=== PATIENT | female | born 1985 | race Caucasian/White ===

== ENCOUNTER → 2018-02-09 12:46 | Outpatient (CLI) | payer OTHER, SELFPAY ==
[2018-02-09 13:55] LABS: Thyroid Stim Hormone (TSH) 0.77 uIU/mL (0.358-3.74)
[2018-02-10 08:26] LABS: Progesterone Level 22.87 ng/mL (See Comment)
== END ==
PROVIDERS: Family Provider Family Medicine; PCP Family Medicine; Visit Provider Family Medicine
DX: N92.0 Excessive and frequent menstruation with regular cycle (principal); L65.9 Nonscarring hair loss, unspecified
CPT/HCPCS: 36415; 84144; 84443

== ENCOUNTER → 2018-03-01 18:05 | Outpatient (CLI) | payer OTHER, SELFPAY ==
[2018-03-01 20:56] LABS: Chlamydia Trachomatis by PCR Negative (Negative); Neisserai gonorrhoeae by PCR Negative (Negative); Probe Check PASS; Sample Adequacy Control PASS; Specimen Processing Control PASS
== END ==
PROVIDERS: Family Provider Family Medicine; PCP Family Medicine; Visit Provider Obstetrics & Gynecology
DX: Z34.90 Encounter for supervision of normal pregnancy, unspecified, unspecified trimester (principal)
CPT/HCPCS: 87086; 87088; 87491; 87591

== ENCOUNTER → 2018-03-02 11:03 | Outpatient (CLI) | payer OTHER, SELFPAY ==
[2018-03-02 12:39] LABS: Absolute Lymphocyte Count 2.06 X10^3/ul (0.83-4.51); Absolute Neutrophil Count 5.6 X10^3/uL (2.0-7.7); Basophil# 0.02 X10^3/uL; Basophil% 0.2 % (0-1); Eosinophils% 1.2 % (0-5); Hematocrit 37.7 % (37-47); Hemoglobin 12.6 g/dl (12.0-15.0); Lymphocyte # 2.06 X10^3/ul (4.0); Lymphocyte % 24.1 % (19-41); Mean Corp Hgb Conc 33.4 g/gl (32-36); Mean Corpuscular Hgb 27.5 pg (27.0-32.0); Mean Corpuscular Volume 82.1 fL (81-99); Mean Platelet Vol. 9.1 fl (6.2-12.0); Monocyte% 9.4 % (0-10); Neutrophil # 5.56 X10^3/uL (2.7-7.7); Neutrophil % 65.1 % (47-70); Platelet Count 198 K/mm3 (150-450); RBC Distribution Width CV 13.5 % (11.6-14.6); RBC Distribution Width SD 40.5 fl (35.1-43.9); Red Blood Count 4.59 M/mm3 (4.2-5.4); White Blood Count 8.5 K/mm3 (4.4-11.0)
[2018-03-02 12:42] LABS: POSITIVE COUNT NO; POSITIVE DIFFERENTIAL NO; POSITIVE MORPHOLOGY NO
[2018-03-02 13:05] LABS: Glucose Challenge Gest 1H 50g 102 mg/dL (70-140)
[2018-03-03 09:36] LABS: HIV - WCH Non-Reactive (Nonreactive); Rubella IgG 484.3 IU/mL
[2018-03-03 11:31] LABS: HEPATITIS B SURFACE AG Negative (Negative)
[2018-03-05 01:12] LABS: Rapid Plasmin Reagin (RPR) NONREACTIVE (NONREACTIVE)
== END ==
PROVIDERS: Family Provider Family Medicine; PCP Family Medicine; Visit Provider Obstetrics & Gynecology
DX: Z34.90 Encounter for supervision of normal pregnancy, unspecified, unspecified trimester (principal)
CPT/HCPCS: 36415; 82950; 85025; 86592; 86703; 86762; 86850; 86900; 87340

== ENCOUNTER → 2018-04-15 15:14 | Outpatient (CLI) | payer OTHER, SELFPAY | PROVIDERS: Family Provider Family Medicine; PCP Family Medicine; Visit Provider Obstetrics & Gynecology | DX: O09.91 Supervision of high risk pregnancy, unspecified, first trimester (principal) | CPT/HCPCS: 36415; 87086; 87088 ==

== ENCOUNTER 2018-05-15 21:59 | Emergency (ER) | payer OTHER, SELFPAY ==
[2018-05-15 22:00] VITALS: BP 114/65; PULSE 69; RESP 16; TEMP 36.4; O2SAT 99; BMI 34.4
--- NOTE | 2018-05-15 22:43 | US_ITS ---
STUDY: SECOND AND THIRD TRIMESTER OBSTETRICAL ULTRASOUND - LIMITED REASON FOR EXAM: Female, 33 years old. Determination of well-being. Evaluation of heart rate LMP: 01/07/2018 PRIOR ULTRASOUND: None. TECHNIQUE: Transabdominal ultrasound evaluation was performed. FINDINGS: The study shows a single live fetus in a breech presentation and longitudinal lie with a heart rate of 14 6 bpm. Using the LMP the gestational age is 18 weeks 2 days +/- 5 days with an expected date of delivery of 10/14/2018. The placenta is anterior in location. The cervical os is closed. US/OB Limited (No Biometrics) IMPRESSION: The fetus is in a breech presentation and longitudinal lie. heart rate of 146 bpm. The fetus, based on the LMP is currently at 18 weeks 2 days +/- 5 days with an expected date of delivery of 10/14/2018. Electronically Signed: Pepe Mcmahan, at 1:09 EDT Tel , Service support ,
--- NOTE | 2018-05-15 22:44 | ED.VISSUMM ---
- ER Visit Summary Date of Service: 05/15/18 Chief Complaint: [abdominal pain] History of Present Illness: The patient is a 33 F [who presents the emergency department with 2 days of general malaise. She is 18 weeks . She felt nauseated but cannot vomit. No appetite. Very uncomfortable. Additionally she has had some lower abdominal cramping today she had some low back pain. He does not feel like contractions to her. She is not having any vaginal bleeding or leakage of fluid. No fevers. She is complaining of increased urinary frequency and some discomfort with urination and foul-smelling dark urine. She spoke with her ONLINE CONTENT COORDINATOR today who called her in something for urinary tract infection however she was unable to get it. Patient did say she took Tums earlier today and that relieved her discomfort for some time but then it came back.] Physical Examination: [] WN WD NAD PERRL EOMI MMM NECK supple and nontender, no masses RRR no murmur rub or gallop, no peripheral edema, symmetric radial pulses CTAB no respiratory distress ABDOMEN is soft and well tenderness to palpation the right abdomen normal bowel sounds, no distension, no rebound or guarding SKIN is warm and dry no rashes Alert and Oriented x3, CN II-XII in tact, no motor or sensory deficits, gait normal No lymphadenopathy Test Results: [] Emergency Department Course and Treatment: [Labs show leukocytosis at 11.4 but other labs are completely normal including lipase and liver enzymes. Urinalysis does not appear infected. Urine culture was sent. I do not think the patient needs antibiotics at this time. I think a lot of her symptoms may be due to gastritis however this is not explain the lower abdominal pain. I did order an ultrasound which shows a closed cervix a live IUP with a heart rate of 146 in a breech lie. The patient is feeling better today we will start her on Pepcid. She was given gastritis precautions. I did also advise her to call her ONLINE CONTENT COORDINATOR tomorrow. She was invited to come back to the emergency department with any concerns. Treatment Plan: [] Disposition: [Discharge] Impression: [1. Abdominal pain and second trimester ] This note was generated with Aspidaation software. It may contain incorrect words, spelling, and punctuation that were not noted in review of the chart prior to signing ED Disposition - Plan for ED Patient: Chief Complaint: Abd Pain Referrals: Deyvi Lopez DO [Primary Care Provider] -
--- NOTE | 2018-05-15 22:48 | ED.DCSUM_ITS ---
- ER Visit Summary Date of Service: 05/15/18 Chief Complaint: [abdominal pain] History of Present Illness: The patient is a 33 F [who presents the emergency department with 2 days of general malaise. She is 18 weeks . She felt nauseated but cannot vomit. No appetite. Very uncomfortable. Additionally she has had some lower abdominal cramping today she had some low back pain. He does not feel like contractions to her. She is not having any vaginal bleeding or leakage of fluid. No fevers. She is complaining of increased urinary frequency and some discomfort with urination and foul-smelling dark urine. She spoke with her MANAGER RETIREMENT today who called her in something for urinary tract infection however she was unable to get it. Patient did say she took Tums earlier today and that relieved her discomfort for some time but then it came back.] Physical Examination: [] WN WD NAD PERRL EOMI MMM NECK supple and nontender, no masses RRR no murmur rub or gallop, no peripheral edema, symmetric radial pulses CTAB no respiratory distress ABDOMEN is soft and well tenderness to palpation the right abdomen normal bowel sounds, no distension, no rebound or guarding SKIN is warm and dry no rashes Alert and Oriented x3, CN II-XII in tact, no motor or sensory deficits, gait normal No lymphadenopathy Test Results: [] Emergency Department Course and Treatment: [Labs show leukocytosis at 11.4 but other labs are completely normal including lipase and liver enzymes. Urinalysis does not appear infected. Urine culture was sent. I do not think the patient needs antibiotics at this time. I think a lot of her symptoms may be due to gastritis however this is not explain the lower abdominal pain. I did order an ultrasound which shows a closed cervix a live IUP with a heart rate of 146 in a breech lie. The patient is feeling better today we will start her on Pepcid. She was given gastritis precautions. I did also advise her to call her MANAGER RETIREMENT tomorrow. She was invited to come back to the emergency department with any concerns. Treatment Plan: [] Disposition: [Discharge] Impression: [1. Abdominal pain and second trimester ] This note was generated with Conergyation software. It may contain incorrect words, spelling, and punctuation that were not noted in review of the chart prior to signing ED Disposition - Plan for ED Patient: Chief Complaint: Abd Pain Referrals: Deyvi Lopez DO [Primary Care Provider] -
[2018-05-15 23:09] LABS: Absolute Neutrophil Count 7.3 X10^3/uL (2.0-7.7); Basophil# 0.02 X10^3/uL; Basophil% 0.2 % (0-1); Eosinophil# 0.13 X10^3/uL; Eosinophils% 1.1 % (0-5); Hematocrit 35.7 % (37-47); Hemoglobin 12.4 g/dl (12.0-15.0); Lymphocyte % 25.5 % (19-41); Mean Corp Hgb Conc 34.7 g/gl (32-36); Mean Corpuscular Hgb 29.1 pg (27.0-32.0); Mean Corpuscular Volume 83.8 fL (81-99); Mean Platelet Vol. 9.3 fl (6.2-12.0); Monocyte# 0.95 X10^3/uL; Monocyte% 8.3 % (0-10); Neutrophil # 7.34 X10^3/uL (2.7-7.7); Neutrophil % 64.5 % (47-70); Platelet Count 206 K/mm3 (150-450); RBC Distribution Width CV 14.3 % (11.6-14.6); RBC Distribution Width SD 42.8 fl (35.1-43.9); Red Blood Count 4.26 M/mm3 (4.2-5.4); White Blood Count 11.4 K/mm3 (4.4-11.0)
[2018-05-15 23:11] LABS: Bacteria 0 SEEN /hpf (None Seen); Mucous, Urine 0 SEEN /hpf (<or=2+)
[2018-05-15 23:11] LABS: POSITIVE COUNT NO; POSITIVE DIFFERENTIAL NO; POSITIVE MORPHOLOGY NO
[2018-05-15 23:12] LABS: Color, Urine Yellow (Yellow); Glucose, Dipstick Normal (Normal); Ketone-Dipstick Negative (Negative); Leukocyte Esterase-Dipstick 25 /ul (Negative); Nitrite-Dipstick Negative (Negative); Occult Blood-Urine Negative /ul (Negative); Protein-Dipstick Negative (Negative); Urine Bilirubin Dipstick Negative (Negative); Urine Clarity Clear (Clear); Urine Urobilinogen Normal (Normal)
[2018-05-15 23:25] LABS: ALB/GLOB Ratio 0.8 RATIO (0.9-2.4); AST(SGOT) 16 U/L (15-37); Alanine Aminotransfer ALT/SGPT 25 U/L (13-56); Albumin, Serum 2.9 g/dL (3.2-5.0); Alkaline Phosphatase 109 U/L (45-117); Anion Gap 5 (5-15); BUN 8 mg/dL (7-18); BUN/Creat Ratio 12.2 RATIO (10-20); Calcium,Total 8.9 mg/dL (8.5-10.1); Chloride 107 mmol/L (98-107); Creatinine, Serum 0.66 mg/dL (0.55-1.02); EST Glomerular Filtration Rate 109 mL/min (>60); Est Glom Filt Rate - Afr Amer 132 mL/min (>60); Estimated Creatinine Clearance 98.42 ml/min; Globulin 3.8 g/dL (2.2-4.2); Glucose 81 mg/dL (74-106); Lipase 96 U/L (73-393); Potassium 3.5 mmol/L (3.5-5.1); Protein, Total 6.7 g/dL (6.4-8.2); Sodium Level 138 mmol/L (136-145)
[2018-05-15 23:27] LABS: Red Blood Cells-Urine 0-5 SEEN /hpf (0-5); Squamous Epithelial Cells - UA 0-5 SEEN /hpf (5-10); White Blood Cells 0-5 SEEN /hpf (0-5)
[2018-05-15] MEDS: Calcium Carbonate 1250 MG/5 ML PO (23:41)
[2018-05-15] MEDS: 0.9% Normal Saline 1,000 ML 1000 ML IV (23:41)
--- NOTE | 2018-05-15 23:55 | NURSING ---
PT ONLY WANTS TO TAKE THE CALCIUM CARBONATE AT THIS TIME
[2018-05-16 00:10] VITALS: PULSE 67; RESP 16; O2SAT 98
--- NOTE | 2018-05-16 01:21 | ED.DEP ---
ED Disposition - Plan for ED Patient: Chief Complaint: Abd Pain Instructions: ED Pelvic Pain Preg UKO 2 or 3 Tri Prescriptions: Famotidine [Pepcid] 20 mg PO BID #30 tablet Referrals: Sade Collins MD [STAFF PHYSICIAN] - 3-5 Days
== END 2018-05-16 01:43 | disposition home or self-care (01) ==
PROVIDERS: Emergency Provider Emergency Medicine; Family Provider Family Medicine; PCP Family Medicine
DX: O26.892 Other specified pregnancy related conditions, second trimester (principal); R10.30 Lower abdominal pain, unspecified; M54.5 Low back pain; R11.0 Nausea; O32.1XX0 Maternal care for breech presentation, not applicable or unspecified; Z3A.18 18 weeks gestation of pregnancy; Z79.82 Long term (current) use of aspirin; Z79.899 Other long term (current) drug therapy
CPT/HCPCS: 76815; 80053; 81001; 83690; 85025; 87086; 99284; J7030; A4216; J2405; J3490

== ENCOUNTER → 2018-05-20 12:30 | Outpatient (CLI) | payer OTHER, SELFPAY ==
--- NOTE | 2018-05-20 12:31 | US_ITS ---
STUDY: SECOND AND THIRD TRIMESTER OBSTETRICAL ULTRASOUND REASON FOR EXAM: Female, 33 years old. Routine survey. LMP: 01/07/2018 TECHNIQUE: Transabdominal PRIOR ULTRASOUND: 05/16/2018 FINDINGS: There is a single intrauterine fetus. The fetus is in a cephalic presentation. There is demonstrated cardiac activity with a heart rate of 136 bpm. There is a normal amniotic fluid volume. The largest amniotic fluid pocket measures 6.9 x 3.5 cm. The placenta is anterior in location and is not low lying. There are Grade 0 placental changes. The cervix measures 4.7 cm in length. The bilateral adnexal regions are normal. BIOMETRY: BPD: 4.37 cm: 19 weeks, 2 days HC: 16.65 cm: 19 weeks, 3 days AC: 14.4 cm: 19 weeks, 6 days FL: 2.82 cm: 18 weeks, 5 days age by current US: 19 weeks, 3 days. ELAINE by current US: 10/11/2018. Estimated weight: 281 grams, +/- 40 grams, 60 %. Age by LMP: 19 weeks, 0 days. ELAINE by LMP: 10/14/2018. ANATOMY: Gender: Male Cranium: Normal lateral ventricles. Normal choroid plexus. Normal cerebellum. Normal cisterna magna. Normal face, nose and lips. Chest: Normal 4-chamber heart. Abdomen/Pelvis: Normal diaphragm. Normal stomach. Normal abdominal wall. Normal cord insertion. Normal 3 vessel cord. Normal kidneys. Normal bladder. Spine: Normal cervical spine. Normal thoracic spine. Normal lumbar spine. Normal sacrum. Extremities: Normal bilateral upper extremities. Normal bilateral lower extremities. US/OB Anatomy Scan IMPRESSION: Single live intrauterine at 19 weeks, 3 days by ultrasound with ELAINE of 10/11/2018. Heart rate at 136 bpm. No suspicious sonographic findings. Electronically Signed: Jaguar Cid MD at 14:01 EDT , Service support ,
== END ==
PROVIDERS: Family Provider Family Medicine; PCP Family Medicine; Visit Provider Obstetrics & Gynecology
DX: O09.522 Supervision of elderly multigravida, second trimester (principal); Z3A.19 19 weeks gestation of pregnancy
CPT/HCPCS: 76805

== ENCOUNTER → 2018-07-09 14:56 | Outpatient (CLI) | payer OTHER, SELFPAY | PROVIDERS: Visit Provider Obstetrics & Gynecology | DX: N89.8 Other specified noninflammatory disorders of vagina (principal) | CPT/HCPCS: 87070; 87205 ==

== ENCOUNTER 2018-07-16 17:00 | Outpatient (CLI) | payer OTHER, SELFPAY ==
[2018-07-16 17:27] VITALS: BMI 36.8
--- NOTE | 2018-07-19 06:53 | OB.TRI.NOTE ---
- Problem List (1) Decreased movement Status: Acute History of Present Illness Date of Service: 07/16/18 Reason For Visit: MOVEMENT Date of Service: 07/16/18 History of Present Illness: decreased movement Allergies Sulfa (Sulfonamide Antibiotics) Allergy (Severe, Verified 07/16/18 17:51) Other hives - Pertinent Past Medical History Medical History: Past Medical History (Last Reviewed 06/23/18 @ 11:48 by Lakisha Pan) Chronic headaches (Chronic) Abnormal Pap smear of cervix Seasonal allergies Hypertension affecting (Resolved) Vitamin D deficiency (Resolved) Surgical History: Past Surgical History (Last Reviewed 06/23/18 @ 11:48 by Lakisha Pan) History of appendectomy 2001 History of section 2010 & 2012 History of tonsillectomy and adenoidectomy NST - FHR Rate Baby A Baseline: 140 Variability:: Moderate Accelerations:: 15 x 15 Decelerations:: None NST Reactive:: Yes FHR Category:: Category I Uterine Activity:: no regular Impression/Plan decreased movememnt reactive nst dc home kick counts fu as scheduled
== END 2018-07-16 18:10 | disposition home or self-care (01) ==
LOC: WPOUT 17:17 → WP 17:18
PROVIDERS: Family Provider Family Medicine; PCP Family Medicine; Visit Provider Obstetrics & Gynecology
DX: O36.8190 Decreased fetal movements, unspecified trimester, not applicable or unspecified (principal); Z3A.00 Weeks of gestation of pregnancy not specified
CPT/HCPCS: 59025; 59050; 99218; G0378

== ENCOUNTER → 2018-07-23 10:07 | Outpatient (CLI) | payer OTHER, SELFPAY ==
[2018-07-23 12:41] LABS: Glucose Challenge Gest 1H 50g 144 mg/dL (70-140)
== END ==
PROVIDERS: Family Provider Family Medicine; PCP Family Medicine; Referring Provider Obstetrics & Gynecology; Visit Provider Obstetrics & Gynecology
DX: Z34.90 Encounter for supervision of normal pregnancy, unspecified, unspecified trimester (principal)
CPT/HCPCS: 36415; 82950

== ENCOUNTER → 2018-07-30 06:59 | Outpatient (CLI) | payer OTHER, SELFPAY ==
[2018-07-30 08:17] LABS: Glucose GTT-Gestation. Fasting 79 mg/dL (<105)
[2018-07-30 09:38] LABS: Glucose GTT-Gestational 1 Hr 142 mg/dL (<190)
[2018-07-30 11:14] LABS: Glucose GTT-Gestational 2 Hr 167 mg/dL (<165)
[2018-07-30 11:20] LABS: Glucose GTT-Gestational 3 Hr 131 L (<145)
== END ==
PROVIDERS: Family Provider Family Medicine; PCP Family Medicine; Referring Provider Obstetrics & Gynecology; Visit Provider Obstetrics & Gynecology
DX: O99.810 Abnormal glucose complicating pregnancy (principal); Z3A.00 Weeks of gestation of pregnancy not specified
CPT/HCPCS: 36415; 82951; 82952

== ENCOUNTER 2018-08-08 14:00 | Outpatient (CLI) | payer OTHER, SELFPAY ==
[2018-08-08 14:14] VITALS: BMI 37.3
[2018-08-08 14:38] LABS: ROM Internal Control Test YES-OK TO RESULT pt. (Internal QC); ROM Patient Test Negative (Negative)
--- NOTE | 2018-08-09 21:31 | OB.TRI.NOTE ---
- Problem List (1) False labor Status: Acute History of Present Illness Date of Service: 08/09/18 Was patient seen by the physician?: No Reason For Visit: R/O ROM History of Present Illness: false labor co ctx Allergies Sulfa (Sulfonamide Antibiotics) Allergy (Severe, Verified 08/08/18 14:16) Other hives - Pertinent Past Medical History Medical History: Past Medical History (Last Reviewed 08/06/18 @ 10:10 by Virginia Gonzalez) Chronic headaches (Chronic) Abnormal Pap smear of cervix Seasonal allergies Hypertension affecting (Resolved) Vitamin D deficiency (Resolved) Surgical History: Past Surgical History (Last Reviewed 08/06/18 @ 10:10 by Virginia Gonzalez) History of appendectomy 2001 History of section 2010 & 2012 History of tonsillectomy and adenoidectomy Laboratory Studies: Laboratory Tests 08/08/18 Range/Units 14:10 Vag Amniotic Fld Detect Negative (Negative) NST - FHR Rate Baby A Baseline: 140 Variability:: Moderate Accelerations:: 15 x 15 Decelerations:: None NST Reactive:: Yes FHR Category:: Category I Uterine Activity:: irregular Impression/Plan False labor no cervical change reactive NST DC home labor precautions
== END 2018-08-08 15:00 | disposition home or self-care (01) ==
LOC: WPOUT 14:10 → WP 14:10
PROVIDERS: Family Provider Family Medicine; PCP Family Medicine; Referring Provider Obstetrics & Gynecology; Visit Provider Obstetrics & Gynecology
DX: O47.9 False labor, unspecified (principal); Z3A.00 Weeks of gestation of pregnancy not specified
CPT/HCPCS: 59025; 59050; 84112; 99218; G0378

== ENCOUNTER → 2018-08-12 15:44 | Outpatient (CLI) | payer OTHER, SELFPAY | PROVIDERS: Family Provider Family Medicine; PCP Family Medicine; Referring Provider Nurse Practitioner Women's Health; Visit Provider Nurse Practitioner Women's Health | DX: N39.0 Urinary tract infection, site not specified (principal) | CPT/HCPCS: 87086; 87088 ==

== ENCOUNTER 2018-08-29 09:30 | Outpatient (CLI) | payer OTHER, SELFPAY ==
[2018-08-29 10:58] VITALS: BMI 38.4
--- NOTE | 2018-09-06 21:17 | OB.TRI.NOTE ---
- Problem List (1) Decreased movement Status: Acute History of Present Illness Date of Service: 08/29/18 Was patient seen by the physician?: No Reason For Visit: DFM History of Present Illness: co decreased movement Allergies Sulfa (Sulfonamide Antibiotics) Allergy (Severe, Verified 09/02/18 10:10) Other hives - Pertinent Past Medical History Medical History: Past Medical History (Last Reviewed 09/02/18 @ 10:11 by Virginia Gonzalez) Chronic headaches (Chronic) Abnormal Pap smear of cervix Seasonal allergies Hypertension affecting (Resolved) Vitamin D deficiency (Resolved) Surgical History: Past Surgical History (Last Reviewed 09/02/18 @ 10:11 by Virginia Gonzalez) History of appendectomy 2001 History of section 2010 & 2012 History of tonsillectomy and adenoidectomy NST - FHR Rate Baby A Baseline: 135 Variability:: Moderate Accelerations:: 15 x 15 Decelerations:: None NST Reactive:: Yes FHR Category:: Category I Uterine Activity:: no regular Impression/Plan decreased movement- reactive nst reassuring status dc home kick counts
== END 2018-08-29 11:10 | disposition home or self-care (01) ==
LOC: WPOUT 08-30 09:18 → WP 08-31 08:19
PROVIDERS: Family Provider Family Medicine; PCP Family Medicine; Visit Provider Obstetrics & Gynecology
DX: O36.8190 Decreased fetal movements, unspecified trimester, not applicable or unspecified (principal); O34.219 Maternal care for unspecified type scar from previous cesarean delivery; Z3A.00 Weeks of gestation of pregnancy not specified
CPT/HCPCS: 59025; 59050; 99218; G0378

== ENCOUNTER → 2018-09-09 13:26 | Outpatient (CLI) | payer OTHER, SELFPAY ==
[2018-09-09 09:35] VITALS: BMI 37.9
--- NOTE | 2018-09-09 13:27 | US_ITS ---
STUDY: SECOND AND THIRD TRIMESTER OBSTETRICAL ULTRASOUND - LIMITED REASON FOR EXAM: Female, 33 years old. Evaluate for growth. LMP: January 07, 2018. PRIOR ULTRASOUND: May 20, 2018. TECHNIQUE: Transabdominal TECHNICAL QUALITY: Adequate. FINDINGS: There is a single intrauterine fetus. The fetus is in a cephalic presentation. There is demonstrated cardiac activity with a heart rate of 139 bpm. There is a normal amniotic fluid volume. The largest amniotic fluid pocket measures 5.2 cm. The amniotic fluid index (BRODY) is 16.5 cm. The placenta is anterior in location and is not low lying. There are Grade 1 placental changes. The cervix measures greater than 3.5 cm in length. BIOMETRY: BPD: 8.7 cm: 35 weeks, 1 days HC: 32.3 cm: 36 weeks, 4 days AC: 33.1 cm: 37 weeks, 0 days FL: 6.9 cm: 35 weeks, 2 days Age by LMP: 35 weeks, 0 days. ELAINE by LMP: October 14, 2018. age by prior US: 35 weeks, 3 days. ELAINE by prior US: October 11, 2018. age by current US: 36 weeks, 0 days. ELAINE by current US: October 07, 2018. Estimated weight: 2893 grams, +/- 422 grams, 82 percentile. Gender: Indeterminant US/OB Limited With Biometrics IMPRESSION: Single living intrauterine gestation with estimated gestational age by size of 36 weeks 0 days. There has been greater than predicted interval growth since previous OB ultrasound. Electronically Signed: Chikis Swift MD at 5:30 EST , Service support ,
== END ==
PROVIDERS: Family Provider Family Medicine; PCP Family Medicine; Referring Provider Obstetrics & Gynecology; Visit Provider Obstetrics & Gynecology
DX: O34.219 Maternal care for unspecified type scar from previous cesarean delivery (principal); Z3A.00 Weeks of gestation of pregnancy not specified
CPT/HCPCS: 76816

== ENCOUNTER → 2018-09-15 17:33 | Outpatient (CLI) | payer OTHER, SELFPAY ==
[2018-09-15 10:21] VITALS: BMI 37.9
== END ==
PROVIDERS: Family Provider Family Medicine; PCP Family Medicine; Referring Provider Nurse Practitioner Women's Health; Visit Provider Nurse Practitioner Women's Health
DX: Z34.90 Encounter for supervision of normal pregnancy, unspecified, unspecified trimester (principal)
CPT/HCPCS: 87081

== ENCOUNTER → 2018-09-24 10:42 | Outpatient (CLI) | payer OTHER, SELFPAY ==
[2018-09-24 10:04] VITALS: BMI 37.9
[2018-09-24 11:09] LABS: ROM Internal Control Test YES-OK TO RESULT pt. (Internal QC); ROM Patient Test Negative (Negative)
--- OUTSIDE RECORDS SUMMARY | 2018-11-19 06:50 | XMS RPT_ITS ---
:1985 Author Organization OHIP Support Name Relationship Address Phone DANIEL PINEDA Unavailable [address] + [place] [address] SIEDEL, MANUEL Unavailable [address] + [place] [address] WC Unavailable [address] + [place] [address] DANIEL PINEDA Unavailable [address] + [place] [address] SIEDEL, MANUEL Unavailable [address] + [place] [address] WC Unavailable [address] + [place] [address] DANIEL PINEDA Unavailable [address] + [place] [address] SIEDEL, MANUEL Unavailable [address] + [place] [address] [facility] Unavailable [address] + [place] [address] DANIEL PINEDA Unavailable [address] + [place] [address] SIEDEL, MANUEL Unavailable [address] + [place] [address] [facility] Unavailable [address] + [place] [address] DANIEL PINEDA Unavailable [address] + [place] [address] SIEDEL, MANUEL Unavailable [address] + [place] [address] [facility] Unavailable [address] + [place] [address] DANIEL PINEDA Unavailable [address] + [place] [address] SIEDEL, MANUEL Unavailable [address] + [place] [address] [facility] Unavailable [address] + [place] [address] DANIEL PINEDA Unavailable [address] + [place] [address] SIEDEL, MANUEL Unavailable [address] + [place] [address] [facility] Unavailable [address] + [place] [address] DANIEL PINEDA Unavailable [address] + [place] [address] SIEDEL, MANUEL Unavailable [address] + [place] [address] [facility] Unavailable [address] + [place] [address] DANIEL PINEDA Unavailable [address] + [place] [address] SIEDEL, MANUEL Unavailable [address] + [place] [address] [facility] Unavailable [address] + [place] [address] DANIEL PINEDA Unavailable [address] + [place] [address] SIEDEL, MANUEL Unavailable [address] + [place] [address] [facility] Unavailable [address] + [place] [address] DANIEL PINEDA Unavailable [address] + [place] [address] SIEDEL, MANUEL Unavailable [address] + [place] [address] [facility] Unavailable [address] + [place] [address] DANIEL PINEDA Unavailable [address] + [place] [address] SIEDEL, MANUEL Unavailable [address] + [place] [address] [facility] Unavailable [address] + [place] [address] DANIEL PINEDA Unavailable [address] + [place] [address] SIEDEL, MANUEL Unavailable [address] + [place] [address] [facility] Unavailable [address] + [place] [address] DANIEL PINEDA Unavailable [address] + [place] [address] SIEDEL, MANUEL Unavailable [address] + [place] [address] [facility] Unavailable [address] + [place] [address] DANIEL PINEDA Unavailable [address] + [place] [address] SIEDEL, MANUEL Unavailable [address] + [place] [address] [facility] Unavailable [address] + [place] [address] DANIEL PINEDA Unavailable [address] + [place] [address] SIEDEL, MANUEL Unavailable [address] + [place] [address] [facility] Unavailable [address] + [place] [address] DANIEL PINEDA Unavailable [address] + [place] [address] SIEDEL, MANUEL Unavailable [address] + [place] [address] [facility] Unavailable [address] + [place] [address] DANIEL PINEDA Unavailable [address] + [place] [address] SIEDEL, MANUEL Unavailable [address] + [place] [address] [facility] Unavailable [address] + [place] [address] DANIEL PINEDA Unavailable [address] + [place] [address] SIEDEL, MANUEL Unavailable [address] + [place] [address] [facility] Unavailable [address] + [place] [address] DANIEL PINEDA Unavailable [address] + [place] [address] SIEDEL, MANUEL Unavailable [address] + [place] [address] [facility] Unavailable [address] + [place] [address] DANIEL PINEDA Unavailable [address] + [place] [address] SIEDEL, MANUEL Unavailable [address] + [place] [address] [facility] Unavailable [address] + [place] [address] DANIEL PINEDA Unavailable [address] + [place] [address] SIEDEL, MANUEL Unavailable [address] + [place] [address] [facility] Unavailable [address] + [place] [address] DANIEL PINEDA Unavailable Unavailable + [place] [address] SIEDEL, MANUEL Unavailable [address] + [place] [address] [facility] Unavailable [address] + [place] [address] DANIEL PINEDA Unavailable . + [place] [address] SIEDEL, MANUEL Unavailable [address] + [place] [address] [facility] Unavailable [address] + [place] [address] DANIEL PINEDA Unavailable [address] + [place] [address] SIEDEL, MANUEL Unavailable [address] + [place] [address] [facility] Unavailable [address] + [place] [address] DANIEL PINEDA Unavailable Unavailable + [place] [address] SIEDEL, MANUEL Unavailable [address] + [place] [address] [facility] Unavailable [address] + [place] [address] DANIEL PINEDA Unavailable Unavailable + [place] [address] SIEDEL, MANUEL Unavailable [address] + [place] [address] [facility] Unavailable [address] + [place] [address] DANIEL PINEDA Unavailable . + [place] [address] SIEDEL, MANUEL Unavailable [address] + [place] [address] [facility] Unavailable [address] + [place] [address] DANIEL PINEDA Unavailable . + [place] [address] SIEDEL, MANUEL Unavailable [address] + [place] [address] [facility] Unavailable [address] + [place] [address] DANIEL PINEDA Unavailable . + [place] [address] SIEDEL, MANUEL Unavailable [address] + [place] [address] [facility] Unavailable [address] + [place] [address] DANIEL PINEDA Unavailable Unavailable + [place] [address] SIEDEL, MANUEL Unavailable [address] + [place] [address] [facility] Unavailable [address] + [place] [address] DANIEL PINEDA Unavailable [address] + [place] [address] SIEDEL, MANUEL Unavailable [address] [facility] [address] + [place] [address] [facility] Unavailable [address] + [place] [address] DANIEL PINEDA Unavailable [address] + [place] [address] SIEDEL, MANUEL Unavailable [address] + [place] [address] [facility] Unavailable [address] + [place] [address] DANIEL PINEDA Unavailable [address] + [place] [address] SIEDEL, MANUEL Unavailable [address] + [place] [address] [facility] Unavailable [address] + [place] [address] DANIEL PINEDA Unavailable [address] + [place] [address] SIEDEL, MANUEL Unavailable [address] + [place] [address] [facility] Unavailable [address] + [place] [address] DANIEL PINEDA Unavailable [address] + [place] [address] SIEDEL, MANUEL Unavailable [address] + [place] [address] [facility] Unavailable [address] + [place] [address] DANIEL PINEDA Unavailable [address] + [place] [address] SIEDEL, MANUEL Unavailable [address] + [place] [address] [facility] Unavailable [address] + [place] [address] DANIEL PINEDA Unavailable [address] + [place] [address] SIEDEL, MANUEL Unavailable [address] + [place] [address] [facility] Unavailable [address] + [place] [address] DANIEL PINEDA Unavailable [address] + [place] [address] SIEDEL, MANUEL Unavailable [address] [facility] [address] + [place] [address] [facility] Unavailable [address] + [place] [address] DANIEL PINEDA Unavailable [address] + [place] [address] SIEDEL, MANUEL Unavailable [address] [facility] [address] + [place] [address] [facility] Unavailable [address] + [place] [address] DANIEL PINEDA Unavailable [address] + [place] [address] SIEDEL, MANUEL Unavailable [address] + [place] [address] [facility] Unavailable [address] + [place] [address] DANIEL PINEDA Unavailable [address] + [place] [address] SIEDEL, MANUEL Unavailable [address] + [place] [address] [facility] Unavailable [address] + [place] [address] DANIEL PINEDA Unavailable [address] + [place] [address] SIEDEL, MANUEL Unavailable [address] [facility] [address] + [place] [address] [facility] Unavailable [address] + [place] [address] DANIEL PINEDA Unavailable [address] + [place] [address] SIEDEL, MANUEL Unavailable [address] + [place] [address] [facility] Unavailable [address] + [place] [address] DANIEL PINEDA Unavailable [address] + [place] [address] SIEMALACHI, MANUEL Unavailable [address] + [place] [address] [facility] Unavailable [address] + [place] [address] DANIEL PINEDA Unavailable [address] + [place] [address] YOEL, MANUEL Unavailable [address] + [place] [address] [facility] Unavailable [address] + [place] [address] Care Team Providers Name Role Phone Sade Collins Admitting Unavailable Pavelanthony, Sade Attending Unavailable Marcanthony, Sade Referring Unavailable Brown, Deyvi Primary Care Unavailable Marcanthony, Sade Consulting Unavailable Marcanthony, Sade Admitting Unavailable CrossvilleKaren Attending Unavailable Marcanthony, Sade Referring Unavailable Marcanthony, Sade Consulting Unavailable Marcanthony, Sade Admitting Unavailable KarinaJanessay Attending Unavailable Marcanthony, Sade Referring Unavailable Brown, Deyvi Primary Care Unavailable Marcanthony, Sade Consulting Unavailable Isac Guzman Attending Unavailable Brown, Deyvi Referring Unavailable Brown, Deyvi Primary Care Unavailable Brown, Deyvi Attending Unavailable Brown, Deyvi Referring Unavailable Brown, Deyvi Primary Care Unavailable Brown, Deyvi Attending Unavailable Brown, Deyvi Referring Unavailable Brown, Deyvi Primary Care Unavailable Mark Corbin Attending Unavailable Brown, Deyvi Referring Unavailable Brown, Deyvi Primary Care Unavailable MarcanthonySade Attending Unavailable Brown, Deyvi Referring Unavailable Brown, Deyvi Primary Care Unavailable Marcanthony, Sade Attending Unavailable Brown, Deyvi Primary Care Unavailable Marcanthony, Sade Attending Unavailable Brown, Deyvi Primary Care Unavailable Marcanthony, Sade Attending Unavailable Brown, Deyvi Referring Unavailable KarinaJanessay Attending Unavailable Brown, Deyvi Referring Unavailable Brown, Deyvi Primary Care Unavailable Marcanthony, Sade Attending Unavailable Brown, Deyvi Referring Unavailable Brown, Deyvi Primary Care Unavailable Marcanthony, Sade Attending Unavailable Marcanthony, Sade Referring Unavailable Brown, Deyvi Primary Care Unavailable Marcanthony, Sade Attending Unavailable Brown, Deyvi Referring Unavailable Brown, Deyvi Primary Care Unavailable ASSESSMENT, HEALTH RISK Attending Unavailable ASSESSMENT, HEALTH RISK Referring Unavailable Brown, Deyvi Primary Care Unavailable Brown, Deyvi Attending Unavailable Brown, Deyvi Referring Unavailable Brown, Deyvi Primary Care Unavailable Brown, Deyvi Primary Care Unavailable ChulaCeci Attending Unavailable Marcanthony, Sade Attending Unavailable Marcanthony, Sade Referring Unavailable Brown, Deyvi Primary Care Unavailable Karina, Karen Attending Unavailable Brown, Deyvi Referring Unavailable Brown, Deyvi Primary Care Unavailable Marcanthony, Sade Attending Unavailable Brown, Deyvi Referring Unavailable Brown, Deyvi Primary Care Unavailable Marcanthony, Sade Attending Unavailable Brown, Deyvi Referring Unavailable Brown, Deyvi Primary Care Unavailable Marcanthony, Sade Attending Unavailable Marcanthony, Sade Referring Unavailable Marcanthony, Sade Attending Unavailable Marcanthony, Sade Referring Unavailable Brown, Deyvi Primary Care Unavailable Marcanthony, Sade Attending Unavailable Marcanthony, Sade Referring Unavailable Brown, Deyvi Primary Care Unavailable Marcanthony, Sade Consulting Unavailable Marcanthony, Sade Attending Unavailable Brown, Deyvi Referring Unavailable Marcanthony, Sade Attending Unavailable Marcanthony, Sade Referring Unavailable Brown, Deyvi Primary Care Unavailable Marcanthony, Sade Attending Unavailable Marcanthony, Sade Referring Unavailable Brown, Deyvi Primary Care Unavailable Marcanthony, Sade Attending Unavailable Brown, Deyvi Referring Unavailable Marcanthony, Sade Attending Unavailable Marcanthony, Sade Referring Unavailable Brown, Deyvi Primary Care Unavailable Marcanthony, Sade Attending Unavailable Marcanthony, Sade Referring Unavailable Brown, Deyvi Primary Care Unavailable Marcanthony, Sade Consulting Unavailable [place], Karen Attending Unavailable Brown, Deyvi Referring Unavailable Karina, Karen Attending Unavailable [place], Karen Referring Unavailable Brown, Deyvi Primary Care Unavailable Marcanthony, Sade Attending Unavailable Brown, Deyvi Referring Unavailable Marcanthony, Sade Admitting Unavailable Marcanthony, Sade Attending Unavailable Brown, Deyvi Primary Care Unavailable Marcanthony, Sade Attending Unavailable Brown, Deyvi Referring Unavailable Marcanthony, Sade Attending Unavailable Brown, Deyvi Primary Care Unavailable Marcanthony, Sade Consulting Unavailable Marcanthony, Sade Attending Unavailable Marcanthony, Sade Referring Unavailable Brown, Deyvi Primary Care Unavailable [place], Karen Attending Unavailable Brown, Deyvi Referring Unavailable Brown, Deyvi Attending Unavailable Brown, Deyvi Referring Unavailable Karina, Karen Attending Unavailable Brown, Deyvi Referring Unavailable [place], Karen Attending Unavailable [place], Karen Referring Unavailable Brown, Deyvi Primary Care Unavailable Marcanthony, Sade Attending Unavailable Brown, Deyvi Referring Unavailable Marcanthony, Sade Attending Unavailable Marcanthony, Sade Admitting Unavailable Marcanthony, Sade Attending Unavailable Marcanthony, Sade Referring Unavailable Brown, Deyvi Primary Care Unavailable Marcanthony, Sade Attending Unavailable Brown, Deyvi Referring Unavailable PROBLEMS PROBLEMS DATE TYPE CONDITION / CODE ATTENDING STATUS SOURCE 10/11/2018 Unknown G89.18 - Other acute Marcanthony, Active [facility] postprocedural pain / [facility] G89.18(ICD-10) Hospital Repository 10/01/2018 Unknown O09.299 - Supervision Marcanthony, Active [place] of with [facility] reproductive or Repository obstetric history, unspecified trimester / O09.299(ICD-10) 10/01/2018 Unknown O34.219 - Maternal Marcanthony, Active [facility] care for unspecified [facility] type scar from Hospital previous Repository delivery / O34.219(ICD-10) 10/01/2018 Unknown O09.90 - Supervision Marcanthony, Active [place] of high risk [facility] , Hospital unspecified, Repository unspecified trimester / O09.90(ICD-10) 10/01/2018 Unknown O09.523 - Supervision Marcanthony, Active [place] of elderly [facility] multigravida, third Hospital trimester / Repository O09.523(ICD-10) 10/01/2018 Unknown O99.810 - Abnormal Marcanthony, Active [facility] glucose complicating [facility] / Hospital O99.810(ICD-10) Repository 10/01/2018 Unknown O99.340 - Other Marcanthony, Active [place] mental disorders [facility] complicating Hospital , Repository unspecified trimester / O99.340(ICD-10) 10/01/2018 Unknown F41.9 - Anxiety Marcanthony, Active [place] disorder, unspecified [facility] / F41.9(ICD-10) Hospital Repository 10/01/2018 Unknown Z3A.38 - 38 weeks Marcanthony, Active [facility] gestation of [facility] / Hospital Z3A.38(ICD-10) Repository 09/24/2018 Unknown Z34.90 - Encounter Marcanthony, Active [place] for supervision of [facility] normal , Hospital unspecified, Repository unspecified trimester / Z34.90(ICD-10) 09/15/2018 Unknown R51 - Headache / Karina, Karen Active [place] R51(ICD-10) [facility] Hospital Repository 09/15/2018 Unknown Z3A.36 - 36 weeks [place], Karen Active [facility] gestation of Community / Hospital Z3A.36(ICD-10) Repository 08/25/2018 Unknown N39.0 - Urinary tract Karina, Karen Active [facility] infection, site not Community specified / Hospital N39.0(ICD-10) Repository 08/25/2018 Unknown N30.00 - Acute Karina, Karen Active [facility] cystitis without Community hematuria / Hospital N30.00(ICD-10) Repository 07/20/2018 Unknown Z68.41 - Body mass Marcanthony, Active [place] index (BMI) [facility] 40.0-44.9, adult / Hospital Z68.41(ICD-10) Repository 07/10/2018 Unknown N89.8 - Other Marcanthony, Active [facility] specified [facility] noninflammatory Hospital disorders of vagina / Repository N89.8(ICD-10) 06/24/2018 Unknown O09.91 - Supervision Karina, Active [place] of high risk [facility] , Hospital unspecified, first Repository trimester / O09.91(ICD-10) 05/28/2018 Unknown Z3A.20 - 20 weeks [place], Karen Active [place] gestation of Community / Hospital Z3A.20(ICD-10) Repository 05/05/2018 Unknown Z00.00 - Encounter Brown, Deyvi Active [place] for general adult [facility] medical examination Hospital without abnormal Repository findings / Z00.00(ICD-10) 04/15/2018 Unknown R10.9 - Unspecified Marcanthony, Active [place] abdominal pain / [facility] R10.9(ICD-10) Hospital Repository 02/04/2018 Unknown N92.0 - Excessive and Brown, Deyvi Active [place] frequent menstruation [facility] with regular cycle / Hospital N92.0(ICD-10) Repository 02/04/2018 Unknown L65.9 - Nonscarring Brown, Deyvi Active [place] hair loss, Community unspecified / Hospital L65.9(ICD-10) Repository PROCEDURES PROCEDURES No Procedure Records FoundRESULTS RESULTS DISCHARGE INSTRUCTION Observed: 10/09/2018 Status: F Source: [place] 8:52 AM [facility] REPOSITORY [facility] Medical Records Department [address] [place] [address] Instructions for Home/Discharge Instructions 10/09/18 0852 MR#: [id number] Acct: [id number] Name: MCKENZIE [place]O Rep #: [id number] : 1985 33 From: Karen Collins [employer] PCP: Deyvi Lopez DO Status: ADM IN Additional Instructions: If you experience any of the following, contact your healthcare provider. * Bleeding that soaks a pad every hour for 2 hours * Fever 100.4 or higher * Unrelieved incision or abdominal pain * Swelling, redness, discharge or bleeding from your incision or episiotomy site * Your incision begins to separate * Problems urinating (including inability to urinate or burning while urinating). * Visual changes * Severe headache * Flu-like symptoms * Pain or redness in one of both of your breasts * Pain, warmth, tenderness or swelling in your legs, especially the calf area * Frequent nausea and vomiting * Symptoms of depression or anxiety If you experience any of the following, call 911 or go to the nearest Emergency Room. * Chest pain * Problems breathing * Seizure activity * Partial or complete paralysis of a body part, slurred speech, weakness or drooping of the face, or a sudden inability to walk or hold your balance Allergies/Adverse Reactions: Allergies Sulfa (Sulfonamide Antibiotics) Allergy (Severe, Verified 10/05/18 09:31) Other hives Medications to take at Discharge vitamin,calcium,dqidtrcd-woxd-sdqaz acid tablet 1 tab PO QDAY 03/01/18 Aspirin [Aspirin, Baby] 81 mg PO DAILY 05/15/18 Citalopram Hydrobromide [Citalopram HBr] 40 mg PO QDAY 10/05/18 Naproxen [Naprosyn] 500 mg PO BID PRN PRN #60 tablet 10/09/18 Oxycodone HCl/Acetaminophen [Percocet 5/325] 1 - 2 tablet PO Q4H PRN PRN 3 Days #15 tablet 10/09/18 The following prescriptions were given: Oxycodone HCl/Acetaminophen [Percocet 5/325] 1 - 2 tablet PO Q4H PRN PRN 3 Days #15 tablet PRN Reason: Pain Naproxen [Naprosyn] 500 mg PO BID PRN PRN #60 tablet PRN Reason: Pain Follow-Up: Call to make an appointment with your doctor for an incision check in 1-2 weeks. You will also need a 6 week post- follow up appointment. Test results from this visit will be discussed in further detail at your follow-up appointment, if applicable. Primary Care Physician: Deyvi Lopez DO [Primary Care Provider] - 10/09/18 0852 <Electronically signed by Karen CAMPOS> Date Karen CAMPOS CC: Deyvi Lopez DO CBC-COMPLETE BLOOD CNT Collected: 10/08/2018 Status: F Source: [place] NO DIFF 8:05 AM [facility] [place] REPOSITORY Order Comment: Comments: Day #1 Reason for Laboratory Test TYPE CODE TESTS RESULT OUT OF RANGE REFERENCE UNITS LAB L100.1000 4.4-11.0 K/mm3 Normal WBC 9.2 LAB L100.1200 4.2-5.4 M/mm3 Low RBC 3.91 LAB L100.1300 12.0-15.0 g/dl Low HGB 11.1 LAB L100.1400 37-47 % Low HCT 32.7 LAB L100.1500 81-99 fL Normal MCV 83.6 LAB L100.1600 27.0-32.0 pg Normal MCH 28.4 LAB L100.1700 32-36 g/gl Normal MCHC 33.9 LAB L100.1810 11.6-14.6 % High RDW CV 15.0 LAB L100.1820 35.1-43.9 fl High RDW SD 45.6 LAB L100.1900 150-450 K/mm3 Normal PLT 151 LAB L100.2000 6.2-12.0 fl Normal MPV 10.3 Performed By: #### L100.0500 #### [facility] [address] [place], [place], [id number] OPERATIVE REPORT Observed: 10/07/2018 Status: F Source: [place] 3:39 PM [facility] [place] REPOSITORY [facility] Medical Records Department [address] [place] [address] Operative Report 10/07/18 1536 MR#: [id number] Acct: [id number] Name: MCKENZIE DIALLO Rep #: [id number] : 1985 33 From: Sade Collins MD PCP: Deyvi Lopez, DO Status: ADM IN Y [facility] Problem List (1) Abnormal glucose affecting Status: Acute Comment: 1 hour 144. nl 3 hour gtt (2) Advanced maternal age (AMA) in Status: Acute Comment: genetic counseling options reviewed- normal NIPT (3) Anxiety during Status: Acute Comment: celexa, counseled regarding risks of medication, counseling encouraged (4) History of pre-eclampsia in prior , currently Status: Acute Comment: baseline labs, baby aspirin at 14 weeks (5) Status: Acute Qualifiers: Comment: nl NIPT, carrier and ntd screening declined. normal anatomy scan. (6) Previous delivery affecting , antepartum Status: Acute Comment: x2, planning RLTCS and BTL. declines . (7) Supervision of high risk multigravida in third trimester in patient 35 years or older at time of delivery Status: Acute Comment: PRR ELAINE 10/14/18 Boy AMADA Bendere Oscar Manuel Report of Operation Date of Procedure: 10/07/18 Pre-Operative Diagnosis: prev c section and sterilization Post-Operative Diagnosis: same Surgery/Procedure Performed:: rltcs btl Description of Surgical Findings:: nl uterus tubes ovaries scheme technician: tiago quarles Type of Anesthesia:: Spinal Special Medications: none Specimen's removed: male vertex Drains: staples Estimated Blood Loss (mL): 800 Fluids Replaced: crystalloid Description of Procedure: The patient is a [ ] presented for [repeat] . Spinal anesthesia was placed without difficulty. Staples catheter was placed. The patient was placed in the dorsal supine position with leftward tilt. Patient was prepped and draped in the normal sterile fashion. Pfannenstiel skin incision was made with the scalpel and carried through to the underlying layer of fascia with the scalpel. Fascia was nicked in the midline and the incision extended laterally. The rectus bellies were dissected off superiorly and inferiorly with out complication both sharply and bluntly. The peritoneum was entered digitally. The incision was stretched and a low transverse uterine incision was made with the scalpel. The 's head was delivered atraumatically followed by the anterior and posterior shoulders without complication the rest of the delivered. The cord was clamped and cut and the infant was handed off to awaiting nurse. The placenta was delivered spontaneously immediately following and was noted to be intact and have a three-vessel cord. The uterus was exteriorized cleared of all clots and debris, and the incision was closed in a single layer closure using #1 Monocryl. bilateral fallopian tubes were transected via parkland method using 2-0 plain gut.The uterus was returned to the maternal abdomen and gutters were cleared of all clots and debris. The ovaries and fallopian tubes were noted to be within normal limits. The peritoneum was closed with 3-0 Monocryl in a running fashion. Fascia was closed with 0 PDS in a running fashion. Subcutaneous tissue was copiously irrigated and the skin was closed with 3-0 Monocryl in a subcuticular fashion. Mepilex dressing was applied without complication. Patient was taken to recovery in stable condition. Grafts/Implants Used: none - Complications none 10/07/18 1539 <Electronically signed by Sade Collins MD> Date Sade Collins MD CC: Deyvi Lopez DO; Sade Collins MD Signed PATHOLOGY SPECIMEN OB Collected: 10/07/2018 Status: F Source: [place] 8:00 AM [facility] REPOSITORY Order Comment: Comments: STITCH IN LEFT TUBE Send Specimen For (Specify): Studies @ [facility] Lab:Routine Time of Procedure: 749 Date of Procedure: 10/07/18 Reason specimen being sent to pathology (Hx/complications): FALLOPIAN TUBES Type of specimen: Fallopian Tube Type of procedure performed: Tubal Ligation TYPE CODE TESTS RESULT OUT OF RANGE REFERENCE UNITS LAB L350.1800 SEE Normal PATH. PATHOLOGY Spec. OB REPORT Result Comment: Specimen submitted to Anatomical Pathology Department for testing. Performed By: #### L350.1800 #### [facility] [address] [place], [address] FALLOPIAN TUBES/STERILIZATION Observed: 10/07/2018 Status: F Source: [place] 7:50 AM [facility] [place] REPOSITORY Patient: MCKENZIE DIALLO : 1985 (33/F) Acct Num: [id number] Phys: Karina COREA,Sade Unit Num: [id number] Loc: [id number] Specimen: [id number] Received: 10/07/18 - 1014 Spec Type: FALL TUBES TISSUES 1 TISSUES: Fallopian tube GROSS DESCRIPTION Received is one container labeled with the patient's name and designated bilateral fallopian tubes, stitch left tube. The specimen consists of two tubular pieces of juan soft tissue with the left tube identified with a suture and inked black. The right fallopian tube measures 1 cm in length and 0.6 cm in diameter. The left fallopian tube measures 2 cm in length and 0.6 cm in diameter. The entire specimen is submitted in one cassette. Both pieces will be sectioned at the time of embedding. / ANKUSH:montez 10/07/18 TC:4 CPT: 24327 x2 HEADER OPERATION: Tubal ligation PRE-OP DIAGNOSIS: Tubal ligation TISSUE SUBMITTED: Fallopian tubes, stitch in left tube MICROSCOPIC DESCRIPTION Slides are reviewed. MICROSCOPIC DIAGNOSIS Bilateral fallopian tubes, tubal ligation: Completely transected segments of bilateral fallopian tubes, no pathologic diagnosis. SJ:montez 10/08/18 Signed Emanuel Cartagena 10/08/18 <signature on file> Performed By: #### PFALS #### [facility] [address] [place], [place], [address] HISTORY AND PHYSICAL Observed: 10/07/2018 Status: F Source: [place] EXAM 1:54 AM [facility] [place] REPOSITORY [facility] Medical Records Department [address] [place] [address] History and Physical 10/07/18 0153 MR#: [id number] Acct: [id number] Name: MCKENZIE DIALLO Rep #: [id number] : 1985 33 From: Sade Collins MD PCP: Deyvi Lopez, DO Status: PRE IN Y Location: WP - Problem List (1) Abnormal glucose affecting Status: Acute Comment: 1 hour 144. nl 3 hour gtt (2) Advanced maternal age (AMA) in Status: Acute Comment: genetic counseling options reviewed- normal NIPT (3) Anxiety during Status: Acute Comment: celexa, counseled regarding risks of medication, counseling encouraged (4) History of pre-eclampsia in prior , currently Status: Acute Comment: baseline labs, baby aspirin at 14 weeks (5) Status: Acute Qualifiers: Comment: nl NIPT, carrier and ntd screening declined. normal anatomy scan. (6) Previous delivery affecting , antepartum Status: Acute Comment: x2, planning RLTCS and BTL. declines . (7) Supervision of high risk multigravida in third trimester in patient 35 years or older at time of delivery Status: Acute Comment: PRR ELAINE 10/14/18 Boy PC Yann Galiciaer Manuel History and Physical Date of Admission: 10/07/18 Intake Vital Signs 10/01/18 Body Mass Index (BMI) 37.9 10/01/18 Height 5 ft 3 in 10/01/18 Weight: 219 lb 10/01/18 Body Mass Index (BMI) 38.7 10/01/18 Blood Pressure 130/80 H Intake Visit Reasons: est ob 38 weeks Chief Complaint: est ob Traffic Checker Required: No Is patient in pain?: No Allergies Sulfa (Sulfonamide Antibiotics) Allergy (Severe, Verified 10/01/18 09:59) Other Medications vitamin,calcium,zwpasfbu-ferq-kfyxe acid tablet 1 tab PO QDAY 03/01/18 [History Confirmed 10/01/18] Aspirin [Aspirin, Baby] 81 mg PO DAILY 05/15/18 [History Confirmed 10/01/18] citalopram 40 mg tablet 40 mg PO QDAY #30 tab 09/02/18 [Rx Confirmed 10/01/18] Last Menstral Period: 01/07/18 Zika: Zika virus screening: Negative : No PFSH PFSH Medical History Chronic headaches (Chronic) Abnormal Pap smear of cervix (Acute) Seasonal allergies (Acute) Hypertension affecting (Resolved) Vitamin D deficiency (Resolved) Surgical History History of appendectomy (Acute) History of section (Acute) History of tonsillectomy and adenoidectomy (Acute) Family History Father Alcoholism Mother Mental disorder Grandmother Blood clots Grandfather Skin cancer Hypertension Social History Smoking Status: Former smoker alcohol intake: never substance use type: does not use caffeine: No (rarely) what type of physical activity do you participate in: none frequency: 5-6 times per week duration: 15-30 minutes/day seatbelt use: always do you feel safe at home: Yes 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 DateName GA/Weeks Outcome Route Bth WeighInfant GeLabor LgtAnesthesiDel LocatProvider FOB t n h a n HPI est ob 38 weeks: Details: MCKENZIE DIALLO is a 33 year old who presents for routine OB visit. OB Visit ELAINE Calculator Estimated Delivery Date 10/14/18 Based on LMP (uncertain) 01/07/18 Current WG 38w 1d Number 1 Expected Delivery Route/Plan RLTCS and BTL Specific Issue/Plans flu vaccine:given tdap vaccine: given rhogam: na LARC form signed:R cs BTO labor support person: [place] pain management: spinal cut cord/dad catch: : yes PP control planned: bto special requests: Initial Weight: 192 lb Date EWeight BP Urine PFHR FuHt Pres MCTX DilatioFetal SVisit NProvideComment GA rot Gl ov n Effat ote r s ucose itzel 03/01/1192 lb 103/62 8 7w 48 oz (+ d 8 oz) Visit Notes Visit Date: 10/01/18 no vb lof good f no regular ctx Sade Collins MD on 10/01/18 Visit Date: 09/24/18 no vb questionable lof good fm n oregular ctx rom plus sent no gross signs of rupture Sade Collins MD on 09/24/18 Visit Date: 09/15/18 Doing well. Coccyx still sore from fall. No CTX, LOF, VB BLAS AlejandraC on 09/15/18 Visit Date: 09/09/18 Work in, fell down steps at barn due to ice. Landed on coccyx which states very tender. States baby not as active. Denies any trauma to abdomen. No VB, LOF BLAS AlejandraC on 09/09/18 Visit Date: 09/02/18 no vb lof irregular ctx Sade Collins MD on 09/02/18 Visit Date: 08/19/18 no vb lof good fm no regluar ctx Sade Collins MD on 08/19/18 Visit Date: 08/06/18 no vb lof good fm no regular ctx Sade Collins MD on 08/06/18 Visit Date: 07/20/18 no cervical dilation, n oregular ctx. reassurance given. cbc gct ordered. Sade Collins MD on 07/24/18 Visit Date: 06/24/18 mood stable, no vb lof no regular ctx some fm Sade Collins MD on 06/24/18 Visit Date: 05/28/18 Doing well. No VB, LOF BLAS AlejandraC on 05/28/18 Visit Date: 04/26/18 co increased anxiety and changes in mood- recommend celexa vistaril prn. Sade Collins MD on 04/26/18 Visit Date: 04/15/18 co abdominal pain and stretching after carrying buckets. no vb Sade Collins MD on 04/15/18 Visit Date: 03/01/18 No visit notes to display ACOG First Trimester First Trimester: Desire for , Alcohol, Tobacco Cessation, Illicit/Recreational Drug/Substance Use, Intimate Partner Violence, Barriers to care, Unstable Housing, Communication Barriers, Environmental/Work Hazards, Anticipated Course of Care, Toxoplasmosis Precations, Use of Any medications, Sexual activity, Exercise, Dental Care, Sauna/Hot tub use, Seat Belt use, Childbirth classes/Hospital facilities, , Travel, Indications for US and Screening for Aneuploidy Diagnostics Diagnostics Labs Obstetrics Ultrasound 09/09/18 Group B Strep DNA Cancelled 09/15/18 Details: HIV: Urine Culture: Sequential Screen: NIPT Screen: Assessment AND Plan Problems 1. History of pre-eclampsia in prior , currently O09.299 baseline labs, baby aspirin at 14 weeks 2. Previous delivery affecting , antepartum O34.219 x2, planning RLTCS and BTL. declines . 3. Abnormal glucose affecting O99.810 1 hour 144. nl 3 hour gtt 4. Advanced maternal age (AMA) in genetic counseling options reviewed- normal NIPT 5. 38 weeks gestation of Z3A.38 nl NIPT, carrier and ntd screening declined. normal anatomy scan. 6. Supervision of high risk multigravida in third trimester in patient 35 years or older at time of delivery O09.523 PRR ELAINE 10/14/18 Boy Oscar Gray Manuel 7. Anxiety during O99.340; F41.9 celexa 8. Supervision of high risk , antepartum O09.90 Plan movement and labor precautions reviewed. ACOG trimester education reviewed and updated. see problem list details for updated plan management information and see below for orders placed at this visit. GA appropriate handout given. plan RLTCS- UPDATE- I have seen the patient and performed any clinically relevant updates to the history and physical exam. Sade Collins MD Orders Orders: 10/07/18 0154 <Electronically signed by Sade Collins MD> Date Sade Collins MD Cosigner Signature: Date (if applicable) CC: Deyvi Lopez DO; Sade Collins MD Signed CBC W/DIFF, AUTOMATED Collected: 10/05/2018 Status: F Source: [place] 10:07 AM [facility] REPOSITORY TYPE CODE TESTS RESULT OUT OF RANGE REFERENCE UNITS LAB L100.1000 4.4-11.0 K/mm3 Normal WBC 9.6 LAB L100.1200 4.2-5.4 M/mm3 Normal RBC 4.74 LAB L100.1300 12.0-15.0 g/dl Normal HGB 13.3 LAB L100.1400 37-47 % Normal HCT 39.3 LAB L100.1500 81-99 fL Normal MCV 82.9 LAB L100.1600 27.0-32.0 pg Normal MCH 28.1 LAB L100.1700 32-36 g/gl Normal MCHC 33.8 LAB L100.1810 11.6-14.6 % Normal RDW CV 14.5 LAB L100.1820 35.1-43.9 fl Normal RDW SD 43.7 LAB L100.1900 150-450 K/mm3 Normal PLT 189 LAB L100.2000 6.2-12.0 fl Normal MPV 10.8 LAB L100.2100 47-70 % High NEUT% 70.3 LAB L100.2200 19-41 % Normal LY% 20.4 LAB L100.2300 0-10 % Normal MONO% 8.6 LAB L100.2400 0-5 % Normal EO% 0.4 LAB L100.2500 0-1 % Normal BASO% 0.2 LAB L100.2550 0.0-0.9 % Normal IM GRAN % 0.100 Result Comment: IG% - Immature Granulocytes (promyelocytes, myelocytes and metamyelocytes) > 1% indicates that a LEFT SHIFT is Present. LAB L100.2620 2.0-7.7 X10 3/uL Normal Absolute Neut 6.8 LAB L100.2720 0.83-4.51 X10 3/ul Normal Absolute Lymph 1.96 Performed By: #### L100.0100 #### [facility] [address] [place], [place], [id number] TYPE AND SCREEN Collected: 10/05/2018 Status: F Source: [place] 10:07 AM [facility] [place] REPOSITORY Order Comment: Reason for Type AND Screen/Red Cells: SURGERY Surgery Date: 10/07/18 Time: 729 Type of Surgery: TYPE CODE TESTS RESULT OUT OF RANGE REFERENCE UNITS LAB B10.0800 O Normal BLOOD TYPE GEL POSITIVE LAB B100.4000 Normal Antibody NEGATIVE Screen Performed By: #### B101.7450 #### [facility] [address] [place], [address] LABORER HOISTING OFFICE VISIT Observed: 10/01/2018 Status: F Source: [place] REPORT 10:30 AM [facility] REPOSITORY [facility] [address] [place] [address] OFFICE VISIT Date of Service: 10/01/18 MR#: [id number] Acct: [id number] Name: MCKENZIE DIALLO Rep #: [id number] : 1985 Provider: Sade Collins MD Age/Sex: 33/F Location: [facility] [place] Status: Signed Intake Vital Signs10/01/18 Body Mass Index (BMI) 37.9 10/01/18 Height 5 ft 3 in 10/01/18 Weight: 219 lb 10/01/18 Body Mass Index (BMI) 38.7 10/01/18 Blood Pressure 130/80 H Intake Visit Reasons: est ob 38 weeks Chief Complaint: est ob Traffic Checker Required: No Is patient in pain?: No Allergies Sulfa (Sulfonamide Antibiotics) Allergy (Severe, Verified 10/01/18 09:59) Other Medications vitamin,calcium,mxkpdndb-hnde-sxbbb acid tablet 1 tab PO QDAY 03/01/18 [History Confirmed 10/01/18] Aspirin [Aspirin, Baby] 81 mg PO DAILY 05/15/18 [History Confirmed 10/01/18] citalopram 40 mg tablet 40 mg PO QDAY #30 tab 09/02/18 [Rx Confirmed 10/01/18] Last Menstral Period: 01/07/18 Zika: Zika virus screening: Negative : No PFSH PFSH Medical History Chronic headaches (Chronic) Abnormal Pap smear of cervix (Acute) Seasonal allergies (Acute) Hypertension affecting (Resolved) Vitamin D deficiency (Resolved) Surgical History History of appendectomy (Acute) History of section (Acute) History of tonsillectomy and adenoidectomy (Acute) Family History Father Alcoholism Mother Mental disorder Grandmother Blood clots Grandfather Skin cancer Hypertension Social History Smoking Status: Former smoker alcohol intake: never substance use type: does not use caffeine: No (rarely) what type of physical activity do you participate in: none frequency: 5-6 times per week duration: 15-30 minutes/day seatbelt use: always do you feel safe at home: Yes 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 DateName GA/Weeks Outcome Route Bth WeighInfant GeLabor LgtAnesthesiMalachi LocatProvider FOB t n h a n HPI est ob 38 weeks: Details: MCKENZIE DIALLO is a 33 year old who presents for routine OB visit. OB Visit ELAINE Calculator Estimated Delivery Date 10/14/18 Based on LMP (uncertain) 01/07/18 Current WG 38w 1d Number 1 Expected Delivery Route/Plan RLTCS and BTL Specific Issue/Plans flu vaccine:given tdap vaccine: given rhogam: na LARC form signed:R cs BTO labor support person: Manuel pain management: spinal cut cord/dad catch: : yes PP control planned: bto special requests: Initial Weight: 192 lb Date Weight BP Urine PFHR FuHt Pres MCTX DilatioFetal SVisit NProvideComment rot ov n t ote r s EGA Ef Gluco faced se 03/01/1192 lb 103/62 8 8 oz (+ 7w8 oz) 4d Visit Notes Visit Date: 10/01/18 no vb lof good f no regular ctx Sade Collins MD on 10/01/18 Visit Date: 09/24/18 no vb questionable lof good fm n oregular ctx rom plus sent no gross signs of rupture Sade Collins MD on 09/24/18 Visit Date: 09/15/18 Doing well. Coccyx still sore from fall. No CTX, LOF, VB Karen Collins NP-C on 09/15/18 Visit Date: 09/09/18 Work in, fell down steps at barn due to ice. Landed on coccyx which states very tender. States baby not as active. Denies any trauma to abdomen. No VB, LOF BETH Alejandra on 09/09/18 Visit Date: 09/02/18 no vb lof irregular ctx Sade Collins MD on 09/02/18 Visit Date: 08/19/18 no vb lof good fm no regluar ctx Sade Collins MD on 08/19/18 Visit Date: 08/06/18 no vb lof good fm no regular ctx Sade Collins MD on 08/06/18 Visit Date: 07/20/18 no cervical dilation, n oregular ctx. reassurance given. cbc gct ordered. Sade Collins MD on 07/24/18 Visit Date: 06/24/18 mood stable, no vb lof no regular ctx some fm Sade Collins MD on 06/24/18 Visit Date: 05/28/18 Doing well. No VB, LOF BETH Alejandra on 05/28/18 Visit Date: 04/26/18 co increased anxiety and changes in mood- recommend celexa vistaril prn. Sade Collins MD on 04/26/18 Visit Date: 04/15/18 co abdominal pain and stretching after carrying buckets. no vb Sade Collins MD on 04/15/18 Visit Date: 03/01/18 No visit notes to display ACOG First Trimester First Trimester: Desire for , Alcohol, Tobacco Cessation, Illicit/Recreational Drug/Substance Use, Intimate Partner Violence, Barriers to care, Unstable Housing, Communication Barriers, Environmental/Work Hazards, Anticipated Course of Care, Toxoplasmosis Precations, Use of Any medications, Sexual activity, Exercise, Dental Care, Sauna/Hot tub use, Seat Belt use, Childbirth classes/Hospital facilities, , Travel, Indications for US and Screening for Aneuploidy Diagnostics Diagnostics Labs Obstetrics Ultrasound 09/09/18 Group B Strep DNA Cancelled 09/15/18 Details: HIV: Urine Culture: Sequential Screen: NIPT Screen: Assessment AND Plan Problems 1. History of pre-eclampsia in prior , currently O09.299 baseline labs, baby aspirin at 14 weeks 2. Previous delivery affecting , antepartum O34.219 x2, planning RLTCS and BTL. declines . 3. Abnormal glucose affecting O99.810 1 hour 144. nl 3 hour gtt 4. Advanced maternal age (AMA) in genetic counseling options reviewed- normal NIPT 5. 38 weeks gestation of Z3A.38 nl NIPT, carrier and ntd screening declined. normal anatomy scan. 6. Supervision of high risk multigravida in third trimester in patient 35 years or older at time of delivery O09.523 PRR ELAINE 10/14/18 Boy AMADA Oscar Galicia Manuel 7. Anxiety during O99.340; F41.9 celexa 8. Supervision of high risk , antepartum O. Plan movement and labor precautions reviewed. ACOG trimester education reviewed and updated. see problem list details for updated plan management information and see below for orders placed at this visit. GA appropriate handout given. Orders Orders: Coding Level of Care Code OB Routine Diagnoses History of pre-eclampsia in prior , currently O09.299 Previous delivery affecting , antepartum O34.219 Abnormal glucose affecting O99.810 Advanced maternal age (AMA) in 38 weeks gestation of Z3A.38 Weeks of gestation: 38 weeks Supervision of high risk multigravida in third trimester in patient 35 years or older at time of delivery O09.523 Anxiety during O99.340; F41.9 Supervision of high risk , antepartum O09.90 10/01/18 1030 <Electronically signed by Sade Collins MD> Date Sade Collins MD [facility] Signature: Date (if applicable) CC: (ROM) RUPTURE OF Collected: 09/24/2018 Status: F Source: [place] [facility] 10:45 AM [facility] [place] REPOSITORY Order Comment: PLEASE CALL RESULTS STAT TO TYPE CODE TESTS RESULT OUT OF RANGE REFERENCE UNITS LAB L205.1310 Negative Normal ROM Negative Result Comment: Amniotic fluid not present indicates No Rupture of Membranes at time of specimen collection. Performed By: #### L205.1000 #### [facility] [address] [place], [address] LABORER HOISTING OFFICE VISIT Observed: 09/24/2018 Status: F Source: [place] REPORT 10:41 AM [facility] [place] REPOSITORY [facility] [address] [place] [address] OFFICE VISIT Date of Service: 09/24/18 MR#: [id number] Acct: [id number] Name: MCKENZIE DIALLO Rep #: [id number] : 1985 Provider: Sade Collins MD Age/Sex: 33/F Location: [facility] [place] Status: Signed Intake Vital Signs09/24/18 Body Mass Index (BMI) 37.9 09/24/18 Height 5 ft 3 in 09/24/18 Weight: 216 lb 2 oz 09/24/18 Body Mass Index (BMI) 38.2 09/24/18 Blood Pressure 130/80 H Intake Visit Reasons: est ob 37 weeks Traffic Checker Required: No Is patient in pain?: No Allergies Sulfa (Sulfonamide Antibiotics) Allergy (Severe, Verified 09/24/18 10:01) Other Medications vitamin,calcium,mhdgvsrr-ydpn-puoph acid tablet 1 tab PO QDAY 03/01/18 [History Confirmed 09/24/18] Aspirin [Aspirin, Baby] 81 mg PO DAILY 05/15/18 [History Confirmed 09/24/18] citalopram 40 mg tablet 40 mg PO QDAY #30 tab 09/02/18 [Rx Confirmed 09/24/18] Last Menstral Period: 01/07/18 Zika: Zika virus screening: Negative : No Nurse's Note: Pt. states that maybe her fluid is leaking due to feeling moist.. PFSH PFSH Medical History Chronic headaches (Chronic) Abnormal Pap smear of cervix (Acute) Seasonal allergies (Acute) Hypertension affecting (Resolved) Vitamin D deficiency (Resolved) Surgical History History of appendectomy (Acute) History of section (Acute) History of tonsillectomy and adenoidectomy (Acute) Family History Father Alcoholism Mother Mental disorder Grandmother Blood clots Grandfather Skin cancer Hypertension Social History Smoking Status: Former smoker alcohol intake: never substance use type: does not use caffeine: No (rarely) what type of physical activity do you participate in: none frequency: 5-6 times per week duration: 15-30 minutes/day seatbelt use: always do you feel safe at home: Yes 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 DateName GA/Weeks Outcome Route Bt WeighInfant GeLabor LgtAnesthesiMalachi LocatProvider FOB t n h a n HPI est ob 37 weeks: Details: MCKENZIE DIALLO is a 33 year old who presents for routine OB visit. OB Visit ELAINE Calculator Estimated Delivery Date 10/14/18 Based on LMP (uncertain) 01/07/18 Current WG 37w 1d Number 1 Expected Delivery Route/Plan RLTCS and BTL Specific Issue/Plans flu vaccine:given tdap vaccine: given rhogam: na LARC form signed:R cs BTO labor support person: [place] pain management: spinal cut cord/dad catch: : yes PP control planned: bto special requests: Initial Weight: 192 lb Date Weight BP Urine PrFHR FuHt Pres MoCTX DilationFetal StVisit NoProviderComments E ot v te GA G Effac lucose ed Visit Notes Visit Date: 09/24/18 no vb questionable lof good fm n oregular ctx rom plus sent no gross signs of rupture Sade Collins MD on 09/24/18 Visit Date: 09/15/18 Doing well. Coccyx still sore from fall. No CTX, LOF, VB BETH Alejandra on 09/15/18 Visit Date: 09/09/18 Work in, fell down steps at barn due to ice. Landed on coccyx which states very tender. States baby not as active. Denies any trauma to abdomen. No VB, LOF Karen Collins NP-C on 09/09/18 Visit Date: 09/02/18 no vb lof irregular ctx Sade Collins MD on 09/02/18 Visit Date: 08/19/18 no vb lof good fm no regluar ctx Sade Collins MD on 08/19/18 Visit Date: 08/06/18 no vb lof good fm no regular ctx Sade Collins MD on 08/06/18 Visit Date: 07/20/18 no cervical dilation, n oregular ctx. reassurance given. cbc gct ordered. Sade Collins MD on 07/24/18 Visit Date: 06/24/18 mood stable, no vb lof no regular ctx some fm Sade Collins MD on 06/24/18 Visit Date: 05/28/18 Doing well. No VB, LOF BLAS AlejandraC on 05/28/18 Visit Date: 04/26/18 co increased anxiety and changes in mood- recommend celexa vistaril prn. Sade Collins MD on 04/26/18 Visit Date: 04/15/18 co abdominal pain and stretching after carrying buckets. no vb Sade Collins MD on 04/15/18 Visit Date: 03/01/18 No visit notes to display ACOG First Trimester First Trimester: Desire for , Alcohol, Tobacco Cessation, Illicit/Recreational Drug/Substance Use, Intimate Partner Violence, Barriers to care, Unstable Housing, Communication Barriers, Environmental/Work Hazards, Anticipated Course of Care, Toxoplasmosis Precations, Use of Any medications, Sexual activity, Exercise, Dental Care, Sauna/Hot tub use, Seat Belt use, Childbirth classes/Hospital facilities, , Travel, Indications for US and Screening for Aneuploidy Diagnostics Diagnostics Labs Obstetrics Ultrasound 09/09/18 Group B Strep DNA Cancelled 09/15/18 Details: HIV: Urine Culture: Sequential Screen: NIPT Screen: Results [id number] Office Urine Glucose Negative Last Edit by Anna Cabral on 09/24/18 10:00 Office Urine Protein Negative Last Edit by Anna Cabral on 09/24/18 10:00 Assessment AND Plan Problems 1. History of pre-eclampsia in prior , currently O09.299 baseline labs, baby aspirin at 14 weeks 2. Previous delivery affecting , antepartum O34.219 x2, planning RLTCS and BTL. declines . 3. Abnormal glucose affecting O99.810 1 hour 144. nl 3 hour gtt 4. Advanced maternal age (AMA) in genetic counseling options reviewed- normal NIPT 5. 37 weeks gestation of Z3A.37 nl NIPT, carrier and ntd screening declined. normal anatomy scan. 6. Supervision of high risk multigravida in third trimester in patient 35 years or older at time of delivery O09.523 PRR ELAINE 10/14/18 Boy Oscar Gray Manuel 7. Anxiety during O99.340; F41.9 celexa Plan movement and labor precautions reviewed. ACOG trimester education reviewed and updated. see problem list details for updated plan management information and see below for orders placed at this visit. GA appropriate handout given. Orders Orders: Coding Level of Care Code OB Routine Diagnoses History of pre-eclampsia in prior , currently O09.299 Previous delivery affecting , antepartum O34.219 Abnormal glucose affecting O99.810 Advanced maternal age (AMA) in 37 weeks gestation of Z3A.37 Weeks of gestation: 37 weeks Supervision of high risk multigravida in third trimester in patient 35 years or older at time of delivery O09.523 Anxiety during O99.340; F41.9 09/24/18 1041 <Electronically signed by Sade Collins MD> Date Sade Collins MD Cosigner Signature: Date (if applicable) CC: Observed: 09/15/2018 Status: F Source: DONA CULTURE, GROUP B 5:48 PM [facility] STREPTOCOCCUS REPOSITORY JAQUAN Culture Group B Beta Streptococcus is not isolated. Performed By: #### M100.1800 #### [facility] [address] [place], [address] LABORER HOISTING OFFICE VISIT Observed: 09/15/2018 Status: F Source: DONA REPORT 10:37 AM [facility] REPOSITORY [facility] [address] [place] [address] OFFICE VISIT Date of Service: 09/15/18 MR#: [id number] Acct: [id number] Name: MCKENZIE DIALLO Rep #: [id number] : 1985 Provider: RODNEY Collins Age/Sex: 33/F Location: [facility] Status: Signed Intake Vital Signs09/15/18 Body Mass Index (BMI) 37.9 09/15/18 Height 5 ft 3 in 09/15/18 Weight: 215 lb 4 oz 09/15/18 Body Mass Index (BMI) 38.1 09/15/18 Blood Pressure 120/78 Intake Visit Reasons: est ob 36 weeks Traffic Checker Required: No Is patient in pain?: No Allergies Sulfa (Sulfonamide Antibiotics) Allergy (Severe, Verified 09/15/18 10:20) Other Medications vitamin,calcium,sodtunwh-dfhn-rwlpo acid tablet 1 tab PO QDAY 03/01/18 [History Confirmed 09/15/18] Aspirin [Aspirin, Baby] 81 mg PO DAILY 05/15/18 [History Confirmed 09/15/18] citalopram 40 mg tablet 40 mg PO QDAY #30 tab 09/02/18 [Rx Confirmed 09/15/18] Last Menstral Period: 01/07/18 Zika: Zika virus screening: Negative : No PFSH PFSH Medical History Chronic headaches (Chronic) Abnormal Pap smear of cervix (Acute) Seasonal allergies (Acute) Hypertension affecting (Resolved) Vitamin D deficiency (Resolved) Surgical History History of appendectomy (Acute) History of section (Acute) History of tonsillectomy and adenoidectomy (Acute) Family History Father Alcoholism Mother Mental disorder Grandmother Blood clots Grandfather Skin cancer Hypertension Social History Smoking Status: Former smoker alcohol intake: never substance use type: does not use caffeine: No (rarely) what type of physical activity do you participate in: none frequency: 5-6 times per week duration: 15-30 minutes/day seatbelt use: always do you feel safe at home: Yes 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 DateName GA/Weeks Outcome Route Bth WeighInfant GeLabor LgtAnesthesiMalachi LocatProvider FOB t n h a n HPI est ob 36 weeks: Details: MCKENZIE DIALLO is a 33 year old who presents for routine OB visit. OB Visit ELAINE Calculator Estimated Delivery Date 10/14/18 Based on LMP (uncertain) 01/07/18 Current WG 35w 6d Number 1 Expected Delivery Route/Plan RLTCS and BTL Specific Issue/Plans flu vaccine:given tdap vaccine: given rhogam: na LARC form signed:R cs BTO labor support person: [place] pain management: spinal cut cord/dad catch: : yes PP control planned: bto special requests: Initial Weight: 192 lb Date Weight BP Urine PrFHR FuHt Pres MoCTX DilationFetal StVisit NoProviderComments E ot v te GA G Effac lucose ed Visit Notes Visit Date: 09/15/18 Doing well. Coccyx still sore from fall. No CTX, LOF, VB BETH Alejandra on 09/15/18 Visit Date: 09/09/18 Work in, fell down steps at barn due to ice. Landed on coccyx which states very tender. States baby not as active. Denies any trauma to abdomen. No VB, LOF BETH Alejandra on 09/09/18 Visit Date: 09/02/18 no vb lof irregular ctx Sade Collins MD on 09/02/18 Visit Date: 08/19/18 no vb lof good fm no regluar ctx Sade Collins MD on 08/19/18 Visit Date: 08/06/18 no vb lof good fm no regular ctx Sade Collins MD on 08/06/18 Visit Date: 07/20/18 no cervical dilation, n oregular ctx. reassurance given. cbc gct ordered. Sade Collins MD on 07/24/18 Visit Date: 06/24/18 mood stable, no vb lof no regular ctx some fm Sade Collins MD on 06/24/18 Visit Date: 05/28/18 Doing well. No VB, LOF BETH Alejandra on 05/28/18 Visit Date: 04/26/18 co increased anxiety and changes in mood- recommend celexa vistaril prn. Sade Collins MD on 04/26/18 Visit Date: 04/15/18 co abdominal pain and stretching after carrying buckets. no vb Sade Collins MD on 04/15/18 Visit Date: 03/01/18 No visit notes to display ACOG First Trimester First Trimester: Desire for , Alcohol, Tobacco Cessation, Illicit/Recreational Drug/Substance Use, Intimate Partner Violence, Barriers to care, Unstable Housing, Communication Barriers, Environmental/Work Hazards, Anticipated Course of Care, Toxoplasmosis Precations, Use of Any medications, Sexual activity, Exercise, Dental Care, Sauna/Hot tub use, Seat Belt use, Childbirth classes/Hospital facilities, , Travel, Indications for US and Screening for Aneuploidy Diagnostics Diagnostics Labs Obstetrics Ultrasound 09/09/18 Glucose 1 Hr 50 gm 144 mg/dL (70-140) H 07/23/18 Details: HIV: Urine Culture: Sequential Screen: NIPT Screen: Results [id number] Office Urine Glucose Negative Last Edit by Anna Cabral on 09/15/18 10:17 Office Urine Protein Negative Last Edit by Anna Cabral on 09/15/18 10:17 Assessment AND Plan Problems 1. Supervision of high risk multigravida in third trimester in patient 35 years or older at time of delivery O09.523 PRR ELAINE 10/14/18 Boy AMADA Galicia Oscar Manuel 2. 36 weeks gestation of Z3A.36 nl NIPT, carrier and ntd screening declined. normal anatomy scan. 3. Abnormal glucose affecting O99.810 1 hour 144. nl 3 hour gtt 4. Anxiety during O99.340; F41.9 celexa 5. Advanced maternal age (AMA) in genetic counseling options reviewed- normal NIPT 6. Previous delivery affecting , antepartum O34.219 x2, planning RLTCS and BTL. declines . 7. History of pre-eclampsia in prior , currently O09.299 baseline labs, baby aspirin at 14 weeks 8. Chronic nonintractable headache, unspecified headache type R51 Plan Orders placed: GBS Reviewed of labor precautions, movement/kick counts ACOG trimester education reviewed and updated See problem list details for updated plan of care Gestational age appropriate handout given RTO: 1 week Orders Orders: Coding Level of Care Code OB Routine Diagnoses Supervision of high risk multigravida in third trimester in patient 35 years or older at time of delivery O09.523 36 weeks gestation of Z3A.36 Weeks of gestation: 36 weeks Abnormal glucose affecting O99.810 Anxiety during O99.340; F41.9 Advanced maternal age (AMA) in Previous delivery affecting , antepartum O34.219 History of pre-eclampsia in prior , currently O09.299 Chronic nonintractable headache, unspecified headache type R51 Headache type: unspecified Intractability: not intractable 09/15/18 1037 <Electronically signed by Karen CAMPOS> Date Karen CAMPOS Cosigner Signature: Date (if applicable) CC: OB LIMITED WITH Observed: 09/09/2018 Status: F Source: [facility] [employer] 1:28 PM [facility] REPOSITORY [facility] Imaging Services [facility] [place] [address] OB Limited With Biometrics MR#: [id number] Acct: [id number] Name: MCKENZIE DIALLO Rep #: [id number] : 1985 F 33 From: Chikis Swift MD PCP: Deyvi Lopez DO Status: REG CLI Study: OB Limited With Biometrics Date of Exam: 09/09/18 Exam# [id number] Ordering Dr: Sade Collins MD STUDY: SECOND AND THIRD TRIMESTER OBSTETRICAL ULTRASOUND - LIMITED REASON FOR EXAM: Female, 33 years old. Evaluate for growth. LMP: January 07, 2018. PRIOR ULTRASOUND: May 20, 2018. TECHNIQUE: Transabdominal TECHNICAL QUALITY: Adequate. FINDINGS: There is a single intrauterine fetus. The fetus is in a cephalic presentation. There is demonstrated cardiac activity with a heart rate of 139 bpm. There is a normal amniotic fluid volume. The largest amniotic fluid pocket measures 5.2 cm. The amniotic fluid index (BRODY) is 16.5 cm. The placenta is anterior in location and is not low lying. There are Grade 1 placental changes. The cervix measures greater than 3.5 cm in length. BIOMETRY: BPD: 8.7 cm: 35 weeks, 1 days HC: 32.3 cm: 36 weeks, 4 days AC: 33.1 cm: 37 weeks, 0 days FL: 6.9 cm: 35 weeks, 2 days Age by LMP: 35 weeks, 0 days. ELAINE by LMP: October 14, 2018. age by prior US: 35 weeks, 3 days. ELAINE by prior US: October 11, 2018. age by current US: 36 weeks, 0 days. ELAINE by current US: October 07, 2018. Estimated weight: 2893 grams, +/- 422 grams, 82 percentile. Gender: Indeterminant US/OB Limited With Biometrics IMPRESSION: Single living intrauterine gestation with estimated gestational age by size of 36 weeks 0 days. There has been greater than predicted interval growth since previous OB ultrasound. Electronically Signed: Chikis Swift MD at 5:30 EST , Service support , CC: Deyvi Lopez DO; Sade Collins MD Mortuary Operations Manager: Signed INTERNAL MEDICINE Observed: 09/09/2018 Status: F Source: DONA OFFICE VISIT 10:53 AM [facility] [address] [place] [address] OFFICE VISIT Date of Service: 09/09/18 MR#: [id number] Acct: [id number] Name: MCKENZIE DIALLO Rep #: [id number] : 1985 Provider: Deyvi Lopez DO Age/Sex: 33/F Location: [facility] Status: Signed Intake Vital Signs09/09/18 Height 5 ft 3 in 09/09/18 Weight: 214 lb 09/09/18 Body Mass Index (BMI) 37.9 09/09/18 Blood Pressure 120/68 Intake Visit Reasons: FELL DOWN STEPS THIS MORNING - DR LOPEZ APPROVED Chief Complaint: Fell at home This am Is patient in pain?: Yes (Sacral ) Pain scale (1-10): 8 Allergies Sulfa (Sulfonamide Antibiotics) Allergy (Severe, Verified 09/09/18 09:38) Other Medications vitamin,calcium,lmokrhrt-thfs-egtlp acid tablet 1 tab PO QDAY 03/01/18 [History Confirmed 09/09/18] Aspirin [Aspirin, Baby] 81 mg PO DAILY 05/15/18 [History Confirmed 09/09/18] citalopram 40 mg tablet 40 mg PO QDAY #30 tab 09/02/18 [Rx Confirmed 09/09/18] [facility] Medical History Chronic headaches (Chronic) Abnormal Pap smear of cervix (Acute) Seasonal allergies (Acute) Hypertension affecting (Resolved) Vitamin D deficiency (Resolved) Surgical History History of appendectomy (Acute) History of section (Acute) History of tonsillectomy and adenoidectomy (Acute) Family History Father Alcoholism Mother Mental disorder Grandmother Blood clots Grandfather Skin cancer Hypertension Social History Smoking Status: Former smoker alcohol intake: never substance use type: does not use caffeine: No (rarely) what type of physical activity do you participate in: none frequency: 5-6 times per week duration: 15-30 minutes/day seatbelt use: always do you feel safe at home: Yes additional social history: - 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 ROS Const Constitutional: No chills, fatigue, fever(s), frequent falls, malaise, weakness, sleep problems or change in appetite Eyes Eyes: No blurry vision, change in vision, double vision, discharge or visual disturbances ENT ENT: No abnormal hearing, ear pain, ear pressure, tinnitus or dizziness/vertigo Resp Respiratory: No cough, shortness of breath or wheezing Cardio Cardiology: No chest pain at rest, chest pain with exertion, shortness of breath, dyspnea on exertion, generalized swelling, irregular heart rhythm, lightheadedness, orthopnea, fast heart rate or palpitations Gastro GI: No abdominal pain, change in bowel habits, constipation, diarrhea, nausea/dyspepsia or vomiting Genitourinary-Female: No difficulty urinating, burning urination, painful urination, urinary incontinence, urinary frequency, urinary urgency, urinary hesitancy, urinary retention, Frequent nighttime urination/ nocturia, sexual problems, genital lesions, abnormal vaginal bleeding, pelvic pain, vaginal dryness, vaginal odor or Vaginal Itching Musc Musculoskeletal: Positive for back pain (Tail bone area AND Rt Buttock); no joint pain, joint swelling, limited range of motion, numbness or tingling Skin Skin: No change in skin color, itching, rash or wounds Breast Breast: No breast lump or breast pain Neuro Neurology: No frequent falls, weakness, visual disturbances, abnormal hearing, numbness, tingling, unsteady gait/balance, dizziness, loss of vision or memory loss Psych Psychiatric: No change in appetite, No memory loss, No anxiety, No depression, No Thoughts of harming yourself/Others Endo Endocrine: No fatigue, heat intolerance, increased thirst/drinking, increased hunger or increased urination Aller/Imm Allergy/Immunologic: No wheezing, itchy eyes or seasonal allergy symptoms Daniel/Lymp Hematologic/Lymphatic: No easy bleeding, easy bruising or enlarged lymph nodes Exam Const General: cooperative, healthy appearing, in distress moderate Nutritional Appearance: well nourished Orientation: oriented x3 Musc Thoracic/Lumbar Spine: thoracic and lumbar spine normal to inspection Coccyx: tenderness on direct palpation Psych Appearance: grossly normal Mental Status: mental status grossly normal Mood: congruent mood Affect: normal affect Results [id number] Office Urine Glucose Negative Last Edit by Virginia Gonzalez on 09/09/18 08:25 Office Urine Protein Negative Last Edit by Virginia Gonzalez on 09/09/18 08:25 Assessment AND Plan Problems 1. Third trimester Z34.93 2. Contusion of coccyx, initial encounter S30.0XXA Plan Pt. was seen after a fall, bruised coccyx, x-rays not indicated, especially as she is . Told to treat with, doughnut pillow, tylenol and hot sitz baths. Coding Level of Care Code Off vis,est,level 3 Diagnoses Third trimester Z34.93 Contusion of coccyx, initial encounter S30.0XXA Encounter type: initial encounter 09/09/18 1053 <Electronically signed by Deyvi Lopez DO> Date Deyvi Lopez DO Cosigner Signature: Date (if applicable) CC: LABORER HOISTING OFFICE VISIT Observed: 09/09/2018 Status: F Source: DONA REPORT 9:41 AM [facility] [address] [place] [address] OFFICE VISIT Date of Service: 09/09/18 MR#: [id number] Acct: [id number] Name: MCKENZIE DIALLO Rep #: [id number] : 1985 Provider: RODNEY Collins Age/Sex: 33/F Location: [facility] Status: Signed Intake Vital Signs09/09/18 Height 5 ft 3 in 09/09/18 Blood Pressure 117/70 Intake Visit Reasons: OB - CHECK FROM FALL Chief Complaint: est ob,fell at home Traffic Checker Required: No Is patient in pain?: Yes Allergies Sulfa (Sulfonamide Antibiotics) Allergy (Severe, Verified 09/09/18 09:38) Other Medications vitamin,calcium,gwtgmgqg-vzto-ahlbj acid tablet 1 tab PO QDAY 03/01/18 [History Confirmed 09/09/18] Aspirin [Aspirin, Baby] 81 mg PO DAILY 05/15/18 [History Confirmed 09/09/18] citalopram 40 mg tablet 40 mg PO QDAY #30 tab 09/02/18 [Rx Confirmed 09/09/18] Last Menstral Period: 01/07/18 Zika: Zika virus screening: Negative : No [facility] Medical History Chronic headaches (Chronic) Abnormal Pap smear of cervix (Acute) Seasonal allergies (Acute) Hypertension affecting (Resolved) Vitamin D deficiency (Resolved) Surgical History History of appendectomy (Acute) History of section (Acute) History of tonsillectomy and adenoidectomy (Acute) Family History Father Alcoholism Mother Mental disorder Grandmother Blood clots Grandfather Skin cancer Hypertension Social History Smoking Status: Former smoker alcohol intake: never substance use type: does not use caffeine: No (rarely) what type of physical activity do you participate in: none frequency: 5-6 times per week duration: 15-30 minutes/day seatbelt use: always do you feel safe at home: Yes 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 DateName GA/Weeks Outcome Route [facility] WeighInfant GeLabor LgtAnesthesiDel LocatProvider FOB t n h a n HPI OB - CHECK FROM FALL: Details: MCKENZIE DIALLO is a 33 year old who presents for work in OB visit-fell down steps OB Visit ELAINE Calculator Estimated Delivery Date 10/14/18 Based on LMP (uncertain) 01/07/18 Current WG 35w 0d Number 1 Expected Delivery Route/Plan RLTCS and BTL Specific Issue/Plans flu vaccine:given tdap vaccine: given rhogam: na LARC form signed:R cs BTO labor support person: [place] pain management: spinal cut cord/dad catch: : yes PP control planned: bto special requests: Initial Weight: 192 lb Date Weight BP Urine PrFHR FuHt Pres MoCTX DilationFetal StVisit NoProviderComments E ot v te GA G Effac lucose ed Visit Notes Visit Date: 09/09/18 Work in, fell down steps at barn due to ice. Landed on coccyx which states very tender. States baby not as active. Denies any trauma to abdomen. No VB, LOF BLAS AlejandraC on 09/09/18 Visit Date: 09/02/18 no vb lof irregular ctx Sade Collins MD on 09/02/18 Visit Date: 08/19/18 no vb lof good fm no regluar ctx Sade Collins MD on 08/19/18 Visit Date: 08/06/18 no vb lof good fm no regular ctx Sade Collins MD on 08/06/18 Visit Date: 07/20/18 no cervical dilation, n oregular ctx. reassurance given. cbc gct ordered. Sade Collins MD on 07/24/18 Visit Date: 06/24/18 mood stable, no vb lof no regular ctx some fm Sade Collins MD on 06/24/18 Visit Date: 05/28/18 Doing well. No VB, LOF BETH Alejandra on 05/28/18 Visit Date: 04/26/18 co increased anxiety and changes in mood- recommend celexa vistaril prn. Sade Collins MD on 04/26/18 Visit Date: 04/15/18 co abdominal pain and stretching after carrying buckets. no vb Sade Collins MD on 04/15/18 Visit Date: 03/01/18 No visit notes to display ACOG First Trimester First Trimester: Desire for , Alcohol, Tobacco Cessation, Illicit/Recreational Drug/Substance Use, Intimate Partner Violence, Barriers to care, Unstable Housing, Communication Barriers, Environmental/Work Hazards, Anticipated Course of Care, Toxoplasmosis Precations, Use of Any medications, Sexual activity, Exercise, Dental Care, Sauna/Hot tub use, Seat Belt use, Childbirth classes/Hospital facilities, , Travel, Indications for US and Screening for Aneuploidy Diagnostics Diagnostics Labs Glucose 1 Hr 50 gm 144 mg/dL (70-140) H 07/23/18 Details: HIV: Urine Culture: Sequential Screen: NIPT Screen: Results [id number] Office Urine Glucose Negative Last Edit by Virginia Gonzalez on 09/09/18 08:25 Office Urine Protein Negative Last Edit by Virginia Gonzalez on 09/09/18 08:25 Assessment AND Plan Problems 1. Fall (on) (from) other stairs and steps, initial encounter W10.8XXA 2. Supervision of high risk multigravida in third trimester in patient 35 years or older at time of delivery O09.523 PRR ELAINE 10/14/18 Boy Oscar Gray Manuel 3. 35 weeks gestation of Z3A.35 nl NIPT, carrier and ntd screening declined. normal anatomy scan. 4. Advanced maternal age (AMA) in genetic counseling options reviewed- normal NIPT 5. Previous delivery affecting , antepartum O34.219 x2, planning RLTCS and BTL. declines . 6. History of pre-eclampsia in prior , currently O09.299 baseline labs, baby aspirin at 14 weeks 7. Decreased movement O36.8190 Plan Orders placed: NST reactive Will see PCP for evaluation of painful coccyx Growth US today was previously scheduled Reviewed of labor precautions, movement/kick counts ACOG trimester education reviewed and updated See problem list details for updated plan of care Gestational age appropriate handout given RTO: 1 week Orders Orders: Coding Level of Care Code OB Routine Diagnoses Fall (on) (from) other stairs and steps, initial encounter W10.8XXA Supervision of high risk multigravida in third trimester in patient 35 years or older at time of delivery O09.523 35 weeks gestation of Z3A.35 Weeks of gestation: 35 weeks Advanced maternal age (AMA) in Previous delivery affecting , antepartum O34.219 History of pre-eclampsia in prior , currently O09.299 Decreased movement O36.8190 09/09/18 0941 <Electronically signed by Karen CAMPOS> Date Karen CAMPOS Cosigner Signature: Date (if applicable) CC: LABORER HOISTING OFFICE VISIT Observed: 09/07/2018 Status: F Source: DONA REPORT 2:45 AM [facility] [address] [place] [address] OFFICE VISIT Date of Service: 09/02/18 MR#: [id number] Acct: [id number] Name: MCKENZIE DIALLO Nieves Rep #: [id number] : 1985 Provider: Sade Collins MD Age/Sex: 33/F Location: [facility] Status: Signed Intake Vital Signs09/02/18 Height 5 ft 3 in 09/02/18 Weight: 215 lb 09/02/18 Body Mass Index (BMI) 38.0 09/02/18 Blood Pressure 120/80 Intake Visit Reasons: est ob 34 weeks Chief Complaint: est ob Traffic Checker Required: No Is patient in pain?: No Allergies Sulfa (Sulfonamide Antibiotics) Allergy (Severe, Verified 09/02/18 10:10) Other Medications vitamin,calcium,ogknhote-eshj-lxgva acid tablet 1 tab PO QDAY 03/01/18 [History Confirmed 08/29/18] Aspirin [Aspirin, Baby] 81 mg PO DAILY 05/15/18 [History Confirmed 08/29/18] Famotidine [Pepcid] 20 mg PO PRN PRN 08/08/18 [History Confirmed 08/29/18] citalopram 40 mg tablet 40 mg PO QDAY #30 tab 09/02/18 [Rx Confirmed 09/02/18] Last Menstral Period: 03/15/18 Zika: Zika virus screening: Negative : No PFSH PFSH Medical History Chronic headaches (Chronic) Abnormal Pap smear of cervix (Acute) Seasonal allergies (Acute) Hypertension affecting (Resolved) Vitamin D deficiency (Resolved) Surgical History History of appendectomy (Acute) History of section (Acute) History of tonsillectomy and adenoidectomy (Acute) Family History Father Alcoholism Mother Mental disorder Grandmother Blood clots Grandfather Skin cancer Hypertension Social History Smoking Status: Former smoker alcohol intake: never substance use type: does not use caffeine: No (rarely) what type of physical activity do you participate in: none frequency: 5-6 times per week duration: 15-30 minutes/day seatbelt use: always do you feel safe at home: Yes 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 DateName GA/Weeks Outcome Route Bt WeighInfant GeLabor LgtAnesthShalom LocatProvider FOB t n h a n HPI est ob 34 weeks: Details: MCKENZIE DIALLO is a 33 year old who presents for routine OB visit. OB Visit ELAINE Calculator Estimated Delivery Date 10/14/18 Based on LMP (uncertain) 01/07/18 Current WG 34w 5d Number 1 Expected Delivery Route/Plan RLTCS and BTL Specific Issue/Plans flu vaccine:given tdap vaccine: given rhogam: na LARC form signed:R cs BTO labor support person: [place] pain management: spinal cut cord/dad catch: : yes PP control planned: bto special requests: Initial Weight: 192 lb Date Weight BP Urine PFHR FuHt Pres MCTX DilatioFetal SVisit NProvideComment rot ov n t ote r s EGA Ef Gluco faced se 03/01/1192 lb 103/62 8 8 oz (+ 7w8 oz) 4d Visit Notes Visit Date: 09/02/18 no vb lof irregular ctx Sade Collins MD on 09/02/18 Visit Date: 08/19/18 no vb lof good fm no regluar ctx Sade Collins MD on 08/19/18 Visit Date: 08/06/18 no vb lof good fm no regular ctx Sade Collins MD on 08/06/18 Visit Date: 07/20/18 no cervical dilation, n oregular ctx. reassurance given. cbc gct ordered. Sade Collins MD on 07/24/18 Visit Date: 06/24/18 mood stable, no vb lof no regular ctx some fm Sade Collins MD on 06/24/18 Visit Date: 05/28/18 Doing well. No VB, LOF BETH Alejandra on 05/28/18 Visit Date: 04/26/18 co increased anxiety and changes in mood- recommend celexa vistaril prn. Sade Collins MD on 04/26/18 Visit Date: 04/15/18 co abdominal pain and stretching after carrying buckets. no vb Sade Collins MD on 04/15/18 Visit Date: 03/01/18 No visit notes to display ACOG First Trimester First Trimester: Desire for , Alcohol, Tobacco Cessation, Illicit/Recreational Drug/Substance Use, Intimate Partner Violence, Barriers to care, Unstable Housing, Communication Barriers, Environmental/Work Hazards, Anticipated Course of Care, Toxoplasmosis Precations, Use of Any medications, Sexual activity, Exercise, Dental Care, Sauna/Hot tub use, Seat Belt use, Childbirth classes/Hospital facilities, , Travel, Indications for US and Screening for Aneuploidy Diagnostics Diagnostics Labs Glucose 1 Hr 50 gm 144 mg/dL (70-140) H 07/23/18 Details: HIV: Urine Culture: Sequential Screen: NIPT Screen: Assessment AND Plan Problems 1. History of pre-eclampsia in prior , currently O09.299 baseline labs, baby aspirin at 14 weeks 2. Previous delivery affecting , antepartum O34.219 x2, planning RLTCS and BTL. declines . 3. Abnormal glucose affecting O99.810 1 hour 144. nl 3 hour gtt 4. Advanced maternal age (AMA) in genetic counseling options reviewed- normal NIPT 5. 34 weeks gestation of Z3A.34 nl NIPT, carrier and ntd screening declined. normal anatomy scan. 6. Supervision of high risk multigravida in third trimester in patient 35 years or older at time of delivery O09.523 PRR ELAINE 10/14/18 Boy Oscar Gray Manuel 7. Anxiety during O99.340; F41.9 celexa Plan movement and labor precautions reviewed. ACOG trimester education reviewed and updated. see problem list details for updated plan management information and see below for orders placed at this visit. [place] appropriate handout given. Medications Changed: Coding Level of Care Code OB Routine Diagnoses History of pre-eclampsia in prior , currently O09.299 Previous delivery affecting , antepartum O34.219 Abnormal glucose affecting O99.810 Advanced maternal age (AMA) in 34 weeks gestation of Z3A.34 Weeks of gestation: 34 weeks Supervision of high risk multigravida in third trimester in patient 35 years or older at time of delivery O09.523 Anxiety during O99.340; F41.9 09/07/18 0245 <Electronically signed by Sade Collins MD> Date Sade Collins MD Cosigner Signature: Date (if applicable) CC: LABORER HOISTING OFFICE VISIT Observed: 08/19/2018 Status: F Source: [place] REPORT 4:55 PM [facility] [address] [place] [address] OFFICE VISIT Date of Service: 08/19/18 MR#: [id number] Acct: [id number] Name: MCKENZIE DIALLO Rep #: [id number] : 1985 Provider: Sade Collins MD Age/Sex: 33/F Location: [facility] [place] Status: Signed Intake Vital Signs08/19/18 Height 5 ft 3 in 08/19/18 Weight: 212 lb 8 oz 08/19/18 Body Mass Index (BMI) 37.6 08/19/18 Blood Pressure 112/70 Intake Visit Reasons: est ob 32 weeks Chief Complaint: est ob Traffic Checker Required: No Is patient in pain?: No Allergies Sulfa (Sulfonamide Antibiotics) Allergy (Severe, Verified 08/19/18 16:24) Other Medications vitamin,calcium,wxlvyone-uyvy-cdzwn acid tablet 1 tab PO QDAY 03/01/18 [History Confirmed 08/19/18] citalopram 20 mg tablet 20 mg PO QDAY #30 tab 04/26/18 [Rx Confirmed 08/19/18] Aspirin [Aspirin, Baby] 81 mg PO DAILY 05/15/18 [History Confirmed 08/19/18] Famotidine [Pepcid] 20 mg PO PRN PRN 08/08/18 [History Confirmed 08/19/18] nitrofurantoin monohydrate/macrocrystals 100 mg capsule 100 mg PO BID #14 cap 08/12/18 [Rx Confirmed 08/19/18] Last Menstral Period: 01/07/18 Zika: Zika virus screening: Negative : No [facility] Medical History Chronic headaches (Chronic) Abnormal Pap smear of cervix (Acute) Seasonal allergies (Acute) Hypertension affecting (Resolved) Vitamin D deficiency (Resolved) Surgical History History of appendectomy (Acute) History of section (Acute) History of tonsillectomy and adenoidectomy (Acute) Family History Father Alcoholism Mother Mental disorder Grandmother Blood clots Grandfather Skin cancer Hypertension Social History Smoking Status: Former smoker alcohol intake: never substance use type: does not use caffeine: No (rarely) what type of physical activity do you participate in: none frequency: 5-6 times per week duration: 15-30 minutes/day seatbelt use: always do you feel safe at home: Yes 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 DateName GA/Weeks Outcome Route Bth WeighInfant GeLabor LgtAnesthesiMalachi LocatProvider FOB t n h a n HPI est ob 32 weeks: Details: MCKENZIE DIALLO is a 33 year old who presents for routine OB visit. OB Visit ELAINE Calculator Estimated Delivery Date 10/14/18 Based on LMP (uncertain) 01/07/18 Current WG 32w 0d Number 1 Expected Delivery Route/Plan RLTCS and BTL Specific Issue/Plans flu vaccine: [] minichart given: [] tdap vaccine: [] rhogam: [] LARC form signed:R cs BTO labor support person: Manuel pain management: [] cut cord/dad catch: [] : yes PP control planned: [] special requests: [] Initial Weight: 192 lb Date Weight BP Urine PrFHR FuHt Pres MoCTX DilationFetal StVisit NoProviderComments E ot v te GA G Effac lucose ed Visit Notes Visit Date: 08/19/18 no vb lof good fm no regluar ctx Sade Collins MD on 08/19/18 Visit Date: 08/06/18 no vb lof good fm no regular ctx Sade Collins MD on 08/06/18 Visit Date: 07/20/18 no cervical dilation, n oregular ctx. reassurance given. cbc gct ordered. Sade Collins MD on 07/24/18 Visit Date: 06/24/18 mood stable, no vb lof no regular ctx some fm Sade Collins MD on 06/24/18 Visit Date: 05/28/18 Doing well. No VB, LOF BETH Alejandra on 05/28/18 Visit Date: 04/26/18 co increased anxiety and changes in mood- recommend celexa vistaril prn. Sade Collins MD on 04/26/18 Visit Date: 04/15/18 co abdominal pain and stretching after carrying buckets. no vb Sade Collins MD on 04/15/18 Visit Date: 03/01/18 No visit notes to display ACOG First Trimester First Trimester: Desire for , Alcohol, Tobacco Cessation, Illicit/Recreational Drug/Substance Use, Intimate Partner Violence, Barriers to care, Unstable Housing, Communication Barriers, Environmental/Work Hazards, Anticipated Course of Care, Toxoplasmosis Precations, Use of Any medications, Sexual activity, Exercise, Dental Care, Sauna/Hot tub use, Seat Belt use, Childbirth classes/Hospital facilities, , Travel, Indications for US and Screening for Aneuploidy Diagnostics Diagnostics Labs Obstetrics Ultrasound 05/20/18 Glucose 1 Hr 50 gm 144 mg/dL (70-140) H 07/23/18 Details: HIV: Urine Culture: Sequential Screen: NIPT Screen: Results [id number] Office Urine Glucose Negative Last Edit by Virginia Gonzalez on 08/19/18 16:27 Office Urine Protein Negative Last Edit by Virginia Gonzalez on 08/19/18 16:27 Assessment AND Plan Problems 1. History of pre-eclampsia in prior , currently O09.299 baseline labs, baby aspirin at 14 weeks 2. Previous delivery affecting , antepartum O34.219 x2, planning RLTCS and BTL. declines . 3. Advanced maternal age (AMA) in genetic counseling options reviewed- normal NIPT 4. Supervision of high risk multigravida in third trimester in patient 35 years or older at time of delivery O09.523 PRR ELAINE 10/14/18 Boy Oscar Gray Manuel 5. Z34.90 nl NIPT, carrier and ntd screening declined. normal anatomy scan. 6. Abnormal glucose affecting O99.810 1 hour 144. Plan movement and labor precautions reviewed. ACOG trimester education reviewed and updated. see problem list details for updated plan management information and see below for orders placed at this visit. [place] appropriate handout given. Orders Orders: Coding Level of Care Code OB Routine Diagnoses History of pre-eclampsia in prior , currently O09.299 Previous delivery affecting , antepartum O34.219 Advanced maternal age (AMA) in Supervision of high risk multigravida in third trimester in patient 35 years or older at time of delivery O09.523 Z34.90 Abnormal glucose affecting O99.810 08/19/18 1655 <Electronically signed by Sade Collins MD> Date Sade Lugo Signature: Date (if applicable) CC: Observed: 08/12/2018 Status: F Source: [place] CULTURE, URINE 4:45 PM [facility] [place] REPOSITORY Urine Culture ORGANISM 1: Mixed Gram Positive Organisms [place] Count <1000 MIX CULTURE Mixed contaminants. Submit a new specimen if indicated. Performed By: #### M100.0650 #### [facility] [address] [place], [address] OFFICE VISIT REPORT Observed: 08/12/2018 Status: F Source: [place] 11:58 AM [facility] [place] REPOSITORY [facility] [address] [place] [address] OFFICE VISIT Date of Service: 08/12/18 MR#: [id number] Acct: [id number] Patient: MCKENZIE DIALLO Rep #: [id number] : 1985 Provider: RODNEY Collins Age/Sex: 33/F Location: [facility] [place] Status: Signed Intake Vital Signs08/12/18 Height 5 ft 3 in 08/12/18 Weight: 211 lb 08/12/18 Body Mass Index (BMI) 37.3 Intake Visit Reasons: Urinary tract infection Chief Complaint: est ob Traffic Checker Required: No Is patient in pain?: Yes (Dysuria) Allergies Sulfa (Sulfonamide Antibiotics) Allergy (Severe, Verified 08/08/18 14:16) Other Medications vitamin,calcium,zukclicn-nftg-dopjd acid tablet 1 tab PO QDAY 03/01/18 [History Confirmed 08/08/18] citalopram 20 mg tablet 20 mg PO QDAY #30 tab 04/26/18 [Rx Confirmed 08/08/18] Aspirin [Aspirin, Baby] 81 mg PO DAILY 05/15/18 [History Confirmed 08/08/18] Famotidine [Pepcid] 20 mg PO PRN PRN 08/08/18 [History Confirmed 08/08/18] nitrofurantoin monohydrate/macrocrystals 100 mg capsule 100 mg PO BID #14 cap 08/12/18 [Rx Confirmed 08/12/18] Post menopausal: No Patient : Yes Results BMSUA Office Urine Color Dk Yellow Last Edit by Irene Ewing on 08/12/18 08:44 Assessment AND Plan 1. Acute cystitis without hematuria N30.00 Plan Rx macrobid Plan Detail Other Orders Orders: Other Medications New: nitrofurantoin monohyd/m-cryst 100 mg (Macrobid) must recibc111 mg PO BID 14 caps 0RF ster with a meal/food 08/12/18 1158 <Electronically signed by Karen CAMPOS> Date Karen ODONNELLC Cosigner Signature: Date (if applicable) CC: (ROM) RUPTURE OF Collected: 08/08/2018 Status: F Source: [place] MEMBRANES 2:10 PM [facility] REPOSITORY TYPE CODE TESTS RESULT OUT OF RANGE REFERENCE UNITS LAB L205.1310 Negative Normal ROM Negative Result Comment: Amniotic fluid not present indicates No Rupture of Membranes at time of specimen collection. Performed By: #### L205.1000 #### [facility] [address] [place], [address] LABORER HOISTING OFFICE VISIT Observed: 08/06/2018 Status: F Source: [place] REPORT 10:39 AM [facility] REPOSITORY [facility] [address] [place] [address] OFFICE VISIT Date of Service: 08/06/18 MR#: [id number] Acct: [id number] Name: YOELMCKENZIE D Rep #: [id number] : 1985 Provider: Sade Collins MD Age/Sex: 33/F Location: [facility] [place] Status: Signed Intake Vital Signs08/06/18 Height 5 ft 3 in 08/06/18 Weight: 210 lb 08/06/18 Body Mass Index (BMI) 37.2 08/06/18 Blood Pressure 108/72 Intake Visit Reasons: est ob 30 weeks Chief Complaint: est ob Traffic Checker Required: No Is patient in pain?: No Allergies Sulfa (Sulfonamide Antibiotics) Allergy (Severe, Verified 08/06/18 10:10) Other Medications vitamin,calcium,onggjkxt-vozu-nuhpg acid tablet 1 tab PO QDAY 03/01/18 [History Confirmed 08/06/18] promethazine 12.5 mg tablet 12.5 mg PO Q6H PRN #60 tab 03/04/18 [Rx Confirmed 08/06/18] citalopram 20 mg tablet 20 mg PO QDAY #30 tab 04/26/18 [Rx Confirmed 08/06/18] Aspirin [Aspirin, Baby] 81 mg PO DAILY 05/15/18 [History Confirmed 08/06/18] Famotidine [Pepcid] 20 mg PO BID #30 tab 05/16/18 [Rx Confirmed 08/06/18] Last Menstral Period: 01/07/18 Zika: Zika virus screening: Negative : No PFSH PFSH Medical History Chronic headaches (Chronic) Abnormal Pap smear of cervix (Acute) Seasonal allergies (Acute) Hypertension affecting (Resolved) Vitamin D deficiency (Resolved) Surgical History History of appendectomy (Acute) History of section (Acute) History of tonsillectomy and adenoidectomy (Acute) Family History Father Alcoholism Mother Mental disorder Grandmother Blood clots Grandfather Skin cancer Hypertension Social History Smoking Status: Former smoker alcohol intake: never substance use type: does not use caffeine: No (rarely) what type of physical activity do you participate in: none frequency: 5-6 times per week duration: 15-30 minutes/day seatbelt use: always do you feel safe at home: Yes 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 DateName GA/Weeks Outcome Route Bt WeighInfant GeLabor LgNivia LocatProvider FOB t n h a n HPI est ob 30 weeks: Details: MCKENZIE DIALLO is a 33 year old who presents for routine OB visit. Patient received flu vaccine at [facility] OB Visit ELAINE Calculator Estimated Delivery Date 10/14/18 Based on LMP (uncertain) 01/07/18 Current WG 30w 1d Number 1 Expected Delivery Route/Plan RLTCS and BTL Specific Issue/Plans flu vaccine: [] minichart given: [] tdap vaccine: [] rhogam: [] LARC form signed:R cs BTO labor support person: Manuel pain management: [] cut cord/dad catch: [] : yes PP control planned: [] special requests: [] Initial Weight: 192 lb Date Weight BP Urine PrFHR FuHt Pres MoCTX DilationFetal StVisit NoProviderComments E ot v te [place] G Effac lucose ed Visit Notes Visit Date: 08/06/18 no vb lof good fm no regular ctx Sade Collins MD on 08/06/18 Visit Date: 07/20/18 no cervical dilation, n oregular ctx. reassurance given. cbc gct ordered. Sade Collins MD on 07/24/18 Visit Date: 06/24/18 mood stable, no vb lof no regular ctx some fm Sade Collins MD on 06/24/18 Visit Date: 05/28/18 Doing well. No VB, LOF BETH Alejandra on 05/28/18 Visit Date: 04/26/18 co increased anxiety and changes in mood- recommend celexa vistaril prn. Sade Collins MD on 04/26/18 Visit Date: 04/15/18 co abdominal pain and stretching after carrying buckets. no vb Sade Collins MD on 04/15/18 Visit Date: 03/01/18 No visit notes to display ACOG First Trimester First Trimester: Desire for , Alcohol, Tobacco Cessation, Illicit/Recreational Drug/Substance Use, Intimate Partner Violence, Barriers to care, Unstable Housing, Communication Barriers, Environmental/Work Hazards, Anticipated Course of Care, Toxoplasmosis Precations, Use of Any medications, Sexual activity, Exercise, Dental Care, Sauna/Hot tub use, Seat Belt use, Childbirth classes/Hospital facilities, , Travel, Indications for US and Screening for Aneuploidy Diagnostics Diagnostics Labs Hct 35.7 % (37-47) L 05/15/18 Hgb 12.4 g/dl (12.0-15.0) 05/15/18 Obstetrics Ultrasound 05/20/18 Glucose 1 Hr 50 gm 144 mg/dL (70-140) H 07/23/18 Miscellaneous Test 04/15/18 Details: HIV: Urine Culture: Sequential Screen: NIPT Screen: Assessment AND Plan Problems 1. History of pre-eclampsia in prior , currently O09.299 baseline labs, baby aspirin at 14 weeks 2. Previous delivery affecting , antepartum O34.219 x2, planning RLTCS and BTL. declines . 3. Advanced maternal age (AMA) in genetic counseling options reviewed- normal NIPT 4. Supervision of high risk multigravida in third trimester in patient 35 years or older at time of delivery O09.523 PRR ELAINE 10/14/18 Boy PC Oscar Galicia Manuel Plan movement and labor precautions reviewed. ACOG trimester education reviewed and updated. see problem list details for updated plan management information and see below for orders placed at this visit. [place] appropriate handout given. Orders Orders: Coding Level of Care Code OB Routine Diagnoses History of pre-eclampsia in prior , currently O09.299 Previous delivery affecting , antepartum O34.219 Advanced maternal age (AMA) in Supervision of high risk multigravida in third trimester in patient 35 years or older at time of delivery O09.523 08/06/18 1039 <Electronically signed by Sade Collins MD> Date Sade Collins MD Cosigner Signature: Date (if applicable) CC: GESTATIONAL GTT 3HR Collected: 07/30/2018 Status: F Source: DONA JonesG 7:07 AM [facility] REPOSITORY Order Comment: Is Patient Fasting? Y TYPE CODE TESTS RESULT OUT OF RANGE REFERENCE UNITS LAB L501.0650 <105 mg/dL Normal GLU 79 GTT-FASTING Result Comment: GLUCOSE TOLERANCE TEST FOR Reference Interval GESTATIONAL DIABETES Fasting <105 mg/dL 1 hour <190 mg/dl 2 hour <165 mg/dl 3 hour <145 mg/dl LAB L501.0660 <190 mg/dL Normal GLU GTT- 1HR 142 LAB L501.0670 <165 mg/dL High GLU GTT- 2HR 167 LAB L501.0680 <145 L Normal GLU GTT- 3HR 131 Performed By: #### L500.4710 #### [facility] [address] [place], [address] LABORER HOISTING OFFICE VISIT Observed: 07/24/2018 Status: F Source: [place] REPORT 6:47 AM [facility] REPOSITORY [facility] [address] [place] [address] OFFICE VISIT Date of Service: 07/20/18 MR#: [id number] Acct: [id number] Name: MCKENZIE DIALLO Rep #: [id number] : 1985 Provider: Sade Collins MD Age/Sex: 33/F Location: [facility] [place] Status: Signed Intake Vital Signs07/20/18 Height 5 ft 3 in 07/20/18 Weight: 211 lb 8 oz 07/20/18 Body Mass Index (BMI) 37.4 07/20/18 Blood Pressure 118/72 Intake Visit Reasons: pelvic pressure increase DC Is patient in pain?: No Allergies Sulfa (Sulfonamide Antibiotics) Allergy (Severe, Verified 07/20/18 15:12) Other Medications vitamin,calcium,dpxogpdx-zbuy-npyyz acid tablet 1 tab PO QDAY 03/01/18 [History Confirmed 06/24/18] promethazine 12.5 mg tablet 12.5 mg PO Q6H PRN #60 tab 03/04/18 [Rx Confirmed 06/24/18] citalopram 20 mg tablet 20 mg PO QDAY #30 tab 04/26/18 [Rx Confirmed 06/24/18] Aspirin [Aspirin, Baby] 81 mg PO DAILY 05/15/18 [History Confirmed 06/24/18] Famotidine [Pepcid] 20 mg PO BID #30 tab 05/16/18 [Rx Confirmed 06/24/18] Last Menstral Period: 01/07/18 Zika: Zika virus screening: Negative : No PFSH PFSH Medical History Chronic headaches (Chronic) Abnormal Pap smear of cervix (Acute) Seasonal allergies (Acute) Hypertension affecting (Resolved) Vitamin D deficiency (Resolved) Surgical History History of appendectomy (Acute) History of section (Acute) History of tonsillectomy and adenoidectomy (Acute) Family History Father Alcoholism Mother Mental disorder Grandmother Blood clots Grandfather Skin cancer Hypertension Social History Smoking Status: Former smoker alcohol intake: never substance use type: does not use caffeine: No (rarely) what type of physical activity do you participate in: none frequency: 5-6 times per week duration: 15-30 minutes/day seatbelt use: always do you feel safe at home: Yes additional social history: - [place]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 DateName GA/Weeks Outcome Route Bt WeighInfant GeLabor LgtAnesthesiDel LocatProvider FOB t n h a n HPI pelvic pressure increase DC: Details: MCKENZIE DIALLO is a 33 year old who presents for routine OB visit. OB Visit ELAINE Calculator Estimated Delivery Date 10/14/18 Based on LMP (uncertain) 01/07/18 Current WG 28w 2d Number 1 Expected Delivery Route/Plan RLTCS and BTL Specific Issue/Plans flu vaccine: [] minichart given: [] tdap vaccine: [] rhogam: [] LARC form signed:R cs BTO labor support person: [place] pain management: [] cut cord/dad catch: [] : yes PP control planned: [] special requests: [] Initial Weight: 192 lb Date Weight BP Urine PrFHR FuHt Pres MoCTX DilationFetal StVisit NoProviderComments E ot v te GA G Effac lucose ed Visit Notes Visit Date: 07/20/18 no cervical dilation, n oregular ctx. reassurance given. cbc gct ordered. Sade Collins MD on 07/24/18 Visit Date: 06/24/18 mood stable, no vb lof no regular ctx some fm Sade Collins MD on 06/24/18 Visit Date: 05/28/18 Doing well. No VB, LOF BETH Alejandra on 05/28/18 Visit Date: 04/26/18 co increased anxiety and changes in mood- recommend celexa vistaril prn. Sade Collins MD on 04/26/18 Visit Date: 04/15/18 co abdominal pain and stretching after carrying buckets. no vb Sade Collins MD on 04/15/18 Visit Date: 03/01/18 No visit notes to display ACOG First Trimester First Trimester: Desire for , Alcohol, Tobacco Cessation, Illicit/Recreational Drug/Substance Use, Intimate Partner Violence, Barriers to care, Unstable Housing, Communication Barriers, Environmental/Work Hazards, Anticipated Course of Care, Toxoplasmosis Precations, Use of Any medications, Sexual activity, Exercise, Dental Care, Sauna/Hot tub use, Seat Belt use, Childbirth classes/Hospital facilities, , Travel, Indications for US and Screening for Aneuploidy Diagnostics Diagnostics Labs Hct 35.7 % (37-47) L 05/15/18 Hgb 12.4 g/dl (12.0-15.0) 05/15/18 Obstetrics Ultrasound 05/20/18 Glucose 1 Hr 50 gm 144 mg/dL (70-140) H 07/23/18 Miscellaneous Test 04/15/18 Blood Type O POSITIVE 03/02/18 Antibody Screen NEGATIVE 03/02/18 Rubella IgG Antibody 484.3 IU/mL 03/02/18 RPR NONREACTIVE (NONREACTIVE) 03/02/18 Hep Bs Antigen Negative (Negative) 03/02/18 Chlam trachomat DNA PCR Negative (Negative) 03/01/18 N.gonorrhoeae DNA (PCR) Negative (Negative) 03/01/18 Details: HIV: Urine Culture: Sequential Screen: NIPT Screen: Office Procedures OB NST Non-Stress Test Indications for Monitoring: Yes labor Heart Rate Baseline: 150 Heart Rate Variability: moderate Movement: Present Heart Rate Accelerations: Present Decelerations: Absent Contractions: Absent Impression: Yes Reactive Non-Stress Test Category 1 Results [id number] Office Urine Glucose Negative Last Edit by Anna Cabral on 07/20/18 15:16 Office Urine Protein Negative Last Edit by Anna Cabral on 07/20/18 15:16 Assessment AND Plan Problems 1. History of pre-eclampsia in prior , currently O09.299 baseline labs, baby aspirin at 14 weeks 2. Previous delivery affecting , antepartum O34.219 x2, planning RLTCS and BTL. declines . 3. Advanced maternal age (AMA) in genetic counseling options reviewed- normal NIPT 4. Supervision of high risk in first trimester O09. PRR ELAINE 10/14/18 Oscar Olmos Manuel Plan movement and labor precautions reviewed. ACOG trimester education reviewed and updated. see problem list details for updated plan management information and see below for orders placed at this visit. [place] appropriate handout given. Orders Orders: Coding Level of Care Code OB Routine Diagnoses History of pre-eclampsia in prior , currently O09.299 Previous delivery affecting , antepartum O34.219 Advanced maternal age (AMA) in Supervision of high risk in first trimester O09. Additional Codes Non-Stress Test (48917) 07/24/18 0647 <Electronically signed by Sade Collins MD> Date Sade Collins MD Cosign Signature: Date (if applicable) CC: GLUCOSE CHALLENGE GEST Collected: 07/23/2018 Status: F Source: [place] 1H 50G 11:16 AM [facility] REPOSITORY TYPE CODE TESTS RESULT OUT OF RANGE REFERENCE UNITS LAB L501.0250 70-140 mg/dL High GLU GEST 144 50g 1H Performed By: #### L501.0250 #### [facility] [address] [place], [address] Observed: 07/09/2018 Status: F Source: [place] CULTURE, GENITAL 3:09 PM [facility] COMPREHENSIVE REPOSITORY Reason for Exam: vaginal discharge Gram Stain Score = 0 Interpretation: 0-3 Normal, 4-6 Intermediate, 7-10 Positive BV Gram Stain 4+ Gram positive rods No White Blood Cells No Gram negative diplococci No Yeast Like Organisms Gent Cult Comp Normal vaginal annie isolated. No yeast, Gardnerella, Neisseria or beta-hemolytic Streptococcus isolated. Performed By: #### M100.1600 #### [facility] [address] [place], [address] LABORER HOISTING OFFICE VISIT Observed: 06/24/2018 Status: F Source: DONA REPORT 1:54 PM [facility] REPOSITORY [facility] [address] [place] [address] OFFICE VISIT Date of Service: 06/24/18 MR#: [id number] Acct: [id number] Name: MCKENZIE DIALLO Rep #: [id number] : 1985 Provider: Sade Collins MD Age/Sex: 33/F Location: [facility] [place] Status: Signed Intake Vital Signs06/24/18 Height 5 ft 3 in 06/24/18 Blood Pressure 104/62 06/23/18 Height 5 ft 3 in 06/23/18 Weight: 203 lb 8 oz 06/23/18 Body Mass Index (BMI) 36.0 06/23/18 Blood Pressure 104/62 Intake Visit Reasons: est ob 24 weeks Traffic Checker Required: No Is patient in pain?: No Allergies Sulfa (Sulfonamide Antibiotics) Allergy (Verified 06/24/18 13:22) Other Medications vitamin,calcium,auritfhp-krcr-lemun acid tablet 1 tab PO QDAY 03/01/18 [History Confirmed 06/24/18] promethazine 12.5 mg tablet 12.5 mg PO Q6H PRN #60 tab 03/04/18 [Rx Confirmed 06/24/18] citalopram 20 mg tablet 20 mg PO QDAY #30 tab 04/26/18 [Rx Confirmed 06/24/18] Aspirin [Aspirin, Baby] 81 mg PO DAILY 05/15/18 [History Confirmed 06/24/18] Famotidine [Pepcid] 20 mg PO BID #30 tab 05/16/18 [Rx Confirmed 06/24/18] Last Menstral Period: 01/07/18 Zika: Zika virus screening: Negative : No PFSH PFSH Medical History Chronic headaches (Chronic) Abnormal Pap smear of cervix (Acute) Seasonal allergies (Acute) Hypertension affecting (Resolved) Vitamin D deficiency (Resolved) Surgical History History of appendectomy (Acute) History of section (Acute) History of tonsillectomy and adenoidectomy (Acute) Family History Father Alcoholism Mother Mental disorder Grandmother Blood clots Grandfather Skin cancer Hypertension Social History Smoking Status: Former smoker alcohol intake: never substance use type: does not use caffeine: No (rarely) what type of physical activity do you participate in: none frequency: 5-6 times per week duration: 15-30 minutes/day seatbelt use: always do you feel safe at home: Yes 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 DateName GA/Weeks Outcome Route Bth WeighInfant GeLabor LgtAnesthesiDel LocatProvider FOB t n h a n HPI est ob 24 weeks: Details: MCKENZIE DIALLO is a 33 year old who presents for routine OB visit. OB Visit ELAINE Calculator Estimated Delivery Date 10/14/18 Based on LMP (uncertain) 01/07/18 Current WG 24w 0d Number 1 Expected Delivery Route/Plan RLTCS and BTL Specific Issue/Plans flu vaccine: [] minichart given: [] tdap vaccine: [] rhogam: [] LARC form signed:R cs BTO labor support person: Manuel pain management: [] cut cord/dad catch: [] : yes PP control planned: [] special requests: [] Initial Weight: 192 lb Date Weight BP Urine PrFHR FuHt Pres MoCTX DilationFetal StVisit NoProviderComments E ot v te GA G Effac lucose ed Visit Notes Visit Date: 06/24/18 mood stable, no vb lof no regular ctx some fm Sade Collins MD on 06/24/18 Visit Date: 05/28/18 Doing well. No VB, LOF Karen Collins NP-Sonu on 05/28/18 Visit Date: 04/26/18 co increased anxiety and changes in mood- recommend celexa vistaril prn. Sade Collins MD on 04/26/18 Visit Date: 04/15/18 co abdominal pain and stretching after carrying buckets. no vb Sade Collins MD on 04/15/18 Visit Date: 03/01/18 No visit notes to display ACOG First Trimester First Trimester: Desire for , Alcohol, Tobacco Cessation, Illicit/Recreational Drug/Substance Use, Intimate Partner Violence, Barriers to care, Unstable Housing, Communication Barriers, Environmental/Work Hazards, Anticipated Course of Care, Toxoplasmosis Precations, Use of Any medications, Sexual activity, Exercise, Dental Care, Sauna/Hot tub use, Seat Belt use, Childbirth classes/Hospital facilities, , Travel, Indications for US and Screening for Aneuploidy Diagnostics Diagnostics Labs Blood Type O POSITIVE 03/02/18 Antibody Screen NEGATIVE 03/02/18 Hct 35.7 % (37-47) L 05/15/18 Hgb 12.4 g/dl (12.0-15.0) 05/15/18 Obstetrics Ultrasound 05/20/18 Rubella IgG Antibody 484.3 IU/mL 03/02/18 RPR NONREACTIVE (NONREACTIVE) 03/02/18 Hep Bs Antigen Negative (Negative) 03/02/18 Chlam trachomat DNA PCR Negative (Negative) 03/01/18 N.gonorrhoeae DNA (PCR) Negative (Negative) 03/01/18 Glucose 1 Hr 50 gm 102 mg/dL (70-140) 05/08/18 Miscellaneous Test 04/15/18 Details: HIV: Urine Culture: Sequential Screen: NIPT Screen: Results [id number] Office Urine Glucose Negative Last Edit by Lakisha Pan on 06/24/18 13:30 Office Urine Protein Negative Last Edit by Lakisha Pan on 06/24/18 13:30 Assessment AND Plan Problems 1. History of pre-eclampsia in prior , currently O09.299 baseline labs, baby aspirin at 14 weeks 2. Previous delivery affecting , antepartum O34.219 x2, planning RLTCS and BTL. declines . 3. Advanced maternal age (AMA) in genetic counseling options reviewed- normal NIPT 4. Supervision of high risk in first trimester O09. PRR ELAINE 10/14/18 Oscar Olmos Manuel 5. Supervision of high risk , antepartum O Plan ACOG trimester education reviewed and updated. see problem list details for updated plan management information and see below for orders placed at this visit. GA appropriate handout given. Orders Orders: Coding Level of Care Code OB Routine Diagnoses History of pre-eclampsia in prior , currently O09.299 Previous delivery affecting , antepartum O34.219 Advanced maternal age (AMA) in Supervision of high risk in first trimester O09.91 Supervision of high risk , antepartum O09.90 06/24/18 1354 <Electronically signed by Sade Collins MD> Date Sade Collins MD Cosign Signature: Date (if applicable) CC: LABORER HOISTING OFFICE VISIT Observed: 05/28/2018 Status: F Source: DONA REPORT 10:10 AM [facility] [address] [place] [address]. [address] [place] [address] OFFICE VISIT Date of Service: 05/28/18 MR#: [id number] Acct: [id number] Name: MCKENZIE DIALLO Rep #: [id number] : 1985 Provider: RODNEY Collins Age/Sex: 33/F Location: [facility] [place] Status: Signed Intake Vital Signs05/28/18 Height 5 ft 3 in 05/28/18 Weight: 197 lb 8 oz 05/28/18 Body Mass Index (BMI) 34.9 05/28/18 Blood Pressure 110/71 Intake Visit Reasons: 20 weeks Chief Complaint: est ob Traffic Checker Required: No Is patient in pain?: No Allergies Sulfa (Sulfonamide Antibiotics) Allergy (Verified 05/28/18 09:47) Other Medications vitamin,calcium,qnnwjmbu-poaf-fikzk acid tablet 1 tab PO QDAY 03/01/18 [History Confirmed 05/28/18] promethazine 12.5 mg tablet 12.5 mg PO Q6H PRN #60 tab 03/04/18 [Rx Confirmed 05/28/18] citalopram 20 mg tablet 20 mg PO QDAY #30 tab 04/26/18 [Rx Confirmed 05/28/18] Aspirin [Aspirin, Baby] 81 mg PO DAILY 05/15/18 [History Confirmed 05/28/18] Famotidine [Pepcid] 20 mg PO BID #30 tab 05/16/18 [Rx Confirmed 05/28/18] Last Menstral Period: 01/07/18 Zika: Zika virus screening: Negative : No PFSH PFSH Medical History Chronic headaches (Chronic) Abnormal Pap smear of cervix (Acute) Seasonal allergies (Acute) Hypertension affecting (Resolved) Vitamin D deficiency (Resolved) Surgical History History of appendectomy (Acute) History of section (Acute) History of tonsillectomy and adenoidectomy (Acute) Family History Father Alcoholism Mother Mental disorder Grandmother Blood clots Grandfather Skin cancer Hypertension Social History Smoking Status: Former smoker alcohol intake: never substance use type: does not use caffeine: No (rarely) what type of physical activity do you participate in: none frequency: 5-6 times per week duration: 15-30 minutes/day seatbelt use: always do you feel safe at home: Yes 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 DateName GA/Weeks Outcome Route Bth WeighInfant GeLabor LgtAnesthShalom LocatProvider FOB t n h a n HPI 20 weeks: Details: MCKENZIE DIALLO is a 33 year old who presents for routine OB visit. OB Visit ELAINE Calculator Estimated Delivery Date 10/14/18 Based on LMP (uncertain) 01/07/18 Current WG 20w 1d Number 1 Expected Delivery Route/Plan RLTCS and BTL Specific Issue/Plans flu vaccine: [] minichart given: [] tdap vaccine: [] rhogam: [] LARC form signed:R cs BTO labor support person: Manuel pain management: [] cut cord/dad catch: [] : yes PP control planned: [] special requests: [] Initial Weight: 192 lb Date Weight BP Urine PrFHR FuHt Pres MoCTX DilationFetal StVisit NoProviderComments E ot v te GA G Effac lucose ed Visit Notes Visit Date: 05/28/18 Doing well. No VB, LOF Karen Collins RUSSIAN TEACHER-C on 05/28/18 Visit Date: 04/26/18 co increased anxiety and changes in mood- recommend celexa vistaril prn. Sade Collins MD on 04/26/18 Visit Date: 04/15/18 co abdominal pain and stretching after carrying buckets. no vb Sade Collins MD on 04/15/18 Visit Date: 03/01/18 No visit notes to display ACOG First Trimester First Trimester: Desire for , Alcohol, Tobacco Cessation, Illicit/Recreational Drug/Substance Use, Intimate Partner Violence, Barriers to care, Unstable Housing, Communication Barriers, Environmental/Work Hazards, Anticipated Course of Care, Toxoplasmosis Precations, Use of Any medications, Sexual activity, Exercise, Dental Care, Sauna/Hot tub use, Seat Belt use, Childbirth classes/Hospital facilities, , Travel, Indications for US and Screening for Aneuploidy Diagnostics Diagnostics Labs Blood Type O POSITIVE 03/02/18 Antibody Screen NEGATIVE 03/02/18 Hct 35.7 % (37-47) L 05/15/18 Hgb 12.4 g/dl (12.0-15.0) 05/15/18 Obstetrics Ultrasound 05/20/18 Rubella IgG Antibody 484.3 IU/mL 03/02/18 RPR NONREACTIVE (NONREACTIVE) 03/02/18 Hep Bs Antigen Negative (Negative) 03/02/18 Chlam trachomat DNA PCR Negative (Negative) 03/01/18 N.gonorrhoeae DNA (PCR) Negative (Negative) 03/01/18 Glucose 1 Hr 50 gm 102 mg/dL (70-140) 03/02/18 Miscellaneous Test 04/15/18 Details: HIV: Urine Culture: Sequential Screen: NIPT Screen: Results [id number] Office Urine Glucose Negative Last Edit by Virginia Gonzalez on 05/28/18 09:55 Office Urine Protein Negative Last Edit by Virginia Gonzalez on 05/28/18 09:55 Assessment AND Plan Problems 1. Supervision of high risk in first trimester O09. PRR ELAINE 10/14/18 Boy Oscar Gray Manuel 2. Advanced maternal age (AMA) in genetic counseling options reviewed- normal NIPT 3. Previous delivery affecting , antepartum O34.219 x2, planning RLTCS and BTL. declines . 4. History of pre-eclampsia in prior , currently O09.299 baseline labs, baby aspirin at 14 weeks 5. Chronic nonintractable headache, unspecified headache type R51 6. 20 weeks gestation of Z3A.20 Plan Orders placed: none Reviewed of labor precautions, movement/kick counts ACOG trimester education reviewed and updated See problem list details for updated plan of care Gestational age appropriate handout given RTO: 4 weeks Orders Orders: Coding Level of Care Code OB Routine Diagnoses Supervision of high risk in first trimester O09.91 Advanced maternal age (AMA) in Previous delivery affecting , antepartum O34.219 History of pre-eclampsia in prior , currently O09.299 Chronic nonintractable headache, unspecified headache type R51 Headache type: unspecified Intractability: not intractable 20 weeks gestation of Z3A.20 05/28/18 1010 <Electronically signed by Karen CAMPOS> Date Karen Collins RUSSIAN TEACHER-C Cosigner Signature: Date (if applicable) CC: OB ANATOMY SCAN Observed: 05/20/2018 Status: F Source: [place] 12:31 PM [facility] [place] REPOSITORY [facility] Imaging Services [address] [address] OB Anatomy Scan MR#: [id number] Acct: [id number] Name: MCKENZIE DIALLO Rep #: [id number] : 1985 F 33 From: Anthony Cid MD PCP: Deyvi oLpez DO Status: REG CLI Study: OB Anatomy Scan Date of Exam: 05/20/18 Exam# [id number] Ordering Dr: Sade Collins MD STUDY: SECOND AND THIRD TRIMESTER OBSTETRICAL ULTRASOUND REASON FOR EXAM: Female, 33 years old. Routine survey. LMP: 01/07/2018 TECHNIQUE: Transabdominal PRIOR ULTRASOUND: 05/16/2018 FINDINGS: There is a single intrauterine fetus. The fetus is in a cephalic presentation. There is demonstrated cardiac activity with a heart rate of 136 bpm. There is a normal amniotic fluid volume. The largest amniotic fluid pocket measures 6.9 x 3.5 cm. The placenta is anterior in location and is not low lying. There are Grade 0 placental changes. The cervix measures 4.7 cm in length. The bilateral adnexal regions are normal. BIOMETRY: BPD: 4.37 cm: 19 weeks, 2 days HC: 16.65 cm: 19 weeks, 3 days AC: 14.4 cm: 19 weeks, 6 days FL: 2.82 cm: 18 weeks, 5 days age by current US: 19 weeks, 3 days. ELAINE by current US: 10/11/2018. Estimated weight: 281 grams, +/- 40 grams, 60 %. Age by LMP: 19 weeks, 0 days. ELAINE by LMP: 10/14/2018. ANATOMY: Gender: Male Cranium: Normal lateral ventricles. Normal choroid plexus. Normal cerebellum. Normal cisterna magna. Normal face, nose and lips. Chest: Normal 4-chamber heart. Abdomen/Pelvis: Normal diaphragm. Normal stomach. Normal abdominal wall. Normal cord insertion. Normal 3 vessel cord. Normal kidneys. Normal bladder. Spine: Normal cervical spine. Normal thoracic spine. Normal lumbar spine. Normal sacrum. Extremities: Normal bilateral upper extremities. Normal bilateral lower extremities. US/OB Anatomy Scan IMPRESSION: Single live intrauterine at 19 weeks, 3 days by ultrasound with ELAINE of 10/11/2018. Heart rate at 136 bpm. No suspicious sonographic findings. Electronically Signed: Jaguar Cid MD at 14:01 EDT , Service support , CC: Deyvi Lopez DO; Sade Collins MD Mortuary Operations Manager: Signed DISCHARGE INSTRUCTION Observed: 05/16/2018 Status: F Source: [place]E 1:23 AM [facility] REPOSITORY [facility] Medical Records Department [address] [place] [address] Discharge Instruction 05/16/18 0121 MR#: [id number] Acct: [id number] Name: MCKENIZE DIALLO Rep #: [id number] : 1985 33 From: Ceci Quiros PCP: Deyvi Lopez DO Status: REG ER ED Disposition - Plan for ED Patient: Chief Complaint: Abd Pain Instructions: ED Pelvic Pain Preg UKO 2 or 3 Tri Prescriptions: Famotidine [Pepcid] 20 mg PO BID #30 tablet Referrals: Sade Collins MD [STAFF PHYSICIAN] - 3-5 Days What to do if you have Problems For any increased pain, shortness of breath, bleeding, nausea or vomiting, chest pain, or any unexpected problems, contact your Primary Care Provider. Call [facility] ([phone]) or report to the closest Emergency Room. Call 911 if necessary. 05/16/18 0123 <Electronically signed by Ceci Quiros > Date Ceci Quiros Cosigner Signature (If Indicated): Date CC: Deyvi Lopez DO EMERGENCY DEPARTMENT Observed: 05/16/2018 Status: F Source: RICH[place]E SUMMARY 1:21 AM [facility] [place] REPOSITORY [facility] Medical Records Department [address] [place] [address] Emergency Department Summary 05/15/18 2244 MR#: [id number] Acct: [id number] Name: MCKENZIE DIALLO Rep #: [id number] : 1985 33 From: Ceci Quiros PCP: Deyvi Lopez DO Status: REG ER - ER Visit Summary Date of Service: 05/15/18 Chief Complaint: [abdominal pain] History of Present Illness: The patient is a 33 F [who presents the emergency department with 2 days of general malaise. She is 18 weeks . She felt nauseated but cannot vomit. No appetite. Very uncomfortable. Additionally she has had some lower abdominal cramping today she had some low back pain. He does not feel like contractions to her. She is not having any vaginal bleeding or leakage of fluid. No fevers. She is complaining of increased urinary frequency and some discomfort with urination and foul-smelling dark urine. She spoke with her LABORER HOISTING today who called her in something for urinary tract infection however she was unable to get it. Patient did say she took Tums earlier today and that relieved her discomfort for some time but then it came back.] Physical Examination: [] WN WD NAD PERRL EOMI MMM NECK supple and nontender, no masses RRR no murmur rub or gallop, no peripheral edema, symmetric radial pulses CTAB no respiratory distress ABDOMEN is soft and well tenderness to palpation the right abdomen normal bowel sounds, no distension, no rebound or guarding SKIN is warm and dry no rashes Alert and Oriented x3, CN II-XII in tact, no motor or sensory deficits, gait normal No lymphadenopathy Test Results: [] Emergency Department Course and Treatment: [Labs show leukocytosis at 11.4 but other labs are completely normal including lipase and liver enzymes. Urinalysis does not appear infected. Urine culture was sent. I do not think the patient needs antibiotics at this time. I think a lot of her symptoms may be due to gastritis however this is not explain the lower abdominal pain. I did order an ultrasound which shows a closed cervix a live IUP with a heart rate of 146 in a breech lie. The patient is feeling better today we will start her on Pepcid. She was given gastritis precautions. I did also advise her to call her LABORER HOISTING tomorrow. She was invited to come back to the emergency department with any concerns. Treatment Plan: [] Disposition: [Discharge] Impression: [1. Abdominal pain and second trimester ] This note was generated with [employer] dictation software. It may contain incorrect words, spelling, and punctuation that were not noted in review of the chart prior to signing ED Disposition - Plan for ED Patient: Chief Complaint: Abd Pain Referrals: Deyvi Lopez DO [Primary Care Provider] - What to do if you have Problems For any increased pain, shortness of breath, bleeding, nausea or vomiting, chest pain, or any unexpected problems, contact your Primary Care Provider. Call [facility] ([phone]) or report to the closest Emergency Room. Call 911 if necessary. 05/16/18 0121 <Electronically signed by Ceci Quiros > Date Ceci Quiros Cosigner Signature (If Indicated): Date CC: Deyvi Lopez DO Observed: 05/15/2018 Status: F Source: DONA CULTURE, URINE 11:20 PM [facility] REPOSITORY Urine Culture Culture exhibits no growth. Performed By: #### M100.0650 #### [facility] [place], [address] CBC W/DIFF, AUTOMATED Collected: 05/15/2018 Status: F Source: DONA 11:00 PM [facility] REPOSITORY TYPE CODE TESTS RESULT OUT OF RANGE REFERENCE UNITS LAB L100.1000 4.4-11.0 K/mm3 High WBC 11.4 LAB L100.1200 4.2-5.4 M/mm3 Normal RBC 4.26 LAB L100.1300 12.0-15.0 g/dl Normal HGB 12.4 LAB L100.1400 37-47 % Low HCT 35.7 LAB L100.1500 81-99 fL Normal MCV 83.8 LAB L100.1600 27.0-32.0 pg Normal MCH 29.1 LAB L100.1700 32-36 g/gl Normal MCHC 34.7 LAB L100.1810 11.6-14.6 % Normal RDW CV 14.3 LAB L100.1820 35.1-43.9 fl Normal RDW SD 42.8 LAB L100.1900 150-450 K/mm3 Normal PLT 206 LAB L100.2000 6.2-12.0 fl Normal MPV 9.3 LAB L100.2100 47-70 % Normal NEUT% 64.5 LAB L100.2200 19-41 % Normal LY% 25.5 LAB L100.2300 0-10 % Normal MONO% 8.3 LAB L100.2400 0-5 % Normal EO% 1.1 LAB L100.2500 0-1 % Normal BASO% 0.2 LAB L100.2550 0.0-0.9 % Normal IM GRAN % 0.400 Result Comment: IG% - Immature Granulocytes (promyelocytes, myelocytes and metamyelocytes) > 1% indicates that a LEFT SHIFT is Present. LAB L100.2620 2.0-7.7 X10 3/uL Normal Absolute Neut 7.3 LAB L100.2720 0.83-4.51 X10 3/ul Normal Absolute Lymph 2.90 Performed By: #### L100.0100 #### [facility] [address] [place], [place], [id number] COMPREHENSIVE METABOLIC Collected: 05/15/2018 Status: F Source: DONA [place] 11:00 PM [facility] REPOSITORY TYPE CODE TESTS RESULT OUT OF RANGE REFERENCE UNITS LAB L501.0100 74-106 mg/dL Normal GLU 81 Result Comment: Please note revised GLUCOSE reference range effective 2017. LAB L501.1000 7-18 mg/dL Normal BUN 8 LAB L501.1100 0.55-1.02 mg/dL Normal CREAT,SERUM 0.66 Result Comment: The validity of the calculated GFR AND GFRAA in patients over 70 years has not been determined. Clinical correlation is essential. LAB L501.1110 >60 mL/min Normal EST GFR 109 Result Comment: Non- GFR Calc LAB L501.1115 >60 mL/min Normal EST GFR - AA 132 Result Comment: GFR Calc LAB L501.1255 ml/min Normal Estimated CRCL 98.42 LAB L501.1300 10-20 RATIO Normal BUN/CRE 12.2 LAB L501.1500 6.4-8. g/dL Normal 2 T PROT 6.7 LAB L501.1800 3.2-5. g/dL Low 0 ALB 2.9 LAB L501.1950 2.2-4. g/dL Normal 2 GLOB 3.8 LAB L501.2000 0.9-2. RATIO Low 4 A/G 0.8 LAB L501.2200 8.5-10 mg/dL Normal .1 CA 8.9 LAB L501.4100 15-37 U/L Normal AST 16 LAB L501.4305 45-117 U/L Normal ALK P 109 LAB L501.4405 13-56 U/L Normal ALT 25 LAB L501.4600 0.20-1 mg/dL Normal .00 T BILI 0.60 LAB L501.5300 136-14 mmol/L Normal 5 NA 138 LAB L501.5600 3.5-5. mmol/L Normal 1 K 3.5 LAB L501.5900 98-107 mmol/L Normal CL 107 LAB L501.6100 21.0-3 mmol/L Normal 2.0 CO2 26.0 LAB L501.6200 5-15 Normal GAP 5 Performed By: #### L500.4050, L501.2450 #### [facility] [address] [place], [address] LIPASE Collected: 05/15/2018 Status: F Source: [place] 11:00 PM [facility] REPOSITORY TYPE CODE TESTS RESULT OUT OF RANGE REFERENCE UNITS LAB L501.2450 73-393 U/L Normal LIPASE 96 Performed By: #### L500.4050, L501.2450 #### [facility] [address] [place], [address] OB LIMITED (NO Observed: 05/15/2018 Status: F Source: [place] BIOMETRICS) 10:44 PM [facility] REPOSITORY [facility] Imaging Services [address] [place] [address] OB Limited (No Biometrics) MR#: [id number] Acct: [id number] Name: MCKENZIE DIALLO Rep #: [id number] : 1985 F 33 From: Pepe Mcmahan MD PCP: Deyvi Lopez DO Status: REG ER Study: OB Limited (No Biometrics) Date of Exam: 05/15/18 Exam# [id number] Ordering Dr: Ceci Quiros STUDY: SECOND AND THIRD TRIMESTER OBSTETRICAL ULTRASOUND - LIMITED REASON FOR EXAM: Female, 33 years old. Determination of well-being. Evaluation of heart rate LMP: 01/07/2018 PRIOR ULTRASOUND: None. TECHNIQUE: Transabdominal ultrasound evaluation was performed. FINDINGS: The study shows a single live fetus in a breech presentation and longitudinal lie with a heart rate of 14 6 bpm. Using the LMP the gestational age is 18 weeks 2 days +/- 5 days with an expected date of delivery of 10/14/2018. The placenta is anterior in location. The cervical os is closed. US/OB Limited (No Biometrics) IMPRESSION: The fetus is in a breech presentation and longitudinal lie. heart rate of 146 bpm. The fetus, based on the LMP is currently at 18 weeks 2 days +/- 5 days with an expected date of delivery of 10/14/2018. Electronically Signed: Pepe Mcmahan, at 1:09 EDT Tel , Service support , CC: Ceci Quiros; Deyvi Lopez DO Mortuary Operations Manager: Signed URINALYSIS, COMPLETE Collected: 05/15/2018 Status: F Source: [place] 10:20 PM [facility] REPOSITORY Order Comment: Order Date: 05/15/18 How was Urine Obtained? CLEAN CATCH TYPE CODE TESTS RESULT OUT OF RANGE REFERENCE UNITS LAB L400.3000 Yellow COLOR Normal Yellow LAB L400.3050 Clear Normal CLARITY Clear LAB L400.3200 Normal mg/dl Normal GLUCOSE, UR Normal LAB L400.3300 Negative mg/dL Normal BILIRUBIN URINE Negative LAB L400.3400 Negative mg/dl Normal KETONE UR Negative LAB L400.3465 1.002-1.030 Normal SP.GR. DIPSTX 1.010 LAB L400.3550 5.0 - 8.0 pH UR Normal 7.0 LAB L400.3600 Negative mg/dl PROT Normal DIPSTX Negative LAB L400.3700 Normal mg/dl Normal UROBILI Normal LAB L400.3750 Negative Normal NITRITE UR Negative LAB L400.3780 Negative /ul Normal OCCULT BLOOD-UR Negative LAB L400.3800 Negative /ul High LEUK 25 ESTERASE LAB L400.4050 0-5 /hpf WBC Normal 0-5 SEEN LAB L400.4100 0-5 /hpf Normal RBC-UA 0-5 SEEN LAB L400.4150 5-10 /hpf SQUAM Normal EPI 0-5 SEEN LAB L400.4300 None Seen /hpf 0 Normal BACTERIA SEEN LAB L400.4350 <or=2+ /hpf 0 Normal MUCUS, URINE SEEN Performed By: #### L400.0001 #### [facility] [place], [address] INTERNAL MEDICINE Observed: 05/05/2018 Status: F Source: [place] OFFICE VISIT 5:33 PM [facility] Internal Medicine [address] [place] [address] [place] [address] OFFICE VISIT Date of Service: 05/05/18 MR#: [id number] Acct: [id number] Name: MCKENZIE DIALLO Rep #: [id number] : 1985 Provider: Deyvi Lopez DO Age/Sex: 33/F Location: [facility] Status: Signed Intake Vital Signs05/05/18 Height 5 ft 3 in Intake Visit Reasons: WELL CHECK Chief Complaint: well check Is patient in pain?: No Allergies Sulfa (Sulfonamide Antibiotics) Allergy (Verified 04/26/18 13:41) Other Medications valacyclovir 1 gram tablet 1,000 mg PO QDAY PRN #90 tab 02/04/18 [Rx Confirmed 04/26/18] vitamin,calcium,wkhkrjst-ahoj-tkxha acid tablet 1 tab PO QDAY 03/01/18 [History Confirmed 04/26/18] promethazine 12.5 mg tablet 12.5 mg PO Q6H PRN #60 tab 03/04/18 [Rx Confirmed 04/26/18] citalopram 20 mg tablet 20 mg PO QDAY #30 tab 04/26/18 [Rx Confirmed 04/26/18] Patient : Yes PFSH Medical History Chronic headaches (Chronic) Abnormal Pap smear of cervix (Acute) Seasonal allergies (Acute) Hypertension affecting (Resolved) Vitamin D deficiency (Resolved) Surgical History History of appendectomy (Acute) History of section (Acute) History of tonsillectomy and adenoidectomy (Acute) Family History Father Alcoholism Mother Mental disorder Grandmother Blood clots Grandfather Skin cancer Hypertension Social History Smoking Status: Former smoker alcohol intake: never substance use type: does not use caffeine: No (rarely) what type of physical activity do you participate in: none frequency: 5-6 times per week duration: 15-30 minutes/day seatbelt use: always do you feel safe at home: Yes additional social history: - 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[employer] Chief Complaint: well check Details: MCKENZIE DIALLO, is a 33 F who presents to the office today for a well exam, she is and feels well ROS Const Constitutional: No weight change, body ache, chills, fatigue, sleep problems, fever(s), change in appetite, snoring, weakness, frequent falls, headache(s) or excessive sweating Eyes Eyes: No change in vision, eye pain, light sensitivity or blurry vision ENT ENT: No headache(s), abnormal hearing, ear pain, tinnitus, nasal congestion, sore throat or neck pain Resp Respiratory: No snoring, cough, shortness of breath or wheezing Cardio Cardiology: No excessive sweating, chest pain at rest, chest pain with exertion, shortness of breath, dyspnea on exertion, palpitations, orthopnea or lightheadedness Gastro GI: No abdominal pain, change in bowel habits, constipation, diarrhea, vomiting, nausea/dyspepsia or cramping Genitourinary-Female: No burning urination, painful urination, urinary incontinence, urinary frequency, abnormal vaginal bleeding, pelvic pain or other Musc Musculoskeletal: No neck pain, abnormal walking, joint pain, back pain, limited range of motion, numbness, tingling or muscle weakness Skin Skin: No redness, dry skin, itching, lesions, wounds or rash Neuro Neurology: No weakness, frequent falls, headache(s), abnormal hearing, abnormal walking, numbness, tingling, abnormal speech, dizziness or memory loss Psych Psychiatric: No change in appetite, No memory loss, No anxiety, No depression, No Thoughts of harming yourself/Others Endo Endocrine: No fatigue, excessive sweating, cold intolerance, increased thirst/drinking, heat intolerance, flushing or increased hunger Aller/Imm Allergy/Immunologic: No wheezing, itchy eyes, hives or seasonal allergy symptoms Daniel/Lymp Hematologic/Lymphatic: No easy bleeding, easy bruising or enlarged lymph nodes Exam Const General: cooperative, healthy appearing Resp Effort AND Inspection: normal respiratory effort Auscultation: Bilateral: Clear to Auscultation Cardio Rate: regular rate Rhythm: regular rhythm GI Inspection: normal to inspection, other (Pt. is 17 weeks .) Palpation: soft, no hepatosplenomegaly Musc Musculoskeletal: No joint tenderness, joint redness, joint warmth, decreased ROM, spinal deformity, scoliosis to L, scoliosis to R, lordosis or muscle weakness Skin General: no rashes or lesions noted Psych Appearance: well kempt Mental Status: mental status grossly normal Affect: normal affect Speech and Movement: speech and movement normal Thought Process: normal Judgment: judgment good Assessment AND Plan Problems 1. Preventative health care Z00.00 2. Z34.90 Plan This is a patient who is 17 weeks into her and doing well with the . She came to the office for preventative medicine exam however because of her and because all of her preventative labs are up-to-date there really are no studies that need to be done. She has had some problems with anxiety and depression in the past and her OB GEN doctor is started on Celexa which is entirely appropriate and also 81 mg aspirin trying to prevent the preeclampsia problems she said with other pregnancies. We discussed medications we discussed her we discussed well exams and actually I think she is doing quite well. Plan Detail Follow Up 1 Year Coding Level of Care Code Off vis,est,prev 18-39yrs Diagnoses Preventative health care Z00.00 Z34.90 05/05/18 5068 <Electronically signed by Deyvi Lopez DO> Date Deyvi Lopez DO Cosigner Signature: Date (if applicable) CC: URINALYSIS, EMPLOYEE Collected: 04/30/2018 Status: F Source: [place] 7:20 AM [facility] REPOSITORY TYPE CODE TESTS RESULT OUT OF RANGE REFERENCE UNITS LAB L400.3000 Yellow COLOR Normal Yellow LAB L400.3050 Clear Normal CLARITY Sl. Cloudy LAB L400.3200 Normal mg/dl Normal GLUCOSE, UR Normal LAB L400.3300 Negative mg/dL Normal BILIRUBIN URINE Negative LAB L400.3400 Negative mg/dl Normal KETONE UR Negative LAB L400.3465 1.002-1.030 Normal SP.GR. DIPSTX 1.015 LAB L400.3550 5.0 - 8.0 pH UR Normal 8.0 LAB L400.3600 Negative mg/dl PROT Normal DIPSTX Negative LAB L400.3700 Normal mg/dl Normal UROBILI Normal LAB L400.3750 Negative Normal NITRITE UR Negative LAB L400.3780 Negative /ul Normal OCCULT BLOOD-UR Negative LAB L400.3800 Negative /ul High LEUK 25 ESTERASE Performed By: #### L400.0100 #### [facility] [address], [address] CBC, EMPLOYEE Collected: 04/30/2018 Status: F Source: [place] 7:20 AM [facility] REPOSITORY TYPE CODE TESTS RESULT OUT OF RANGE REFERENCE UNITS LAB L100.1000 4.4-11.0 K/mm3 Normal WBC 10.1 LAB L100.1200 4.2-5.4 M/mm3 Normal RBC 4.41 LAB L100.1300 12.0-15.0 g/dl Normal HGB 12.7 LAB L100.1400 37-47 % Low HCT 36.2 LAB L100.1500 81-99 fL Normal MCV 82.1 LAB L100.1600 27.0-32.0 pg Normal MCH 28.8 LAB L100.1700 32-36 g/gl Normal MCHC 35.1 LAB L100.1810 11.6-14.6 % Normal RDW CV 14.0 LAB L100.1820 35.1-43.9 fl Normal RDW SD 40.3 LAB L100.1900 150-450 K/mm3 Normal PLT 206 LAB L100.2000 6.2-12.0 fl Normal MPV 9.2 LAB L100.2110 47-70 % High NEUT% 73.5 LAB L100.2210 19-41 % Low LY% 18.2 LAB L100.2310 0-10 % Normal MONO% 7.2 LAB L100.2410 0-5 % Normal EO% 0.7 LAB L100.2510 0-1 % Normal BASO% 0.2 LAB L100.2620 2.0-7.7 X10 3/uL Normal Absolute Neut 7.4 LAB L100.2720 0.83-4.51 X10 3/ul Normal Absolute Lymph 1.84 Performed By: #### L100.0200 #### [facility] [address] [place], [address] EMPLOYEE PROFILE Collected: 04/30/2018 Status: F Source: [place] 7:20 AM [facility] REPOSITORY TYPE CODE TESTS RESULT OUT OF RANGE REFERENCE UNITS LAB L501.0100 74-106 mg/dL Normal GLU 77 Result Comment: Please note revised GLUCOSE reference range effective 2017. LAB L501.1000 7-18 mg/dL Low BUN 6 LAB L501.1100 0.55-1.02 mg/dL Normal CREAT,SERUM 0.55 Result Comment: The validity of the calculated GFR AND GFRAA in patients over 70 years has not been determined. Clinical correlation is essential. LAB L501.1110 >60 mL/min Normal EST GFR 134 Result Comment: Non- GFR Calc LAB L501.1115 >60 mL/min Normal EST GFR - AA 162 Result Comment: GFR Calc LAB L501.1300 10-20 RATIO Normal BUN/CRE 10.9 LAB L501.1400 2.6-6.0 mg/dL Normal URIC 2.6 Result Comment: The drugs N-Acetylcysteine and Metamizole may falsely depress this assay. LAB L501.1500 6.4-8.2 g/dL Normal T PROT 6.7 LAB L501.1800 3.2-5.0 g/dL Low ALB 3.0 LAB L501.1950 2.2-4.2 g/dL Normal GLOB 3.7 LAB L501.2000 0.9-2.4 RATIO Low A/G 0.8 LAB L501.2200 8.5-10.1 mg/dL Low CA 8.2 LAB L501.2300 2.5-4.9 mg/dL Normal PHOS 3.3 LAB L501.4100 15-37 U/L Normal AST 16 LAB L501.4305 45-117 U/L Normal ALK P 99 LAB L501.4405 13-56 U/L Normal ALT 23 LAB L501.4600 0.20-1.00 mg/dL Normal T BILI 1.00 LAB L501.4700 0.00-0.30 mg/dL Normal D BILI 0.20 LAB L501.4900 200 mg/dL Normal CHOL 195 Result Comment: <200 mg/dL Desirable 200-240 mg/dL Borderline >240 mg/dL High Risk LAB L501.5000 mg/dL Normal TRIG 81 Result Comment: The drugs N-Acetylcysteine and Metamizole may falsely depress this assay. Serum Triglycerides Reference Interval Normal <150 mg/dL Borderline high 150 - 199 mg/dL High 200 - 499 mg/dL Very High > or = 500 mg/dL LAB L501.5300 136-145 mmol/L Normal NA 140 LAB L501.5600 3.5-5.1 mmol/L Normal K 3.8 LAB L501.5900 98-107 mmol/L Normal CL 107 LAB L501.6100 21.0-32.0 mmol/L Normal CO2 25.0 LAB L501.6200 5-15 Normal 8 GAP LAB L501.6400 mg/dL Normal HDL 77 Result Comment: The drugs N-Acetylcysteine and Metamizole may falsely depress this assay. Reference Range HDL <40 mg/dL Low HDL Cholesterol HDL >or= 60 mg/dL High HDL Cholesterol LAB L501.6475 Normal CHOL:HDL 2.50 LAB L501.6500 0-130 mg/dL Normal LDL 102 LAB L501.6600 5-40 mg/dL Normal VLDL 16 LAB L504.2610 84-246 U/L Normal LDH 169 Performed By: #### L500.2900 #### [facility] [address] [facility] [place], [place], [id number] NICOTINE URINE DRUG Collected: 04/30/2018 Status: F Source: [place] SCREEN 7:20 AM [facility] REPOSITORY TYPE CODE TESTS RESULT OUT OF RANGE REFERENCE UNITS LAB L505.6250 TO BE Normal CONFIRMED Result Comment: CONFIRMATORY TESTING FOR ALL POSITIVE URINE DRUG SCREEN RESULTS WILL ONLY BE SENT OUT UPON PHYSICIAN ORDER. The results of Urine Drug Screen methods provide only preliminary analytical test results. A more specific alternate chemical method must be used in order to obtain a confirmed analytical result. Gas chromatography/mass spectrometery (GC/MS) is the preferred confirmatory method. Clinical consideration and professional judgement should be applied to any drug of abuse test result, particularly when preliminary positive results are used. LAB L505.6270 <200 ng/mL Normal COT DRG Negative SCREEN Result Comment: Cotinine is the first-stage metabolite of Nicotine. Performed By: #### L505.6240 #### [facility] [address] [facility] [place], [place], [address] LABORER HOISTING OFFICE VISIT Observed: 04/26/2018 Status: F Source: [place] REPORT 2:09 PM [facility] [address] [place] [address] OFFICE VISIT Date of Service: 04/26/18 MR#: [id number] Acct: [id number] Name: MCKENZIE DIALLO Rep #: [id number] : 1985 Provider: Sade Collins MD Age/Sex: 33/F Location: [facility] [place] Status: Signed Intake Vital Signs04/26/18 Height 5 ft 3 in 04/26/18 Weight: 193 lb 2 oz 04/26/18 Body Mass Index (BMI) 34.2 04/26/18 Blood Pressure 105/71 Intake Visit Reasons: 16 week ob Traffic Checker Required: No Is patient in pain?: No Allergies Sulfa (Sulfonamide Antibiotics) Allergy (Verified 04/26/18 13:41) Other Medications valacyclovir 1 gram tablet 1,000 mg PO QDAY PRN #90 tab 02/04/18 [Rx Confirmed 04/26/18] vitamin,calcium,htohykir-ekru-ephmy acid tablet 1 tab PO QDAY 03/01/18 [History Confirmed 04/26/18] promethazine 12.5 mg tablet 12.5 mg PO Q6H PRN #60 tab 03/04/18 [Rx Confirmed 04/26/18] Last Menstral Period: 01/07/18 Zika: Zika virus screening: Negative : No PFSH PFSH Medical History Chronic headaches (Chronic) Abnormal Pap smear of cervix (Acute) Seasonal allergies (Acute) Hypertension affecting (Resolved) Vitamin D deficiency (Resolved) Surgical History History of appendectomy (Acute) History of section (Acute) History of tonsillectomy and adenoidectomy (Acute) Family History Father Alcoholism Mother Mental disorder Grandmother Blood clots Grandfather Skin cancer Hypertension Social History Smoking Status: Former smoker alcohol intake: never substance use type: does not use caffeine: No (rarely) what type of physical activity do you participate in: none frequency: 5-6 times per week duration: 15-30 minutes/day seatbelt use: always do you feel safe at home: Yes 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 DateName GA/Weeks Outcome Route Bth WeighInfant GeLabor LgtAnesthShalom LocatProvider FOB t n h a n HPI 16 week ob: Details: MCKENZIE DIALLO is a 33 year old who presents for routine OB visit. OB Visit ELAINE Calculator Estimated Delivery Date 10/14/18 Based on LMP (uncertain) 01/07/18 Current WG 15w 4d Number 1 Expected Delivery Route/Plan RLTCS and BTL Specific Issue/Plans flu vaccine: [] minichart given: [] tdap vaccine: [] rhogam: [] LARC form signed: [] labor support person: [] pain management: [] cut cord/dad catch: [] : [] PP control planned: [] special requests: [] Initial Weight: 192 lb Date Weight BP Urine PrFHR FuHt Pres MoCTX DilationFetal StVisit NoProviderComments E ot v te GA G Effac lucose ed Visit Notes Visit Date: 04/26/18 co increased anxiety and changes in mood- recommend celexa vistaril prn. Sade Collins MD on 04/26/18 Visit Date: 04/15/18 co abdominal pain and stretching after carrying buckets. no vb Sade Collins MD on 04/15/18 Visit Date: 03/01/18 No visit notes to display ACOG First Trimester First Trimester: Desire for , Alcohol, Tobacco Cessation, Illicit/Recreational Drug/Substance Use, Intimate Partner Violence, Barriers to care, Unstable Housing, Communication Barriers, Environmental/Work Hazards, Anticipated Course of Care, Toxoplasmosis Precations, Use of Any medications, Sexual activity, Exercise, Dental Care, Sauna/Hot tub use, Seat Belt use, Childbirth classes/Hospital facilities, , Travel, Indications for US and Screening for Aneuploidy Diagnostics Diagnostics Labs Blood Type O POSITIVE 03/02/18 Antibody Screen NEGATIVE 03/02/18 Hct 37.7 % (37-47) 03/02/18 Hgb 12.6 g/dl (12.0-15.0) 03/02/18 Rubella IgG Antibody 484.3 IU/mL 03/02/18 RPR NONREACTIVE (NONREACTIVE) 03/02/18 Hep Bs Antigen Negative (Negative) 03/02/18 Chlam trachomat DNA PCR Negative (Negative) 03/01/18 N.gonorrhoeae DNA (PCR) Negative (Negative) 03/01/18 Glucose 1 Hr 50 gm 102 mg/dL (70-140) 03/02/18 Miscellaneous Test 04/15/18 Details: HIV: Urine Culture: Sequential Screen: NIPT Screen: Results [id number] Office Urine Glucose Negative Last Edit by Irene Ewing on 04/26/18 13:47 Office Urine Protein Negative Last Edit by Irene Ewing on 04/26/18 13:47 Assessment AND Plan Problems 1. History of pre-eclampsia in prior , currently O09.299 baseline labs, baby aspirin at 14 weeks 2. Previous delivery affecting , antepartum O34.219 x2, planning RLTCS and BTL. declines . 3. Advanced maternal age (AMA) in genetic counseling options reviewed- normal NIPT 4. Supervision of high risk in first trimester O. PRR ELAINE 10/14/18 Oscar Gray Manuel Plan Orders placed: celexa ACOG trimester education reviewed and updated. see problem list details for updated plan management information. GA appropriate handout given. Orders Orders: Coding Level of Care Code OB Routine Diagnoses History of pre-eclampsia in prior , currently O09.299 Previous delivery affecting , antepartum O34.219 Advanced maternal age (AMA) in Supervision of high risk in first trimester O09.91 04/26/18 1409 <Electronically signed by Sade Collins MD> Date Sade Collins MD Cosigner Signature: Date (if applicable) CC: Observed: 04/15/2018 Status: F Source: [place] CULTURE, URINE 5:41 PM [facility] REPOSITORY Urine Culture Probable contaminants. ORGANISM 1: Mixed Gram Positive Organisms [place] Count 25,000-50,000 Performed By: #### M100.0650 #### [facility] [address] [place], [address] LABORER HOISTING OFFICE VISIT Observed: 04/15/2018 Status: F Source: [place] REPORT 3:28 PM [facility] REPOSITORY [facility] [address] [place] [address] OFFICE VISIT Date of Service: 04/15/18 MR#: [id number] Acct: [id number] Name: MCKENZIE DIALLO Rep #: [id number] : 1985 Provider: Sade Collins MD Age/Sex: 33/F Location: [facility] [place] Status: Signed Intake Vital Signs04/15/18 Height 5 ft 3 in 04/15/18 Weight: 195 lb 2 oz 04/15/18 Body Mass Index (BMI) 34.5 04/15/18 Blood Pressure 100/68 Intake Visit Reasons: OB - ABDOMINAL PAIN Chief Complaint: est ob, abdominal pain Traffic Checker Required: No Is patient in pain?: Yes Allergies Sulfa (Sulfonamide Antibiotics) Allergy (Verified 04/15/18 14:31) Other Medications valacyclovir 1 gram tablet 1,000 mg PO QDAY PRN #90 tab 02/04/18 [Rx Confirmed 04/15/18] vitamin,calcium,fndfuauy-xcat-jnuhd acid tablet 1 tab PO QDAY 03/01/18 [History Confirmed 03/01/18] promethazine 12.5 mg tablet 12.5 mg PO Q6H PRN #60 tab 03/04/18 [Rx Confirmed 04/15/18] Last Menstral Period: 01/07/18 Zika: Zika virus screening: Negative : No PFSH PFSH Medical History Chronic headaches (Chronic) Abnormal Pap smear of cervix (Acute) Seasonal allergies (Acute) Hypertension affecting (Resolved) Vitamin D deficiency (Resolved) Surgical History History of appendectomy (Acute) History of section (Acute) History of tonsillectomy and adenoidectomy (Acute) Family History Father Alcoholism Mother Mental disorder Grandmother Blood clots Grandfather Skin cancer Hypertension Social History Smoking Status: Former smoker alcohol intake: never substance use type: does not use caffeine: No (rarely) what type of physical activity do you participate in: none seatbelt use: always do you feel safe at home: Yes 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 DateName GA/Weeks Outcome Route Bth WeighInfant GeLabor LgtAnesthesiDel LocatProvider FOB t n h a n HPI OB - ABDOMINAL PAIN : Details: MCKENZIE DIALLO is a 33 year old who presents for routine OB visit. OB Visit ELAINE Calculator Estimated Delivery Date 10/14/18 Based on LMP (uncertain) 01/07/18 Current WG 14w 0d Number 1 Expected Delivery Route/Plan RLTCS and BTL Specific Issue/Plans flu vaccine: [] minichart given: [] tdap vaccine: [] rhogam: [] LARC form signed: [] labor support person: [] pain management: [] cut cord/dad catch: [] : [] PP control planned: [] special requests: [] Initial Weight: 192 lb Date Weight BP Urine PrFHR FuHt Pres MoCTX DilationFetal StVisit NoProviderComments E ot v te GA G Effac lucose ed Visit Notes Visit Date: 04/15/18 co abdominal pain and stretching after carrying buckets. no vb Sade Collins MD on 04/15/18 Visit Date: 03/01/18 No visit notes to display ACOG First Trimester First Trimester: Desire for , Alcohol, Tobacco Cessation, Illicit/Recreational Drug/Substance Use, Intimate Partner Violence, Barriers to care, Unstable Housing, Communication Barriers, Environmental/Work Hazards, Anticipated Course of Care, Toxoplasmosis Precations, Use of Any medications, Sexual activity, Exercise, Dental Care, Sauna/Hot tub use, Seat Belt use, Childbirth classes/Hospital facilities, , Travel, Indications for US and Screening for Aneuploidy Diagnostics Diagnostics Labs Blood Type O POSITIVE 03/02/18 Antibody Screen NEGATIVE 03/02/18 Hct 37.7 % (37-47) 03/02/18 Hgb 12.6 g/dl (12.0-15.0) 03/02/18 Rubella IgG Antibody 484.3 IU/mL 03/02/18 RPR NONREACTIVE (NONREACTIVE) 03/02/18 Hep Bs Antigen Negative (Negative) 03/02/18 Chlam trachomat DNA PCR Negative (Negative) 03/01/18 N.gonorrhoeae DNA (PCR) Negative (Negative) 03/01/18 Glucose 1 Hr 50 gm 102 mg/dL (70-140) 03/02/18 Miscellaneous Test Pending 04/15/18 Details: HIV: Urine Culture: Sequential Screen: NIPT Screen: Results BMSUA Office Urine Color Yellow Last Edit by Virginia Gonzalez on 04/15/18 14:43 Office Urine Clarity Clear Last Edit by Virginia Gonzalez on 04/15/18 14:43 Assessment AND Plan Problems 1. Supervision of high risk in first trimester O09.91 PRR ELAINE 10/14/18 Oscar Gray Manuel 2. History of pre-eclampsia in prior , currently O09.299 baseline labs, baby aspirin at 14 weeks 3. Previous delivery affecting , antepartum O34.219 x2, planning RLTCS and BTL. declines . 4. Advanced maternal age (AMA) in genetic counseling options reviewed- patient deciding but considering NIPT 5. Supervision of high risk , antepartum O09 Plan reassurance lela haro for routine visit Orders Orders: Coding Level of Care Code OB Routine Diagnoses Supervision of high risk in first trimester O09.91 History of pre-eclampsia in prior , currently O09.299 Previous delivery affecting , antepartum O34.219 Advanced maternal age (AMA) in Supervision of high risk , antepartum O09.90 04/15/18 1528 <Electronically signed by Sade Collins MD> Date Sade Collins MD Cosigner Signature: Date (if applicable) CC: MISCELLANEOUS LAB Collected: 04/15/2018 Status: F Source: [place] PROCEDURE 3:19 PM [facility] REPOSITORY Order Comment: Test(s) Ordered: SEND OUT TO [facility] TYPE CODE TESTS RESULT OUT OF RANGE REFERENCE UNITS LAB L801.1541 Normal [facility] LAB TEST Result Comment: Sent directly to testing facility per ordering physician. 04/20/18 1522 MYOUNG Performed By: #### L801.1541 #### [facility] [address] [place], [address] CBC W/DIFF, AUTOMATED Collected: 03/02/2018 Status: F Source: [place] 12:10 PM [facility] REPOSITORY TYPE CODE TESTS RESULT OUT OF RANGE REFERENCE UNITS LAB L100.1000 4.4-11.0 K/mm3 Normal WBC 8.5 LAB L100.1200 4.2-5.4 M/mm3 Normal RBC 4.59 LAB L100.1300 12.0-15.0 g/dl Normal HGB 12.6 LAB L100.1400 37-47 % Normal HCT 37.7 LAB L100.1500 81-99 fL Normal MCV 82.1 LAB L100.1600 27.0-32.0 pg Normal MCH 27.5 LAB L100.1700 32-36 g/gl Normal MCHC 33.4 LAB L100.1810 11.6-14.6 % Normal RDW CV 13.5 LAB L100.1820 35.1-43.9 fl Normal RDW SD 40.5 LAB L100.1900 150-450 K/mm3 Normal PLT 198 LAB L100.2000 6.2-12.0 fl Normal MPV 9.1 LAB L100.2100 47-70 % Normal NEUT% 65.1 LAB L100.2200 19-41 % Normal LY% 24.1 LAB L100.2300 0-10 % Normal MONO% 9.4 LAB L100.2400 0-5 % Normal EO% 1.2 LAB L100.2500 0-1 % Normal BASO% 0.2 LAB L100.2550 0.0-0.9 % Normal IM GRAN % 0.000 Result Comment: IG% - Immature Granulocytes (promyelocytes, myelocytes and metamyelocytes) > 1% indicates that a LEFT SHIFT is Present. LAB L100.2620 2.0-7.7 X10 3/uL Normal Absolute Neut 5.6 LAB L100.2720 0.83-4.51 X10 3/ul Normal Absolute Lymph 2.06 Performed By: #### L100.0100, B101.7450 #### [facility] [address] [place], [address] TYPE AND SCREEN Collected: 03/02/2018 Status: F Source: [place] 12:10 PM [facility] REPOSITORY Order Comment: Reason for Type AND Screen/Red Cells: TYPE CODE TESTS RESULT OUT OF RANGE REFERENCE UNITS LAB B10.0800 O Normal BLOOD TYPE GEL POSITIVE LAB B100.4000 Normal Antibody NEGATIVE Screen Performed By: #### L100.0100, B101.7450 #### [facility] [address] [place], [address] GLUCOSE CHALLENGE GEST Collected: 03/02/2018 Status: F Source: [place] 1H 50G 12:10 PM [facility] REPOSITORY TYPE CODE TESTS RESULT OUT OF RANGE REFERENCE UNITS LAB L501.0250 70-140 mg/dL Normal GLU GEST 102 50g 1H Performed By: #### L501.0250 #### [facility] [address] [facility] [place], [address] RUBELLA IGG Collected: 03/02/2018 Status: F Source: RICHVALE 12:10 PM [facility] REPOSITORY TYPE CODE TESTS RESULT OUT OF RANGE REFERENCE UNITS LAB L509.4000 IU/mL Normal Rubella IgG 484.3 Result Comment: Antibody results Interpretation of Immune Status < 5 IU/ml Presumed Non-immune 5 - < 10 IU/ml Equivocal > or = 10 IU/ml Presumed Immune Performed By: #### L509.4000, L3890.6005, L700.5000 #### [facility] [address] [place] [address], [address] #### L3100.0390 #### [facility] (refer to report for specific site) refer to report for address and phone number HIV - [facility] Collected: 03/02/2018 Status: F Source: DONA 12:10 PM [facility] REPOSITORY TYPE CODE TESTS RESULT OUT OF RANGE REFERENCE UNITS LAB L3890.6005 Nonreactive Normal HIV - WC Non-Reactive Performed By: #### L509.4000, L3890.6005, L700.5000 #### [facility] [address] [place] [address] #### L3100.0390 #### [facility] (refer to report for specific site) refer to report for address and phone number HEPATITIS B SURFACE Collected: 03/02/2018 Status: F Source: RICHVALE AG 12:10 PM [facility] REPOSITORY TYPE CODE TESTS RESULT OUT OF RANGE REFERENCE UNITS LAB L3100.0400 Negative Normal HB Negative SURF AG Result Comment: Performed at: - [address] [id number] Filler Shredding Machine Loader: Peter Salas PhD, Phone: [phone] Performed By: #### L509.4000, L3890.6005, L700.5000 #### [facility] [address] [place] [address], [address] #### L3100.0390 #### [facility] (refer to report for specific site) refer to report for address and phone number RAPID PLASMIN REAGIN Collected: 03/02/2018 Status: F Source: RICHVALE (RPR) 12:10 PM [facility] REPOSITORY TYPE CODE TESTS RESULT OUT OF REFERENCE UNITS RANGE LAB L700.5000 NONREACTIVE NONREACTIVE Normal RPR Performed By: #### L509.4000, L3890.6005, L700.5000 #### [facility] [address] [place], [place] [address], [place], [address] #### L3100.0390 #### [facility] (refer to report for specific site) refer to report for address and phone number LABORER HOISTING OFFICE VISIT Observed: 03/02/2018 Status: F Source: DONA REPORT 6:01 AM [facility] REPOSITORY [facility] [address] [place] [address] OFFICE VISIT Date of Service: 03/01/18 MR#: [id number] Acct: [id number] Name: MCKENZIE DIALLO Rep #: [id number] : 1985 Provider: Sade Collins MD Age/Sex: 33/F Location: [facility] [place] Status: Signed Intake Vital Signs03/01/18 Height 5 ft 3 in 03/01/18 Weight: 192 lb 8 oz 03/01/18 Body Mass Index (BMI) 34.1 03/01/18 Blood Pressure 103/62 Intake Visit Reasons: New OB LMP December 31 Traffic Checker Required: No Is patient in pain?: No Allergies Sulfa (Sulfonamide Antibiotics) Allergy (Verified 03/01/18 16:07) Other Medications valacyclovir 1 gram tablet 1,000 mg PO QDAY PRN #90 tab 02/04/18 [Rx Confirmed 03/01/18] vitamin,calcium,ffnjqvvm-qvhs-ukasm acid tablet 1 tab PO QDAY 03/01/18 [History Confirmed 03/01/18] Last Menstral Period: 01/07/18 Zika: Zika virus screening: Negative : No PFSH PFSH Medical History Chronic headaches (Chronic) Abnormal Pap smear of cervix (Acute) Seasonal allergies (Acute) Hypertension affecting (Resolved) Vitamin D deficiency (Resolved) Surgical History History of appendectomy (Acute) History of section (Acute) History of tonsillectomy and adenoidectomy (Acute) Family History Father Alcoholism Mother Mental disorder Grandmother Blood clots Grandfather Skin cancer Hypertension Social History Smoking Status: Former smoker alcohol intake: never substance use type: does not use caffeine: No (rarely) what type of physical activity do you participate in: none seatbelt use: always do you feel safe at home: Yes 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 DateName GA/Weeks Outcome Route Bth WeighInfant GeLabor LgtAnesthgoDel LocatProvider FOB t n h a n HPI New OB LMP December 31: Details: MCKENZIE DIALLO is a 33 year old who presents for New OB visit. OB Visit ELAINE Calculator Estimated Delivery Date 10/14/18 Based on LMP (uncertain) 01/07/18 Current WG 7w 5d Number 1 Comments: us done and lmp consistent with lmp measuring 7w0d crl 9.1 mm fht 130 Expected Delivery Route/Plan RLTCS and BTL Specific Issue/Plans flu vaccine: [] minichart given: [] tdap vaccine: [] rhogam: [] LARC form signed: [] labor support person: [] pain management: [] cut cord/dad catch: [] : [] PP control planned: [] special requests: [] Initial Weight: Not Recorded Date Weight BP Urine PrFHR FuHt Pres MoCTX DilationFetal StVisit NoProviderComments E ot v te GA G Effac lucose ed Menstrual History Last Menstral Period: 01/07/18 Reported LMP: definite Normal amount/duration: Yes On hormonal BC at conception: No Antepartum Record Genetic Screening: Congenital Heart Defect: Other, Neural Tube Defect: Other, Hemoglobinopathy Or Carrier: Other, Cystic Fibrosis: Other, Chromosome Abnormality: Other, En-Sachs: Other, Hemophilia: Other, Intellectual Disability/Autism: Other, Recurrent Loss/Stillbirth: Other, Other Structural Defect: Other, Other Genetic Disease: Other, Maternal Metabolic Disorder: Other Infection History: Live with someone with TB or Exposed to TB: No, Patient or Partner has history of Genital Herpes: No, Rash or Viral illness since last mentrual period: No, Prior GBS-Infected child: No, History of STD: No, HIV Infection: No, History of Hepatitis: No, Recent travel outside of [place]: No, Concern for Hep exposure: No, Varicella immune: Yes Medical History Medical History: Positive: Hypertension (previous ), Psychiatric, Depression/ depression (prozac), Negative: Diabetes, Heart disease, Auto-immune disorder, Kidney disease/UTI, Neurologic/epilepsy, Hepatitis/liver disease, Varicosities/phlebitis, Thyroid dysfunction, Trauma/domestic violence, History of blood transfusions, D (Rh) Sensitized, Pulmonary (e.g.,TB,Asthma), Seasonal allergies, Drug/latex allergies/reactions, Breast, [place] Farmer surgery, Operations/hospitalizations, Anesthetic complications, History of abnormal pap, Uterine anomaly/delia, Infertility, Anti-retroviral treatment, Relevant family history, Other ACOG First Trimester First Trimester: Desire for , Alcohol, Tobacco Cessation, Illicit/Recreational Drug/Substance Use, Intimate Partner Violence, Barriers to care, Unstable Housing, Communication Barriers, Environmental/Work Hazards, Anticipated Course of Care, Nurtrition and weight gain, Toxoplasmosis Precations, Use of Any medications, Sexual activity, Exercise, Dental Care, Sauna/Hot tub use, Seat Belt use, Childbirth classes/Hospital facilities, , Travel, Indications for US and Screening for Aneuploidy ROS Const Denies fever(s), Reports system reviewed and no additional complaints, except as docu, Reports fatigue Eyes Reports system reviewed and no additional complaints, except as docu ENT Reports system reviewed and no additional complaints, except as docu Card Denies chest pain, Denies shortness of breath Resp Reports system reviewed and no additional complaints, except as docu, Denies shortness of breath, Denies cough GI Reports nausea, Denies abdominal pain Reports system reviewed and no additional complaints, except as docu Musc Reports system reviewed and no additional complaints, except as docu Skin/Breast Reports system reviewed and no additional complaints, except as docu Neuro Yes system reviewed and no additional complaints, except as docu Psych Reports system reviewed and no additional complaints, except as docu Endo Reports fatigue, Reports system reviewed and no additional complaints, except as docu Exam Const General: healthy appearing, comfortable, no acute distress Orientation: alert [facility] Head: normal to inspection, atraumatic, normocephalic Ears: external ears normal, hearing grossly normal bilaterally Nose: nares normal, external nose normal Mouth: oral mucosae normal Teeth and gingiva: dentition normal Eyes General: appearance normal, both eyes and all related structures Neck Neck: no lymphadenopathy, supple, normal visual inspection Thyroid: thyroid normal Chest Chest palpation AND inspection: normal inspection of the chest Breast inspection: normal inspection of the breasts, normal inspection of the axillae Breast palpation: normal palpation of the breasts, normal palpation of the axillae Resp Effort AND Inspection: normal respiratory effort GI Inspection: normal to inspection Palpation: soft, no hepatosplenomegaly General: bladder normal to palpation External Female Exam: normal external appearance, normal appearance of the urethra Urethra: normal appearance of the urethra Speculum Exam - Vagina: normal appearance of the vagina, normal vaginal discharge Speculum Exam - Cervix: normal appearance of the cervix Bimanual Exam- Vagina AND Uterus: bladder normal to palpation, normal bimanual exam, uterus non-tender, other Bimanual Exam- Adnexa, other: adnexae non-tender Skin General: no rashes or lesions noted Neuro Motor: muscle tone normal throughout, no movement abnormalities noted Extrem General: normal to inspection, full ROM Assessment AND Plan Problems 1. History of pre-eclampsia in prior , currently O09.299 baseline labs, baby aspirin at 14 weeks 2. Previous delivery affecting , antepartum O34.219 x2, planning RLTCS and BTL. declines . 3. Advanced maternal age (AMA) in genetic counseling options reviewed- patient deciding but considering NIPT 4. Supervision of high risk in first trimester O ELAINE 10/14/18 Oscar Gray Manuel Plan Patient oriented to practice and discussed care expectations and screenings. ACOG book offered to patient. labs and 19-20 week anatomy ultrasound ordered. Genetic screening offered to patient and patient chose: considering but likely will choose NIPT screening Orders Orders: Supplemental Info ACOG book given and patient encouraged to read about nutrition, exercise, weight gain, and food avoidance in . Coding Level of Care Code OB Routine Diagnoses History of pre-eclampsia in prior , currently O09.299 Previous delivery affecting , antepartum O34.219 Advanced maternal age (AMA) in Supervision of high risk in first trimester O09.03/02/18 0601 <Electronically signed by Sade Collins MD> Date Sade Lugo Signature: Date (if applicable) CC: CT/NG [facility] BY PCR Collected: 03/01/2018 Status: F Source: RICHVALE 6:07 PM [facility] REPOSITORY TYPE CODE TESTS RESULT OUT OF RANGE REFERENCE UNITS LAB L8200.2100 Negative Normal Chlam Negative Trac PCR LAB L8200.2200 Negative Normal NG by Negative PCR Performed By: #### L8200.1999, M100.0650 #### [facility] [address] [place], [address] Observed: 03/01/2018 Status: F Source: RICHVALE CULTURE, URINE 6:07 PM [facility] REPOSITORY Urine Culture ORGANISM 1: Mixed Gram Positive Organisms [place] Count 1000-10,000 MIX CULTURE Mixed contaminants. Submit a new specimen if indicated. Performed By: #### L8200.1999, M100.0650 #### [facility] [address] [place], [address] INTERNAL MEDICINE Observed: 02/25/2018 Status: F Source: DONA OFFICE VISIT 2:40 PM [facility] REPOSITORY [facility] [address] [place] [address] OFFICE VISIT Date of Service: 02/04/18 MR#: [id number] Acct: [id number] Name: DANIEL DIALLOMildred Pickett Rep #: [id number] : 1985 Provider: Deyvi Lopez DO Age/Sex: 33/F Location: [facility] [place] Status: Signed Intake Vital Signs02/04/18 Height 5 ft 3 in 02/04/18 Weight: 194 lb 02/04/18 Body Mass Index (BMI) 34.3 02/04/18 Blood Pressure 111/75 Intake Visit Reasons: REFILLS Chief Complaint: Refills on meds Allergies Sulfa (Sulfonamide Antibiotics) Allergy (Verified 02/19/18 08:33) Other Medications valacyclovir 1 gram tablet 1,000 mg PO QDAY PRN #90 tab 02/04/18 [Rx Confirmed 02/19/18] PFSH Medical History Vitamin D deficiency (Chronic) Hypertension affecting (Chronic) Chronic headaches (Chronic) Surgical History History of appendectomy (Acute) History of section (Acute) History of tonsillectomy and adenoidectomy (Acute) Family History Father Alcoholism Mother Mental disorder Grandmother Blood clots Grandfather Skin cancer Hypertension Social History Smoking Status: Former smoker alcohol intake: never substance use type: does not use what type of physical activity do you participate in: weight training frequency: 5-6 times per week duration: 15-30 minutes/day HPI HPI Chief Complaint: Refills on meds Details: MCKENZIE DIALLO, is a 33 F who presents to the office today for concerns about hair loss ROS Const Constitutional: No anorexia, body ache, chills, fever(s), decreased energy, malaise, night sweats, weight change, sleep problems, other, snoring, excessive sweating, fatigue, weakness, frequent falls, headache(s), abnormal sleep pattern or change in appetite Eyes Eyes: Positive for floaters; no blurry vision, change in vision, double vision, discharge, dry eyes, bulging eyes, eye pain, light sensitivity, spots in vision, tunnel vision, other or visual disturbances ENT ENT: Positive for dizziness/vertigo, sinus pain, nasal congestion and sore throat; no ear pain, ear discharge, ear pressure, hearing loss, tinnitus, balance problems, nosebleed/epistaxis, nasal obstruction, nose pain, sinus pressure, nasal discharge, post nasal drip, facial pain, dental pain, dry mouth, bad breath, hoarseness, mouth lesions, mouth pain, difficulty swallowing, neck pain, other, abnormal hearing, headache(s), lip swelling, throat swelling or tongue swelling Resp Respiratory: No cough, change in phlegm color, chest congestion, excessive phlegm production, hemoptysis, pain on inspiration, shortness of breath, pain with cough, snoring, stridor, other or wheezing Cardio Cardiology: No chest pain at rest, chest pain with exertion, leg pain with exertion, shortness of breath, dyspnea on exertion, generalized swelling, irregular heart rhythm, lightheadedness, orthopnea, radiating jaw, neck or arm pain, fast heart rate, slow heart rate, palpitations, other or excessive sweating Gastro GI: No abdominal pain, belching, bloating, change in bowel habits, change in stool character, coffee ground emesis, constipation, cramping, diarrhea, heartburn, difficulty swallowing, feeling full early, excessive flatus, incontinent of stools, Vomiting blood/hematemesis, blood in stool, loose stools, Black,tarry stools, nausea/dyspepsia, pain with swallowing, vomiting or other Genitourinary-Female: No difficulty urinating, burning urination, painful urination, urinary incontinence, urinary frequency, urinary urgency, urinary hesitancy, urinary retention, blood in urine, Frequent nighttime urination/ nocturia, post void dribbling, suprapubic fullness, side pain, sexual problems, genital lesions, genital itching, hot flashes, abnormal periods, abnormal vaginal bleeding, absent period, painful periods, light periods, heavy periods, difficulty getting , painful intercourse, pelvic pain, vaginal dryness, vaginal odor, Vaginal Itching or other Musc Musculoskeletal: Positive for back pain; no joint pain, deformity, joint swelling, limited range of motion, loss of height, muscle cramps, muscle weakness, decreased muscle mass, body aches, neck pain, radiating pain into limb, stiffness, other, abnormal walking, numbness or tingling Skin Skin: Positive for hair loss; no acne, change in hair, nail changes, boil, change in skin color, dry skin, redness, excessive hair growth, yellowing of the skin, lesions, rash, skin pain, skin ulcer, sores, skin swelling, wounds, other or itching Breast Breast: No other Neuro Neurology: No abnormal walking, abnormal hearing, abnormal movements, abnormal speech, unsteady gait/balance, dizziness, weakness, frequent falls, headache(s), lack of coordination, loss of vision, numbness, tingling, visual disturbances, restless legs, fainting, tremor(s), other, behavioral changes, confusion or memory loss Psych Psychiatric: Positive for anxiety, Positive for difficulty concentrating, Positive for depression, No abnormal sleep pattern, No lack of enjoyment, No behavioral changes, No change in appetite, No confusion, No hopelessness, No irritability, No memory loss, No mood swings, No panic attacks, No paranoia, No Thoughts of harming yourself/Others, No hallucinations, No other Endo Endocrine: Positive for flushing; no change in body appearance, cold intolerance, excessive sweating, fatigue, heat intolerance, increased thirst/drinking, increased hunger, increased urination or other Aller/Imm Allergy/Immunologic: No food intolerance, itchy eyes, lip swelling, seasonal allergy symptoms, throat swelling, tongue swelling, hives, wheezing or other Daniel/Lymp Hematologic/Lymphatic: No easy bleeding, easy bruising, enlarged lymph nodes or other Exam Const General: cooperative, healthy appearing Nutritional Appearance: overweight Orientation: oriented x3 Neck Thyroid: thyroid normal Resp Effort AND Inspection: normal respiratory effort Auscultation: Bilateral: Clear to Auscultation Cardio Rate: regular rate Rhythm: regular rhythm Musc Musculoskeletal: No muscle weakness Skin General: no rashes or lesions noted Hair: general thinning Nails: normal Psych Appearance: grossly normal Mood: anxious mood Assessment AND Plan Problems 1. Hair loss L65.9 2. Anxiety F41.9 Orders Orders: Medications New: Plan Detail Additional Comments Reason this patient was in was because of hair loss also she was not feeling particularly well she was highly anxious but she has been anxious for as long as I know her. Her hair loss seems to be generalized it is more of hair thinning it is not the hair is breaking off she is just finding a lot in her brush I thought it would be appropriate to her thyroid and hormonal studies shortly after I ordered these studies and prior to their completion she found out that she was even though she did not think she had missed. I told her that hair loss could definitely come because of the and the other symptoms could be related to the also so she is under care of an OB GEN doctor for the . Coding Level of Care Code Off vis,est,level 3 Diagnoses Hair loss L65.9 Anxiety F41.9 02/25/18 1440 <Electronically signed by Deyvi Lopez DO> Date Deyvi Lopez DO Cosigner Signature: Date (if applicable) CC: INTERNAL MEDICINE Observed: 02/23/2018 Status: F Source: DONA OFFICE VISIT 8:20 AM [facility] [address] [place] [address] OFFICE VISIT Date of Service: 02/19/18 MR#: [id number] Acct: [id number] Name: MCKENZIE DIALLO Rep #: [id number] : 1985 Provider: Mark Corbin MD Age/Sex: 33/F Location: [facility] [place] Status: Signed Intake Vital Signs02/19/18 Height 5 ft 3 in 02/19/18 Weight: 197 lb 02/19/18 Body Mass Index (BMI) 34.9 02/19/18 Blood Pressure 103/63 Intake Visit Reasons: EAR MUFFLED Chief Complaint: Rt ear - feels like air Is patient in pain?: No Allergies Sulfa (Sulfonamide Antibiotics) Allergy (Verified 02/19/18 08:33) Other Medications valacyclovir 1 gram tablet 1,000 mg PO QDAY PRN #90 tab 02/04/18 [Rx Confirmed 02/19/18] PFSH Medical History Vitamin D deficiency (Chronic) Hypertension affecting (Chronic) Chronic headaches (Chronic) Surgical History History of appendectomy (Acute) History of section (Acute) History of tonsillectomy and adenoidectomy (Acute) Family History Father Alcoholism Mother Mental disorder Grandmother Blood clots Grandfather Skin cancer Hypertension Social History Smoking Status: Former smoker alcohol intake: never substance use type: does not use what type of physical activity do you participate in: weight training frequency: 5-6 times per week duration: 15-30 minutes/day HPI HPI Chief Complaint: Rt ear - feels like air Details: MCKENZIE DIALLO, is a 33yo F who presents to the office today due to right ear fullness. She has a history of allergies and has had similar episodes in the past which typically responded to antihistamines. Patient is trying to avoid systemic medications except absolutely necessary due to early . ROS Const Constitutional: No chills, fatigue, fever(s), frequent falls, malaise, weakness, sleep problems or change in appetite Eyes Eyes: No blurry vision, change in vision, double vision, discharge or visual disturbances ENT ENT: Positive for ear pressure (Feels like air swishing in Rt ear) and nasal congestion; no abnormal hearing, ear pain, tinnitus or dizziness/vertigo Resp Respiratory: No cough, shortness of breath or wheezing Cardio Cardiology: No chest pain at rest, chest pain with exertion, shortness of breath, dyspnea on exertion, generalized swelling, irregular heart rhythm, lightheadedness, orthopnea, fast heart rate or palpitations Gastro GI: No abdominal pain, change in bowel habits, constipation, diarrhea, nausea/dyspepsia or vomiting Genitourinary-Female: No difficulty urinating, burning urination, painful urination, urinary incontinence, urinary frequency, urinary urgency, urinary hesitancy, urinary retention, Frequent nighttime urination/ nocturia, sexual problems, genital lesions, abnormal vaginal bleeding, pelvic pain, vaginal dryness, vaginal odor or Vaginal Itching Musc Musculoskeletal: No joint pain, back pain, joint swelling, limited range of motion, muscle weakness, numbness or tingling Skin Skin: No change in skin color, itching, rash or wounds Breast Breast: No breast lump or breast pain Neuro Neurology: No frequent falls, weakness, abnormal hearing, numbness, tingling, unsteady gait/balance, dizziness, loss of vision, memory loss or visual disturbances Psych Psychiatric: No memory loss, No anxiety, No change in appetite, No depression, No Thoughts of harming yourself/Others Endo Endocrine: No fatigue, heat intolerance, increased thirst/drinking, increased hunger or increased urination Aller/Imm Allergy/Immunologic: Positive for seasonal allergy symptoms; no wheezing or itchy eyes Daniel/Lymp Hematologic/Lymphatic: No easy bleeding, easy bruising or enlarged lymph nodes Exam Const General: cooperative, no acute distress, well developed Orientation: alert, awake, oriented x3 HENMT Head: atraumatic, normocephalic Ears: hearing grossly normal bilaterally Other: Clear TM. Bilateral bulging noted. Mild tenderness on the right. Resp Effort AND Inspection: normal respiratory effort, able to speak in complete sentences Auscultation: Bilateral: Clear to Auscultation Cardio Rate: regular rate Rhythm: regular rhythm Heart Sounds: S1 normal, S2 normal Musc Musculoskeletal: No muscle weakness Neuro General: alert, awake, oriented x3, moves all extremities, CN's II-XI intact bilaterally Extrem General: no clubbing, cyanosis or edema Psych Appearance: grossly normal Mood: congruent mood Affect: normal affect Assessment AND Plan 1. Sensation of fullness in right ear H93.8X1 Plan Recurrent. Prior episodes in the past responded to antihistamines. Mild tenderness on examination. ( May be concerning for possible mild otitis ) Loratadine safe in however, patient will like to avoid systemics as much as possible. Flonase daily. Advised to call the office on Thursday if no significant improvement. 2. Z34.90 Plan Scheduled to follow up with Dr. Collins. This note was generated with [employer] dictation software. It may contain incorrect words, spelling, and punctuation that were not noted in checking the note before signing. Coding Level of Care Code Off vis,est,level 3 Diagnoses Sensation of fullness in right ear H93.8X1 Z34.90 02/23/18 0820 <Electronically signed by Mark Corbin MD> Date Mark Corbin MD Cosigner Signature: Date (if applicable) CC: THYROID STIM HORMONE Collected: 02/09/2018 Status: F Source: DONA (TSH) 12:49 PM [facility] REPOSITORY TYPE CODE TESTS RESULT OUT OF RANGE REFERENCE UNITS LAB L501.9520 0.358-3.74 uIU/mL Normal TSH 0.77 Performed By: #### L501.9520, L509.4001 #### [facility] [address] [place], [address] PROGESTERONE LEVEL Collected: 02/09/2018 Status: F Source: DONA 12:49 PM [facility] REPOSITORY TYPE CODE TESTS RESULT OUT OF REFERENCE UNITS RANGE LAB L509.4001 See Comment ng/mL Progesterone Normal 22.87 Result Comment: Progesterone Reference Table: UNITS Female: Follicular 0.15 - 1.40 ng/mL Luteal 3.34 - 25.56 ng/mL Mid-luteal 4.44 - 28.03 ng/mL Postmenopausal 0.0 - 0.73 ng/mL : 1st Trimester 11.22 - 90.00 ng/mL 2nd Trimester 25.55 - 89.40 ng/mL 3rd Trimester 48.40 -422.50 ng/mL Performed By: #### L501.9520, L509.4001 #### [facility] [address] [place], [address] URGENT CARE VISIT Observed: 10/18/2017 Status: F Source: DONA REPORT 9:57 AM [facility] REPOSITORY [facility] [address] [place] [address] 6 [place] [address] OFFICE VISIT Date of Service: 10/18/17 MR#: [id number] Acct: [id number] Name: MCKENZIE DIALLO Rep #: [id number] : 1985 Provider: NOHEMI Guzman Age/Sex: 32/F Location: [facility]NOW Status: Signed Intake Vital Signs10/18/17 Height 5 ft 2 in 10/18/17 Weight: 182 lb 10/18/17 Body Mass Index (BMI) 33.3 Intake Visit Reasons: Conjunctivitis Traffic Checker Required: No Accompanied by: Self Is patient in pain?: No Allergies Sulfa (Sulfonamide Antibiotics) Allergy (Verified 10/18/17 09:40) Other [facility] Social History Smoking Status: Former smoker HPI Conjunctivitis: Chief Complaint: Left eye drainage Details: MCKENZIE DIALLO, is a 32 F who presents to the office today for purulent drainage of the left eye in the past 2 days. She states she has had upper respiratory symptoms over the past week and then developed drainage of the left eye. She denies any fevers or chills or visual loss or change. She states her children all have upper respiratory symptoms. ROS Const Constitutional: No chills or fever(s) Eyes Eyes: Positive for discharge (Thick copious drainage left eye); no change in vision or eye pain (Reports a gritty, Sand-like sensation in the left eye) ENT ENT: No ear pain, sore throat, nasal congestion or nasal discharge Resp Respiratory: No cough, chest congestion, shortness of breath or wheezing Cardio Cardiology: No chest pain at rest or chest pain with exertion Gastro GI: No abdominal pain, diarrhea, vomiting or nausea/dyspepsia Musc Musculoskeletal: No back pain or abnormal walking Skin Skin: No rash or change in skin color Neuro Neurology: No confusion, abnormal walking or abnormal speech Psych Psychiatric: No confusion Aller/Imm Allergy/Immunologic: No wheezing Exam Const General: healthy appearing, no acute distress Orientation: oriented x3, oriented to person, oriented to place, oriented to time [facility] Head: normocephalic Ears: external ears normal, TM's normal bilaterally, EAC's normal Eyes General: appearance normal, both eyes and all related structures Conjunctivae: abnormal conjunctivae (Purulent green yellow drainage present) Sclera: abnormal sclerae (Left sclera injected) Pupils: PERRL Neck Neck: no lymphadenopathy Thyroid: thyroid normal Chest Chest palpation AND inspection: normal inspection of the chest Resp Effort AND Inspection: normal respiratory effort, no cough, no respiratory distress Auscultation: Bilateral: Clear to Auscultation Cardio Rate: regular rate Rhythm: regular rhythm GI Inspection: normal to inspection Auscultation: normal bowel sounds Palpation: no hepatosplenomegaly, no splenomegaly, no masses Skin General: no pallor Rashes: no rashes Nails: no clubbing Neuro General: oriented x3, gait normal Extrem General: normal to inspection, no pedal edema, no calf tenderness, normal gait, no edema, no cyanosis, no clubbing, no calf tenderness bilaterally, no pedal edema Psych Mood: congruent mood Affect: normal affect Speech and Movement: speech and movement normal Assessment AND Plan 1. Conjunctivitis H10.9 2. Acute purulent conjunctivitis of left eye H10.022 Plan We will begin erythromycin ophthalmic ointment 3 times daily 7 days. Apply warm compresses 2-3 times per day. Good handwashing/hand hygiene was reviewed with the patient. If any eye pain or visual changes develop return to the clinic or the emergency room Coding Level of Care Code Off vis,new,level 3 Diagnoses Conjunctivitis H10.9 Acute purulent conjunctivitis of left eye H10.022 10/18/17 0957 <Electronically signed by Isac SONG> Date Isac SONG Cosigner Signature: Date (if applicable) CC: ALLERGIES ALLERGIES DATE TYPE / CODE NAME / CODE REACTION SEVERITY SOURCE 10/05/2018 Drug Sulfa Other [facility] Allergy/4160 (Sulfonamide Hospital 78607(SNOMED Antibiotics)/ Repository CT) [id number](RX NORM) ENCOUNTERS ENCOUNTERS ADMIT/DISCHARGE ACCOUNT ADMITTING ENCOUNTER LOCATION SOURCE NUMBER CLASS 10/07/2018 [id number] Karina Ambulatory BMSBuilding:B [place] 5 [place] Repository 10/07/2018 [id number] Karina Ambulatory BMSBuilding:[place] [address] [place] Repository 10/07/2018/ [id number] Karina, Inpatient Dona Dona 8 4 [place] Encounter [facility] ing:WPRoom: Repository LN627Yoj: 1 10/07/2018 [id number] Karina Ambulatory BMSBuilding:B [place] [address] [place] Repository 10/01/2018/ [id number] Ambulatory BMSBuilding:B Don[place] 8 0 [facility] Repository 09/24/2018 [id number] Ambulatory Dona Dona 5 [facility] ing:LABSPEC Repository 09/24/2018/ [id number] Ambulatory BMSBuilding:B [place] 8 9 [facility] Repository 09/15/2018 [id number] Ambulatory [place] 3 [facility] ing:LABSPEC Repository 09/15/2018/ [id number] Ambulatory BMSBuilding:B [place] 8 7 [facility] Hospital Repository 09/09/2018 [id number] Ambulatory [place] [address] [facility] Hospital ing:OPUS Repository 09/09/2018/ [id number] Ambulatory BMSBuilding:B [place] 8 6 [facility] Hospital Repository 09/09/2018/ [id number] Ambulatory BMSBuilding:B [place] 8 2 [facility] Hospital Repository 09/06/2018 [id number] Ambulatory BMSBuilding:B [place] 5 [facility] Hospital Repository 09/02/2018/ [id number] Ambulatory BMSBuilding:B [place] 8 3 [facility] Repository 08/29/2018/ [id number] [place], Ambulatory [place] 8 9 [facility] Hospital ing:WPOUTRoom Repository : WP015 08/19/2018/ [id number] Ambulatory BMSBuilding:B [place] 8 2 [facility] Hospital Repository 08/12/2018 [id number] Ambulatory [place] Dona [address] [facility] Hospital ing:LABSPEC Repository 08/12/2018/ [id number] Ambulatory BMSBuilding:B [place] 8 4 [facility] Hospital Repository 08/09/2018 [id number] Ambulatory BMSBuilding:B [place] 5 [facility] Hospital Repository 08/08/2018/ [id number] Ambulatory [place] [address] [facility] Hospital ing:WPOUTRoom Repository : WP012 08/06/2018/ [id number] Ambulatory BMSBuilding:B [place] 8 1 [facility] Hospital Repository 07/30/2018 [id number] Ambulatory [place] [address] [facility] Hospital ing:LAB Repository 07/23/2018 [id number] Ambulatory [place] [address] [facility] Hospital ing:LAB Repository 07/20/2018/ [id number] Ambulatory BMSBuilding:B [place] 8 8 [facility] Hospital Repository 07/19/2018 [id number] Ambulatory BMSBuilding:B [place] 5 [facility] Hospital Repository 07/16/2018/ [id number] Ambulatory Dona Dona [address] [facility] Hospital ing:WPOUTRoom Repository : WP012 07/09/2018 [id number] Ambulatory [place] [address] [facility] Hospital ing:LABSPEC Repository 07/09/2018 [id number] Ambulatory BMSBuilding:B [place] 5 [facility] Hospital Repository 06/24/2018/ [id number] Ambulatory BMSBuilding:B Don[place] 8 7 [facility] Repository 05/28/2018/ [id number] Ambulatory BMSBuilding:B [place] 8 4 [facility] Repository 05/20/2018 [id number] Ambulatory [place] [address] [facility] Hospital ing:OPUS Repository 05/15/2018/ [id number] Emergency [place] [address] [facility] Hospital ing:ED Repository 05/05/2018/ [id number] Ambulatory BMSBuilding:B [place] 8 3 [facility] Hospital Repository 04/30/2018 [id number] Ambulatory [place] [address] [facility] Hospital ing:EMPH Repository 04/26/2018/ [id number] Ambulatory BMSBuilding:B [place] 8 6 [facility] Hospital Repository 04/15/2018 [id number] Ambulatory [place] [address] [facility] Hospital ing:LAB Repository 04/15/2018/ [id number] Ambulatory BMSBuilding:B [place] 8 5 [facility] Hospital Repository 03/31/2018/ [id number] Ambulatory BMSBuilding:B [place] 8 7 [facility] Hospital Repository 03/29/2018 [id number] Ambulatory BMSBuilding:B [place] 3 [facility] Hospital Repository 03/02/2018 [id number] Ambulatory [place] [address] [facility] Hospital ing:LAB Repository 03/01/2018 [id number] Ambulatory [place] 9 [facility] ing:LABSPEC Repository 03/01/2018/ [id number] Ambulatory BMSBuilding:B [place] 8 4 [facility] Repository 02/19/2018/ [id number] Ambulatory BMSBuilding:B [place] 8 0 [facility] Repository 02/09/2018 [id number] Ambulatory [place] 7 [facility] ing:LAB Repository 02/04/2018/ [id number] Ambulatory BMSBuilding:B [place] 8 8 [facility] Repository 10/18/2017/ [id number] Ambulatory BMSBuilding:B [place] 7 4 [facility] Repository PAYERS PAYERS ENCOUNTER GUARANTOR PAYER SUBSCRIBER SOURCE 10/07/2018 MCKENZIE Pickett Primary [place] [id number] [place] Insurance:CORESOURCEP SIEDELDOB: [facility] Number: [id number], [place] [id number] Repository 424[address]Oaa: 330) Date:2166-12-47[phone] () [address]MT. CINDY CORTÉS 90884HW: 10/07/2018 Secondary NOT GIVENUNK Dona Insurance:SELF PAY [facility] Number: Effective Repository Date:2018-10-07 10/07/2018 MCKENZIE Pickett Primary [place] [id number] [place] Insurance:CORESOURCEP SIEDELDOB: [facility] Number: [id number], [place] [id number] Repository 88181Xsx: 330) Date:2171-30-84FF [phone] () 3[address]MT. CINDY CORTÉS 04805AR: 10/07/2018 Secondary NOT GIVENUNK Don[place] Insurance:SELF PAY [facility] Number: Effective Repository Date:2018-10-07 10/07/2018 MCKENZIE Pickett Primary [place] [id number] [place] Insurance:CORESOURCEP SIEDELDOB: [facility] olicy Number: [id number], [place] [id number] Repository 21494Nxq: (330) Date:0276-83-85CK [phone] (HP) 23[address]MT. CINDY CORTÉS 45634YB: 10/07/2018 Secondary NOT GIVENUNK Don[place] Insurance:SELF PAY [facility] Number: Effective Repository Date:2018-08-11 10/07/2018 MCKEZNIE D Primary [place] [id number] [place] Insurance:CORESOURCEP SIEDELDOB: [facility] olicy Number: [id number], [place] [id number] Repository 26699Rtj: (330) Date:5132-35-51LI [phone] (HP) 23[address]MT. CINDY COTRÉS 61910NB: 10/07/2018 Secondary NOT GIVENUNK [place] Insurance:SELF PAY [facility] Number: Effective Repository Date:2018-10-07 10/01/2018 MCKENZIE Pickett Primary [place]EL E [place] [id number] [place] Insurance:CORESOURCEP SIEDELDOB: [facility] olicy Number: [id number], [place] [id number] Repository [address]Uaz: (330) Date:2916-01-10EY [phone] (HP) 23[address]MT. CINDY CORTÉS 08506CV: 10/01/2018 Secondary NOT GIVENUNK [place] Insurance:SELF PAY [facility] Number: Effective Repository Date:2018-10-01 09/24/2018 MCKENZIE Pickett Primary [place] [id number] [place] Insurance:CORESOURCEP SIEDELDOB: [facility] olicy Number: [id number], [place] [id number] Repository 15967Hnj: (330) Date:5483-85-40HY [phone] (HP) 23[address]MT. CINDY CORTÉS [id number]: 09/24/2018 Secondary NOT GIVENUNK [place] Insurance:SELF PAY [facility] Number: Effective Repository Date:2018-09-24 09/24/2018 MCKENZIE Pickett Primary [place] [id number] [place] Insurance:CORESOURCEP SIEDELDOB: [facility]y Number: [id number], [place] [id number] Repository 50588Sem: 330) Date:4252-19-62RY [phone] (HP) 23[address]MT. CINDY CORTÉS [id number]: 09/24/2018 Secondary NOT GIVENUNK [place] Insurance:SELF PAY [facility] Number: Effective Repository Date:2018-09-24 09/15/2018 MCKENZIE Pickett Primary [place] [id number] [place] Insurance:CORESOURCEP SIEDELDOB: [facility] HOPE [facility] Number: [id number], [place] [id number] Repository 26282Bji: (330) Date:8340-39-53HJ [phone] (HP) 23[address]MT. CINDY CORTÉS 49039WY: 09/15/2018 Secondary NOT GIVENUNK Dona Insurance:SELF PAY [facility] Number: Effective Repository Date:2018-09-15 09/15/2018 MCKENZIE Pickett Primary [place] [id number] [place] Insurance:CORESOURCEP SIEDELDOB: [facility] oljessi Number: [id number], [place] [id number] Repository 53789Pdb: (330) Date:9496-85-06KQ [phone] (HP) 23[address]MT. CINDY CORTÉS 77512AP: 09/15/2018 Secondary NOT GIVENUNK [place] Insurance:SELF PAY [facility] Number: Effective Repository Date:2018-09-15 09/09/2018 MCKENZIE Pickett Primary [place]EL E [place] [id number] [place] Insurance:CORESOURCEP SIEDELDOB: [facility] Number: [id number], [place] [id number] Repository 20667Hos: (330) Date:6725-90-46TS [phone] (HP) 23[address]MT. CINDY CORTÉS 99050SC: 09/09/2018 Secondary NOT GIVENUNK [place] Insurance:SELF PAY [facility] Number: Effective Repository Date:2018-08-10 09/09/2018 MCKENZIE D Primary [place] [id number] [place] Insurance:CORESOURCEP SIEDELDOB: [facility] Number: [id number], [place] [id number] Repository 91825Bmb: (330) Date:6727-60-30SI [phone] (HP) 23[address]MT. CINDY CORTÉS 48500ST: 09/09/2018 Secondary NOT GIVENUNK [place] Insurance:SELF PAY [facility] Number: Effective Repository Date:2018-09-09 09/09/2018 MCKENZIE D Primary [place] [id number] [place] Insurance:CORESOURCEP SIEDELDOB: [facility] Number: [id number], [place] [id number] Repository 08255Mkd: (330) Date:4027-74-41WN [phone] (HP) 23[address]MT. CINDY CORTÉS 23606UT: 09/09/2018 Secondary NOT GIVENUNK [place] Insurance:SELF PAY [facility] Number: Effective Repository Date:2018-09-09 09/06/2018 MCKENZIE D Primary NOT GIVENUNK [place] [id number] [place] Insurance:SELF PAY [facility] H[place] Number: Effective Repository [phone]: (330) Date:2018-09-06 [phone] (HP) 09/02/2018 MCKENZIE D Primary [place] [id number] [place] Insurance:CORESOURCEP SIEDELDOB: [facility] Number: [id number], [place] [id number] Repository 95859Zxa: (330) Date:5487-40-86ZN [phone] (HP) 2310MT. CINDY CORTÉS 92423UG: 09/02/2018 Secondary NOT GIVENUNK [place] Insurance:SELF PAY [facility] Number: Effective Repository Date:2018-09-02 08/29/2018 MCKENZIE Pickett Primary [place] [id number] [place] Insurance:CORESOURCEP SIEDELDOB: [facility] Number: [id number], [place] [id number] Repository 03420Tip: (330) Date:7193-13-64PC [phone] (HP) 2310MT. CINDY CORTÉS 04552MC: 08/29/2018 Secondary NOT GIVENUNK Don[place] Insurance:SELF PAY [facility] Number: Effective Repository Date:2018-08-29 08/19/2018 MCKENZIE Pickett Primary [place] E [place] [id number] [place] Insurance:CORESOURCEP SIEDELDOB: [facility] [place] Number: [id number], [place] [id number] Repository 89933Kpp: (330) Date:6759-43-08YK [phone] (HP) 2310MT. CINDY CORTÉS 09387VG: 08/19/2018 Secondary NOT GIVENUNK [place] Insurance:SELF PAY [facility] Number: Effective Repository Date:2018-06-16 08/12/2018 MCKENZIE Pickett Primary [place] E [place] [id number] [place] Insurance:CORESOURCEP SIEDELDOB: [facility] [place] Number: [id number], [place] [id number] Repository 18660Nsa: (330) Date:4804-59-03BE [phone] (HP) 2310MT. CINDY CORTÉS 70125EQ: 08/12/2018 Secondary NOT GIVENUNK [place] Insurance:SELF PAY [facility] Number: Effective Repository Date:2018-08-12 08/12/2018 MCKENZIE D Primary [place] [id number] [place] Insurance:CORESOURCEP SIEDELDOB: [facility] Number: [id number], [place] [id number] Repository 32910Bju: 330) Date:3539-86-81OM [phone] (HP) 23[address]MT. CINDY CORTÉS 63818EA: 08/12/2018 Secondary NOT GIVENUNK [place] Insurance:SELF PAY [facility] Number: Effective Repository Date:2018-08-12 08/09/2018 MCKENZIE D Primary NOT GIVENUNK [place] [id number] [place] Insurance:SELF PAY [place] Number: Effective Repository 38973Nit: 330) Date:2018-08-09 [phone] (HP) 08/08/2018 MCKENZIE D Primary [place] [id number] [place] Insurance:CORESOURCEP SIEDELDOB: [facility] [place] Number: [id number], [place] [id number] Repository 54605Pgy: (330) Date:9308-82-04AF [phone] (HP) 2310MT. CINDY CORTÉS 79759SS: 08/08/2018 Secondary NOT GIVENUNK Don[place] Insurance:SELF PAY [facility] Number: Effective Repository Date:2018-08-08 08/06/2018 MCKENZIE D Primary MANUEL E [place] [id number] [place] Insurance:CORESOURCEP SIEDELDOB: [facility] HOPE [address] olicy Number: [id number], [place] [id number] Repository 02698Ova: (330) Date:1978-09-16IM [phone] (HP) 2310MT. CINDY CORTÉS 23544NC: 08/06/2018 Secondary NOT GIVENUNK [place] Insurance:SELF PAY [facility] Number: Effective Repository Date:2018-07-09 07/30/2018 MCKENZIE D Primary MANUEL E [place] [id number] [place] Insurance:CORESOURCEP SIEDELDOB: [facility] [place]y Number: [id number], [place] [id number] Repository 92697Wwx: (330) Date:7592-22-07UO [phone] (HP) 2310MT. CINDY CORTÉS 57056MG: 07/30/2018 Secondary NOT GIVENUNK [place] Insurance:SELF PAY [facility] Number: Effective Repository Date:2018-07-26 07/23/2018 MCKENZIE Pickett Primary MANUEL E [place] [id number] [place] Insurance:CORESOURCEP SIEDELDOB: [facility] icy Number: [id number], [place] [id number] Repository 48012Ixl: (330) Date:8915-84-57ZM [phone] (HP) 2310MT. CINDY CORTÉS 29502LV: 07/23/2018 Secondary NOT GIVENUNK [place] Insurance:SELF PAY [facility] Number: Effective Repository Date:2018-07-23 07/20/2018 MCKENZIE Pickett Primary MANUEL E [place] [id number] [place] Insurance:CORESOURCEP SIEDELDOB: [facility] Number: [id number], [place] [id number] Repository 06801Ifs: (330) Date:0755-92-08PU [phone] (HP) 2310MT. CINDY CORTÉS 72560HK: 07/20/2018 Secondary NOT GIVENUNK [place] Insurance:SELF PAY [facility] Number: Effective Repository Date:2018-07-20 07/19/2018 MCKENZIE Pickett Primary NOT GIVENUNK [place] [id number] [place] Insurance:SELF PA[place] Number: Effective Repository [phone]: (330) Date:2018-07-19 [phone] (HP) 07/16/2018 MCKENZIE Pickett Primary MANUEL E [place] [id number] [place] Insurance:CORESOURCEP SIEDELDOB: [facility] gabickailyn Number: [id number], [place] [id number] Repository 78845Dmr: (330) Date:5884-80-32ID [phone] (HP) 2310MT. CINDY CORTÉS 88664AX: 07/16/2018 Secondary NOT GIVENUNK [place] Insurance:SELF PAY [facility] Number: Effective Repository Date:2018-07-16 07/09/2018 MCKENZIE Pickett Primary [place] [id number] [place] Insurance:CORESOURCEP SIEDELDOB: [facility] gabicy Number: [id number], [place] [id number] Repository 15150Egg: (330) Date:0833-49-82OW [phone] (HP) 2310MT. CINDY CORTÉS 98980OZ: 07/09/2018 Secondary NOT GIVENUNK [place] Insurance:SELF PAY [facility] Number: Effective Repository Date:2018-07-09 07/09/2018 MCKENZIE Pickett Primary [place]UEL E [place] [id number] [place] Insurance:CORESOURCEP SIEDELDOB: [facility] MELISSALE tray Number: [id number], [place] [id number] Repository 45026Pxj: (330) Date:5721-83-77UA [phone] (HP) 2310MT. CINDY CORTÉS 10917QR: 07/09/2018 Secondary NOT GIVENUNK Don[place] Insurance:SELF PAY [facility] Number: Effective Repository Date:2018-07-09 06/24/2018 MCKENZIE Pickett Primary [place] [id number] [place] Insurance:CORESOURCEP SIEDELDOB: [facility] john paul Number: [id number], [place] [id number] Repository 85336Kzn: (330) Date:8341-54-10GQ [phone] (HP) 2310MT. CINDY CORTÉS 22112PZ: 06/24/2018 Secondary NOT GIVENUNK [place] Insurance:SELF PAY [facility] Number: Effective Repository Date:2018-06-23 05/28/2018 MCKENZIE Pickett Primary [place] [id number] [place] Insurance:CORESOURCEP SIEDELDOB: [facility] john paul Number: [id number], [place] [id number] Repository 35675Bue: 330) Date:3683-73-01VM [phone] (HP) 2310MT. CINDY CORTÉS 56999OZ: 05/28/2018 Secondary NOT GIVENUNK [place] Insurance:SELF PAY [facility] Number: Effective Repository Date:2018-05-28 05/20/2018 MCKENZIE Pickett Primary MANUEL E [place] [id number] [place] Insurance:CORESOURCEP SIEDELDOB: [facility] KUSUM de [facility] Number: [id number], [place] [id number] Repository 53733Pbs: (330) Date:9638-51-26SJ [phone] (HP) 2310MT. CINDY CORTÉS 86948XX: 05/20/2018 Secondary NOT GIVENUNK [place] Insurance:SELF PAY [facility] Number: Effective Repository Date:2018-04-26 05/15/2018 MCKENZIE Pickett Primary [place] [id number] MT Insurance:CORESOURCEP SIEDELDOB: [facility] HOPE KUSUM coker Number: [id number], [place] [id number] Repository 48911Xiv: 330) Date:6664-61-84TU [phone] (HP) 2311MT. CINDY CORTÉS 17196GZ: 05/15/2018 Secondary NOT GIVENUNK [place] Insurance:SELF PAY [facility] Number: Effective Repository Date:2018-05-15 05/05/2018 MCKENZIE Pickett Primary [place]EL E [place] [id number] [place] Insurance:CORESOURCEP SIEDELDOB: [facility] HOPE EMIRAPPLE john paul Number: [id number], [place] [id number] Repository 00238Sdj: (330) Date:3107-89-14RH [phone] (HP) 2310MT. MOOCINDY 04327YC: 05/05/2018 Secondary NOT GIVENUNK [place] Insurance:SELF PAY [facility] Number: Effective Repository Date:2018-05-05 04/30/2018 MCKENZIE D Primary NOT GIVENUNK [place] [id number] [place] Insurance:SELF PAY [facility] [place] Number: Effective Repository 43035Yvd: (330) Date:2018-04-30 [phone] (HP) 04/26/2018 MCKENZIE D Primary MAN[place]EL E [place] [id number] MT Insurance:CORESOURCEP SIEDELDOB: [facility] olicy Number: [id number], [place] [id number] Repository 432[address]Bqy: (330) Date:9369-81-74[phone] (HP) [address]MT. CINDY CORTÉS [id number]: 04/26/2018 Secondary NOT GIVENUNK [place] Insurance:SELF PAY [facility] Number: Effective Repository Date:2018-04-26 04/15/2018 MCKENZIE D Primary MANUEL E Dona [id number] [place] Insurance:CORESOURCEP SIEDELDOB: [facility] RDAPPLE olicy Number: [id number], [place] [id number] Repository 26[address]Zoq: (330) Date:2953-24-43KI [phone] (HP) 2310MT. CINDY CORTÉS [id number]: 04/15/2018 Secondary NOT GIVENUNK [place] Insurance:SELF PAY [facility] Number: Effective Repository Date:2018-04-15 04/15/2018 MCKENZIE D Primary MANUEL E [place] [id number] [place] Insurance:CORESOURCEP SIEDELDOB: [facility] [employer] RDAPPLE olicy Number: [id number], [place] [id number] Repository 54147Abi: (330) Date:0481-83-35SI [phone] (HP) 2310MT. CINDY CORTÉS [id number]: 04/15/2018 Secondary NOT GIVENUNK Dona Insurance:SELF PAY [facility] Number: Effective Repository Date:2018-04-15 03/31/2018 MCKENZIE Pickett Primary [place]UEL E [place] [id number] [place] Insurance:CORESOURCEP SIEDELDOB: [employer] RD[employer]LE olicy Number: [id number], [place] [id number] Repository 72760Yey: (330) Date:3830-18-52KN [phone] (HP) 2310MT. CINDY CORTÉS [id number]: 03/31/2018 Secondary NOT GIVENUNK [place] Insurance:SELF PAY [facility] Number: Effective Repository Date:2018-04-09 03/29/2018 MCKENZIE Pickett Primary [place]UEL E [place] [id number] [place]:CORESOURCEP SIEDELDOB: [employer] RD[employer]LE olicy Number: [id number], [place] [id number] Repository 00820Ack: (330) Date:4581-53-24TQ [phone] (HP) 2310MT. CINDY CORTÉS [id number]: 03/29/2018 Secondary NOT GIVENUNK [place] Insurance:SELF PAY [facility] Number: Effective Repository Date:2018-03-01 03/02/2018 MCKENZIE Pickett Primary MANUEL E Dona [id number] [place] Insurance:CORESOURCEP SIEDELDOB: [employer] RD[employer]LE olicy Number: [id number], [place] [id number] Repository 39635Vyg: (330) Date:2643-99-63PP [phone] (HP) 2310MT. CINDY CORTÉS [id number]: 03/02/2018 Secondary NOT GIVENUNK [place] Insurance:SELF PAY [facility] Number: Effective Repository Date:2018-03-02 03/01/2018 MCKENZIE D Primary MANUEL E Dona [id number] [place] Insurance:CORESOURCEP SIEDELDOB: [employer] RD[employer]LE olicy Number: [id number], [place] [id number] Repository 69316Tpt: (330) Date:0511-37-69ZJ [phone] (HP) 2310MT. CINDY CORTÉS [id number]: 03/01/2018 Secondary NOT GIVENUNK [place] Insurance:SELF PAY [facility] Rep[facility] Date:2018-03-01 03/01/2018 MCKENZIE D Primary MANUEL E Dona [id number] [place]:CORESOURCEP SIEDELDOB: [employer] RDAPPLE olicy Number: 1983NXYBrad[place], [place] [id number] Repository 70355Lxg: (330) Date:7167-79-54XH [phone] (HP) 2310MT. CINDY CORTÉS [id number]: 03/01/2018 Secondary NOT GIVENUNK [place] Insurance:SELF PAY [facility] Number: Effective Repository Date:2018-03-01 02/19/2018 MCKENZIE D Primary [place]EL E [place] [id number] [place]:CORESOURCEP SIEDELDOB: [facility] [employer] olicy Number: [id number], [place] [id number] Repository 41978Ixy: (330) Date:0802-97-01ZK [phone] (HP) 2310MT. CINDY CORTÉS [id number]: 02/19/2018 Secondary NOT GIVENUNK Dona Insurance:SELF PAY [facility] Number: Effective Repository Date:2018-02-19 02/09/2018 MCKENZIE D Primary MANUEL E Dona [id number] [place]CORESOURCEP SIEDELDOB: [facility] [employer]LE olicy Number: [id number], [place] [id number] Repository 34383Abi: (330) Date:5180-58-28ZS [phone] (HP) 2310MT. CINDY CORTÉS [id number]: 02/09/2018 Secondary NOT GIVENUNK [place] Insurance:SELF PAY [facility]: Effective Repository Date:2018-02-09 02/04/2018 MCKENZIE Pickett Primary [place]EL E [place] [id number] [place]:CORESOURCEP SIEDELDOB: [employer] RD[employer]LE olicy Number: [id number], [place] [id number] Repository 08743Srd: (330) Date:7971-71-02JI [phone] (HP) 2310MT. CINDY CORTÉS [id number]: 02/04/2018 Secondary NOT GIVENUNK Dona Insurance:SELF PAY [facility] Number: Effective Repository Date:2018-02-04 10/18/2017 MCKENZIE Pickett Primary Manuel E J Dona [id number] [place] Insurance:CORESOURCEP SiedelDOB: [facility] [employer] RD[employer]LE olicy Number: [id number], [place] [id number] Repository 897[address]Rek: 330) Date:3951-29-02ON [phone] () 2310MT. CINDY CORTÉS [id number]: 10/18/2017 Secondary NOT GIVENUNK Dona Insurance:SELF PAY [facility] Number: Effective Repository Date:2017-10-18
== END ==
PROVIDERS: PCP Family Medicine; Visit Provider Obstetrics & Gynecology
DX: Z34.90 Encounter for supervision of normal pregnancy, unspecified, unspecified trimester (principal)
CPT/HCPCS: 84112

== ENCOUNTER 2018-10-07 05:30 | Inpatient (IN) | payer OTHER, SELFPAY ==
[2018-10-01 10:03] VITALS: BMI 37.9
[2018-10-05 09:10] VITALS: BMI 38.5
[2018-10-05 10:29] LABS: Absolute Lymphocyte Count 1.96 X10^3/ul (0.83-4.51); Absolute Neutrophil Count 6.8 X10^3/uL (2.0-7.7); Basophil# 0.02 X10^3/uL; Basophil% 0.2 % (0-1); Eosinophil# 0.04 X10^3/uL; Eosinophils% 0.4 % (0-5); Hematocrit 39.3 % (37-47); Hemoglobin 13.3 g/dl (12.0-15.0); Lymphocyte # 1.96 X10^3/ul (4.0); Lymphocyte % 20.4 % (19-41); Mean Corp Hgb Conc 33.8 g/gl (32-36); Mean Corpuscular Hgb 28.1 pg (27.0-32.0); Mean Corpuscular Volume 82.9 fL (81-99); Mean Platelet Vol. 10.8 fl (6.2-12.0); Monocyte# 0.83 X10^3/uL; Monocyte% 8.6 % (0-10); Neutrophil # 6.75 X10^3/uL (2.7-7.7); Neutrophil % 70.3 % (47-70); POSITIVE COUNT NO; POSITIVE DIFFERENTIAL NO; POSITIVE MORPHOLOGY NO; Platelet Count 189 K/mm3 (150-450); RBC Distribution Width CV 14.5 % (11.6-14.6); RBC Distribution Width SD 43.7 fl (35.1-43.9); Red Blood Count 4.74 M/mm3 (4.2-5.4); White Blood Count 9.6 K/mm3 (4.4-11.0)
[2018-10-07] VITALS (21 sets, daily range): BP systolic 113–150; BP diastolic 49–86; PULSE 64–111; RESP 12–22; TEMP 36.1–36.7; O2SAT 97–100; BMI 38.0
--- NOTE | 2018-10-07 01:54 | HP.PCM_ITS ---
- Problem List (1) Abnormal glucose affecting Status: Acute Comment: 1 hour 144. nl 3 hour gtt (2) Advanced maternal age (AMA) in Status: Acute Comment: genetic counseling options reviewed- normal NIPT (3) Anxiety during Status: Acute Comment: celexa, counseled regarding risks of medication, counseling encouraged (4) History of pre-eclampsia in prior , currently Status: Acute Comment: baseline labs, baby aspirin at 14 weeks (5) Status: Acute Qualifiers: Comment: nl NIPT, carrier and ntd screening declined. normal anatomy scan. (6) Previous delivery affecting , antepartum Status: Acute Comment: x2, planning RLTCS and BTL. declines . (7) Supervision of high risk multigravida in third trimester in patient 35 years or older at time of delivery Status: Acute Comment: PRR ELAINE 10/14/18 Boy AMADA FridaOscar patricio Festus History and Physical Date of Admission: 10/07/18 Intake Vital Signs 10/01/18 Body Mass Index (BMI) 37.9 10/01/18 Height 5 ft 3 in 10/01/18 Weight: 219 lb 10/01/18 Body Mass Index (BMI) 38.7 10/01/18 Blood Pressure 130/80 H Intake Visit Reasons: est ob 38 weeks Chief Complaint: est ob Final Inspector Movement Assembly Required: No Is patient in pain?: No Allergies Sulfa (Sulfonamide Antibiotics) Allergy (Severe, Verified 10/01/18 09:59) Other Medications vitamin,calcium,rmzomdqn-[id number] acid tablet 1 tab PO QDAY 03/01/18 [History Confirmed 10/01/18] Aspirin [Aspirin, Baby] 81 mg PO DAILY 05/15/18 [History Confirmed 10/01/18] citalopram 40 mg tablet 40 mg PO QDAY #30 tab 09/02/18 [Rx Confirmed 10/01/18] Last Menstral Period: 01/07/18 Zika: Zika virus screening: Negative : No PFSH PFSH Medical History Chronic headaches (Chronic) Abnormal Pap smear of cervix (Acute) Seasonal allergies (Acute) Hypertension affecting (Resolved) Vitamin D deficiency (Resolved) Surgical History History of appendectomy (Acute) History of section (Acute) History of tonsillectomy and adenoidectomy (Acute) Family History Father Alcoholism Mother Mental disorder Grandmother Blood clots Grandfather Skin cancer Hypertension Social History Smoking Status: Former smoker alcohol intake: never substance use type: does not use caffeine: No (rarely) what type of physical activity do you participate in: none frequency: 5-6 times per week duration: 15-30 minutes/day seatbelt use: always do you feel safe at home: Yes additional social history: - [place]- [address]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 Date Name GA/Weeks Outcome Route Bth Weight Gen Labor Lgth Anesthesia Del Locatn Provider FOB 09/20/11 Frida 37 live - full term Female [facility] Dr. Culp 07/14/13 Oscar 39 live - full term Female [facility] Dr. Cano HPI est ob 38 weeks: Details: MCKENZIE DIALLO is a 33 year old who presents for routine OB visit. OB Visit ELAINE Calculator Estimated Delivery Date 10/14/18 Based on LMP (uncertain) 01/07/18 Current WG 38w 1d Number 1 Expected Delivery Route/Plan RLTCS and BTL Specific Issue/Plans flu vaccine:given tdap vaccine: given rhogam: na LARC form signed:R cs BTO labor support person: [place] pain management: spinal cut cord/dad catch: : yes PP control planned: bto special requests: Initial Weight: 192 lb Date EGA Weight BP Urine Prot Glucose FHR FuHt Pres Mov CTX Dilation Effaced St Visit Note Provider Comments 03/01/18 7w 4d 192 lb 8 oz (+8 oz) 103/62 04/15/18 14w 0d 195 lb 2 oz (+3 lb 2 oz) 100/68 Negative Negative 150 co abdominal pain and stretching after carrying buckets. no vb 04/26/18 15w 4d 193 lb 2 oz (+1 lb 2 oz) 105/71 Negative Negative 150 co increased anxiety and changes in mood- recommend celexa vistaril prn. 05/28/18 20w 1d 197 lb 8 oz (+5 lb 8 oz) 110/71 Negative Negative 154 20 Doing well. No VB, LOF 06/24/18 24w 0d 203 lb 8 oz (+11 lb 8 oz) 104/62 104/62 Negative Negative 140 24 mood stable, no vb lof no regular ctx some fm 07/20/18 27w 5d 211 lb 8 oz (+19 lb 8 oz) 118/72 Negative Negative 150 28 occasional 0 no cervical dilation, n oregular ctx. reassurance given. cbc gct ordered. 08/06/18 30w 1d 210 lb (+18 lb) 108/72 130 32 Active occasional no vb lof good fm no regular ctx 08/19/18 32w 0d 212 lb 8 oz (+20 lb 8 oz) 112/70 Negative Negative 140 33 Active occasional no vb lof good fm no regluar ctx 09/02/18 34w 0d 215 lb (+23 lb) 120/80 140 34 Active occasional no vb lof irregular ctx 09/09/18 35w 0d 117/70 Negative Negative 151 Decr absent Work in, fell down steps at barn due to ice. Landed on coccyx which states very tender. States baby not as active. Denies any trauma to abdomen. No VB, LO F 09/15/18 35w 6d 215 lb 4 oz (+23 lb 4 oz) 120/78 Negative Negative 137 35 Cephalic Active absent 0 Doing well. Coccyx still sore from fall. No CTX, LOF, VB 09/24/18 37w 1d 216 lb 2 oz (+24 lb 2 oz) 130/80 Negative Negative 135 36 Cephalic Active absent no vb questionable lof good fm n oregular ctx rom plus sent no gross signs of rupture 10/01/18 38w 1d 219 lb (+27 lb) 130/80 130 37 Cephalic Active absent 0.5 no vb lof good f no regular ctx Visit Notes Visit Date: 10/01/18 ??no vb lof good f no regular ctx ??Sade Collins MD on 10/01/18 Visit Date: 09/24/18 ??no vb questionable lof good fm n oregular ctx rom plus sent no gross signs of rupture ??Sade Collins MD on 09/24/18 Visit Date: 09/15/18 ??Doing well. Coccyx still sore from fall. No CTX, LOF, VB ??BETH Alejandra on 09/15/18 Visit Date: 09/09/18 ??Work in, fell down steps at barn due to ice. Landed on coccyx which states very tender. States baby not as active. Denies any trauma to abdomen. No VB, LOF ??BETH Alejandra on 09/09/18 Visit Date: 09/02/18 ??no vb lof irregular ctx ??Sade Collins MD on 09/02/18 Visit Date: 08/19/18 ??no vb lof good fm no regluar ctx ??Sade Collins MD on 08/19/18 Visit Date: 08/06/18 ??no vb lof good fm no regular ctx ??Sade Collins MD on 08/06/18 Visit Date: 07/20/18 ??no cervical dilation, n oregular ctx. reassurance given. cbc gct ordered. ??Sade Collins MD on 07/24/18 Visit Date: 06/24/18 ??mood stable, no vb lof no regular ctx some fm ??Sade Collins MD on 06/24/18 Visit Date: 05/28/18 ??Doing well. No VB, LOF ??BETH Aleajndra on 05/28/18 Visit Date: 04/26/18 ??co increased anxiety and changes in mood- recommend celexa vistaril prn. ??Sade Collins MD on 04/26/18 Visit Date: 04/15/18 ??co abdominal pain and stretching after carrying buckets. no vb ??Sade Collins MD on 04/15/18 Visit Date: 03/01/18 ??No visit notes to display ACOG First Trimester First Trimester: Desire for , Alcohol, Tobacco Cessation, Illicit/Recreational Drug/Substance Use, Intimate Partner Violence, Barriers to care, Unstable Housing, Communication Barriers, Environmental/Work Hazards, Anticipated Course of Care, Toxoplasmosis Precations, Use of Any medications, Sexual activity, Exercise, Dental Care, Sauna/Hot tub use, Seat Belt use, Childbirth classes/Hospital facilities, , Travel, Indications for US and Screening for Aneuploidy Diagnostics Diagnostics Labs Obstetrics Ultrasound 09/09/18 Group B Strep DNA Cancelled 09/15/18 Details: HIV: Urine Culture: Sequential Screen: NIPT Screen: Assessment & Plan Problems 1. History of pre-eclampsia in prior , currently O09.299 baseline labs, baby aspirin at 14 weeks 2. Previous delivery affecting , antepartum O34.219 x2, planning RLTCS and BTL. declines . 3. Abnormal glucose affecting O99.810 1 hour 144. nl 3 hour gtt 4. Advanced maternal age (AMA) in genetic counseling options reviewed- normal NIPT 5. 38 weeks gestation of Z3A.38 nl NIPT, carrier and ntd screening declined. normal anatomy scan. 6. Supervision of high risk multigravida in third trimester in patient 35 years or older at time of delivery O09.523 PRR ELAINE 10/14/18 Boy Oscar Gray Festus 7. Anxiety during O99.340; F41.9 celexa 8. Supervision of high risk , antepartum O09.90 Plan movement and labor precautions reviewed. ACOG trimester education reviewed and updated. see problem list details for updated plan management information and see below for orders placed at this visit. GA appropriate handout given. plan RLTCS- UPDATE- I have seen the patient and performed any clinically relevant updates to the history and physical exam. Sade Collins MD Orders Orders: POC Urinalysis 2 Dip (Clinic) Today
[2018-10-07] MEDS: Lactated Ringers 1,000 ML 999 ML IV (06:00)
[2018-10-07] MEDS: Sodium Citrate/Citric Acid 30 ML UDC PO (07:13)
[2018-10-07] MEDS: Lactated Ringers 1,000 ML 150 ML IV (07:14)
[2018-10-07] MEDS: Cefazolin 2 GM in 0.9% Normal Saline 100 ML IV (07:14)
[2018-10-07] MEDS: Oxytocin 30 units/NS 500 ml 30 UNITS/500 ML IV.SOLN 167 UNITS IV (07:50)
--- NOTE | 2018-10-07 07:50 | FALS_PTH ---
PATIENT: MCKENZIE DIALLO LOC: [facility] U#:[id number] AGE/SX: 33/F ROOM: WP005 RE10/07/[address]: Dr. Sade Collins MD : 1985 BED: 1 DIS: 10/09/2018 SPEC #: [id number] RECD: 10/07/18 10:14 STATUS: JEANNIE REKinga #: [id number] AILYN: 10/07/18 07:[address]: Sade Collins DEPT: SURGICAL PATHOLOGY RECD BY: Manohar Chin ENTERED: 10/07/18 11:36 SP TYPE: FALL TUBES OTHR DR: Dr. Deyvi Lopez, DO Tissues: Fallopian tube Procedures: Surgery Specimen Level II HEADER OPERATION: Tubal ligation PRE-OP DIAGNOSIS: Tubal ligation TISSUE SUBMITTED: Fallopian tubes, stitch in left tube MICROSCOPIC DIAGNOSIS Bilateral fallopian tubes, tubal ligation: Completely transected segments of bilateral fallopian tubes, no pathologic diagnosis. SJ:montez 10/08/18 MICROSCOPIC DESCRIPTION Slides are reviewed. GROSS DESCRIPTION Received is one container labeled with the patient's name and designated bilateral fallopian tubes, stitch left tube. The specimen consists of two tubular pieces of juan soft tissue with the left tube identified with a suture and inked black. The right fallopian tube measures 1 cm in length and 0.6 cm in diameter. The left fallopian tube measures 2 cm in length and 0.6 cm in diameter. The entire specimen is submitted in one cassette. Both pieces will be sectioned at the time of embedding. / ANKUSH:montez 10/07/18 TC:4 CPT: 95763 x2
[2018-10-07] MEDS: Ketorolac 30 MG/ML Syringe IV ×3 (10:06→22:10)
[2018-10-07] MEDS: 0.9% Saline Lock 10 ML Syringe IV ×2 (10:07→16:59)
--- NOTE | 2018-10-07 10:12 | NURSING ---
PT REPORTS FALLING ON ICE ONE MONTH AGO, STEADY ON FEET AT THIS TIME.
[2018-10-07 10:13] LABS: Pathology Specimen OB SEE PATHOLOGY REPORT
--- NOTE | 2018-10-07 15:36 | PCM.OPRPT ---
Problem List (1) Abnormal glucose affecting Status: Acute Comment: 1 hour 144. nl 3 hour gtt (2) Advanced maternal age (AMA) in Status: Acute Comment: genetic counseling options reviewed- normal NIPT (3) Anxiety during Status: Acute Comment: celexa, counseled regarding risks of medication, counseling encouraged (4) History of pre-eclampsia in prior , currently Status: Acute Comment: baseline labs, baby aspirin at 14 weeks (5) Status: Acute Qualifiers: Comment: nl NIPT, carrier and ntd screening declined. normal anatomy scan. (6) Previous delivery affecting , antepartum Status: Acute Comment: x2, planning RLTCS and BTL. declines . (7) Supervision of high risk multigravida in third trimester in patient 35 years or older at time of delivery Status: Acute Comment: PRR ELAINE 10/14/18 Boy Oscar Gray Festus Report of Operation Date of Procedure: 10/07/18 Pre-Operative Diagnosis: prev c section and sterilization Post-Operative Diagnosis: same Surgery/Procedure Performed:: rltcs btl Description of Surgical Findings:: nl uterus tubes ovaries business systems advisor: tiago quarles Type of Anesthesia:: Spinal Special Medications: none Specimen's removed: male infant vertex Drains: staples Estimated Blood Loss (mL): 800 Fluids Replaced: crystalloid Description of Procedure: The patient is a [ ] presented for [repeat] . Spinal anesthesia was placed without difficulty. Staples catheter was placed. The patient was placed in the dorsal supine position with leftward tilt. Patient was prepped and draped in the normal sterile fashion. Pfannenstiel skin incision was made with the scalpel and carried through to the underlying layer of fascia with the scalpel. Fascia was nicked in the midline and the incision extended laterally. The rectus bellies were dissected off superiorly and inferiorly with out complication both sharply and bluntly. The peritoneum was entered digitally. The incision was stretched and a low transverse uterine incision was made with the scalpel. The 's head was delivered atraumatically followed by the anterior and posterior shoulders without complication the rest of the delivered. The cord was clamped and cut and the infant was handed off to awaiting nurse. The placenta was delivered spontaneously immediately following and was noted to be intact and have a three-vessel cord. The uterus was exteriorized cleared of all clots and debris, and the incision was closed in a single layer closure using #1 Monocryl. bilateral fallopian tubes were transected via [place] method using 2-0 plain gut.The uterus was returned to the maternal abdomen and gutters were cleared of all clots and debris. The ovaries and fallopian tubes were noted to be within normal limits. The peritoneum was closed with 3-0 Monocryl in a running fashion. Fascia was closed with 0 PDS in a running fashion. Subcutaneous tissue was copiously irrigated and the skin was closed with 3-0 Monocryl in a subcuticular fashion. Mepilex dressing was applied without complication. Patient was taken to recovery in stable condition. Grafts/Implants Used: none - Complications none
--- NOTE | 2018-10-07 15:39 | OP.PCM_ITS ---
Problem List (1) Abnormal glucose affecting Status: Acute Comment: 1 hour 144. nl 3 hour gtt (2) Advanced maternal age (AMA) in Status: Acute Comment: genetic counseling options reviewed- normal NIPT (3) Anxiety during Status: Acute Comment: celexa, counseled regarding risks of medication, counseling encouraged (4) History of pre-eclampsia in prior , currently Status: Acute Comment: baseline labs, baby aspirin at 14 weeks (5) Status: Acute Qualifiers: Comment: nl NIPT, carrier and ntd screening declined. normal anatomy scan. (6) Previous delivery affecting , antepartum Status: Acute Comment: x2, planning RLTCS and BTL. declines . (7) Supervision of high risk multigravida in third trimester in patient 35 years or older at time of delivery Status: Acute Comment: PRR ELAINE 10/14/18 Boy Oscar Gray Festus Report of Operation Date of Procedure: 10/07/18 Pre-Operative Diagnosis: prev c section and sterilization Post-Operative Diagnosis: same Surgery/Procedure Performed:: rltcs btl Description of Surgical Findings:: nl uterus tubes ovaries tow feeder: tiago quarles Type of Anesthesia:: Spinal Special Medications: none Specimen's removed: male infant vertex Drains: staples Estimated Blood Loss (mL): 800 Fluids Replaced: crystalloid Description of Procedure: The patient is a [ ] presented for [repeat] . Spinal anesthesia was placed without difficulty. Staples catheter was placed. The patient was placed in the dorsal supine position with leftward tilt. Patient was prepped and draped in the normal sterile fashion. Pfannenstiel skin incision was made with the scalpel and carried through to the underlying layer of fascia with the scalpel. Fascia was nicked in the midline and the incision extended laterally. The rectus bellies were dissected off superiorly and inferiorly with out complication both sharply and bluntly. The peritoneum was entered digitally. The incision was stretched and a low transverse uterine incision was made with the scalpel. The 's head was delivered atraumatically followed by the a nterior and posterior shoulders without complication the rest of the delivered. The cord was clamped and cut and the was handed off to awaiting nurse. The placenta was delivered spontaneously immediately following and was noted to be intact and have a three-vessel cord. The uterus was exteriorized cleared of all clots and debris, and the incision was closed in a single layer closure using #1 Monocryl. bilateral fallopian tubes were transected via [place] method using 2-0 plain gut.The uterus was returned to the maternal abdomen and gutters were cleared of all clots and debris. The ovaries and fallopian tubes were noted to be within normal limits. The peritoneum was closed with 3-0 Monocryl in a running fashion. Fascia was closed with 0 PDS in a running fashion. Subcutaneous tissue was copiously irrigated and the skin was closed with 3-0 Monocryl in a subcuticular fashion. Mepilex dressing was applied without complication. Patient was taken to recovery in stable condition. Grafts/Implants Used: none - Complications none
[2018-10-07] MEDS: Lactated Ringers 1,000 ML 100 ML IV (15:51)
[2018-10-07] MEDS: Senna/Docusate Sodium 1 Tablet PO (16:59)
[2018-10-08] VITALS: BP 100/59; PULSE 86; RESP 15; TEMP 36.4; O2SAT 100
[2018-10-08 01:58] VITALS: BP 112/60; PULSE 71; RESP 14; TEMP 36.3; O2SAT 97
[2018-10-08 04:00] VITALS: BP 120/72; PULSE 72; RESP 14; TEMP 36.4; O2SAT 99
[2018-10-08] MEDS: Ketorolac 30 MG/ML Syringe IV ×4 (04:06→23:01)
[2018-10-08 07:50] VITALS: BP 118/74; PULSE 82; RESP 16; TEMP 37.1; O2SAT 98
--- NOTE | 2018-10-08 08:02 | PCM.PN.OB ---
Subjective: No SOB, CP. Ambulating well. No issues with voiding. Pain controlled - Physical Exam General: Alert, Oriented x3 Abdomen: Soft, Non-Distended, - - Dressing dry and intact. Minimal tenderness. FF below U Vital Signs Temp Pulse Resp BP Pulse Ox 97.6 F L 72 14 120/72 99 10/08/18 04:00 10/08/18 04:00 10/08/18 04:00 10/08/18 04:00 10/08/18 04:00 Oxygen Delivery Method Room Air Weight: 214 lb 8.156 oz Body Mass Index (BMI) 38.0 Intake and Output for Last 24 Hours 10/06/18 10/07/18 10/08/18 23:59 23:59 23:59 Intake Total 3495 / 3495 Output Total 1000 / 1000 Balance 2495 / 2495 Medical Necessity - Tobacco Use Smoking Status: Never smoker Assessment/Plan All Active Problems (Last Reviewed 10/01/18 @ 10:00 by Virginia Gonzalez) Anxiety during (Acute) Abnormal glucose affecting (Acute) (Acute) Supervision of high risk multigravida in third trimester in patient 35 years or older at time of delivery (Acute) Advanced maternal age (AMA) in (Acute) Previous delivery affecting , antepartum (Acute) History of pre-eclampsia in prior , currently (Acute) Decreased movement (Resolved) False labor (Resolved) Hypertension affecting (Resolved) Sensation of fullness in right ear (Resolved) Supervision of high risk in first trimester (Resolved) Vitamin D deficiency (Resolved) LTRCS BTO POD#1: Routine care. . Pain controlled.
[2018-10-08 08:33] LABS: Hematocrit 32.7 % (37-47); Hemoglobin 11.1 g/dl (12.0-15.0); Mean Corp Hgb Conc 33.9 g/gl (32-36); Mean Corpuscular Hgb 28.4 pg (27.0-32.0); Mean Corpuscular Volume 83.6 fL (81-99); Mean Platelet Vol. 10.3 fl (6.2-12.0); Platelet Count 151 K/mm3 (150-450); RBC Distribution Width SD 45.6 fl (35.1-43.9); Red Blood Count 3.91 M/mm3 (4.2-5.4); White Blood Count 9.2 K/mm3 (4.4-11.0)
[2018-10-08 08:38] LABS: Scan Indicated on CBC? Y/N NO
--- NOTE | 2018-10-08 09:56 | CASEMGMT ---
Social Work Assessment Referral Date: 10/07/18 Date of Assessment: 10/08/18 Reason for Consult: Hx of anxiety and PPD Informant: Ciera Li Information obtained from: Medical record and MOB. MOB is alert and oriented x4 upon this telegraphic typewriter mechanic's entry into room. MOB sitting up right in rocking chair with infant in bassinet in front of her. No physical interaction was observed, but MOB was appropriate throughout assessment. Living Arrangements: MOB reports to live with FOB, Festus Troncoso, whom she has been to for 8 years. They have two daughters together. No concern of abuse or neglect in the home. Employment: MOB and FOB both work. MOB reports financial stability and denies concerns or need for additional resources. Supplies: Report to have all necessary supplies for infant including car seat, crib, clothes, bottles and diapers. MOB denies concern with obtaining necessities in the future. Denies need for resources. Social/Family Stressors: Denies any current stressors. Supports: MOB reports that both she and FOB have family that live locally. She identifies FOB and Mother in Law as her two primary supports. Mental Health Hx: MOB reports a hx of anxiety and PPD with last two children. She is presently on Celexa which is prescribed by Dr. Pham. Provided with educational package and encouraged her to review it and reach out to Dr. Pham if any signs/symptoms persist. Understanding expressed. Denies being in counseling currently and states she was a long time ago, in my 20s. Denies counseling services at this time. States that she just relaxes as a way to cope with the anxiety. Substance Abuse Hx: Denies substance abuse. Reports hx of alcohol use in 20s, but nothing recently. No concerns with tox screens throughout or upon admission. ASSESSMENT: MOB alert and oriented throughout assessment and willing to participate in assessment. Presents with flat affect as evidenced by no change in voice or expression throughout conversation. Reports a hx of PPD and OBGYN is aware of this hx and MOB is on a regimen. Infant's publications editor will be Juan Swift. MOB states she will make appointment today. Reports to have access to transportation. No further needs identified at this time, and MOB safe to discharge home with infant once medically cleared. PLAN: Home with support of spouse. Idalia Medina, [employer], GIN
[2018-10-08] MEDS: 0.9% Saline Lock 10 ML Syringe IV ×2 (10:31→23:01)
[2018-10-08] MEDS: Citalopram 40 MG TABLET PO (10:32)
[2018-10-08] MEDS: Senna/Docusate Sodium 1 Tablet PO (10:32)
[2018-10-08 14:40] VITALS: BP 130/73; PULSE 73; RESP 16; TEMP 36.9; O2SAT 99
[2018-10-08 20:45] VITALS: BP 127/80; PULSE 69; RESP 16; TEMP 36.7; O2SAT 97
[2018-10-09 01:20] VITALS: BP 128/61; PULSE 72; RESP 20; TEMP 36.7; O2SAT 96
[2018-10-09] MEDS: Naproxen 250 MG Tablet PO ×2 (05:35→14:04)
[2018-10-09 08:30] VITALS: BP 114/74; PULSE 75; RESP 16; TEMP 36.8; O2SAT 98
--- NOTE | 2018-10-09 08:43 | PCM.PN.OB ---
Subjective: Doing well. No SOB, CP. Plans home today - Physical Exam General: Alert, Oriented x3 Abdomen: Soft, Non-Distended, - - Dressing dry and intact. To outside of dressing bilaterallly fine erythematous rash. No lesions or open areas. FF below U Vital Signs Temp Pulse Resp BP Pulse Ox 98.2 F 75 16 114/74 98 10/09/18 08:30 10/09/18 08:30 10/09/18 08:30 10/09/18 08:30 10/09/18 08:30 Oxygen Delivery Method Room Air Weight: 214 lb 8.156 oz Body Mass Index (BMI) 38.0 Intake and Output for Last 24 Hours 10/07/18 10/08/18 10/09/18 23:59 23:59 23:59 Intake Total 3495 / 3495 Output Total 1000 / 1000 1000 / 1000 Balance 2495 / 2495 -1000 / -1000 Medical Necessity - Tobacco Use Smoking Status: Never smoker Assessment/Plan All Active Problems (Last Reviewed 10/01/18 @ 10:00 by Virginia Gonzalez) Anxiety during (Acute) Abnormal glucose affecting (Acute) (Acute) Supervision of high risk multigravida in third trimester in patient 35 years or older at time of delivery (Acute) Advanced maternal age (AMA) in (Acute) Previous delivery affecting , antepartum (Acute) History of pre-eclampsia in prior , currently (Acute) Decreased movement (Resolved) False labor (Resolved) Hypertension affecting (Resolved) Sensation of fullness in right ear (Resolved) Supervision of high risk in first trimester (Resolved) Vitamin D deficiency (Resolved) LTRCS BTO POD#2: Routine care. . Pain controlled. Plan OTC hydrocortisone cream tid prn for itching on abdomen-probable contact irritant. Home today if baby feeding well.
--- NOTE | 2018-10-09 08:52 | DCINST_ITS ---
Additional Instructions: If you experience any of the following, contact your healthcare provider. * Bleeding that soaks a pad every hour for 2 hours * Fever 100.4 or higher * Unrelieved incision or abdominal pain * Swelling, redness, discharge or bleeding from your incision or episiotomy site * Your incision begins to separate * Problems urinating (including inability to urinate or burning while urinating). * Visual changes * Severe headache * Flu-like symptoms * Pain or redness in one of both of your breasts * Pain, warmth, tenderness or swelling in your legs, especially the calf area * Frequent nausea and vomiting * Symptoms of depression or anxiety If you experience any of the following, call 911 or go to the nearest Emergency Room. * Chest pain * Problems breathing * Seizure activity * Partial or complete paralysis of a body part, slurred speech, weakness or drooping of the face, or a sudden inability to walk or hold your balance Allergies/Adverse Reactions: Allergies Sulfa (Sulfonamide Antibiotics) Allergy (Severe, Verified 10/05/18 09:31) Other hives Medications to take at Discharge vitamin,calcium,kiwwegjo-dods-jfinc acid tablet 1 tab PO QDAY 03/01/18 Aspirin [Aspirin, Baby] 81 mg PO DAILY 05/15/18 Citalopram Hydrobromide [Citalopram HBr] 40 mg PO QDAY 10/05/18 Naproxen [Naprosyn] 500 mg PO BID PRN PRN #60 tablet 10/09/18 Oxycodone HCl/Acetaminophen [Percocet 5/325] 1 - 2 tablet PO Q4H PRN PRN 3 Days #15 tablet 10/09/18 The following prescriptions were given: Oxycodone HCl/Acetaminophen [Percocet 5/325] 1 - 2 tablet PO Q4H PRN PRN 3 Days #15 tablet PRN Reason: Pain Naproxen [Naprosyn] 500 mg PO BID PRN PRN #60 tablet PRN Reason: Pain Follow-Up: Call to make an appointment with your doctor for an incision check in 1-2 weeks. You will also need a 6 week post- follow up appointment. Test results from this visit will be discussed in further detail at your follow- up appointment, if applicable. Primary Care Physician: Deyvi Lopez DO [Primary Care Provider] -
--- NOTE | 2018-10-09 08:52 | PCM.DCCSEC ---
Additional Instructions: If you experience any of the following, contact your healthcare provider. Bleeding that soaks a pad every hour for 2 hours Fever 100.4 or higher Unrelieved incision or abdominal pain Swelling, redness, discharge or bleeding from your incision or episiotomy site Your incision begins to separate Problems urinating (including inability to urinate or burning while urinating). Visual changes Severe headache Flu-like symptoms Pain or redness in one of both of your breasts Pain, warmth, tenderness or swelling in your legs, especially the calf area Frequent nausea and vomiting Symptoms of depression or anxiety If you experience any of the following, call 911 or go to the nearest Emergency Room. Chest pain Problems breathing Seizure activity Partial or complete paralysis of a body part, slurred speech, weakness or drooping of the face, or a sudden inability to walk or hold your balance Allergies/Adverse Reactions: Allergies Sulfa (Sulfonamide Antibiotics) Allergy (Severe, Verified 10/05/18 09:31) Other hives Medications to take at Discharge vitamin,calcium,vslcmloe-vtvw-mjzgc acid tablet 1 tab PO QDAY 03/01/18 Aspirin [Aspirin, Baby] 81 mg PO DAILY 05/15/18 Citalopram Hydrobromide [Citalopram HBr] 40 mg PO QDAY 10/05/18 Naproxen [Naprosyn] 500 mg PO BID PRN PRN #60 tablet 10/09/18 Oxycodone HCl/Acetaminophen [Percocet 5/325] 1 - 2 tablet PO Q4H PRN PRN 3 Days #15 tablet 10/09/18 The following prescriptions were given: Oxycodone HCl/Acetaminophen [Percocet 5/325] 1 - 2 tablet PO Q4H PRN PRN 3 Days #15 tablet PRN Reason: Pain Naproxen [Naprosyn] 500 mg PO BID PRN PRN #60 tablet PRN Reason: Pain Follow-Up: Call to make an appointment with your doctor for an incision check in 1-2 weeks. You will also need a 6 week post- follow up appointment. Test results from this visit will be discussed in further detail at your follow-up appointment, if applicable. Primary Care Physician: Deyvi Lopez DO [Primary Care Provider] -
[2018-10-09] MEDS: Citalopram 40 MG TABLET PO (10:51)
[2018-10-09] MEDS: Hydrocortisone 2.5% Crm 1 APPLIC TOPICAL (10:51)
[2018-10-09 14:05] VITALS: BP 126/65; PULSE 66; RESP 16; TEMP 36.7; O2SAT 99
[2018-10-09] MEDS: Senna/Docusate Sodium 1 Tablet PO (14:05)
[2018-10-09 19:39] VITALS: BP 127/60; PULSE 60; RESP 18; TEMP 37.1; O2SAT 98
--- OUTSIDE RECORDS SUMMARY | 2018-11-23 00:11 | XMS RPT_ITS ---
:1985 Author Organization OHIP Support Name Relationship Address Phone DANIEL PINEDA Unavailable [address] + [place] [address] SIEDEL, MANUEL Unavailable [address] + [place] [address] WC Unavailable [address] + [place] [address] DANIEL PINEDA Unavailable [address] + [place] [address] SIEDEL, MANUEL Unavailable [address] + [place] [address] WC Unavailable [address] + [place] [address] DANIEL PINEDA Unavailable [address] + [place] [address] SIEDEL, MANUEL Unavailable [address] + [place] [address] [facility] Unavailable [address] + [place] [address] DANIEL PINEDA Unavailable [address] + [place] [address] SIEDEL, MANUEL Unavailable [address] + [place] [address] [facility] Unavailable [address] + [place] [address] DANIEL PINEDA Unavailable [address] + [place] [address] SIEDEL, MANUEL Unavailable [address] + [place] [address] [facility] Unavailable [address] + [place] [address] DANIEL PINEDA Unavailable [address] + [place] [address] SIEDEL, MANUEL Unavailable [address] + [place] [address] [facility] Unavailable [address] + [place] [address] DANIEL PINEDA Unavailable [address] + [place] [address] SIEDEL, MANUEL Unavailable [address] + [place] [address] [facility] Unavailable [address] + [place] [address] DANIEL PINEDA Unavailable [address] + [place] [address] SIEDEL, MANUEL Unavailable [address] + [place] [address] [facility] Unavailable [address] + [place] [address] DANIEL PINEDA Unavailable [address] + [place] [address] SIEDEL, MANUEL Unavailable [address] + [place] [address] [facility] Unavailable [address] + [place] [address] DANIEL PINEDA Unavailable [address] + [place] [address] SIEDEL, MANUEL Unavailable [address] + [place] [address] [facility] Unavailable [address] + [place] [address] DANIEL PINEDA Unavailable [address] + [place] [address] SIEDEL, MANUEL Unavailable [address] + [place] [address] [facility] Unavailable [address] + [place] [address] DANIEL PINEDA Unavailable [address] + [place] [address] SIEDEL, MANUEL Unavailable [address] + [place] [address] [facility] Unavailable [address] + [place] [address] DANIEL PINEDA Unavailable [address] + [place] [address] SIEDEL, MANUEL Unavailable [address] + [place] [address] [facility] Unavailable [address] + [place] [address] DANIEL PINEDA Unavailable [address] + [place] [address] SIEDEL, MANUEL Unavailable [address] + [place] [address] [facility] Unavailable [address] + [place] [address] DANIEL PINEDA Unavailable [address] + [place] [address] SIEDEL, MANUEL Unavailable [address] + [place] [address] [facility] Unavailable [address] + [place] [address] DANIEL PINEDA Unavailable [address] + [place] [address] SIEDEL, MANUEL Unavailable [address] + [place] [address] [facility] Unavailable [address] + [place] [address] DANIEL PINEDA Unavailable [address] + [place] [address] SIEDEL, MANUEL Unavailable [address] + [place] [address] [facility] Unavailable [address] + [place] [address] DANIEL PINEDA Unavailable [address] + [place] [address] SIEDEL, MANUEL Unavailable [address] + [place] [address] [facility] Unavailable [address] + [place] [address] DANIEL PINEDA Unavailable [address] + [place] [address] SIEDEL, MANUEL Unavailable [address] + [place] [address] [facility] Unavailable [address] + [place] [address] DANIEL PINEDA Unavailable [address] + [place] [address] SIEDEL, MANUEL Unavailable [address] + [place] [address] [facility] Unavailable [address] + [place] [address] DANIEL PINEDA Unavailable [address] + [place] [address] SIEDEL, MANUEL Unavailable [address] + [place] [address] [facility] Unavailable [address] + [place] [address] DANIEL PINEDA Unavailable [address] + [place] [address] SIEDEL, MANUEL Unavailable [address] + [place] [address] [facility] Unavailable [address] + [place] [address] DANIEL PINEDA Unavailable [address] + [place] [address] SIEDEL, MANUEL Unavailable [address] + [place] [address] [facility] Unavailable [address] + [place] [address] DANIEL PINEDA Unavailable Unavailable + [place] [address] SIEDEL, MANUEL Unavailable [address] + [place] [address] [facility] Unavailable [address] + [place] [address] DANIEL PINEDA Unavailable . + [place] [address] SIEDEL, MANUEL Unavailable [address] + [place] [address] [facility] Unavailable [address] + [place] [address] DANIEL PINEDA Unavailable [address] + [place] [address] SIEDEL, MANUEL Unavailable [address] + [place] [address] [facility] Unavailable [address] + [place] [address] DANIEL PINEDA Unavailable Unavailable + [place] [address] SIEDEL, MANUEL Unavailable [address] + [place] [address] [facility] Unavailable [address] + [place] [address] DANIEL PINEDA Unavailable Unavailable + [place] [address] SIEDEL, MANUEL Unavailable [address] + [place] [address] [facility] Unavailable [address] + [place] [address] DANIEL PINEDA Unavailable . + [place] [address] SIEDEL, MANUEL Unavailable [address] + [place] [address] [facility] Unavailable [address] + [place] [address] DANIEL PINEDA Unavailable . + [place] [address] SIEDEL, MANUEL Unavailable [address] + [place] [address] [facility] Unavailable [address] + [place] [address] DANIEL IPNEDA Unavailable . + [place] [address] SIEDEL, MANUEL Unavailable [address] + [place] [address] [facility] Unavailable [address] + [place] [address] DANIEL PINEDA Unavailable Unavailable + [place] [address] SIEDEL, MANUEL Unavailable [address] + [place] [address] [facility] Unavailable [address] + [place] [address] DANIEL PINEDA Unavailable [address] + [place] [address] SIEDEL, MANUEL Unavailable [address] + [place] [address] [facility] Unavailable [address] + [place] [address] DANIEL PINEDA Unavailable [address] + [place] [address] SIEDEL, MANUEL Unavailable [address] + [place] [address] [facility] Unavailable [address] + [place] [address] DANIEL PINEDA Unavailable [address] + [place] [address] SIEDEL, MANUEL Unavailable [address] + [place] [address] [facility] Unavailable [address] + [place] [address] DANIEL PINEDA Unavailable [address] + [place] [address] SIEDEL, MANUEL Unavailable [address] + [place] [address] [facility] Unavailable [address] + [place] [address] DANIEL PINEDA Unavailable [address] + [place] [address] SIEDEL, MANUEL Unavailable [address] + [place] [address] [facility] Unavailable [address] + [place] [address] DANIEL PINEDA Unavailable [address] + [place] [address] SIEDEL, MANUEL Unavailable [address] + [place] [address] [facility] Unavailable [address] + [place] [address] DANIEL PINEDA Unavailable [address] + [place] [address] SIEDEL, MANUEL Unavailable [address] [facility] [address] + [place] [address] [facility] Unavailable [address] + [place] [address] DANIEL PINEDA Unavailable [address] + [place] [address] SIEDEL, MANUEL Unavailable [address] [facility] [address] + [place] [address] [facility] Unavailable [address] + [place] [address] DANIEL PINEDA Unavailable [address] + [place] [address] SIEDEL, MANUEL Unavailable [address] + [place] [address] [facility] Unavailable [address] + [place] [address] DANIEL PINEDA Unavailable [address] + [place] [address] SIEDEL, MANUEL Unavailable [address] + [place] [address] [facility] Unavailable [address] + [place] [address] DANIEL PINEDA Unavailable [address] + [place] [address] SIEDEL, MANUEL Unavailable [address] [facility] [address] + [place] [address] [facility] Unavailable [address] + [place] [address] DANIEL PINEDA Unavailable [address] + [place] [address] SIEDEL, MANUEL Unavailable [address] + [place] [address] [facility] Unavailable [address] + [place] [address] DANIEL PINEDA Unavailable [address] + [place] [address] SIEDEL, MANUEL Unavailable [address] + [place] [address] [facility] Unavailable [address] + [place] [address] DANIEL PINEDA Unavailable [address] + [place] [address] YOEL, MANUEL Unavailable [address] + [place] [address] [facility] Unavailable [address] + [place] [address] Care Team Providers Name Role Phone Sade Collins Admitting Unavailable AlishaonySade Attending Unavailable Marcanthony, Sade Referring Unavailable Brown, Deyvi Primary Care Unavailable PavelanthonySade Consulting Unavailable Marcanthony, Sade Admitting Unavailable Karen Collins Attending Unavailable Marcanthony, Sade Referring Unavailable Marcanthony, Sade Consulting Unavailable Brown, Deyvi Attending Unavailable Brown, Deyvi Referring Unavailable Brown, Deyvi Primary Care Unavailable Brown, Deyvi Attending Unavailable Brown, Deyvi Referring Unavailable Brown, Deyvi Primary Care Unavailable Mark Corbin Attending Unavailable Brown, Deyvi Referring Unavailable Brown, Deyvi Primary Care Unavailable MarcanthonySade Attending Unavailable Brown, Deyvi Referring Unavailable Brown, Deyvi Primary Care Unavailable Marcanthony, Sade Attending Unavailable Brown, Deyvi Primary Care Unavailable MarcanthonySade Attending Unavailable Brown, Deyvi Primary Care Unavailable MarcanthonySade Attending Unavailable Brown, Deyvi Referring Unavailable Lake CreekKaren Attending Unavailable Brown, Deyvi Referring Unavailable Brown, Deyvi Primary Care Unavailable MarcanthonySade Attending Unavailable Brown, Deyvi Referring Unavailable Brown, Deyvi Primary Care Unavailable MarcanthonySade Attending Unavailable Marcanthony, Sade Referring Unavailable Brown, Deyvi Primary Care Unavailable MarcanthonySade Attending Unavailable Brown, Deyvi Referring Unavailable Brown, Deyvi Primary Care Unavailable ASSESSMENT, HEALTH RISK Attending Unavailable ASSESSMENT, HEALTH RISK Referring Unavailable Brown, Deyvi Primary Care Unavailable Brown, Deyvi Attending Unavailable Brown, Deyvi Referring Unavailable Brown, Deyvi Primary Care Unavailable Brown, Deyvi Primary Care Unavailable Ceci Quiros Attending Unavailable MarcanthonySade Attending Unavailable Marcanthony, Sade Referring Unavailable Brown, Deyvi Primary Care Unavailable Karina, Karen Attending Unavailable Brown, Deyvi Referring Unavailable Brown, Deyvi Primary Care Unavailable Marcanthony, Sade Attending Unavailable Brown, Deyvi Referring Unavailable Brown, Deyvi Primary Care Unavailable Marcanthony, Sade Admitting Unavailable Karina, Karen Attending Unavailable Marcanthony, Sade Referring Unavailable Brown, Deyvi Primary Care Unavailable Marcanthony, Sade Consulting Unavailable [place], Karen Attending Unavailable Brown, Deyvi Referring Unavailable Marcanthony, [...] Primary Care Unavailable Marcanthony, Sade Consulting Unavailable Karina, Karen Attending Unavailable Brown, Deyvi Referring Unavailable Karina, Karen Attending Unavailable [place], Karen Referring Unavailable Brown, Deyvi Primary Care [...] Deyvi Attending Unavailable Brown, Deyvi Referring Unavailable [place], Karen Attending Unavailable Brown, Deyvi Referring Unavailable Karina, Karen Attending Unavailable Karina, Karen Referring Unavailable Brown, Deyvi Primary Care Unavailable Marcanthony, Sade Attending Unavailable Brown, Deyvi Referring Unavailable Marcanthony, Sade Attending Unavailable Marcanthbeau, Sade Admitting Unavailable Marcanthony, Sade Attending Unavailable Marcanthony, Sade Referring Unavailable Brown, Deyvi Primary Care Unavailable Marccaony, Sade Attending Unavailable Brown, Deyvi Referring Unavailable PROBLEMS PROBLEMS DATE TYPE CONDITION / CODE ATTENDING STATUS SOURCE 10/21/2018 Unknown Z09 - Encounter for Karen Collins Active [place] follow-up examination Community after completed Hospital treatment for Repository conditions other than malignant neoplasm / Z09(ICD-10) 10/11/2018 Unknown G89.18 - Other acute Marcanthony, Active [place] postprocedural pain / [facility] G89.18(ICD-10) Hospital Repository 10/01/2018 Unknown O09.299 - Supervision Marcanthony, Active [place] of with [facility] reproductive or Repository obstetric history, unspecified trimester / O09.299(ICD-10) 10/01/2018 Unknown O34.219 - Maternal Marcanthony, Active [place] care for unspecified [facility] type scar from Hospital previous Repository delivery / O34.219(ICD-10) 10/01/2018 Unknown O09.90 - Supervision Marcanthony, Active [place] of high risk [facility] , Hospital unspecified, Repository unspecified trimester / O09.90(ICD-10) 10/01/2018 Unknown O09.523 - Supervision Marcanthony, Active [place] of elderly [facility] multigravida, third Hospital trimester / Repository O09.523(ICD-10) 10/01/2018 Unknown O99.810 - Abnormal Marcanthony, Active [place] glucose complicating [facility] / Hospital O99.810(ICD-10) Repository 10/01/2018 Unknown O99.340 - Other Marcanthony, Active [place] mental disorders [facility] complicating Hospital , Repository unspecified trimester / O99.340(ICD-10) 10/01/2018 Unknown F41.9 - Anxiety Marcanthony, Active [place] disorder, unspecified [facility] / F41.9(ICD-10) Hospital Repository 10/01/2018 Unknown Z3A.38 - 38 weeks Marcanthony, Active [place] gestation of [facility] / Hospital Z3A.38(ICD-10) Repository 09/24/2018 Unknown Z34.90 - Encounter Karina, Active [place] for supervision of [facility] normal , Hospital unspecified, Repository unspecified trimester / Z34.90(ICD-10) 09/15/2018 Unknown R51 - Headache / Karina, Karen Active [place] R51(ICD-10) [facility] Hospital Repository 09/15/2018 Unknown Z3A.36 - 36 weeks [place], Karen Active [place] gestation of [facility] / Hospital Z3A.36(ICD-10) Repository 08/25/2018 Unknown N39.0 - Urinary tract [place], Karen Active [place] infection, site not Community specified / Hospital N39.0(ICD-10) Repository 08/25/2018 Unknown N30.00 - Acute Karina, Karen Active [place] cystitis without Community hematuria / Hospital N30.00(ICD-10) Repository 07/20/2018 Unknown Z68.41 - Body mass Marcanthony, Active [place] index (BMI) [facility] 40.0-44.9, adult / Hospital Z68.41(ICD-10) Repository 07/10/2018 Unknown N89.8 - Other Marcanthony, Active [place] specified [facility] noninflammatory Hospital disorders of vagina / Repository N89.8(ICD-10) 06/24/2018 Unknown O09.91 - Supervision Karina, Active [place] of high risk [facility] , Hospital unspecified, first Repository trimester / O09.91(ICD-10) 05/28/2018 Unknown Z3A.20 - 20 weeks Karina, Karen Active [place] gestation of [facility] / Hospital Z3A.20(ICD-10) Repository 05/05/2018 Unknown Z00.00 - Encounter Brown, Deyvi Active [place] for general adult [facility] medical examination Hospital without abnormal Repository findings / Z00.00(ICD-10) 04/15/2018 Unknown R10.9 - Unspecified Marcanthony, Active [place] abdominal pain / [facility] R10.9(ICD-10) Hospital Repository 02/04/2018 Unknown N92.0 - Excessive and Brown, Deyvi Active [place] frequent menstruation [facility] with regular cycle / Hospital N92.0(ICD-10) Repository 02/04/2018 Unknown L65.9 - Nonscarring Brown, Deyvi Active [place] hair loss, Community unspecified / Hospital L65.9(ICD-10) Repository PROCEDURES PROCEDURES No Procedure Records FoundRESULTS RESULTS SPECIAL EVENTS COORDINATOR OFFICE VISIT Observed: 10/21/2018 Status: F Source: [place] REPORT 3:00 PM [facility] REPOSITORY [facility] [address] [place] [address] OFFICE VISIT Date of Service: 10/21/18 MR#: [id number] Acct: [id number] Name: MCKENZIE DIALLO Rep #: [id number] : 1985 Provider: RODNEY Collins Age/Sex: 33/F Location: [facility] Status: Signed Intake Vital Signs10/21/18 Body Mass Index (BMI) 38.0 10/21/18 Weight: 197 lb 10/21/18 Blood Pressure 112/76 Intake Visit Reasons: 2 WEEK PP Chief Complaint: 2 wk fu c/s Accompanied by: Self Is patient in pain?: No Allergies Sulfa (Sulfonamide Antibiotics) Allergy (Severe, Verified 10/21/18 14:48) Other Medications vitamin,calcium,cfayoxim-hkxs-gdmlz acid tablet 1 tab PO QDAY 03/01/18 [History Confirmed 10/21/18] Aspirin [Aspirin, Baby] 81 mg PO DAILY 05/15/18 [History Confirmed 10/21/18] Citalopram Hydrobromide [Citalopram HBr] 40 mg PO QDAY 10/05/18 [History Confirmed 10/21/18] Naproxen [Naprosyn] 500 mg PO BID PRN PRN #60 tab 10/09/18 [Rx Confirmed 10/21/18] : Yes PFSH Medical History Chronic headaches (Chronic) Abnormal Pap smear of cervix (Acute) Seasonal allergies (Acute) Hypertension affecting (Resolved) Vitamin D deficiency (Resolved) Surgical History History of appendectomy (Acute) History of section (Acute) History of tonsillectomy and adenoidectomy (Acute) Family History Father Alcoholism Mother Mental disorder Grandmother Blood clots Grandfather Skin cancer Hypertension Social History Smoking Status: Never smoker alcohol intake: never substance use type: does not use caffeine: No (rarely) what type of physical activity do you participate in: none frequency: 5-6 times per week duration: 15-30 minutes/day seatbelt use: always do you feel safe at home: Yes additional social history: - 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 DatName GA/WeeksOutcome Route [facility] WeigInfant GLabor LgAnesthesDel LocaProviderFOB e ht en ia tn 09/20/11harlee 37 live birC-sectio Female [facility] Dr. Tg veras term Delivery Date: 10/07/18 On 10/07/18 @ 09:15 Lakisha Pan RptCs, BTL Delivery Date: 07/14/13 No notes to display Delivery Date: 09/20/11 No notes to display Depression Screen PHQ-2/9 If score is 2 or greater, continue Source: Developed by Drs. Tu Huber, Lolita Quintanilla, Karri Allen and colleagues, with an educational armin from [employer]. Scoring: Total Score Depression Severity Action 1-4 Minimal depression No action needed 5-9 Mild depression Repeat PHQ-9 at follow up 10-14 Moderate depression Make tx plan,consider counseling, fup, prescription Post HPI 2 WEEK PP: Details: MCKENZIE DIALLO is a 33 year old who presents for her 2 week post repeat CS with BTO. States doing well. Getting rest, feels well supported at home. Denies difficulty with bowel/bladder habits Infant Feeding: Both ROS Card Denies chest pain, Denies shortness of breath Resp Denies shortness of breath GI Denies change in bowel habits, Denies bloating Denies difficulty urinating Skin/Breast Denies breast lump, Denies breast pain, Denies breast skin changes Exam Const General: cooperative, no acute distress, well developed Nutritional Appearance: average body habitus Orientation: oriented x3 GI Palpation: soft, nontender, no masses, other (incision well healed. ) Assessment AND Plan Problems 1. Postop check Z09 Plan Routine care RTO 4 weeks Coding Level of Care Code No Charge Diagnoses Postop check Z09 10/21/18 1500 <Electronically signed by Karen CAMPOS> Date Karen CAMPOS Cosigner Signature: Date (if applicable) CC: DISCHARGE INSTRUCTION Observed: 10/09/2018 Status: F Source: [place] 8:52 AM [facility] REPOSITORY [facility] Medical Records Department [address] [place] [address] Instructions for Home/Discharge Instructions 10/09/18 0852 MR#: [id number] Acct: [id number] Name: MCKENZIE DIALLO Rep #: [id number] : 1985 33 From: Karen CAMPOS PCP: Deyvi Lopez DO Status: ADM IN [...] Other hives Medications to take at Discharge vitamin,calcium,hpuutgmd-fwuj-iznzs acid tablet 1 tab PO QDAY 03/01/18 [...] F Source: [place] NO DIFF 8:05 AM [facility] REPOSITORY Order Comment: Comments: Day #1 Reason [...] MPV 10.3 Performed By: #### L100.0500 #### [facility] [address] [place], [address] OPERATIVE REPORT Observed: 10/07/2018 Status: F Source: [place] 3:39 PM [facility] REPOSITORY [facility] Medical Records Department [address] [place] [address] Operative Report 10/07/18 1536 MR#: [id number] Acct: [id number] Name: MCKENZIE DIALLO Rep #: [id number] : 1985 33 From: Sade Collins MD PCP: Deyvi Lopez, DO Status: ADM IN Location: SO007-1 Problem List (1) Abnormal glucose affecting Status: [...] Status: Acute Comment: PRR ELAINE 10/14/18 Boy Oscar Gray Manuel Report of Operation Date of Procedure: 10/07/18 Pre-Operative Diagnosis: prev c section and sterilization Post-Operative Diagnosis: same Surgery/Procedure Performed:: rltcs btl Description of Surgical Findings:: nl uterus tubes ovaries 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 The [...] Grafts/Implants Used: none - Complications none 10/07/18 0039 <Electronically signed by Sade Collins MD> Date Sade Collins MD CC: Deyvi Lopez DO; Sade Collins MD Signed PATHOLOGY SPECIMEN OB Collected: 10/07/2018 Status: F Source: [place] 8:00 AM [facility] REPOSITORY Order Comment: Comments: STITCH IN LEFT TUBE Send Specimen For (Specify): Studies @ [facility] Lab:Routine Time of Procedure: 749 Date of Procedure: 10/07/18 Reason specimen being sent to pathology (Hx/complications): FALLOPIAN TUBES Type of specimen: Fallopian Tube Type of procedure performed: Tubal Ligation TYPE CODE TESTS RESULT OUT OF RANGE REFERENCE UNITS LAB L350.1800 SEE Normal PATH. PATHOLOGY Spec. OB REPORT Result Comment: Specimen submitted to Anatomical Pathology Department for testing. Performed By: #### L350.1800 #### [facility] [address] [place], [address] FALLOPIAN TUBES/STERILIZATION Observed: 10/07/2018 Status: F Source: [place] 7:50 AM [facility] REPOSITORY Patient: MCKENZIE DIALLO : 1985 (33/F) Acct Num: [id number] Phys: Karina COREA,Sade Unit Num: [id number] Loc: WP BO013-0 Specimen: [id number] Received: 10/07/18 - 1014 Spec Type: FALL [...] of embedding. / ANKUSH:montez 10/07/18 TC:4 CPT: 82713 x2 HEADER OPERATION: Tubal ligation PRE-OP DIAGNOSIS: Tubal ligation TISSUE SUBMITTED: Fallopian tubes, stitch in left tube MICROSCOPIC DESCRIPTION Slides are reviewed. MICROSCOPIC DIAGNOSIS Bilateral fallopian tubes, tubal ligation: Completely transected segments of bilateral fallopian tubes, no pathologic diagnosis. SJ:montez 10/08/18 Signed Emanuel Lylein 10/08/18 <signature on file> Performed By: #### PFALS #### [facility] [address] [place], [address] HISTORY AND PHYSICAL Observed: 10/07/2018 Status: F Source: [place] EXAM 1:54 AM [facility] REPOSITORY [facility] Medical Records Department [address] [place] [address] History and Physical 10/07/18 0153 MR#: [id number] Acct: [id number] Name: MCKENZIE DIALLO Rep #: [id number] : 1985 33 From: Sdae Collins MD PCP: Deyvi Lopez, DO Status: [...] Status: Acute Comment: PRR ELAINE 10/14/18 Boy Oscar Gray Manuel History and Physical Date of Admission: 10/07/18 Intake Vital Signs 10/01/18 Body Mass Index (BMI) 37.9 10/01/18 Height 5 ft 3 in 10/01/18 Weight: 219 lb 12/07/18 Body Mass Index (BMI) 38.7 10/01/18 Blood Pressure 130/80 H Intake Visit Reasons: est ob 38 weeks Chief Complaint: est ob Door Captain Required: No Is patient in pain?: No Allergies Sulfa (Sulfonamide Antibiotics) Allergy (Severe, Verified 10/01/18 09:59) Other Medications vitamin,calcium,dlhkajyh-jmom-wzpeb acid tablet 1 tab PO QDAY 03/01/18 [History Confirmed 10/01/18] Aspirin [Aspirin, Baby] 81 mg PO DAILY 05/15/18 [History Confirmed 10/01/18] citalopram 40 mg tablet 40 mg PO QDAY #30 tab 09/02/18 [Rx Confirmed 10/01/18] Last Menstral Period: 01/07/18 Zika: Zika virus screening: Negative : No [facility] Medical History Chronic headaches (Chronic) Abnormal Pap [...] home: Yes additional social history: - 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 DateName GA/Weeks Outcome Route [facility] WeighInfant GeLabor LgDemarcusesthShalom LocatProvider FOB t n h a n [...] Doing well. No VB, LOF Karen Collins NP-C on 05/28/18 Visit Date: 04/26/18 co increased [...] Cosigner Signature: Date (if applicable) CC: Deyvi Lopez, DO; Sade Collins MD Signed CBC W/DIFF, AUTOMATED Collected: 10/05/2018 Status: F Source: [place] 10:07 AM [facility] REPOSITORY TYPE CODE TESTS RESULT OUT OF [...] Lymph 1.96 Performed By: #### L100.0100 #### [facility] [address] [place], [address] TYPE AND SCREEN Collected: 10/05/2018 Status: F Source: [place] 10:07 AM [facility] REPOSITORY Order Comment: Reason for Type AND Screen/Red Cells: SURGERY Surgery Date: 10/07/18 Time: 729 Type of Surgery: TYPE CODE TESTS RESULT OUT OF RANGE REFERENCE UNITS LAB B10.0800 O Normal BLOOD TYPE GEL POSITIVE LAB B100.4000 Normal Antibody NEGATIVE Screen Performed By: #### B101.7450 #### [facility] [address] [place], [address] SPECIAL EVENTS COORDINATOR OFFICE VISIT Observed: 10/01/2018 Status: F Source: DONA REPORT 10:30 AM [facility] REPOSITORY [facility] [address] [place] [address] OFFICE VISIT Date of Service: 10/01/18 MR#: [id number] Acct: [id number] Name: MCKENZIE DIALLO Rep #: [id number] : 1985 Provider: Sade Collins MD Age/Sex: 33/F Location: [facility] Status: Signed Intake Vital Signs10/01/18 Body Mass Index (BMI) 37.9 10/01/18 Height 5 ft 3 in 10/01/18 Weight: 219 lb 10/01/18 Body Mass Index (BMI) 38.7 10/01/18 Blood Pressure 130/80 H Intake Visit Reasons: est ob 38 weeks Chief Complaint: est ob Door Captain Required: No Is patient in pain?: No Allergies Sulfa (Sulfonamide Antibiotics) Allergy (Severe, Verified 10/01/18 09:59) Other Medications vitamin,calcium,xfiuspak-wmvb-plgrw acid tablet 1 tab PO QDAY 03/01/18 [History Confirmed 10/01/18] Aspirin [Aspirin, Baby] 81 mg PO DAILY 05/15/18 [History Confirmed 10/01/18] citalopram 40 mg tablet 40 mg PO QDAY #30 tab 09/02/18 [Rx Confirmed 10/01/18] Last Menstral Period: 01/07/18 Zika: Zika virus screening: Negative : No PFSH [facility] Medical History Chronic headaches [...] home: Yes additional social history: - 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[facility] [employer] 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[employer] Pregancy History 3 Elective abortions Hx Para [...] form signed:R cs BTO labor support person: [place] pain management: spinal cut cord/dad catch: : [...] MD Cosigner Signature: Date (if applicable) CC: (ROM) RUPTURE OF Collected: 09/24/2018 Status: F Source: [facility]BRAN[facility] 10:45 AM [facility] REPOSITORY Order Comment: PLEASE CALL RESULTS STAT TO TYPE CODE TESTS RESULT OUT OF RANGE REFERENCE UNITS LAB L205.1310 Negative Normal ROM Negative Result Comment: Amniotic fluid not present indicates No Rupture of Membranes at time of specimen collection. Performed By: #### L205.1000 #### [facility] [address] [place], [address] SPECIAL EVENTS COORDINATOR OFFICE VISIT Observed: 09/24/2018 Status: F Source: [place] REPORT 10:41 AM [facility] REPOSITORY [facility] [address] [place] [address] OFFICE VISIT Date of Service: 09/24/18 MR#: [id number] Acct: [id number] Name: MCKENZIE DIALLO Rep #: [id number] : 1985 Provider: Sade Collins MD Age/Sex: 33/F Location: [facility] Status: Signed Intake Vital Signs09/24/18 Body Mass Index (BMI) 37.9 09/24/18 Height 5 ft 3 in 09/24/18 Weight: 216 lb 2 oz 09/24/18 Body Mass Index (BMI) 38.2 09/24/18 Blood Pressure 130/80 H Intake Visit Reasons: est ob 37 weeks Door Captain Required: No Is patient in pain?: No Allergies Sulfa (Sulfonamide Antibiotics) Allergy (Severe, Verified 09/24/18 10:01) Other Medications vitamin,calcium,bwnhluaa-ywlj-awjdh acid tablet 1 tab PO QDAY 03/01/18 [History Confirmed 09/24/18] Aspirin [Aspirin, Baby] 81 mg PO DAILY 05/15/18 [History Confirmed 09/24/18] citalopram 40 mg tablet 40 mg PO QDAY #30 tab 09/02/18 [Rx Confirmed 09/24/18] Last Menstral Period: 01/07/18 Zika: Zika virus screening: Negative : No Nurse's Note: Pt. states that maybe her fluid is leaking due to feeling moist.. 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 Anxiety during O99.340; F41.9 celexa [...] applicable) CC: Observed: 09/15/2018 Status: F Source: [place]SON CULTURE, GROUP B 5:48 PM [facility] STREPTOCOCCUS REPOSITORY JAQUAN Culture Group B Beta Streptococcus is not isolated. Performed By: #### M100.1800 #### [facility] [address] [place], [address] SPECIAL EVENTS COORDINATOR OFFICE VISIT Observed: 09/15/2018 Status: F Source: [place] REPORT 10:37 AM [facility] REPOSITORY [facility] [address] [place] [address] OFFICE VISIT Date of Service: 09/15/18 MR#: [id number] Acct: [id number] Name: MERONMALACHIMCKENZIE D Rep #: [id number] : 1985 Provider: RODNEY Collins Age/Sex: 33/F Location: [facility] Status: Signed Intake Vital Signs09/15/18 Body Mass Index (BMI) 37.9 09/15/18 Height 5 ft 3 in 09/15/18 Weight: 215 lb 4 oz 09/15/18 Body Mass Index (BMI) 38.1 09/15/18 Blood Pressure 120/78 Intake Visit Reasons: est ob 36 weeks Door Captain Required: No Is patient in pain?: No Allergies Sulfa (Sulfonamide Antibiotics) Allergy (Severe, Verified 09/15/18 10:20) Other Medications vitamin,calcium,vdumntbx-cjgf-nidmi acid tablet 1 tab PO QDAY 03/01/18 [...] home: Yes additional social history: - 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 36 weeks gestation of Z3A.36 [...] signed by Karen CAMPOS> Date Karen Collins PAPER [place]E MACHINE TENDER-C Brittney Signature: Date (if applicable) CC: OB LIMITED WITH Observed: 09/09/2018 Status: F Source: [place] BIOMETRICS 1:28 PM [facility] REPOSITORY [facility] Imaging Services [address] [place] [address] OB Limited With Biometrics MR#: [id number] Acct: [id number] Name: MCKENZIE DIALLO Rep #: [id number] : 1985 F 33 From: Chikis Swift MD PCP: Deyvi Lopez DO Status: REG CLI Study: OB Limited With Biometrics Date of Exam: 09/09/18 Exam# [id number] Ordering Dr: Sade Collins MD STUDY: SECOND [...] CC: Deyvi Lopez DO; Sade Collins MD [place] Machine Operator: Signed INTERNAL MEDICINE Observed: 09/09/2018 Status: F Source: [place] OFFICE VISIT 10:53 AM [facility] [address] [place] [address] [address] [place] [address] OFFICE VISIT Date of Service: 09/09/18 MR#: [id number] Acct: [id number] Name: MCKENZIE DIALLO Rep #: [id number] : 1985 Provider: Deyvi Lopez DO Age/Sex: 33/F Location: [facility] Status: Signed Intake Vital Signs09/09/18 Height [...] Allergy (Severe, Verified 09/09/18 09:38) Other Medications vitamin,calcium,bvqovskf-zsvk-ccxvl acid tablet 1 tab PO QDAY 03/01/18 [History Confirmed 09/09/18] Aspirin [Aspirin, Baby] 81 mg PO DAILY 05/15/18 [History Confirmed 09/09/18] citalopram 40 mg tablet 40 mg PO QDAY #30 tab 09/02/18 [Rx Confirmed 09/09/18] PFSH Medical History Chronic headaches (Chronic) Abnormal [...] home: Yes additional social history: - 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 [place] [address] OFFICE VISIT Date of Service: 09/09/18 MR#: [id number] Acct: [id number] Name: MCKENZIE DIALLO Rep #: [id number] : 1985 Provider: RODNEY Collins Age/Sex: 33/F Location: [facility] Status: Signed Intake Vital Signs09/09/18 Height 5 ft 3 in 09/09/18 Blood Pressure 117/70 Intake Visit Reasons: OB - CHECK FROM FALL Chief Complaint: est ob,fell at home Door Captain Required: No Is patient in pain?: Yes Allergies Sulfa (Sulfonamide Antibiotics) Allergy (Severe, Verified 09/09/18 09:38) Other Medications vitamin,calcium,citxqgfj-rran-payzm acid tablet 1 tab PO QDAY 03/01/18 [...] home: Yes additional social history: - 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 35 weeks gestation of Z3A.35 [...] CAMPOS Cosigner Signature: Date (if applicable) CC: SPECIAL EVENTS COORDINATOR OFFICE VISIT Observed: 09/07/2018 Status: F Source: [place] REPORT 2:45 AM [facility] [address] [place] [address] OFFICE VISIT Date of Service: 09/02/18 MR#: [id number] Acct: [id number] Name: MCKENZIE DIALLO Rep #: [id number] : 1985 Provider: Sade Collins MD Age/Sex: 33/F Location: [facility] Status: Signed Intake Vital Signs09/02/18 Height 5 ft 3 in 09/02/18 Weight: 215 lb 09/02/18 Body Mass Index (BMI) 38.0 09/02/18 Blood Pressure 120/80 Intake Visit Reasons: est ob 34 weeks Chief Complaint: est ob Door Captain Required: No Is patient in pain?: No Allergies Sulfa (Sulfonamide Antibiotics) Allergy (Severe, Verified 09/02/18 10:10) Other Medications vitamin,calcium,zefdddus-pwfr-ctlkd acid tablet 1 tab PO QDAY 03/01/18 [History Confirmed 08/29/18] Aspirin [Aspirin, Baby] 81 mg PO DAILY 05/15/18 [History Confirmed 08/29/18] Famotidine [Pepcid] 20 mg PO PRN PRN 08/08/18 [History Confirmed 08/29/18] citalopram 40 mg tablet 40 mg PO QDAY #30 tab 09/02/18 [Rx Confirmed 09/02/18] Last Menstral Period: 01/07/18 Zika: Zika virus screening: Negative : No PFSH [facility] Medical History Chronic headaches [...] home: Yes additional social history: - 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 [place] [address] OFFICE VISIT Date of Service: 08/19/18 MR#: [id number] Acct: [id number] Name: MCKENZIE DIALLO Rep #: [id number] : 1985 Provider: Sade Collins MD Age/Sex: 33/F Location: [facility] Status: Signed Intake Vital Signs08/19/18 Height 5 ft 3 in 08/19/18 Weight: 212 lb 8 oz 08/19/18 Body Mass Index (BMI) 37.6 08/19/18 Blood Pressure 112/70 Intake Visit Reasons: est ob 32 weeks Chief Complaint: est ob Door Captain Required: No Is patient in pain?: No Allergies Sulfa (Sulfonamide Antibiotics) Allergy (Severe, Verified 08/19/18 16:24) Other Medications vitamin,calcium,svdqdidd-xoxg-bfxvn acid tablet 1 tab PO QDAY 03/01/18 [...] home: Yes additional social history: - 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 Z34.90 nl NIPT, carrier and [...] Cosigner Signature: Date (if applicable) CC: Observed: 08/12/2018 Status: F Source: [place] CULTURE, URINE 4:45 PM [facility] REPOSITORY Urine Culture ORGANISM 1: Mixed Gram Positive Organisms [place] Count <1000 MIX CULTURE Mixed contaminants. Submit a new specimen if indicated. Performed By: #### M100.0650 #### [facility] [address] [place], [address] OFFICE VISIT REPORT Observed: 08/12/2018 Status: F Source: [place] 11:58 AM [facility] REPOSITORY [facility] [address] [place] [address] OFFICE VISIT Date of Service: 08/12/18 MR#: [id number] Acct: [id number] Patient: MCKENZIE DIALLO Rep #: [id number] : 1985 Provider: RODNEY Collins Age/Sex: 33/F Location: [facility] Status: Signed Intake Vital Signs08/12/18 Height 5 ft 3 in 08/12/18 Weight: 211 lb 08/12/18 Body Mass Index (BMI) 37.3 Intake Visit Reasons: Urinary tract infection Chief Complaint: est ob Door Captain Required: No Is patient in pain?: Yes (Dysuria) Allergies Sulfa (Sulfonamide Antibiotics) Allergy (Severe, Verified 08/08/18 14:16) Other Medications vitamin,calcium,iuiijwoz-gamq-ceyvm acid tablet 1 tab PO QDAY 03/01/18 [...] New: nitrofurantoin monohyd/m-cryst 100 mg (Macrobid) must ighzgz404 mg PO BID 14 caps 0RF ster with a meal/food 08/12/18 1158 <Electronically signed by Karen CAMPOS> Date Karen CAMPOS Cosigner Signature: Date (if applicable) CC: (ROM) RUPTURE OF Collected: 08/08/2018 Status: F Source: [place] MEMBRANES 2:10 PM [facility] REPOSITORY TYPE CODE TESTS RESULT OUT OF RANGE REFERENCE UNITS LAB L205.1310 Negative Normal ROM Negative Result Comment: Amniotic fluid not present indicates No Rupture of Membranes at time of specimen collection. Performed By: #### L205.1000 #### [facility] [address] [place], [address] SPECIAL EVENTS COORDINATOR OFFICE VISIT Observed: 08/06/2018 Status: F Source: [place] REPORT 10:39 AM [facility] REPOSITORY [facility] [address] [place] [place] [address] OFFICE VISIT Date of Service: 08/06/18 MR#: [id number] Acct: [id number] Name: MCKENZIE DIALLO Rep #: [id number] : 1985 Provider: Sade Collins MD Age/Sex: 33/F Location: [facility] Status: Signed Intake Vital Signs08/06/18 Height 5 ft 3 in 08/06/18 Weight: 210 lb 08/06/18 Body Mass Index (BMI) 37.2 08/06/18 Blood Pressure 108/72 Intake Visit Reasons: est ob 30 weeks Chief Complaint: est ob Door Captain Required: No Is patient in pain?: No Allergies Sulfa (Sulfonamide Antibiotics) Allergy (Severe, Verified 08/06/18 10:10) Other Medications vitamin,calcium,ppfipukq-vnxx-nxlyo acid tablet 1 tab PO QDAY 03/01/18 [...] home: Yes additional social history: - 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 DateName GA/Weeks Outcome Route Bt WeighInfant GeLabor LgtAnesthesiMalachi LocatProvider FOB t n h a n HPI est ob 30 weeks: Details: MCKENZIE DIALLO is a 33 year old who presents for routine OB visit. Patient received flu vaccine at [facility] OB Visit ELAINE Calculator Estimated Delivery Date 10/14/18 Based on LMP (uncertain) 01/07/18 Current WG 30w 1d Number 1 Expected Delivery Route/Plan RLTCS and BTL Specific Issue/Plans flu vaccine: [] minichart given: [] tdap vaccine: [] rhogam: [] LARC form signed:R cs BTO labor support person: [place] pain management: [] cut cord/dad catch: [] [...] PRR ELAINE 10/14/18 Boy Oscar Gray Manuel Plan movement and labor precautions reviewed. [...] 3HR Collected: 07/30/2018 Status: F Source: [place] 100G 7:07 AM [facility] REPOSITORY Order Comment: Is Patient Fasting? Y [...] 3HR 131 Performed By: #### L500.4710 #### [facility] [address] [place], [address] SPECIAL EVENTS COORDINATOR OFFICE VISIT Observed: 07/24/2018 Status: F Source: [place] REPORT 6:47 AM [facility] REPOSITORY [facility] [address] [place] [address] OFFICE VISIT Date of Service: 07/20/18 MR#: [id number] Acct: [id number] Name: MCKENZIE DIALLO Rep #: [id number] : 1985 Provider: Sade Collins MD Age/Sex: 33/F Location: [facility] Status: Signed Intake Vital Signs07/20/18 Height 5 ft 3 in 07/20/18 Weight: 211 lb 8 oz 07/20/18 Body Mass Index (BMI) 37.4 07/20/18 Blood Pressure 118/72 Intake Visit Reasons: pelvic pressure increase DC Is patient in pain?: No Allergies Sulfa (Sulfonamide Antibiotics) Allergy (Severe, Verified 07/20/18 15:12) Other Medications vitamin,calcium,rfvkfgri-vrsl-moxyi acid tablet 1 tab PO QDAY 03/01/18 [...] Zika: Zika virus screening: Negative : No [facility] Medical History Chronic headaches (Chronic) Abnormal Pap [...] home: Yes additional social history: - 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 [...] of high risk in first trimester O Additional Codes Non-Stress Test (66249) 07/24/18 0647 <Electronically signed by Sade Collins MD> Date Sade Collins MD Cosigner Signature: Date (if applicable) CC: GLUCOSE CHALLENGE GEST Collected: 07/23/2018 Status: F Source: [place] 1H 50G 11:16 AM [facility] REPOSITORY TYPE CODE TESTS RESULT OUT OF RANGE REFERENCE UNITS LAB L501.0250 70-140 mg/dL High GLU GEST 144 50g 1H Performed By: #### L501.0250 #### [facility] [address] [place], [address] Observed: 07/09/2018 Status: F Source: [place] CULTURE, GENITAL 3:09 PM [facility] COMPREHENSIVE REPOSITORY Reason for Exam: vaginal discharge Gram Stain Score = 0 Interpretation: 0-3 Normal, 4-6 Intermediate, 7-10 Positive BV Gram Stain 4+ Gram positive rods No White Blood Cells No Gram negative diplococci No Yeast Like Organisms Gent Cult Comp Normal vaginal annie isolated. No yeast, Gardnerella, Neisseria or beta-hemolytic Streptococcus isolated. Performed By: #### M100.1600 #### [facility] [address] [place], [address] SPECIAL EVENTS COORDINATOR OFFICE VISIT Observed: 06/24/2018 Status: F Source: [place] REPORT 1:54 PM [facility] REPOSITORY [facility] [address] [place] [address] OFFICE VISIT Date of Service: 06/24/18 MR#: [id number] Acct: [id number] Name: MCKENZIE DIALLO Rep #: [id number] : 1985 Provider: Sade Collins MD Age/Sex: 33/F Location: [facility] Status: Signed Intake Vital Signs06/24/18 Height 5 ft 3 in 06/24/18 Blood Pressure 104/62 06/23/18 Height 5 ft 3 in 06/23/18 Weight: 203 lb 8 oz 06/23/18 Body Mass Index (BMI) 36.0 06/23/18 Blood Pressure 104/62 Intake Visit Reasons: est ob 24 weeks Door Captain Required: No Is patient in pain?: No Allergies Sulfa (Sulfonamide Antibiotics) Allergy (Verified 06/24/18 13:22) Other Medications vitamin,calcium,ukpzmrhe-xkjp-meavs acid tablet 1 tab PO QDAY 03/01/18 [...] home: Yes additional social history: - 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 DateName GA/Weeks Outcome Route Bth WeighInfant GeLabor LgNivia LocatProvider FOB t n [...] ELAINE 10/14/18 Boy Oscar Gray Manuel 5. Supervision of high risk , antepartum O09. Plan ACOG trimester education reviewed and updated. [...] Sade Lugo Signature: Date (if applicable) CC: SPECIAL EVENTS COORDINATOR OFFICE VISIT Observed: 05/28/2018 Status: F Source: [place] REPORT 10:10 AM [facility] [address] [place] [place] [address] OFFICE VISIT Date of Service: 05/28/18 MR#: [id number] Acct: [id number] Name: MCKENZIE DIALLO Rep #: [id number] : 1985 Provider: RODNEY Collins Age/Sex: 33/F Location: [facility] Status: Signed Intake Vital Signs05/28/18 Height 5 ft 3 in 05/28/18 Weight: 197 lb 8 oz 05/28/18 Body Mass Index (BMI) 34.9 05/28/18 Blood Pressure 110/71 Intake Visit Reasons: 20 weeks Chief Complaint: est ob Door Captain Required: No Is patient in pain?: No Allergies Sulfa (Sulfonamide Antibiotics) Allergy (Verified 05/28/18 09:47) Other Medications vitamin,calcium,mvpfavvh-gjzd-zyapl acid tablet 1 tab PO QDAY 03/01/18 [...] at home: Yes additional social history: - [place]- [place]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 [facility] [facility] 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[employer] Pregancy History 3 Elective abortions Hx Para [...] form signed:R cs BTO labor support person: [place] pain management: [] cut cord/dad catch: [] [...] in first trimester O09.91 PRR ELAINE 10/14/18 Boy Oscar Gray Manuel [...] ANATOMY SCAN Observed: 05/20/2018 Status: F Source: [place] 12:31 PM [facility] REPOSITORY [facility] Imaging Services [address] [place] [address] OB Anatomy Scan MR#: [id number] Acct: [id number] Name: MCKENZIE DIALLO Rep #: [id number] : 1985 F 33 From: Antohny Cid MD PCP: Deyvi Lopez DO Status: REG CLI Study: OB Anatomy Scan Date of Exam: 05/20/18 Exam# [id number] Ordering Dr: Sade Collins MD STUDY: SECOND [...] CC: Deyvi Lopez DO; Sade Collins MD [place] Machine Operator: Signed DISCHARGE INSTRUCTION Observed: 05/16/2018 Status: F Source: [facility] 1:23 [facility] Medical Records Department [address] [place] [address] Discharge Instruction 05/16/18 0121 MR#: [id number] Acct: [id number] Name: MCKENZIE DIALLO Rep #: [id number] : 1985 33 From: Ceci Quiros PCP: Deyvi Lopez, Status: REG ER ED Disposition - Plan [...] your Primary Care Provider. Call [facility] ([phone]) or report to the closest Emergency Room. Call 911 if necessary. 05/16/18 0123 <Electronically signed by Ceci Quiros > Date Ceci Quiros Cosigner Signature (If Indicated): Date CC: Deyvi Lopez DO EMERGENCY DEPARTMENT Observed: 05/16/2018 Status: F Source: [facility] SUMMARY 1:21 [facility] Medical Records Department [address] [place] [address] Emergency Department Summary 05/15/18 2244 MR#: [id number] Acct: [id number] Name: MCKENZIE DIALLO Rep #: [id number] : 1985 33 From: Ceci Quiros PCP: [...] foul-smelling dark urine. She spoke with her SPECIAL EVENTS COORDINATOR today who called her in something for [...] did also advise her to call her SPECIAL EVENTS COORDINATOR tomorrow. She was invited to come back to the emergency department with any concerns. Treatment Plan: [] Disposition: [Discharge] Impression: [1. Abdominal pain and second trimester ] This note was generated with [employer] dictation software. It may contain incorrect words, spelling, and punctuation that were not noted in review of the chart prior to signing ED Disposition - Plan for ED Patient: Chief Complaint: Abd Pain Referrals: Deyvi Lopez, DO [Primary Care Provider] - What to do if you have Problems For any increased pain, shortness of breath, bleeding, nausea or vomiting, chest pain, or any unexpected problems, contact your Primary Care Provider. Call [facility] ([phone]) or report to the closest Emergency Room. Call 911 if necessary. 05/16/18 0121 <Electronically signed by Ceci Quiros > Date Ceci Quiros Cosigner Signature (If Indicated): Date CC: Deyvi Lopez DO Observed: 05/15/2018 Status: F Source: [facility] CULTURE, URINE 11:20 PM [facility] REPOSITORY Urine Culture Culture exhibits no growth. Performed By: #### M100.0650 #### [facility] [address] [place], [address] CBC W/DIFF, AUTOMATED Collected: 05/15/2018 Status: F Source: [facility] 11:00 PM [facility] REPOSITORY TYPE CODE TESTS RESULT OUT OF [...] Lymph 2.90 Performed By: #### L100.0100 #### [facility] [address] [place], [address] COMPREHENSIVE METABOLIC Collected: 05/15/2018 Status: F Source: [facility] 11:00 PM [facility] REPOSITORY TYPE CODE TESTS RESULT OUT OF [...] 5 Performed By: #### L500.4050, L501.2450 #### [facility] [address] [place], [address] LIPASE Collected: 05/15/2018 Status: F Source: [facility] 11:00 PM [facility] REPOSITORY TYPE CODE TESTS RESULT OUT OF RANGE REFERENCE UNITS LAB L501.2450 73-393 U/L Normal LIPASE 96 Performed By: #### L500.4050, L501.2450 #### [facility] [address] [place], [address] OB LIMITED (NO Observed: 05/15/2018 Status: F Source: [facility] BIOMETRICS) 10:44 PM [facility] REPOSITORY [facility] Services [address] [place] [address] OB Limited (No Biometrics) MR#: [id number] Acct: [id number] Name: MERONMALACHIMCKENZIE D Rep #: [id number] : 1985 F 33 From: Pepe Mcmahan MD PCP: Deyvi Lopez DO Status: REG ER Study: OB Limited (No Biometrics) Date of Exam: 05/15/18 Exam# [id number] Ordering Dr: Ceci Quiros STUDY: SECOND AND [...] , CC: Ceci Quiros; Deyvi Lopez DO [place] Machine Operator: Signed URINALYSIS, COMPLETE Collected: 05/15/2018 Status: F Source: DONA 10:20 PM [facility] REPOSITORY Order Comment: Order Date: 05/15/18 How [...] URINE SEEN Performed By: #### L400.0001 #### [facility] [address] [place], [address] INTERNAL MEDICINE Observed: 05/05/2018 Status: F Source: [facility] OFFICE VISIT 5:33 PM [facility] REPOSITORY [facility] [address] [place] [address] [place] [address] OFFICE VISIT Date of Service: 05/05/18 MR#: [id number] Acct: [id number] Name: DANIEL DIALLOMildred Pickett Rep #: [id number] : 1985 Provider: Deyvi Lopez DO Age/Sex: 33/F Location: [facility] Status: Signed Intake Vital Signs05/05/18 Height 5 ft 3 in Intake Visit Reasons: WELL CHECK Chief Complaint: well check Is patient in pain?: No Allergies Sulfa (Sulfonamide Antibiotics) Allergy (Verified 04/26/18 13:41) Other Medications valacyclovir 1 gram tablet 1,000 mg PO QDAY PRN #90 tab 02/04/18 [Rx Confirmed 04/26/18] vitamin,calcium,ckferscu-ttsx-ynmhz acid tablet 1 tab PO QDAY 03/01/18 [...] home: Yes additional social history: - 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[employer] 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 Preventative health care Z00.00 2. Z34. Plan This is a patient who is [...] Diagnoses Preventative health care Z00.00 Z34.90 05/05/18 5933 <Electronically signed by Deyvi Lopez DO> Date Deyvi Lopez DO Cosigner Signature: Date (if applicable) CC: URINALYSIS, EMPLOYEE Collected: 04/30/2018 Status: F Source: [facility] 7:20 AM [facility] REPOSITORY TYPE CODE TESTS RESULT OUT OF [...] 25 ESTERASE Performed By: #### L400.0100 #### [facility] [address] [place], [address] CBC, EMPLOYEE Collected: 04/30/2018 Status: F Source: [facility] 7:20 AM [facility] REPOSITORY TYPE CODE TESTS RESULT OUT OF [...] Lymph 1.84 Performed By: #### L100.0200 #### [facility] [address] [place], [place], [address] EMPLOYEE PROFILE Collected: 04/30/2018 Status: F Source: [facility] 7:20 AM [facility] REPOSITORY TYPE CODE TESTS RESULT OUT OF [...] LDH 169 Performed By: #### L500.2900 #### [facility] [address] [place], [address] NICOTINE URINE DRUG Collected: 04/30/2018 Status: F Source: [facility] SCREEN 7:20 AM [facility] REPOSITORY TYPE CODE TESTS RESULT OUT OF [...] of Nicotine. Performed By: #### L505.6240 #### [facility] [address] [place], [address] SPECIAL EVENTS COORDINATOR OFFICE VISIT Observed: 04/26/2018 Status: F Source: [facility] REPORT 2:09 PM [facility] REPOSITORY [facility] [address] [place] [address] OFFICE VISIT Date of Service: 04/26/18 MR#: [id number] Acct: [id number] Name: MCKENZIE DIALLO Rep #: [id number] : 1985 Provider: Sade Collins MD Age/Sex: 33/F Location: [facility] Status: Signed Intake Vital Signs04/26/18 Height 5 ft 3 in 04/26/18 Weight: 193 lb 2 oz 04/26/18 Body Mass Index (BMI) 34.2 04/26/18 Blood Pressure 105/71 Intake Visit Reasons: 16 week ob Door Captain Required: No Is patient in pain?: No Allergies Sulfa (Sulfonamide Antibiotics) Allergy (Verified 04/26/18 13:41) Other Medications valacyclovir 1 gram tablet 1,000 mg PO QDAY PRN #90 tab 02/04/18 [Rx Confirmed 04/26/18] vitamin,calcium,rhttzelr-dion-ljudv acid tablet 1 tab PO QDAY 03/01/18 [History Confirmed 04/26/18] promethazine 12.5 mg tablet 12.5 mg PO Q6H PRN #60 tab 03/04/18 [Rx Confirmed 04/26/18] Last Menstral Period: 03/15/18 Zika: Zika virus [...] home: Yes additional social history: - 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 see [...] applicable) CC: Observed: 04/15/2018 Status: F Source: [facility] CULTURE, URINE 5:41 PM [facility] REPOSITORY Urine Culture Probable contaminants. ORGANISM 1: Mixed Gram Positive Organisms Hickory Count 25,000-50,000 Performed By: #### M100.0650 #### [facility] [address] [place], [place], [address] SPECIAL EVENTS COORDINATOR OFFICE VISIT Observed: 04/15/2018 Status: F Source: DONA REPORT 3:28 PM [facility] REPOSITORY [facility] [address] [place] [address] OFFICE VISIT Date of Service: 04/15/18 MR#: [id number] Acct: [id number] Name: MCKENZIE DIALLO Nieves Rep #: [id number] : 1985 Provider: Sade Collins MD Age/Sex: 33/F Location: [facility] Status: Signed Intake Vital Signs04/15/18 Height 5 ft 3 in 04/15/18 Weight: 195 lb 2 oz 04/15/18 Body Mass Index (BMI) 34.5 04/15/18 Blood Pressure 100/68 Intake Visit Reasons: OB - ABDOMINAL PAIN Chief Complaint: est ob, abdominal pain Door Captain Required: No Is patient in pain?: Yes Allergies Sulfa (Sulfonamide Antibiotics) Allergy (Verified 04/15/18 14:31) Other Medications valacyclovir 1 gram tablet 1,000 mg PO QDAY PRN #90 tab 02/04/18 [Rx Confirmed 04/15/18] vitamin,calcium,vqdauobn-uvzz-rknpc acid tablet 1 tab PO QDAY 03/01/18 [...] home: Yes additional social history: - 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 Supervision of high risk , antepartum O09.90 Plan reassurance lela haro for routine visit [...] MD Cosign Signature: Date (if applicable) CC: MISCELLANEOUS LAB Collected: 04/15/2018 Status: F Source: [facility] PROCEDURE 3:19 PM [facility] REPOSITORY Order Comment: Test(s) Ordered: SEND OUT TO JACQUI TYPE CODE TESTS RESULT OUT OF RANGE REFERENCE UNITS LAB L801.1541 Normal [facility] LAB TEST Result Comment: Sent directly to testing facility per ordering physician. 04/20/18 1522 MYOUNG Performed By: #### L801.1541 #### [facility] [address] [place], [place], [address] CBC W/DIFF, AUTOMATED Collected: 03/02/2018 Status: F Source: [facility] 12:10 PM [facility] REPOSITORY TYPE CODE TESTS RESULT OUT OF [...] 2.06 Performed By: #### L100.0100, B101.7450 #### [facility] [address] [facility]. [place], [place], [address] TYPE AND SCREEN Collected: 03/02/2018 Status: F Source: [facility] 12:10 PM [facility] REPOSITORY Order Comment: Reason for Type AND Screen/Red Cells: TYPE CODE TESTS RESULT OUT OF RANGE REFERENCE UNITS LAB B10.0800 O Normal BLOOD TYPE GEL POSITIVE LAB B100.4000 Normal Antibody NEGATIVE Screen Performed By: #### L100.0100, B101.7450 #### [facility] [address] [facility] [place], [place], [address] GLUCOSE CHALLENGE GEST Collected: 03/02/2018 Status: F Source: [facility] 1H 50G 12:10 PM [facility] REPOSITORY TYPE CODE TESTS RESULT OUT OF RANGE REFERENCE UNITS LAB L501.0250 70-140 mg/dL Normal GLU GEST 102 50g 1H Performed By: #### L501.0250 #### [facility] [address] [facility] [place], [place], [address] RUBELLA IGG Collected: 03/02/2018 Status: F Source: [facility] 12:10 PM [facility] REPOSITORY TYPE CODE TESTS RESULT OUT OF RANGE REFERENCE UNITS LAB L509.4000 IU/mL Normal Rubella IgG 484.3 Result Comment: Antibody results Interpretation of Immune Status < 5 IU/ml Presumed Non-immune 5 - < 10 IU/ml Equivocal > or = 10 IU/ml Presumed Immune Performed By: #### L509.4000, L3890.6005, L700.5000 #### [facility] [address] [place] [address] #### L3100.0390 #### [facility] (refer to report for specific site) refer to report for address and phone number HIV - [facility] Collected: 03/02/2018 Status: F Source: [facility]A 12:10 PM [facility] REPOSITORY TYPE CODE TESTS RESULT OUT OF RANGE REFERENCE UNITS LAB L3890.6005 Nonreactive Normal HIV - [facility] Non-Reactive Performed By: #### L509.4000, L3890.6005, L700.5000 #### [facility] [place], [place], [address] #### L3100.0390 #### [facility] (refer to report for specific site) refer to report for address and phone number HEPATITIS B SURFACE Collected: 03/02/2018 Status: F Source: DONA AG 12:10 PM [facility] REPOSITORY TYPE CODE TESTS RESULT OUT OF RANGE REFERENCE UNITS LAB L3100.0400 Negative Normal HB Negative SURF AG Result Comment: Performed at: [facility] [id number] Label Designer: Peter Salas PhD, Phone: [phone] Performed By: #### L509.4000, L3890.6005, L700.5000 #### [facility] [address] [place], [address] #### L3100.0390 #### [facility] (refer to report for specific site) refer to report for address and phone number RAPID PLASMIN REAGIN Collected: 03/02/2018 Status: F Source: [facility] (RPR) 12:10 PM [facility] REPOSITORY TYPE CODE TESTS RESULT OUT OF REFERENCE UNITS RANGE LAB L700.5000 NONREACTIVE NONREACTIVE Normal RPR Performed By: #### L509.4000, L3890.6005, L700.5000 #### [facility] [address] [place], [address] #### L3100.0390 #### [facility] (refer to report for specific site) refer to report for address and phone number SPECIAL EVENTS COORDINATOR OFFICE VISIT Observed: 03/02/2018 Status: F Source: [facility] REPORT 6:01 AM [facility] REPOSITORY [facility] [address] [place] [address] OFFICE VISIT Date of Service: 03/01/18 MR#: [id number] Acct: [id number] Name: MCKENZIE DIALLO Nieves Rep #: [id number] : 1985 Provider: Sade Collins MD Age/Sex: 33/F Location: [facility] Status: Signed Intake Vital Signs03/01/18 Height 5 ft 3 in 03/01/18 Weight: 192 lb 8 oz 03/01/18 Body Mass Index (BMI) 34.1 03/01/18 Blood Pressure 103/62 Intake Visit Reasons: New OB LMP December 31 Door Captain Required: No Is patient in pain?: No Allergies Sulfa (Sulfonamide Antibiotics) Allergy (Verified 03/01/18 16:07) Other Medications valacyclovir 1 gram tablet 1,000 mg PO QDAY PRN #90 tab 02/04/18 [Rx Confirmed 03/01/18] vitamin,calcium,vtbfcrsf-iydf-uaosr acid tablet 1 tab PO QDAY 03/01/18 [...] home: Yes additional social history: - 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[employer] 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[employer] Pregancy History 3 Elective abortions Hx Para [...] Pulmonary (e.g.,TB,Asthma), Seasonal allergies, Drug/latex allergies/reactions, Breast, Janitorial Manager surgery, Operations/hospitalizations, Anesthetic complications, History of abnormal [...] appearing, comfortable, no acute distress Orientation: alert [facility] Head: normal to inspection, atraumatic, normocephalic Ears: [...] of high risk in first trimester O09.91 ELAINE 10/14/18 Oscar Gray Manuel Plan Patient oriented to practice and discussed care expectations and screenings. AC book offered to patient. labs and 19-20 week anatomy ultrasound ordered. Genetic screening offered to patient and patient chose: considering but likely will choose NIPT screening Orders Orders: Supplemental Info AC book given and patient encouraged to read about nutrition, exercise, weight gain, and food avoidance in . Coding Level of Care Code OB Routine Diagnoses History of pre-eclampsia in prior , currently O09.299 Previous delivery affecting , antepartum O34.219 Advanced maternal age (AMA) in Supervision of high risk in first trimester O09.91 03/02/18 0601 <Electronically signed by Sade Collins MD> Date Sade Collins MD Cosigner Signature: Date (if applicable) CC: CT/NG [facility] BY PCR Collected: 03/01/2018 Status: F Source: DONA 6:07 PM [facility] REPOSITORY TYPE CODE TESTS RESULT OUT OF RANGE REFERENCE UNITS LAB L8200.2100 Negative Normal Chlam Negative Trac PCR LAB L8200.2200 Negative Normal NG by Negative PCR Performed By: #### L8200.1999, M100.0650 #### [facility] [address] [place], [address] Observed: 03/01/2018 Status: F Source: DONA CULTURE, URINE 6:07 PM [facility] REPOSITORY Urine Culture ORGANISM 1: Mixed Gram Positive Organisms Hickory Count 1000-10,000 MIX CULTURE Mixed contaminants. Submit a new specimen if indicated. Performed By: #### L8200.1999, M100.0650 #### [facility] [address] [place], [address] INTERNAL MEDICINE Observed: 02/25/2018 Status: F Source: DONA OFFICE VISIT 2:40 PM [facility] REPOSITORY [facility] [address] [place] [address] [place] [address] OFFICE VISIT Date of Service: 02/04/18 MR#: [id number] Acct: [id number] Name: MCKENZIE DIALLO Rep #: [id number] : 1985 Provider: Deyvi Lopez DO Age/Sex: 33/F Location: [facility] Status: Signed Intake Vital Signs02/04/18 Height 5 [...] signed by Deyvi Lopez DO> Date Deyvi Lpoez DO Cosigner Signature: Date (if applicable) CC: INTERNAL MEDICINE Observed: 02/23/2018 Status: F Source: DONA OFFICE VISIT 8:20 AM [facility] [address] [place] [address] [place] [address] OFFICE VISIT Date of Service: 02/19/18 MR#: [id number] Acct: [id number] Name: MCKENZIE DIALLO Nieves Rep #: [id number] : 1985 Provider: Mark Corbin MD Age/Sex: 33/F Location: [facility] Status: Signed Intake Vital Signs02/19/18 Height 5 [...] PRN #90 tab 02/04/18 [Rx Confirmed 02/19/18] [facility] Medical History Vitamin D deficiency (Chronic) Hypertension [...] Dr. Collins. This note was generated with [employer] dictation software. It may contain incorrect words, spelling, and punctuation that were not noted in checking the note before signing. Coding Level of Care Code Off vis,est,level 3 Diagnoses Sensation of fullness in right ear H93.8X1 Z34.90 02/23/18 0820 <Electronically signed by Mark Corbin MD> Date Lopezrandolph Shaquille COREA Cosigner Signature: Date (if applicable) CC: THYROID STIM HORMONE Collected: 02/09/2018 Status: F Source: DONA (TSH) 12:49 PM [facility] REPOSITORY TYPE CODE TESTS RESULT OUT OF RANGE REFERENCE UNITS LAB L501.9520 0.358-3.74 uIU/mL Normal TSH 0.77 Performed By: #### L501.9520, L509.4001 #### [facility] [address] [place], [address] PROGESTERONE LEVEL Collected: 02/09/2018 Status: F Source: DONA 12:49 PM [facility] REPOSITORY TYPE CODE TESTS RESULT OUT OF [...] 48.40 -422.50 ng/mL Performed By: #### L501.9520, L509.4000 #### [facility] [address] [place], [address] ALLERGIES ALLERGIES DATE TYPE / CODE NAME / CODE REACTION SEVERITY SOURCE 10/21/2018 Drug Sulfa Other [facility] Allergy/4160 (Sulfonamide Hospital 33515(SNOMED Antibiotics)/ Repository CT) [id number](RX NORM) ENCOUNTERS ENCOUNTERS ADMIT/DISCHARGE ACCOUNT ADMITTING ENCOUNTER LOCATION SOURCE NUMBER CLASS 10/21/2018/ [id number] Ambulatory BMSBuilding:Lewis Carcamo 8 7 [facility] Repository 10/07/2018 [id number] Karina, Ambulatory BMSBuilding:B [place] 5 Sade MS..[facility] Repository 10/07/2018 [id number] [place], Ambulatory BMSBuilding:[place] 5 Sade MS.[facility] Repository 10/07/2018/ [id number] Karina, Inpatient [place] 8 4 Sade Encounter [facility] ing:WPRoom: Repository BZ304Eea: 1 10/07/2018 [id number] Karina, Ambulatory BMSBuilding:B [place] 2 Sade MS.CF.[facility] Hospital Repository 10/01/2018/ [id number] Ambulatory BMSBuilding:[place] 8 0 [facility] Repository 09/24/2018 [id number] Ambulatory [place] 5 [facility] ing:LABSPEC Repository 09/24/2018/ [id number] Ambulatory BMSBuilding:B [place] 8 9 [facility] Repository 09/15/2018 [id number] Ambulatory [place] 3 [facility] ing:LABSPEC Repository 09/15/2018/ [id number] Ambulatory BMSBuilding:B [place] 8 7 [facility] Repository 09/09/2018 [id number] Ambulatory [place] [address] [place] [address] ing:OPUS Repository 09/09/2018/ [id number] Ambulatory BMSBuilding:B [place] 8 6 [facility] Repository 09/09/2018/ [id number] Ambulatory BMSBuilding:B [place] 8 2 [facility] Repository 09/06/2018 [id number] Ambulatory BMSBuilding:B [place] 5 MS.[facility] Repository 09/02/2018/ [id number] Ambulatory BMSBuilding:B [place] 8 3 [facility] Repository 08/29/2018/ [id number] [place], Ambulatory [place] 8 9 [facility] ing:WPOUTRoom Repository : [id number] 08/19/2018/ [id number] Ambulatory BMSBuilding:B [place] 8 2 [facility] Repository 08/12/2018 [id number] Ambulatory [place] 4 [facility] ing:LABSPEC Repository 08/12/2018/ [id number] Ambulatory BMSBuilding:B [place] 8 4 [facility] Repository 08/09/2018 [id number] Ambulatory BMSBuilding:B [place] 5 MS.[facility] Repository 08/08/2018/ [id number] Ambulatory Dona [place] 8 8 [facility] ing:WPOUTRoom Repository : [id number] 08/06/2018/ [id number] Ambulatory BMSBuilding:B [place] 8 1 [facility] Repository 07/30/2018 [id number] Ambulatory [place] 8 [facility] ing:LAB Repository 07/23/2018 [id number] Ambulatory [place]a [place] 7 [facility] ing:LAB Repository 07/20/2018/ [id number] Ambulatory BMSBuilding:B [place] 8 8 [facility] Repository 07/19/2018 [id number] Ambulatory BMSBuilding:B [place] 5 MS.[facility] Repository 07/16/2018/ [id number] Ambulatory Dona [place] 8 4 [facility] ing:WPOUTRoom Repository : WP012 07/09/2018 [id number] Ambulatory [place] 9 [facility] ing:LABSPEC Repository 07/09/2018 [id number] Ambulatory BMSBuilding:B [place] 5 [facility] Repository 06/24/2018/ [id number] Ambulatory BMSBuilding:B [place] 8 7 [facility] Repository 05/28/2018/ [id number] Ambulatory BMSBuilding:B [place] 8 4 [facility] Repository 05/20/2018 [id number] Ambulatory [place] 8 [facility] ing:OPUS Repository 05/15/2018/ [id number] Emergency Dona [place] 8 4 [facility] ing:ED Repository 05/05/2018/ [id number] Ambulatory BMSBuilding:B [place] 8 3 [facility] Repository 04/30/2018 [id number] Ambulatory [place] 3 [facility] ing:EMPH Repository 04/26/2018/ [id number] Ambulatory BMSBuilding:B Don[place] 8 6 [facility] Repository 04/15/2018 [id number] Ambulatory Dona [place] 8 [facility] ing:LAB Repository 04/15/2018/ [id number] Ambulatory BMSBuilding:B [place] 8 5 [facility] Repository 03/31/2018/ [id number] Ambulatory BMSBuilding:B [place] 8 7 [facility] Repository 03/29/2018 [id number] Ambulatory BMSBuilding:B [place] 3 [facility] Repository 03/02/2018 [id number] Ambulatory [place] 5 [facility] ing:LAB Repository 03/01/2018 [id number] Ambulatory [place] 9 [facility] ing:LABSPEC Repository 03/01/2018/ [id number] Ambulatory BMSBuilding:B [place] 8 4 [facility] Repository 02/19/2018/ [id number] Ambulatory BMSBuilding:B [place] 8 0 [facility] Repository 02/09/2018 [id number] Ambulatory [place] 7 [facility] ing:LAB Repository 02/04/2018/ [id number] Ambulatory BMSBuilding:B [place] 8 8 [facility] Repository PAYERS PAYERS ENCOUNTER GUARANTOR PAYER SUBSCRIBER SOURCE 10/21/2018 MCKENZIE Pickett Primary MANUEL E [place] [id number] [place] Insurance:KVNG ATKINSONB: [facility] KUSUM duttay [place]: [id number] [id number] Repository [address]Gmq: ([phone]) Date:[phone] () [address] CINDY CORTÉS [address]DT: 10/21/2018 Secondary NOT GIVENUNK Don[place] Insurance:SELF PAY [facility] Number: Effective Repository Date:2018-10-21 10/07/2018 MCKENZIE Pickett Primary MANUEL E [place] [id number] [place] Insurance:CORESOURCEP SIEDELDOB: [facility] RDAPPLE olicy Number: [id number] [id number] Repository [address]Kfi: [phone] Date:6196-51-46AS [phone] (HP) 2310MT. MOO, CINDY 68618BF: 10/07/2018 Secondary NOT GIVENUNK Dona Insurance:SELF PAY [facility] Number: Effective Repository Date:2018-10-07 10/07/2018 MCKENZIE Pickett Primary MANUEL E Dona [id number] [place] Insurance:CORESOURCEP SIEDELDOB: [facility] Number: [id number], [place] [id number] Repository 81782Qko: (330) Date:6638-14-67UF [phone] (HP) 2310MT. CINDY CORTÉS [id number]: 10/07/2018 Secondary NOT GIVENUNK Dona Insurance:SELF PAY [facility] Number: Effective Repository Date:2018-10-07 10/07/2018 MCKENZIE Pickett Primary MANUEL E Dona [id number] [place] Insurance:CORESOURCEP SIEDELDOB: [facility] RDAPPLE olic Number: [id number], [place] [id number] Repository 44297Xrn: (330) Date:5098-25-65SW [phone] (HP) 2310MT. MOO CINDY 22415FA: 10/07/2018 Secondary NOT GIVENUNK [place] Insurance:SELF PAY [facility] Number: Effective Repository Date:2018-08-11 10/07/2018 MCKENZIE Pickett Primary MANUEL E Derry [id number] [place] Insurance:CORESOURCEP SIEDELDOB: [facility]LE john paul Number: [id number], [place] [id number] Repository 93454Igm: (330) Date:8653-38-98TD [phone] (HP) 2310MT. CINDY CORTÉS [id number]: 10/07/2018 Secondary NOT GIVENUNK [place] Insurance:SELF PAY [facility] Number: Effective Repository Date:2018-10-07 10/01/2018 MCKENZIE D Primary MANUEL E Derry [id number] [place] Insurance:CORESOURCEP SIEDELDOB: [facility] MELISSALE john paul Number: [id number], [place] [id number] Repository 67140Grr: (330) Date:7981-30-96PA [phone] (HP) 2310MT. CINDY CORTÉS [id number]: 10/01/2018 Secondary NOT GIVENUNK Dona Insurance:SELF PAY [facility] Number: Effective Repository Date:2018-10-01 09/24/2018 MCKENZIE Pickett Primary MANUEL E Derry [id number] [place] Insurance:CORESOURCEP SIEDELDOB: [facility] KUSUM coker Number: [id number], [place] [id number] Repository 80940Yed: (330) Date:9782-41-65HP [phone] (HP) 2310MT. CINDY CORTÉS [id number]: 09/24/2018 Secondary NOT GIVENUNK Dona Insurance:SELF PAY [facility] Number: Effective Repository Date:2018-09-24 09/24/2018 MCKENZIE Nieves Primary MANUEL E Derry [id number] [place] Insurance:CORESOURCEP SIEDELDOB: [facility] MELISSALE john paul Number: [id number], [place] [id number] Repository 48210Tjl: (330) Date:7964-74-34XQ [phone] (HP) 2310MT. CINDY CORTÉS 69610WK: 09/24/2018 Secondary NOT GIVENUNK Dona Insurance:SELF PAY [facility] Number: Effective Repository Date:2018-09-24 09/15/2018 MCKENZIE Pickett Primary MANUEL E Derry [id number] [place] Insurance:CORESOURCEP SIEDELDOB: [facility] RDAPPLE olicy Number: [id number], [place] [id number] Repository 17513Cqp: (330) Date:2538-12-21XV [phone] (HP) 2310MT. CINDY CORTÉS 86617NW: 09/15/2018 Secondary NOT GIVENUNK [place] Insurance:SELF PAY [facility] Number: Effective Repository Date:2018-09-15 09/15/2018 MCKENZIE Pickett Primary MANUEL E Dona [id number] [place] Insurance:CORESOURCEP SIEDELDOB: [facility] Number: [id number], [place] [id number] Repository 10009Fwp: (330) Date:0502-18-88BG [phone] (HP) 2310MT. CINDY CORTÉS 98063ZQ: 09/15/2018 Secondary NOT GIVENUNK Dona Insurance:SELF PAY [facility] Number: Effective Repository Date:2018-09-15 09/09/2018 MCKENZIE Pickett Primary MANUEL E Dona [id number] [place] Insurance:CORESOURCEP SIEDELDOB: [facility] HOPE EMIRAPPLE john paul Number: [id number], [place] [id number] Repository 56662Lst: 330) Date:2683-75-67FW [phone] (HP) 2315MT. CINDY CORTÉS 72974XM: 09/09/2018 Secondary NOT GIVENUNK [place] Insurance:SELF PAY [facility] Number: Effective Repository Date:2018-08-10 09/09/2018 MCKENZIE Pickett Primary MANUEL E Derry [id number] [place] Insurance:CORESOURCEP SIEDELDOB: [facility] HOPE RDAPPLE john paul Number: [id number], [place] [id number] Repository 98153Zqm: (330) Date:5258-46-90UB [phone] (HP) 2310MT. CINDY CORTÉS 42511GP: 09/09/2018 Secondary NOT GIVENUNK [place] Insurance:SELF PA[facility] Number: Effective Repository Date:2018-09-09 09/09/2018 MCKENZIE D Primary MANUEL E Derry [id number] [place] Insurance:CORESOURCEP SIEDELDOB: [facility] RD[facility]LE olicy Number: [id number], [place] [id number] Repository 55438Fdx: (330) Date:4026-19-95TV [phone] (HP) 2310MT. CINDY CORTÉS [id number]: 09/09/2018 Secondary NOT GIVENUNK Dona Insurance:SELF PAY [facility] Number: Effective Repository Date:2018-09-09 09/06/2018 MCKENZIE D Primary NOT GIVENUNK [place] [id number] [place] Insurance:SELF PAY [facility] [place] Number: Effective Repository 52352Nkp: (330) Date:2018-09-06 [phone] (HP) 09/02/2018 MCKENZIE D Primary MANUEL E Dona [id number] [place] Insurance:CORESOURCEP SIEDELDOB: [facility] RDAPPLE olicy Number: [id number], [place] [id number] Repository 92661Tzd: (330) Date:5269-55-14FW [phone] (HP) 2310MT. CINDY CORTÉS [id number]: 09/02/2018 Secondary NOT GIVENUNK Dona Insurance:SELF PAY [facility] Number: Effective Repository Date:2018-09-02 08/29/2018 MCKENZIE D Primary MANUEL E Dona [id number] [place] Insurance:CORESOURCEP SIEDELDOB: [facility] RD[facility]LE olicy Number: [id number], [place] [id number] Repository 21140Xzl: (330) Date:0974-14-68BZ [phone] (HP) 2310MT. CINDY CORTÉS 15091CG: 08/29/2018 Secondary NOT GIVENUNK [place] Insurance:SELF PAY [facility] Number: Effective Repository Date:2018-08-29 08/19/2018 MCKENZIE Pickett Primary MANUEL E Derry [id number] [place] Insurance:CORESOURCEP SIEDELDOB: [facility] RDAPPLE olicy Number: [id number], [place] [id number] Repository 05760Ffj: (330) Date:0535-47-23VE [phone] (HP) 2310MT. CINDY CORTÉS 52382AW: 08/19/2018 Secondary NOT GIVENUNK [place] Insurance:SELF PAY [facility] Number: Effective Repository Date:2018-06-16 08/12/2018 MCKENZIE Pickett Primary MANUEL E Dona [id number] [place] Insurance:CORESOURCEP SIEDELDOB: [facility] RD[facility]LE olicy Number: [id number], [place] [id number] Repository 73045Jvj: (330) Date:1811-48-96BZ [phone] (HP) 2310MT. CINDY CORTÉS [id number]: 08/12/2018 Secondary NOT GIVENUNK [place] Insurance:SELF PAY [facility] Number: Effective Repository Date:2018-08-12 08/12/2018 MCKENZIE Pickett Primary MANUEL E Dona [id number] [place] Insurance:CORESOURCEP SIEDELDOB: [facility] RDAPPLE olicy Number: [id number], [place] [id number] Repository 54214Dbh: (330) Date:4843-49-45ZU [phone] (HP) 2310MT. CINDY CORTÉS [id number]: 08/12/2018 Secondary NOT GIVENUNK [place] Insurance:SELF PAY [facility] Number: Effective Repository Date:2018-08-12 08/09/2018 MCKENZIE Pickett Primary NOT GIVENUNK Dona [id number] [place] Insurance[place]SELF [place] Number: Effective Repository 21853Ucv: (330) Date:2018-08-09 [phone] (HP) 08/08/2018 MCKENZIE Pickett Primary MANUEL E [place] [id number] [place] Insurance:CORESOURCEP SIEDELDOB: [facility] HOPE RDAPPLE olicy Number: [id number], [place] [id number] Repository 31641Ozv: (330) Date:8888-98-71QO [phone] (HP) 2310MT. CINDY CORTÉS 09538HP: 08/08/2018 Secondary NOT GIVENUNK [place] Insurance:SELF PAY [facility] Number: Effective Repository Date:2018-08-08 08/06/2018 MCKENZIE Pickett Primary MANUEL E D[place] [id number] [place] Insurance:CORESOURCEP SIEDELDOB: [facility] Number: [id number], [place] [id number] Repository 60199Ile: (330) Date:5444-69-09OZ [phone] (HP) 2310MT. CINDY CORTÉS 01138CB: 08/06/2018 Secondary NOT GIVENUNK Dona Insurance:SELF PAY [facility] Number: Effective Repository Date:2018-07-09 07/30/2018 MCKENZIE Pickett Primary MANUEL E Dona [id number] [place] Insurance:CORESOURCEP SIEDELDOB: [facility] HOPE RDAPPLE olicy Number: [id number], [place] [id number] Repository 94379Ldu: (330) Date:7439-80-35SE [phone] (HP) 2310MT. CINDY CORTÉS [id number]: 07/30/2018 Secondary NOT GIVENUNK [place] Insurance:SELF PAY [facility] Number: Effective Repository Date:2018-07-26 07/23/2018 MCKENZIE Pickett Primary MANUEL E Dona [id number] [place] Insurance:CORESOURCEP SIEDELDOB: [facility] RDAPPLE olicy Number: [id number], [place] [id number] Repository 66757Vsr: (330) Date:5242-02-25TM [phone] (HP) 2310MT. ICNDY CORTÉS [id number]: 07/23/2018 Secondary NOT GIVENUNK Dona Insurance:SELF PAY [facility] Number: Effective Repository Date:2018-07-23 07/20/2018 MCKENZIE D Primary MANUEL E [place] [id number] [place] Insurance:CORESOURCEP SIEDELDOB: [facility] RDAPPLE olicy Number: [id number], [place] [id number] Repository 68022Glv: (330) Date:9306-19-21NU [phone] (HP) 2310MT. CINDY CORTÉS [id number]: 07/20/2018 Secondary NOT GIVENUNK Dona Insurance:SELF PAY [facility] Number: Effective Repository Date:2018-07-20 07/19/2018 MCKENZIE D Primary NOT GIVENUNK Dona [id number] [place] Insurance:SELF PAY [facility] [place] Number: Effective Repository 72654Pns: (330) Date:2018-07-19 [phone] (HP) 07/16/2018 MCKENZIE D Primary MANUEL E Derry [id number] [place] Insurance:CORESOURCEP SIEDELDOB: [facility] RDAPPLE olicy Number: [id number], [place] [id number] Repository 76697Brd: (330) Date:0921-15-75UE [phone] (HP) 2310MT. CINDY CORTÉS 07758QN: 07/16/2018 Secondary NOT GIVENUNK [place] Insurance:SELF PAY [facility] Number: Effective Repository Date:2018-07-16 07/09/2018 MCKENZIE Pickett Primary MANUEL E Dona [id number] [place] Insurance:CORESOURCEP SIEDELDOB: [facility] RDAPPLE olicy Number: [id number], [place] [id number] Repository 20828Wpj: (330) Date:6638-17-60WK [phone] (HP) 2310MT. CINDY CORTÉS [id number]: 07/09/2018 Secondary NOT GIVENUNK Dona Insurance:SELF PAY [facility] Number: Effective Repository Date:2018-07-09 07/09/2018 MCKENZIE Pickett Primary MANUEL E Dona [id number] [place] Insurance:CORESOURCEP SIEDELDOB: [facility] MELISSALE john paul Number: [id number], [place] [id number] Repository 83698Ypn: (330) Date:5545-04-91DN [phone] (HP) 2310MT. CINDY CORTÉS [id number]: 07/09/2018 Secondary NOT GIVENUNK [place] Insurance:SELF PAY [facility] Number: Effective Repository Date:2018-07-09 06/24/2018 MCKENZIE Pickett Primary MANUEL E Dona [id number] [place] Insurance:CORESOURCEP SIEDELDOB: [facility] MELISSALE john paul Number: [id number], [place] [id number] Repository 16774Lai: (330) Date:0926-10-69XJ [phone] (HP) 2310MT. CINDY CORTÉS [id number]: 06/24/2018 Secondary NOT GIVENUNK Dona Insurance:SELF PAY [facility] Number: Effective Repository Date:2018-06-23 05/28/2018 MCKENZIE Pickett Primary MANUEL E [place] [id number] [place] Insurance:CORESOURCEP SIEDELDOB: [facility] MELISSALE john paul Number: [id number], [place] [id number] Repository 80392Pid: (330) Date:2782-63-02CO [phone] (HP) 2310MT. CINDY CORTÉS [id number]: 05/28/2018 Secondary NOT GIVENUNK Dona Insurance:SELF PAY [facility] Number: Effective Repository Date:2018-05-28 05/20/2018 MCKENZIE D Primary MANUEL E [place] [id number] [place] Insurance:CORESOURCEP SIEDELDOB: [facility] RDAPPLE olicy Number: [id number], [place] [id number] Repository 13977Iqp: (330) Date:0955-79-41GT [phone] (HP) 2310MT. CINDY CORTÉS [id number]: 05/20/2018 Secondary NOT GIVENUNK Dona Insurance:SELF PAY [facility] Number: Effective Repository Date:2018-04-26 05/15/2018 MCKENZIE D Primary MANUEL E [place] [id number] [place] Insurance:CORESOURCEP SIEDELDOB: [facility] Number: [id number], [place] [id number] Repository 73109Swi: (330) Date:4804-14-20RI [phone] (HP) 2310MT. CINDY CORTÉS 72278TT: 05/15/2018 Secondary NOT GIVENUNK [place] Insurance:SELF PAY [facility] Number: Effective Repository Date:2018-05-15 05/05/2018 MCKENZIE D Primary MANUEL E Dona [id number] [place] Insurance:CORESOURCEP SIEDELDOB: [facility] Number: [id number], [place] [id number] Repository 96054Mvp: (330) Date:9562-33-61XR [phone] (HP) 2310MT. CINDY CORTÉS [id number]: 05/05/2018 Secondary NOT GIVENUNK Dona Insurance:SELF PAY [facility] Number: Effective Repository Date:2018-05-05 04/30/2018 MCKENZIE D Primary NOT GIVENUNK Dona [id number] [place] Insurance[place]SELF [place] Number: Effective Repository 84634Utv: (330) Date:2018-04-30 [phone] (HP) 04/26/2018 MCKENZIE Pickett Primary MANUEL E [place] [id number] [place] Insurance:CORESOURCEP SIEDELDOB: [facility] RDAPPLE olicy Number: [id number], [place] [id number] Repository 07203Brz: (330) Date:3075-88-47PI [phone] (HP) 2310MT. CINDY CORTÉS 74611QK: 04/26/2018 Secondary NOT GIVENUNK Dona Insurance:SELF PAY [facility] Number: Effective Repository Date:2018-04-26 04/15/2018 MCKENZIE Pickett Primary MANUEL E [place] [id number] [place] Insurance:CORESOURCEP SIEDELDOB: [facility] RDAPPLE olicy Number: [id number], [place] [id number] Repository 74276Mkl: (330) Date:4063-79-34PW [phone] (HP) 2310MT. CINDY CORTÉS [id number]: 04/15/2018 Secondary NOT GIVENUNK [place] Insurance:SELF PAY [facility] Number: Effective Repository Date:2018-04-15 04/15/2018 MCKENZIE Pickett Primary MANUEL E Dona [id number] [place] Insurance:CORESOURCEP SIEDELDOB: [facility] RDAPPLE olicy Number: [id number], [place] [id number] Repository 87945Foa: (330) Date:5037-87-07QB [phone] (HP) 2310MT. CINDY CORTÉS [id number]: 04/15/2018 Secondary NOT GIVENUNK [place] Insurance:SELF PAY [facility] Number: Effective Repository Date:2018-04-15 03/31/2018 MCKENZIE Pickett Primary MANUEL E [place] [id number] [place] Insurance:CORESOURCEP SIEDELDOB: [facility] RDAPPLE olicy Number: [id number], [place] [id number] Repository 72279Vln: (330) Date:5611-93-06KQ [phone] (HP) 2310MT. CINDY CORTÉS 56179MQ: 03/31/2018 Secondary NOT GIVENUNK [place] Insurance:SELF PAY [facility] Number: Effective Repository Date:2018-04-09 03/29/2018 MCKENZIE Pickett Primary MANUEL E Dona [id number] [place] Insurance:CORESOURCEP SIEDELDOB: [facility] RDAPPLE olicy Number: [id number], [place] [id number] Repository 78454Wdp: (330) Date:2525-04-40FO [phone] (HP) 2310MT. CINDY CORTÉS [id number]: 03/29/2018 Secondary NOT GIVENUNK [place] Insurance:SELF PAY [facility] Number: Effective Repository Date:2018-03-01 03/02/2018 MCKENZIE Pickett Primary MANUEL E Dona [id number] [place] Insurance:CORESOURCEP SIEDELDOB: [facility] RDAPPLE olicy Number: [id number], [place] [id number] Repository 16721Ssb: (330) Date:9524-84-74OE [phone] (HP) 2310MT. CINDY CORTÉS 51619TM: 03/02/2018 Secondary NOT GIVENUNK [place] Insurance:SELF PAY [facility] Number: Effective Repository Date:2018-03-02 03/01/2018 MCKENZIE Pickett Primary MANUEL E [place] [id number] [place] Insurance:CORESOURCEP SIEDELDOB: [facility] RDAPPLE olicy Number: [id number], [place] [id number] Repository 14122Yfo: (330) Date:5694-34-83LP [phone] (HP) 2310MT. CINDY CORTÉS [id number]: 03/01/2018 Secondary NOT GIVENUNK [place] Insurance:SELF PAY [facility] Number: Effective Repository Date:2018-03-01 03/01/2018 MCKENZIE Pickett Primary MANUEL E [place] [id number] [place] Insurance:CORESOURCEP SIEDELDOB: [facility] RDAPPLE olicy Number: [id number], [place] [id number] Repository 17800Hym: (330) Date:2606-58-51IN [phone] (HP) 2310MT. CINDY CORTÉS 73709WA: 03/01/2018 Secondary NOT GIVENUNK [place] Insurance:SELF PAY [facility] Number: Effective Repository Date:2018-03-01 02/19/2018 MCKENZIE Pickett Primary MANUEL E Dona [id number] [place] Insurance:CORESOURCEP SIEDELDOB: [facility] RDAPPLE olicy Number: [id number], [place] [id number] Repository 33131Ofn: (330) Date:7296-14-33FY [phone] (HP) 2310MT. CINDY CORTÉS 57248SX: 02/19/2018 Secondary NOT GIVENUNK Dona Insurance:SELF PAY [facility] Number: Effective Repository Date:2018-02-19 02/09/2018 MCKENZIE Pickett Primary MANUEL E [place] [id number] [place] Insurance:CORESOURCEP SIEDELDOB: [facility] RDAPPLE olicy Number: [id number], [place] [id number] Repository 04809Mqo: (330) Date:9614-63-70TR [phone] (HP) 2310MT. CINDY CORTÉS 47575OC: 02/09/2018 Secondary NOT GIVENUNK [place] Insurance:SELF PAY [facility] Number: Effective Repository Date:2018-02-09 02/04/2018 MCKENZIE Pickett Primary MANUEL E Dona [id number] [place] Insurance:CORESOURCEP SIEDELDOB: [facility] RDAPPLE olicy Number: [id number], [place] [id number] Repository 59938Akq: (330) Date:0642-14-13SZ [address] [phone] (HP) 2310MT. CINDY CORTÉS [id number]: 02/04/2018 Secondary NOT GIVENUNK [place] Insurance:SELF PAY [facility] Number: Effective Repository Date:2018-02-04
== END 2018-10-09 20:05 | disposition home or self-care (01) | DRG 785 ==
PROVIDERS: Admitting Provider Obstetrics & Gynecology; Family Provider Family Medicine; PCP Family Medicine; Referring Provider Obstetrics & Gynecology; Visit Provider Obstetrics & Gynecology
PROC: 10D00Z1 Extraction of Products of Conception, Low, Open Approach (ICD-10-PCS; CPT 59514; principal; 2018-10-07 07:15)
DX: O34.211 Maternal care for low transverse scar from previous cesarean delivery (principal); Z30.2 Encounter for sterilization; O99.344 Other mental disorders complicating childbirth; F41.9 Anxiety disorder, unspecified; Z88.2 Allergy status to sulfonamides; Z79.899 Other long term (current) drug therapy; Z87.59 Personal history of other complications of pregnancy, childbirth and the puerperium; Z87.891 Personal history of nicotine dependence; Z3A.38 38 weeks gestation of pregnancy; Z37.0 Single live birth
CPT/HCPCS: 85025; 85027; 86850; 86900; 88302; 99218; J7120; A4216; G0378; J2405

== ENCOUNTER → 2018-11-24 10:35 | Outpatient (CLI) | payer OTHER, SELFPAY ==
[2018-11-23 16:06] VITALS: BMI 38.0
== END ==
PROVIDERS: Family Provider Family Medicine; PCP Family Medicine; Referring Provider Nurse Practitioner Family; Visit Provider Nurse Practitioner Family
DX: J02.9 Acute pharyngitis, unspecified (principal)
CPT/HCPCS: 87070

== ENCOUNTER 2018-12-23 10:38 | Emergency (ER) | payer OTHER, SELFPAY ==
[2018-11-23 16:06] VITALS: BMI 38.0
[2018-12-23 10:39] VITALS: BP 144/85; PULSE 76; RESP 18; TEMP 36.6; O2SAT 100; BMI 36.3
--- NOTE | 2018-12-23 11:05 | ED.VISSUMM ---
- ER Visit Summary Date of Service: 12/23/18 Chief Complaint: Dizziness History of Present Illness: The patient is a 33 F who presents with dizziness over the past week. Patient states she feels off balance and like the room is spinning. Patient states she has been trying to drink fluids at home to help with this. Patient states it is better when she is able to fall asleep. Patient does admit to a headache. Patient denies any tinnitus or hearing changes. Patient states she is 11 weeks . Patient admits to nausea but denies any vomiting. Patient denies any fevers or chills. Physical Examination: Vital signs are stable. Patient is afebrile. Patient is in no acute distress. Pupils are equal, round, reactive to light bilateral. Extraocular muscles are intact. There is some nystagmus with right lateral gaze. Oral mucosa is pink and moist. Neck is supple. Trachea is midline. Heart was regular rate and rhythm. Lungs are clear and equal bilateral. Abdomen is soft and nontender. Cranial nerves II through XII are intact. There are no focal motor or sensory deficits noted. Test Results: CBC, basic metabolic profile, and urinalysis were obtained and were all normal. Emergency Department Course and Treatment: She was given IV fluids and meclizine here. Patient states she felt better on reevaluation. Patient was given a prescription for meclizine. Patient was instructed to drink plenty of fluids. Patient was instructed to follow-up with her primary care physician in 5-7 days. Patient understood and was agreeable with the plan. All questions were answered. Disposition: Discharge home Impression: Vertigo This note was generated with [employer] dictation software. It may contain incorrect words, spelling, and punctuation that were not noted in review of the chart prior to signing ED Disposition - Plan for ED Patient: Disposition: Home or Assisted Living Diagnosis: Vertigo Instructions: ED Vertigo Unspecified Prescriptions: Meclizine HCl [Antivert] 25 mg PO 4X/DAY PRN PRN #20 tab PRN Reason: Dizziness Referrals: Deyvi Lopez DO [Primary Care Provider] -
[2018-12-23] MEDS: 0.9% Normal Saline 1,000 ML 1000 ML IV (11:24)
[2018-12-23] MEDS: proMETHazine 25 MG/ML Syringe 6.25 MG IV (11:24)
[2018-12-23] MEDS: Meclizine HCl 25 MG Tablet PO (11:24)
[2018-12-23 11:33] LABS: Absolute Lymphocyte Count 2.04 X10^3/ul (0.83-4.51); Basophil# 0.02 X10^3/uL; Basophil% 0.2 % (0-1); Eosinophil# 0.11 X10^3/uL; Lymphocyte # 2.04 X10^3/ul (4.0); Lymphocyte % 18.8 % (19-41); Mean Corp Hgb Conc 32.6 g/gl (32-36); Mean Corpuscular Volume 82.9 fL (81-99); Mean Platelet Vol. 9.4 fl (6.2-12.0); Monocyte# 0.65 X10^3/uL; Neutrophil # 8.03 X10^3/uL (2.7-7.7); Neutrophil % 73.9 % (47-70); Platelet Count 211 K/mm3 (150-450); RBC Distribution Width CV 13.8 % (11.6-14.6); RBC Distribution Width SD 41.6 fl (35.1-43.9); Red Blood Count 5.19 M/mm3 (4.2-5.4); White Blood Count 10.9 K/mm3 (4.4-11.0)
[2018-12-23 11:38] LABS: POSITIVE COUNT NO; POSITIVE DIFFERENTIAL NO; POSITIVE MORPHOLOGY NO
[2018-12-23 11:41] LABS: Anion Gap 4 (5-15); BUN 11 mg/dL (7-18); BUN/Creat Ratio 15.5 RATIO (10-20); Calcium,Total 8.8 mg/dL (8.5-10.1); Chloride 107 mmol/L (98-107); Creatinine, Serum 0.71 mg/dL (0.55-1.02); EST Glomerular Filtration Rate 99 mL/min (>60); Est Glom Filt Rate - Afr Amer 120 mL/min (>60); Estimated Creatinine Clearance 91.48 ml/min; Glucose 80 mg/dL (74-106); Potassium 3.8 mmol/L (3.5-5.1); Sodium Level 139 mmol/L (136-145)
[2018-12-23 12:17] LABS: Bacteria 0 SEEN /hpf (None Seen); Mucous, Urine 0 SEEN /hpf (<or=2+); Red Blood Cells-Urine 0 SEEN /hpf (0-5); White Blood Cells 0 SEEN /hpf (0-5)
[2018-12-23 12:33] LABS: Color, Urine Yellow (Yellow); Glucose, Dipstick Normal (Normal); Ketone-Dipstick 15 mg/dl (Negative); Leukocyte Esterase-Dipstick Negative /ul (Negative); Nitrite-Dipstick Negative (Negative); Occult Blood-Urine Negative /ul (Negative); Protein-Dipstick Negative (Negative); Urine Bilirubin Dipstick Negative (Negative); Urine Clarity Sl. Cloudy (Clear); Urine Urobilinogen Normal (Normal)
[2018-12-23 12:42] LABS: Squamous Epithelial Cells - UA 5-10 SEEN /hpf (5-10)
[2018-12-23 13:15] VITALS: BP 121/71; PULSE 65; RESP 16; O2SAT 98
== END 2018-12-23 13:19 | disposition home or self-care (01) ==
PROVIDERS: Emergency Provider Emergency Medicine; Family Provider Family Medicine; PCP Family Medicine
DX: R42 Dizziness and giddiness (principal); R51 Headache; R11.0 Nausea; Z79.899 Other long term (current) drug therapy
CPT/HCPCS: 80048; 81001; 85025; 96361; 96374; 99283; J7030

== ENCOUNTER → 2019-01-31 18:16 | Outpatient (CLI) | payer OTHER, SELFPAY ==
[2019-01-31 11:48] VITALS: BMI 36.3
== END ==
PROVIDERS: Family Provider Family Medicine; PCP Family Medicine; Referring Provider Nurse Practitioner Women's Health; Visit Provider Nurse Practitioner Women's Health
DX: N76.0 Acute vaginitis (principal)
CPT/HCPCS: 87070; 87205

== ENCOUNTER → 2019-04-06 08:20 | Outpatient (CLI) | payer OTHER, SELFPAY ==
[2019-04-05 11:29] VITALS: BMI 36.3
== END ==
PROVIDERS: Family Provider Family Medicine; PCP Family Medicine; Referring Provider Family Medicine; Visit Provider Family Medicine
DX: K43.9 Ventral hernia without obstruction or gangrene (principal)

== ENCOUNTER → 2019-07-28 08:01 | Outpatient (CLI) | payer OTHER, SELFPAY ==
[2019-07-27 15:42] VITALS: BMI 36.3
[2019-07-28 08:54] LABS: Anion Gap 7 (5-15); BUN 17 mg/dL (7-18); BUN/Creat Ratio 21.6 RATIO (10-20); Calcium,Total 8.6 mg/dL (8.5-10.1); Chloride 106 mmol/L (98-107); Creatinine, Serum 0.79 mg/dL (0.55-1.02); EST Glomerular Filtration Rate 88 mL/min (>60); Est Glom Filt Rate - Afr Amer 106 mL/min (>60); Glucose 96 mg/dL (74-106); Magnesium 2.2 mg/dL (1.6-2.6); Sodium Level 141 mmol/L (136-145)
[2019-07-28 09:35] LABS: Vitamin D,25 Hydroxy 31.4 ng/mL (29.95-100.01)
== END ==
PROVIDERS: Family Provider Family Medicine; PCP Family Medicine; Referring Provider Family Medicine; Visit Provider Family Medicine
DX: R42 Dizziness and giddiness (principal); R53.83 Other fatigue
CPT/HCPCS: 36415; 80048; 82306; 83735

== ENCOUNTER 2019-08-10 15:22 | Emergency (ER) | payer OTHER, SELFPAY ==
[2019-07-27 15:42] VITALS: BMI 36.3
[2019-08-10 15:22] VITALS: BP 133/77; PULSE 66; RESP 16; TEMP 36.8; BMI 35.1
--- NOTE | 2019-08-10 15:35 | CT_ITS ---
STUDY: CT BRAIN WITHOUT CONTRAST REASON FOR EXAM: Female, 34 years old. Trauma to the posterior aspect of the head following a fall. RADIATION DOSAGE (If Supplied By Facility): CTDIvol = ( 44.99 ) mGy, DLP = ( 779.24 ) mGycm TECHNIQUE: Transaxial CT imaging of the brain was performed without administration of intravenous contrast material. Individualized dose optimization techniques were used for this CT. COMPARISON: No relevant priors. FINDINGS: Normal soft tissue structures. Normal calvarium. Normal size ventricles and extra-axial spaces for the patient's age. Normal white matter tracts of the cerebral hemispheres. Normal basal ganglia and thalami. Normal brainstem. Normal cerebellum. There is no intracranial hemorrhage. There are no findings of an acute ischemic infarction. Normal visualized paranasal sinuses. CT/Brain/Head without Contrast IMPRESSION: Normal unenhanced CT scan of the brain. Electronically Signed: Todd Rios, at 15:52 EDT , Service support ,
--- NOTE | 2019-08-10 15:35 | CT_ITS ---
STUDY: CT CERVICAL SPINE WITHOUT CONTRAST REASON FOR EXAM: Female, 34 years old. History of fall. RADIATION DOSAGE (If Supplied By Facility): CTDIvol = ( 28.50 ) mGy, DLP = ( 717.17 ) mGycm TECHNIQUE: High resolution transaxial imaging was performed without contrast material. Sagittal and coronal images were reconstructed. Individualized dose optimization techniques were used for this CT. COMPARISON: None FINDINGS: Normal craniovertebral junction. Normal anterior atlantoaxial articulation. Normal odontoid process. There is straightening of the normal cervical lordosis. Normal vertebral bodies and posterior osseous elements. C2-3: Normal endplates. Normal disc height and morphology. Normal central canal and intervertebral neuroforamina. C3-4: Normal endplates. Normal disc height and morphology. Normal central canal and intervertebral neuroforamina. C4-5: Normal endplates. Normal disc height and morphology. Normal central canal and intervertebral neuroforamina. C5-6: Normal endplates. Normal disc height and morphology. Normal central canal and intervertebral neuroforamina. C6-7: Normal endplates. Normal disc height and morphology. Normal central canal and intervertebral neuroforamina. C7-T1: Normal endplates. Normal disc height and morphology. Normal central canal and intervertebral neuroforamina. Normal visualized soft tissue structures. CT/Spine Cervical without Contras IMPRESSION: Normal unenhanced CT examination of the cervical spine. Electronically Signed: Todd Rios, at 15:53 EDT , Service support ,
--- NOTE | 2019-08-10 15:37 | ED.VISSUMM ---
- ER Visit Summary Date of Service: 08/10/19 Chief Complaint: Head injury History of Present Illness: The patient is a 34 F who states that today she was at work when her chair broke and she fell backwards striking the back of her head on the base of a chair. No loss of consciousness but the patient states her headaches and she feels like she is in a dream. She notes her neck is sore. No low back pain. No vomiting. Physical Examination: Afebrile vital signs stable Gen: Well-nourished well-developed Head: Normocephalic atraumatic Eyes: Perrl EOMI ENT: TMs clear no rhinorrhea moist mucous membranes Neck: Supple no lymphadenopathy no JVD tender to palpation diffusely over the posterior aspect of the neck CVS: Regular rate rhythm no murmurs normal S1-S2 Respiratory: No distress clear to auscultation bilaterally chest nontender Abdomen: Soft nontender nondistended normal bowel sounds no masses Back: Nontender Extremity: Nontender no edema Skin: Normal color no rash Neuro: alert orientated ?3 CN II-XII intact normal strength sensation GCS is 15 Psych: Normal affect normal mood Test Results: CT head and CT cervical spine were obtained. This was negative for intracranial hemorrhage or fracture Emergency Department Course and Treatment: Patient will be discharged home with supportive care instructions to return if worsening or concerns. I recommend Tylenol for pain. Following up with employee health Impression: 1. Closed head injury 2. Cervical strain This note was generated with [employer] dictation software. It may contain incorrect words, spelling, and punctuation that were not noted in review of the chart prior to signing ED Disposition - Plan for ED Patient: Disposition: Home or Assisted Living Instructions: HEAD INJURY, No Wake-Up (Adult), Neck Sprain/Strain Referrals: Sariah Rojas [Registered Nurse] - (in employee health)
[2019-08-10 16:15] VITALS: RESP 16
== END 2019-08-10 16:16 | disposition home or self-care (01) ==
LOC: ED 16:08
PROVIDERS: Emergency Provider Emergency Medicine; Family Provider Family Medicine; PCP Family Medicine
DX: S09.90XA Unspecified injury of head, initial encounter (principal); S16.1XXA Strain of muscle, fascia and tendon at neck level, initial encounter; W07.XXXA Fall from chair, initial encounter; Y93.9 Activity, unspecified; Y92.9 Unspecified place or not applicable; Y99.0 Civilian activity done for income or pay
CPT/HCPCS: 70450; 72125; 99282

== ENCOUNTER → 2019-10-13 14:52 | Outpatient (CLI) | payer OTHER, SELFPAY ==
[2019-10-04 15:46] VITALS: BMI 35.2
--- NOTE | 2019-10-13 14:53 | CT_ITS ---
STUDY: CT PELVIS WITH CONTRAST REASON FOR EXAM: Female, 34 years old. Pain RADIATION DOSAGE (If Supplied By Facility): CTDIvol = ( 28.21 ) mGy, DLP = ( 1092.89 ) mGycm TECHNIQUE: Transaxial imaging of the pelvis was performed with oral contrast. 100 ML ISOVUE 370 was administered intravenously. Individualized dose optimization techniques were used for this CT. COMPARISON: None. FINDINGS: Normal urinary bladder. Normal visualized small intestine. Normal visualized colon. There is no pelvic fluid. There is no pelvic lymphadenopathy or mass lesion. Normal visualized pelvic arteries. Ovaries are visualized bilaterally with follicles. Normal abdominal wall. Normal osseous structures. CT/Pelvis WITH IV Contrast IMPRESSION: No evidence of acute intrapelvic pathology. Bilateral ovaries are visualized with follicles. If further clinical concern for pelvic pathology, consider pelvic ultrasound. Electronically Signed: Ganesh Pang, at 20:18 EST Tel , Service support ,
== END ==
PROVIDERS: Family Provider Family Medicine; PCP Family Medicine; Referring Provider Surgery; Visit Provider Surgery
DX: R10.31 Right lower quadrant pain (principal)
CPT/HCPCS: 72193; Q9967

== ENCOUNTER → 2019-11-21 | Outpatient (CLI) | payer OTHER, SELFPAY ==
[2019-11-21 09:33] VITALS: BMI 35.2
[2019-11-24 11:10] LABS: HPV APTIMA, High Risk Negative (Negative)
== END | disposition home or self-care (01) ==
PROVIDERS: PCP Family Medicine; Visit Provider Obstetrics & Gynecology
DX: Z12.4 Encounter for screening for malignant neoplasm of cervix (principal)
CPT/HCPCS: 87624; 88175; G0145

== ENCOUNTER 2020-09-22 04:28 | Emergency (ER) | payer OTHER, SELFPAY ==
[2020-07-24 16:17] VITALS: BMI 35.2
[2020-09-22 04:29] VITALS: BP 132/69; PULSE 59; RESP 18; TEMP 36.4; O2SAT 100; BMI 35.9
--- NOTE | 2020-09-22 05:02 | RAD_ITS ---
HISTORY: Cough, COVID+, dizziness. EXAM: XR Chest 1 View: COMPARISON: February 21, 2015 FINDINGS: # of images incl. paperwork: 1 Lungs are clear. Heart is not enlarged. No acute osseous pathology perceived. Pulmonary vascularity is distinct. No effusions. RAD/Chest 1 View (Portable) IMPRESSION: Normal. at [id number] Reported and signed by: Chalino Perez MD Electronically Signed: Chalino Perez MD at 5:33 EST Tel , Service support ,
--- NOTE | 2020-09-22 05:03 | ED.VISSUMM ---
- ER Visit Summary Date of Service: 09/22/20 Chief Complaint: Dizziness History of Present Illness: The patient is a 35 F history of being diagnosed Covid + on September 17. Symptoms started on September 11. Patient not plan dizziness. Prior history of vertigo. Slightly worse with head movement. No headache. No chest pain. No severe shortness of breath. Nonproductive cough. Nausea but no vomiting. No diarrhea. No melena. No head injury. Physical Examination: Well-appearing middle-aged female. Vital signs stable afebrile. Does not look septic or toxic. Pulse ox 100% on room air no signs hypoxia. HEENT exam unremarkable. Moist extremities. Pupils round reactive light. No facial droop. Normal speech. TMs normal. No wax. Neck nontender no lymphadenopathy. Lungs clear to auscultation bilaterally. Heart regular rhythm no murmur. Rate about 60. Abdomen soft nontender normal bowel sounds no peritoneal signs. Moving all 4 extremities. Calves nontender. No edema. Neurologically awake and alert. Normal motor strength both upper and lower extremities. 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 Dorsi plantarflexion intact. Fingertip to nose and [id number] within normal limits. NIH 0. Hallpike mildly positive. Repeat exam patient is doing well at 5:46 AM. We went over her test results. Test Results: CBC was normal with a white count of 5. Hemoglobin 13. Chemistries unremarkable with normal creatinine and gap. Chest x-ray read as normal. Normal cardiac silhouette mediastinum. Portable 1 view read by myself and also by the radiologist who agreed with my interpretation. Emergency Department Course and Treatment: Patient coving plan dizziness. This may or may not be vertigo. Patient be treated with IV fluids. Screening labs are being obtained. Treatment Plan: Patient is not placed on steroids before for her vertigo. Being that she is Covid positive I will put her on a short course of Decadron. Disposition: Discharge Impression: Acute dizziness secondary to vertigo History of vertigo Covid positive on September 17 This note was generated with [employer] software. It may contain incorrect words, spelling, and punctuation that were not noted in review of the chart prior to signing ED Disposition - Plan for ED Patient: Referrals: Deyvi Lopez, [Primary Care Provider] -
[2020-09-22] MEDS: 0.9% Normal Saline 1,000 ML 1000 ML IV (05:15)
[2020-09-22 05:21] LABS: Absolute Neutrophil Count 3.7 X10^3/uL (2.0-7.7); Basophil# 0.01 X10^3/uL; Basophil% 0.2 % (0-1); Eosinophil# 0.12 X10^3/uL; Eosinophils% 2.1 % (0-5); Hematocrit 43.4 % (37-47); Hemoglobin 13.8 g/dL (12.0-15.0); Lymphocyte % 24.1 % (19-41); Mean Corp Hgb Conc 31.8 g/dL (32-36); Mean Corpuscular Hgb 26.9 pg (27.0-32.0); Mean Corpuscular Volume 84.6 fL (81-99); Monocyte# 0.52 X10^3/uL; NRBC Flagged by Analyzer 0 % (0-5); Neutrophil # 3.74 X10^3/uL (2.7-7.7); Neutrophil % 64.4 % (47-70); Platelet Count 205 K/mm3 (150-450); RBC Distribution Width CV 13.2 % (11.6-14.6); RBC Distribution Width SD 41.1 fl (35.1-43.9); Red Blood Count 5.13 M/mm3 (4.2-5.4); White Blood Count 5.8 K/mm3 (4.4-11.0)
[2020-09-22 05:42] LABS: Anion Gap 3 (5-15); BUN 16 mg/dL (7-18); BUN/Creat Ratio 19.5 RATIO (10-20); Calcium,Total 8.6 mg/dL (8.5-10.1); Chloride 111 mmol/L (98-107); Creatinine, Serum 0.82 mg/dL (0.55-1.02); EST Glomerular Filtration Rate 83 mL/min (>60); Est Glom Filt Rate - Afr Amer 101 mL/min (>60); Glucose 87 mg/dL (74-106); Potassium 3.9 mmol/L (3.5-5.1); Sodium Level 143 mmol/L (136-145)
--- NOTE | 2020-09-22 05:47 | ED.DEP ---
ED Disposition - Plan for ED Patient: Disposition: Home or Assisted Living Instructions: ED BPV Vertigo Prescriptions: Dexamethasone [Decadron] 6 mg PO DAILY 5 Days tab Prescription Printed Referrals: Deyvi Lopez DO [Primary Care Provider] - 1 Week if not improving Additional Instructions: Decadron which is a steroid 1 pill a day for the next 5 days. Plenty of fluids and rest. Follow-up with your doctor if not improving.
[2020-09-22 05:56] VITALS: PULSE 64; RESP 18
== END 2020-09-22 06:37 | disposition home or self-care (01) ==
PROVIDERS: Emergency Provider Emergency Medicine; PCP Family Medicine
DX: U07.1 COVID-19 (principal); R42 Dizziness and giddiness
CPT/HCPCS: 71045; 80048; 85025; 96360; 99283; J7030

== ENCOUNTER → 2020-12-25 08:27 | Outpatient (CLI) | payer OTHER, SELFPAY ==
[2020-12-18 08:08] VITALS: BMI 36.6
--- NOTE | 2020-12-25 08:30 | US_ITS ---
STUDY: ULTRASOUND OF THE FEMALE PELVIS - COMPLETE REASON FOR EXAM: Female, 35 years old. Abnormal uterine bleeding LMP: 12/08/2020. TECHNIQUE: Transabdominal and Transvaginal TECHNICAL QUALITY: Adequate. COMPARISON: Comparison is made with prior examination dated 06/18/2017. FINDINGS: The uterus is anteverted and is in a midline position. The uterus measures 9.5 cm x 6.7 cm x 5 cm. There is a Nabothian cyst of the cervix. The endometrium measures 8 mm in thickness, and is hyperechoic. There is no demonstrated endometrial mass. There is a 1.4 cm x 1.9 cm x 1.2 cm fundal fibroid. I.U.D. - The patient does not have an I.U.D. The right ovary is visualized. The right ovary measures 2.3 cm x 2.8 cm x 1.5 cm. There is no right ovarian cyst or ovarian mass. There is no visualized right adnexal mass or complex lesion. There is normal arterial and normal venous vascularity. The left ovary is visualized. The left ovary measures 3.3 cm x 2.8 cm x 2.3 cm. There is a 1.9 cm x 2.1 cm x 1.5 cm left ovarian cyst. There is no visualized left adnexal mass or complex lesion. There is normal arterial and normal venous vascularity. Minimal amount of free fluid is seen surrounding the right ovary. The pre void volume of the bladder was 119 ml. US/Pelvic (Non ) IMPRESSION: 1.4 cm x 1.9 cm x 1.2 cm fundal fibroid. 1.9 cm x 2.1 cm x 1.5 cm left ovarian cyst. Electronically Signed: Todd Rios MD at 10:02 EST , Service support ,
--- NOTE | 2020-12-25 08:30 | US_ITS ---
STUDY: ULTRASOUND OF THE FEMALE PELVIS - COMPLETE REASON FOR EXAM: Female, 35 years old. Abnormal uterine bleeding LMP: 12/08/2020. TECHNIQUE: Transabdominal and Transvaginal TECHNICAL QUALITY: Adequate. COMPARISON: Comparison is made with prior examination dated 06/18/2017. FINDINGS: The uterus is anteverted and is in a midline position. The uterus measures 9.5 cm x 6.7 cm x 5 cm. There is a Nabothian cyst of the cervix. The endometrium measures 8 mm in thickness, and is hyperechoic. There is no demonstrated endometrial mass. There is a 1.4 cm x 1.9 cm x 1.2 cm fundal fibroid. I.U.D. - The patient does not have an I.U.D. The right ovary is visualized. The right ovary measures 2.3 cm x 2.8 cm x 1.5 cm. There is no right ovarian cyst or ovarian mass. There is no visualized right adnexal mass or complex lesion. There is normal arterial and normal venous vascularity. The left ovary is visualized. The left ovary measures 3.3 cm x 2.8 cm x 2.3 cm. There is a 1.9 cm x 2.1 cm x 1.5 cm left ovarian cyst. There is no visualized left adnexal mass or complex lesion. There is normal arterial and normal venous vascularity. Minimal amount of free fluid is seen surrounding the right ovary. The pre void volume of the bladder was 119 ml. US/Transvaginal Non- IMPRESSION: 1.4 cm x 1.9 cm x 1.2 cm fundal fibroid. 1.9 cm x 2.1 cm x 1.5 cm left ovarian cyst. Electronically Signed: Todd Rios MD at 10:02 EST , Service support ,
== END ==
PROVIDERS: PCP Family Medicine; Referring Provider Obstetrics & Gynecology; Visit Provider Obstetrics & Gynecology
DX: N93.9 Abnormal uterine and vaginal bleeding, unspecified (principal)
CPT/HCPCS: 76830; 76856

== ENCOUNTER → 2021-02-26 13:24 | Outpatient (CLI) | payer OTHER, SELFPAY ==
[2021-02-26 10:12] VITALS: BMI 36.6
== END ==
PROVIDERS: PCP Family Medicine; Referring Provider Nurse Practitioner Women's Health; Visit Provider Nurse Practitioner Women's Health
DX: R10.2 Pelvic and perineal pain (principal)
CPT/HCPCS: 87070; 87205

== ENCOUNTER → 2021-03-14 | Outpatient (CLI) | payer OTHER, SELFPAY ==
[2021-03-14 08:50] VITALS: BMI 36.6
== END | disposition home or self-care (01) ==
LOC: LABSPEC 13:10
PROVIDERS: PCP Family Medicine; Referring Provider Obstetrics & Gynecology; Visit Provider Obstetrics & Gynecology
DX: N89.8 Other specified noninflammatory disorders of vagina (principal)
CPT/HCPCS: 87070; 87205

== ENCOUNTER 2021-03-24 11:19 | Emergency (ER) | payer OTHER, SELFPAY ==
[2021-03-14 08:50] VITALS: BMI 36.6
[2021-03-24 11:21] VITALS: BP 119/80; PULSE 65; RESP 17; TEMP 36.1; O2SAT 98; BMI 37.3
--- NOTE | 2021-03-24 12:06 | CT_ITS ---
STUDY: CT ABDOMEN AND PELVIS WITHOUT CONTRAST REASON FOR EXAM: Female, 36 years old. Kidney Stone RADIATION DOSAGE (If Supplied By Facility): CTDIvol = ( 17.03 ) mGy, DLP = ( 876.64 ) mGycm TECHNIQUE: Transaxial images were obtained from the dome of the diaphragm to the symphysis pubis without oral contrast, and without intravenous contrast. Sagittal and coronal images were reconstructed. Individualized dose optimization techniques were used for this CT. COMPARISON: None. FINDINGS: The visualized lung bases are unremarkable. The visualized portions of the heart are within normal limits. Normal liver. Dominant gallbladder stone is present measuring 1.6 cm. Normal spleen. Normal pancreas. Normal bilateral adrenal glands. Normal right kidney. Normal left kidney. Normal visualized stomach. Normal small intestine. Normal colon. There are surgical clips in the region of the appendix consistent with a prior appendectomy. Normal abdominal aorta. Normal inferior vena cava. Mild mesenteric stranding and mesenteric lymph nodes are present within the central abdomen. Normal urinary bladder. There is a small umbilical hernia containing fat. Normal osseous structures. CT/Abdomen/Pelvis without Cont IMPRESSION: 1. No evidence of acute intra-abdominal process or focal inflammation. There is mild central mesenteric stranding and scattered lymph nodes consistent with mild enteric panniculitis in the appropriate clinical setting. 2. Cholelithiasis without evidence of cholecystitis. No evidence of nephrolithiasis or ureteral stone. Electronically Signed: Leon Maria DO at 12:53 EDT , Service support ,
--- NOTE | 2021-03-24 12:08 | EDS_ITS ---
HPI History of Present Illness Chief Complaint: Flank Pain Informant: patient Onset/Context/Timing Onset: Today Context: Gradual Onset Timing: Continuous Quality: Sharp, cramping Location: Left flank Current Severity: Mild Maximum Severity: Severe Narrative Narrative: Patient presents with left flank pain that began today. Patient states the pain is over the left flank area. Patient describes her pain is sharp and cramping. Patient admits to nausea but denies any vomiting. Patient states the pain made her somewhat short of breath. Patient states nothing makes the pain better. Patient states nothing made it worse. Patient states that since she arrived to the emergency department her pain improved. Patient felt like she passed something in her urine. Currently, she states her pain is very mild. [facility] Medical History (Updated 03/24/21 @ 14:[address] John Campos DO) Abnormal Pap smear of cervix Chronic headaches Hypertension affecting Seasonal allergies Vitamin D deficiency Home Medications valacyclovir 1 gram tablet 2,000 mg PO BID PRN tab 06/13/20 [History Last Taken Unknown] fluoxetine 20 mg capsule 20 mg PO DAILY #30 cap 02/26/21 [Rx Last Taken Unknown] clobetasol 0.05 % topical ointment 1 applic TOPICAL QHS #15 g 03/14/21 [Rx Last Taken Unknown] Allergy/AdvReac Type Severity Reaction Status Date / Time Sulfa (Sulfonamide Allergy Severe Other Verified 03/24/21 11:20 Antibiotics) Family History Father Alcoholism Mother Mental disorder Grandmother Blood clots Grandfather Skin cancer Hypertension Surgical History History of appendectomy History of section History of tonsillectomy and adenoidectomy History of tubal ligation Social History Smoking Status: Never smoker alcohol intake: never substance use type: does not use caffeine: No (rarely) seatbelt use: always do you feel safe at home: Yes additional social history: - [employer]- Deal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 [employer] 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[employer] ROS ED Constitutional Constitutional ED: Denies chills or fever(s) Eyes Eyes: Denies blurry vision or change in vision ENT ENT ED: Denies rhinorrhea or sore throat Cardiovascular Cardiovascular: Denies chest pain or palpitations Respiratory/Chest Respiratory/Chest: Reports dyspnea; Denies cough Gastrointestinal Gastrointestinal: Reports abdominal pain and nausea; Denies vomiting Genitourinary Genitourinary ED: Denies dysuria or hematuria Musculoskeletal Musculoskeletal: Reports back pain; Denies neck pain Integumentary Denies abscess or rash Neurologic Neurologic: Denies headache(s) or weakness Allergic/Immunologic Allergic/Immunologic ED: Denies mouth swelling or urticaria EXAM Physical Exam Const Vital Signs: 03/24/21 11:21 Temperature 97.0 F L Temperature Source Temporal Pulse Rate 65 Respiratory Rate 17 Blood Pressure 119/80 Blood Pressure Mean 93 Pulse Ox 98 Oxygen Delivery Method Room Air Positive well nourished, well developed and obese General Appearance ED: well developed Nutritional Appearance: obese HEENT Reports moist mucous membranes Neck supple and no JVD Resp normal respiratory effort and clear to auscultation bilaterally Cardio regular rate and regular rhythm GI normal to inspection, nondistended, normoactive bowel sounds, non-tender and non-distended Palpation: soft Back/Spine General Back: CVA tenderness left (Slight left CVA tenderness) Neuro oriented x3, CN's II-XII intact bilaterally and no sensory deficits noted Sensorium / Orientation: alert Motor Exam: strength 5/5 throughout Psych mental status grossly normal MDM MDM MDM Narrative Medical decision making narrative: Urinalysis was obtained. There is no evidence of urinary tract infection. CT scan of the abdomen and pelvis was obtained. There is no acute intra-abdominal process. There is cholelithiasis but no evidence of cholelithiasis. When the patient provided urine specimen here in the emergency department, there was a calculus noted in the urine. This is likely a recently passed ureteral calculus. Since the patient is feeling better, she will be discharged home. Patient was advised of her findings. Patient was instructed to follow-up with her primary care physician in 7 to 10 days. Patient understood and was agreeable with the plan. All questions were answered. Lab Data Labs: Laboratory Results - last 24 hr 03/24/21 11:44 Urine Color Yellow Urine Clarity Clear Urine pH 6.0 Ur Specific [place] 1.025 Urine Protein 15 H Urine Glucose (UA) Normal Urine Ketones Negative Urine Occult Blood 150 H Urine Nitrite Negative Urine Bilirubin Negative Urine Urobilinogen Normal Ur Leukocyte Esterase Negative Urine RBC 5-10 SEEN Urine WBC 0 SEEN Ur Squamous Epith Cells 0-5 SEEN Urine Bacteria RARE Urine Mucus 0 SEEN Radiography Diagnostic Testing: Radiology Impression Abdomen/Pelvis CT 03/24/21 12:06 IMPRESSION: 1. No evidence of acute intra-abdominal process or focal inflammation. There is mild central mesenteric stranding and scattered lymph nodes consistent with mild enteric panniculitis in the appropriate clinical setting. 2. Cholelithiasis without evidence of cholecystitis. No evidence of nephrolithiasis or ureteral stone. Electronically Signed: Leon Maria DO at 12:53 EDT , Service support , Discharge Plan Triage Chief Complaint: Flank Pain ED Provider: John Campos Dx/Rx/DC Orders Clinical Impression: Kidney stones Instructions: ED Kidney Stone, Passed Prescriptions: No Action valacyclovir [Valtrex] 1 gram tablet 2,000 mg PO BID PRN (Reason: cold sore) RF: 0 fluoxetine 20 mg capsule 20 mg PO DAILY Qty: 30 RF: 6 clobetasol 0.05 % ointment 1 applic topical QHS Qty: 15 RF: 0 Primary Care Provider: Deyvi Lopez Referrals: Deyvi Lopez DO [Primary Care Provider] - 1-2 Weeks Disposition Disposition: Home, self care
[2021-03-24 12:20] LABS: Mucous, Urine 0 SEEN /hpf (<or=2+); White Blood Cells 0 SEEN /hpf (0-5)
[2021-03-24 12:21] LABS: Color, Urine Yellow (Yellow); Glucose, Dipstick Normal (Normal); Ketone-Dipstick Negative (Negative); Leukocyte Esterase-Dipstick Negative /ul (Negative); Nitrite-Dipstick Negative (Negative); Occult Blood-Urine 150 /ul (Negative); Protein-Dipstick 15 mg/dl (Negative); Specific Gravity, Urine 1.025 (1.002-1.030); Urine Bilirubin Dipstick Negative (Negative); Urine Clarity Clear (Clear); Urine Urobilinogen Normal (Normal)
[2021-03-24 12:28] LABS: Red Blood Cells-Urine 5-10 SEEN /hpf (0-5)
[2021-03-24 12:29] LABS: Bacteria RARE /hpf (None Seen); Squamous Epithelial Cells - UA 0-5 SEEN /hpf (5-10)
[2021-03-24 14:07] VITALS: BP 135/85; PULSE 82; RESP 18; O2SAT 98
== END 2021-03-24 14:07 | disposition home or self-care (01) ==
PROVIDERS: Emergency Provider Emergency Medicine; PCP Family Medicine
DX: N20.0 Calculus of kidney (principal); E66.9 Obesity, unspecified; Z79.899 Other long term (current) drug therapy
CPT/HCPCS: 74176; 81001; 99282

== ENCOUNTER → 2021-04-10 | Outpatient (CLI) | payer OTHER, SELFPAY ==
[2021-04-10 08:56] VITALS: BMI 37.3
== END | disposition home or self-care (01) ==
LOC: LABSPEC 14:43
PROVIDERS: PCP Family Medicine; Visit Provider Nurse Practitioner Women's Health
DX: N89.8 Other specified noninflammatory disorders of vagina (principal)
CPT/HCPCS: 87070; 87077; 87205

== ENCOUNTER → 2021-04-19 | Outpatient (CLI) | payer OTHER, SELFPAY ==
[2021-04-19 10:52] VITALS: BMI 37.3
== END | disposition home or self-care (01) ==
LOC: LABSPEC 16:51
PROVIDERS: PCP Family Medicine; Referring Provider Obstetrics & Gynecology; Visit Provider Obstetrics & Gynecology
DX: N94.819 Vulvodynia, unspecified (principal)
CPT/HCPCS: 87070; 87205

== ENCOUNTER → 2021-05-13 | Outpatient (CLI) | payer OTHER, SELFPAY ==
[2021-05-13 15:11] VITALS: BMI 37.3
== END | disposition home or self-care (01) ==
PROVIDERS: PCP Family Medicine; Referring Provider Nurse Practitioner Women's Health; Visit Provider Nurse Practitioner Women's Health
DX: R30.0 Dysuria (principal); N76.0 Acute vaginitis
CPT/HCPCS: 87070; 87086; 87088; 87205

== ENCOUNTER → 2021-05-23 | Outpatient (CLI) | payer OTHER, SELFPAY ==
[2021-05-23 13:45] VITALS: BMI 37.3
== END | disposition home or self-care (01) ==
LOC: LABSPEC 17:16
PROVIDERS: PCP Family Medicine; Visit Provider Obstetrics & Gynecology
DX: N76.0 Acute vaginitis (principal)
CPT/HCPCS: 87070; 87205

== ENCOUNTER 2021-12-19 08:06 | Outpatient (CLI) | payer OTHER, SELFPAY | END 2021-12-19 23:59 | disposition home or self-care (01) | PROVIDERS: PCP Family Medicine; Visit Provider Obstetrics & Gynecology | DX: N89.8 Other specified noninflammatory disorders of vagina (principal) | CPT/HCPCS: 87070; 87205 ==

== ENCOUNTER 2022-01-17 12:09 | Outpatient (CLI) | payer OTHER, SELFPAY ==
[2022-01-17 13:59] LABS: Hemoglobin A1c 4.8 % (3.8-5.6)
== END 2022-01-17 23:59 | disposition home or self-care (01) ==
LOC: LAB 12:10
PROVIDERS: PCP Family Medicine; Referring Provider Obstetrics & Gynecology; Visit Provider Obstetrics & Gynecology
DX: N76.0 Acute vaginitis (principal)
CPT/HCPCS: 36415; 83036

== ENCOUNTER 2022-01-17 16:18 | Outpatient (CLI) | payer OTHER, SELFPAY | END 2022-01-17 23:59 | disposition home or self-care (01) | LOC: LABSPEC 16:20 | PROVIDERS: PCP Family Medicine; Referring Provider Obstetrics & Gynecology; Visit Provider Obstetrics & Gynecology | DX: N89.8 Other specified noninflammatory disorders of vagina (principal) | CPT/HCPCS: 87070; 87205 ==

== ENCOUNTER → 2022-02-19 | Outpatient (CLI) | payer OTHER, SELFPAY | END | disposition home or self-care (01) | LOC: LABSPEC 16:13 | PROVIDERS: PCP Family Medicine; Visit Provider Obstetrics & Gynecology | DX: B37.3 Candidiasis of vulva and vagina (principal) | CPT/HCPCS: 87070; 87205 ==

== ENCOUNTER → 2022-12-11 | Outpatient (CLI) | payer OTHER, SELFPAY ==
[2022-12-11 15:19] LABS: Absolute Lymphocyte Count 2.29 X10^3/uL (0.83-4.51); Absolute Neutrophil Count 4.3 X10^3/uL (2.0-7.7); Basophil# 0.04 X10^3/uL; Basophil% 0.5 % (0-1); Eosinophil# 0.27 X10^3/uL; Eosinophils% 3.5 % (0-5); Hematocrit 40.5 % (37-47); Hemoglobin 13.5 g/dL (12.0-15.0); Lymphocyte # 2.29 X10^3/ul (0.83-4.51); Lymphocyte % 29.6 % (19-41); Mean Corp Hgb Conc 33.3 g/dL (32-36); Mean Corpuscular Hgb 27.8 pg (27.0-32.0); Mean Corpuscular Volume 83.3 fL (81-99); Mean Platelet Vol. 9.2 fl (6.2-12.0); Monocyte# 0.78 X10^3/uL; Monocyte% 10.1 % (0-10); NRBC Flagged by Analyzer 0 % (0-5); Neutrophil # 4.34 X10^3/uL (2.7-7.7); Platelet Count 254 K/mm3 (150-450); RBC Distribution Width CV 13.2 % (11.6-14.6); RBC Distribution Width SD 39.8 fl (35.1-43.9); Red Blood Count 4.86 M/mm3 (4.2-5.4); White Blood Count 7.7 K/mm3 (4.4-11.0)
[2022-12-11 16:08] LABS: Vitamin D,25 Hydroxy 52.3 ng/mL
[2022-12-11 16:14] LABS: ALB/GLOB Ratio 1.1 RATIO (0.9-2.4); AST(SGOT) 17 U/L (15-37); Alanine Aminotransfer ALT/SGPT 32 U/L (13-56); Albumin, Serum 3.5 g/dL (3.2-5.0); Alkaline Phosphatase 85 U/L (45-117); Anion Gap 4 (5-15); BUN 17 mg/dL (7-18); BUN/Creat Ratio 20.4 RATIO (10-20); Calcium,Total 8.7 mg/dL (8.5-10.1); Chloride 107 mmol/L (98-107); Creatinine, Serum 0.83 mg/dL (0.55-1.02); EST Glomerular Filtration Rate 81 mL/min (>60); Est Glom Filt Rate - Afr Amer 98 mL/min (>60); Globulin 3.3 g/dL (2.2-4.2); Glucose 96 mg/dL (74-106); Magnesium 2.2 mg/dL (1.6-2.6); Potassium 3.6 mmol/L (3.5-5.1); Protein, Total 6.8 g/dL (6.4-8.2); Sodium Level 140 mmol/L (136-145)
== END | disposition home or self-care (01) ==
LOC: BIMLAB 14:12
PROVIDERS: PCP Family Medicine; Referring Provider Family Medicine; Visit Provider Family Medicine
DX: M25.511 Pain in right shoulder (principal); F41.9 Anxiety disorder, unspecified; F32.A Depression, unspecified
CPT/HCPCS: 36415; 80053; 82306; 83735; 85025

== ENCOUNTER → 2022-12-15 | Outpatient (CLI) | payer OTHER, SELFPAY ==
--- NOTE | 2022-12-15 07:01 | RAD_ITS ---
STUDY: X-RAY - RIGHT SHOULDER REASON FOR EXAM: Female, 37 years old. Pain, decreased range of motion TECHNIQUE: 4 view(s) of the shoulder. COMPARISON: None. FINDINGS: Normal glenohumeral articulation. Mild AC joint narrowing. Normal acromion. Normal humeral head and visualized proximal humerus. The soft tissue structures are unremarkable. Normal visualized pulmonary apex. RAD/Shoulder min 2 Views IMPRESSION: No fracture or suspicious osseous lesion Mild AC joint narrowing Electronically Signed: Jaguar Cid MD at 11:43 EST ,
== END | disposition home or self-care (01) ==
LOC: RAD 07:01
PROVIDERS: PCP Family Medicine; Visit Provider Family Medicine
DX: M25.511 Pain in right shoulder (principal)
CPT/HCPCS: 73030

== ENCOUNTER → 2023-02-05 | Outpatient (CLI) | payer OTHER, SELFPAY ==
[2023-02-12 16:09] LABS: HPV APTIMA, High Risk Negative (Negative)
== END | disposition home or self-care (01) ==
PROVIDERS: PCP Family Medicine; Referring Provider Obstetrics & Gynecology; Visit Provider Obstetrics & Gynecology
DX: Z12.4 Encounter for screening for malignant neoplasm of cervix (principal); N89.8 Other specified noninflammatory disorders of vagina
CPT/HCPCS: 87070; 87205; 87624; 88175; G0145

== ENCOUNTER → 2023-08-04 | Outpatient (CLI) | payer OTHER, SELFPAY ==
[2023-08-05 08:11] LABS: Lyme Scn Total Ab w/Rflx Negative (Negative)
== END | disposition home or self-care (01) ==
LOC: LAB 09:29
PROVIDERS: PCP Family Medicine; Referring Provider Family Medicine; Visit Provider Family Medicine
DX: M25.50 Pain in unspecified joint (principal)
CPT/HCPCS: 36415; 86618

== ENCOUNTER → 2023-08-24 | Outpatient (CLI) | payer OTHER, SELFPAY | END | disposition home or self-care (01) | LOC: LABSPEC 16:03 | PROVIDERS: PCP Family Medicine; Referring Provider Registered Nurse; Visit Provider Registered Nurse | DX: N89.8 Other specified noninflammatory disorders of vagina (principal) | CPT/HCPCS: 87070; 87205 ==

== ENCOUNTER → 2023-12-09 | Outpatient (CLI) | payer OTHER, SELFPAY ==
[2023-12-09 07:08] LABS: Absolute Lymphocyte Count 1.93 X10^3/uL (0.83-4.51); Absolute Neutrophil Count 4.9 X10^3/uL (2.0-7.7); Basophil# 0.03 X10^3/uL; Basophil% 0.4 % (0-1); Eosinophil# 0.24 X10^3/uL; Eosinophils% 3.1 % (0-5); Hemoglobin 14.1 g/dL (12.0-15.0); Lymphocyte # 1.93 X10^3/ul (0.83-4.51); Lymphocyte % 24.6 % (19-41); Mean Corp Hgb Conc 32.8 g/dL (32-36); Mean Corpuscular Hgb 27.2 pg (27.0-32.0); Mean Corpuscular Volume 82.9 fL (81-99); Mean Platelet Vol. 9.4 fl (6.2-12.0); Monocyte# 0.77 X10^3/uL; Monocyte% 9.8 % (0-10); NRBC Flagged by Analyzer 0 % (0-5); Neutrophil # 4.86 X10^3/uL (2.7-7.7); Neutrophil % 61.8 % (47-70); Platelet Count 235 K/mm3 (150-450); RBC Distribution Width CV 13.3 % (11.6-14.6); RBC Distribution Width SD 39.8 fl (35.1-43.9); Red Blood Count 5.19 M/mm3 (4.2-5.4); White Blood Count 7.9 K/mm3 (4.4-11.0)
[2023-12-09 07:40] LABS: Thyroid Stim Hormone (TSH) 1.54 uIU/mL (0.358-3.74)
[2023-12-10 16:09] LABS: Lyme Scn Total Ab w/Rflx Negative (Negative)
== END | disposition home or self-care (01) ==
LOC: LAB 06:12
PROVIDERS: PCP Family Medicine; Referring Provider Family Medicine; Visit Provider Family Medicine
DX: R53.83 Other fatigue (principal)
CPT/HCPCS: 36415; 84443; 85025; 86618

== ENCOUNTER → 2024-01-05 | Outpatient (CLI) | payer OTHER, SELFPAY | END | disposition home or self-care (01) | PROVIDERS: PCP Family Medicine; Referring Provider Nurse Practitioner Women's Health; Visit Provider Nurse Practitioner Women's Health | DX: N89.8 Other specified noninflammatory disorders of vagina (principal) | CPT/HCPCS: 87070; 87205 ==

== ENCOUNTER → 2024-02-25 | Outpatient (CLI) | payer OTHER, SELFPAY | END | disposition home or self-care (01) | PROVIDERS: PCP Family Medicine; Visit Provider Nurse Practitioner Family | DX: R30.0 Dysuria (principal); N89.8 Other specified noninflammatory disorders of vagina | CPT/HCPCS: 87070; 87086; 87205 ==

== ENCOUNTER 2025-04-12 12:45 | Outpatient (CLI) | payer OTHER, SELFPAY ==
--- OUTSIDE RECORDS SUMMARY | 2025-03-29 06:11 | XMS RPT_ITS | CCD ---
Author Organization [facility] Care Team Providers Care Strip Picker Name Role Phone Dr. Deyvi Lopez Primary Care Provider Dr. Deyvi Lopez Referring Provider Dr. Sade Collins Attending Provider [phone] Dr. Deyvi Lopez Primary Care Provider [phone] Dr. Deyvi Lopez Attending Provider Dr. Deyvi Lopez Referring Provider Dr. Deyvi Lopez Primary Care Provider [phone] Dr. Deyvi Lopez Referring Provider JACQUE Christina Attending Provider Dr. Deyvi Lopez Primary Care Provider [phone] Dr. Deyvi Lopez Referring Provider JACQUE Christina Attending Provider NOHEMI Whitmore Attending Provider [phone] Dr. Deyvi Lopez Attending Provider Dr. Deyvi Lopez Primary Care Provider Dr. Deyvi Lopez Referring Provider NOHEMI Whitmore Attending Provider Dr. Deyvi Lopez Attending Provider BETH Collins NP Attending Provider [phone] Dr. Deyvi Lopez Primary Care Provider [phone] Dr. Deyvi Lopez Referring Provider [phone] BETH Raymundo Attending Provider Dr. Deyvi Lopez DO Primary Care Provider [phone] Assessment, Health Risk Attending Provider Unava ilable Assessment, Health Risk Referring Provider Unava ilable Dr. Deyvi Lopez DO Attending Provider [phone] Dr. Deyvi Lopez DO Referring Provider [phone] Deyvi Lopez Attending Unavailable Deyvi Lopez Referring Unavailable Deyvi Lopez R Primary Care Unavailable Deyvi Lopez R Referring Unavailable Jerson Hernandez Attending Unavailable Deyvi Lopez Primary Care Unavailable Deyvi Lopez Referring Unavailable Sade Collins Attending Unavailable Deyvi Lopez Primary Care Unavailable Assessment, Health Risk Attending Unavaila ble Assessment, Health Risk Referring Unavaila ble Deyvi Lopez Primary Care Unavailable Allergies Allergy Classification Reported Allergen(s) Allergy Type Date of Onset Reaction(s) Facility (10 sources) Sulfonamides (Antibiotic); Translations: [Sulfa (Sulfonamide Antibiotics)] Allergy to substance 12-19-2021 Other [facility] Comment on above: hives Medications Current Medications Medication Drug Class(es) Dates Sig (Normalized) Sig (Original) boric acid (6 sources) Start: 02-19-2022 Boric Acid (Bu lk) Active EACH February 19, 2022 3:04pm Start: 02-19-2022 Boric Acid (Bu lk) Active EACH February 19, 2022 12:00am Start: 02-19-2022 Boric Acid (Bu lk) Active EACH February 18, 2022 11:00pm Boric Acid (Bulk) granules (2 sources) Start: 04-12-2024 Boric Acid (Bu lk) granules Active NMA as needed April 12, 2024 12:57pm Start: 02-19-2022 End: 04-12-2024 Boric Acid (Bulk) granules D iscontinued NMA February 19, 2022 12:00am April 12, 2024 12:57pm valACYclovir 1000 mg oral tablet (20 sources) Herpesvirus Nucleoside Analog DNA Polymerase Inhibitor, Herpes Simplex Virus Nucleoside Analog DNA Polymerase Inhibitor, Herpes Zoster Virus Nucleoside Analog DNA Polymerase Inhibitor Start: 11-16-2019 End: 10-05-2024 Valacyclovir (Valtrex) 1 gram tablet Active 2000 mg PO TWICE A DAY as needed for cold sore October 05, 2024 9:50am Start: 02-04-2018 End: 02-04-2018 Valacyclovir 1 gram tablet Discontinued 1000 mg PO daily as needed February 04, 2018 12:00am February 04, 2018 4:53pm Start: 02-04-2018 End: 02-04-2018 take 1000 mg by mouth once daily Valacyclovir Discontinued 1000 MG PO daily February 04, 2018 12:00am February 04, 2018 4:53pm Completed/Discontinued Medications Medication Drug Class(es) Dates Sig (Normalized) Sig (Original) acetaminophen 325 mg / oxyCODONE hydrochloride 5 mg oral tablet (9 sources) Opioid Agonist Start: 10-09-2018 End: 10-12-2018 Oxycodone-Acetamino phen 1 TABLET tablet Discontinued 1 - 2 {tbl} PO EVERY 4 HOURS NEEDED as needed for Pain 15 October 09, 2018 1:00am October 11, 2018 1:00am October 12, 2018 1:13am Start: 10-09-2018 End: 10-12-2018 take 1 tablet by mouth every four hours as needed Oxycodone-Acetaminophen Discontinued 1 - 2 TABLET PO EVERY 4 HOURS NEEDED 07 01October 09, 2018 1:00am October 12, 2018 1:13am amoxicillin 875 mg / clavulanate 125 mg oral tablet (9 sources) Penicillin-class Antibacterial Start: 09-30-2020 End: 12-18-2020 Amoxicillin-Pot Clavulanate (Augmentin) 875-125 mg tablet Discontinued 1 {tbl} PO TWICE A DAY September 30, 2020 1:00am December 18, 2020 9:09am aspirin 81 mg chewable tablet (9 sources) Platelet Aggregation Inhibitor, Nonsteroidal Anti-inflammatory Drug Start: 05-15-2018 End: 11-19-2018 take 1 tablet by mouth once daily Aspirin 81 MG tablet,chewable Discontinued 81 mg PO DAILY May 15, 2018 12:00am November 19, 2018 12:17pm atomoxetine 60 mg oral capsule (9 sources) Norepinephrine Reuptake Inhibitor Start: 01-24-2021 End: 02-26-2021 take 1 capsule by mouth once daily Atomoxetine (Strattera) 60 mg capsule Discontinued 60 mg PO DAILY January 24, 2021 12:00am February 26, 2021 10:07am azithromycin 250 mg oral tablet (9 sources) Macrolide Antimicrobial Start: 05-19-2019 End: 06-30-2019 Azithromycin 250 mg tablet Discontinued 0 PO .COMPLEX 6 May 19, 2019 12:00am June 30, 2019 1:14pm Take two tablets by mouth on day one then one tablet by mouth on days 2-5 benzonatate 200 mg oral capsule (9 sources) Non-narcotic Antitussive Start: 05-05-2019 End: 05-19-2019 take 1 capsule by mouth three times daily as needed for cough Benzonatate 200 mg capsule Discontinued 200 mg PO THREE TIMES A DAY as needed for cough May 05, 2019 12:00am May 19, 2019 11:01am Ca Carb-Ca Gluc-Mg Ox-Mg Gluco (8 sources) Start: 02-22-2015 End: 10-18-2017 take 1 mg by mouth once daily Ca Carb-Ca Gluc-Mg Ox-Mg Gluco Discontinued 1 EACH PO DAILY February 22, 2015 12:00am October 18, 2017 10:41am Start: 02-22-2015 End: 10-18-2017 take 1 mg by mouth once daily Ca Carb-Ca Gluc-Mg Ox-Mg Gluco Discontinued 1 EACH PO DAILY February 22, 2015 12:00am October 18, 2017 10:41am Start: 02-22-2015 End: 10-18-2017 take 1 mg by mouth once daily Ca Carb-Ca Gluc-Mg Ox-Mg Gluco Discontinued 1 EACH PO DAILY February 21, 2015 11:00pm October 18, 2017 9:41am Calcium Carb,Gluc-Mag Gluc,Ox 1 EACH tablet (1 source) Start: 02-22-2015 End: 10-18-2017 take 1 tablet by mouth once daily Calcium Carb,Gluc-Mag Gluc,Ox 1 EACH tablet Discontinued 1 NMA PO DAILY February 22, 2015 12:00am October 18, 2017 10:41am citalopram 40 mg oral tablet (20 sources) Serotonin Reuptake Inhibitor Start: 09-02-2018 End: 03-01-2019 take 1 tablet by mouth once daily Citalopram 40 MG tablet Discontinued 40 mg PO daily October 05, 2018 10:32am March 01, 2019 3:47pm Start: 04-26-2018 End: 09-02-2018 take 1 tablet by mouth once daily Citalopram (Celexa) 20 mg tablet Discontinued 20 mg PO daily April 26, 2018 12:00am September 02, 2018 11:49am clobetasol propionate 0.0005 mg/mg topical ointment (18 sources) Corticosteroid Start: 03-14-2021 End: 05-23-2021 Clobetasol 0.05 % ointment Discontinued 1 NMA TOPICAL AT BEDTIME April 05, 2021 12:55pm May 23, 2021 1:45pm Start: 03-14-2021 End: 05-23-2021 Clobetasol Discontinued 1 AP PLIC TOPICAL AT BEDTIME April 05, 2021 12:55pm May 23, 2021 1:45pm clotrimazole 20 mg/ml vaginal cream (9 sources) Azole Antifungal Start: 04-19-2021 End: 04-26-2021 Clotrimazole 2 % cream Discontinued 1 NMA VAGINAL AT BEDTIME 21 April 19, 2021 12:00am April 25, 2021 12:00am April 26, 2021 12:01am Start: 04-19-2021 End: 04-26-2021 Clotrimazole Discontinued 1 APPFUL VAGINAL AT BEDTIME 21 April 19, 2021 12:00am April 26, 2021 12:01am dexamethasone 6 mg oral tablet (9 sources) Corticosteroid Start: 09-22-2020 End: 10-02-2020 take 1 tablet by mouth once daily Dexamethasone 6 MG tablet Discontinued 6 mg PO DAILY September 22, 2020 1:00am October 02, 2020 1:58pm diazePAM 2 mg oral tablet (9 sources) Benzodiazepine Start: 05-23-2017 End: 10-18-2017 take 1 tablet by mouth twice daily as needed Diazepam 2 MG tablet Discontinued 2 mg PO TWICE A DAY as needed for Vertigo May 23, 2017 7:18am October 18, 2017 10:42am erythromycin 500 mg oral tablet (9 sources) Macrolide, Macrolide Antimicrobial Start: 04-19-2021 End: 05-13-2021 take 1 tablet by mouth twice daily Erythromycin 500 mg tablet Discontinued 500 mg PO TWICE A DAY April 19, 2021 12:00am May 13, 2021 8:08am escitalopram 20 mg oral tablet (20 sources) Serotonin Reuptake Inhibitor Start: 06-13-2020 End: 01-08-2021 take 1 tablet by mouth once daily Escitalopram Oxalate 20 mg tablet Discontinued 20 mg PO DAILY October 02, 2020 1:58pm January 08, 2021 10:13am Start: 10-04-2019 End: 06-13-2020 take 10 mg by mouth once daily Escitalopram Oxalate 20 mg tablet Discontinued 10 mg PO DAILY November 16, 2019 5:11pm June 13, 2020 4:23pm Start: 10-04-2019 End: 06-13-2020 take 10 mg by mouth once daily Escitalopram Oxalate Di scontinued 10 MG PO DAILY November 16, 2019 5:11pm June 13, 2020 4:23pm Start: 08-17-2019 End: 10-04-2019 take 1 tablet by mouth once daily Escitalopram Oxalate 20 mg tablet Discontinued 20 mg PO DAILY August 17, 2019 10:45pm October 04, 2019 4:42pm Start: 06-30-2019 End: 08-17-2019 take 1 tablet by mouth once daily Escitalopram Oxalate (Lexapro) 10 mg tablet Discontinued 10 mg PO DAILY June 30, 2019 12:00am August 17, 2019 10:46pm Norgestrel-Ethinyl Estradiol (9 sources) Estrogen Start: 02-22-2015 End: 10-18-2017 Norgestrel-Ethinyl Estradiol Discontinued 1 EACH PO DAILY February 22, 2015 12:00am October 18, 2017 10:41am Start: 02-22-2015 End: 10-18-2017 Norgestrel-Ethinyl Estradiol 1 EACH tablet Discontinued 1 NMA PO DAILY February 22, 2015 12:00am October 18, 2017 10:41am Start: 02-22-2015 End: 10-18-2017 Norgestrel-Ethinyl Estradiol Discontinued 1 EACH PO DAILY February 22, 2015 12:00am October 18, 2017 10:41am Start: 02-22-2015 End: 10-18-2017 Norgestrel-Ethinyl Estradiol Discontinued 1 EACH PO DAILY February 21, 2015 11:00pm October 18, 2017 9:41am famotidine 20 mg oral tablet (18 sources) Histamine-2 Receptor Antagonist Start: 05-16-2018 End: 09-09-2018 Famotidine 20 MG tablet Discontinued 20 mg PO NEEDED as needed for Indigestion August 08, 2018 2:18pm September 09, 2018 10:38am fluconazole 150 mg oral tablet (20 sources) Azole Antifungal Start: 08-24-2023 End: 04-12-2024 Fluconazole 150 mg tablet Discontinued 150 mg PO Every 3 Days 3 February 25, 2024 9:12am April 12, 2024 12:56pm take one tablet every 3 days until completed. Start: 01-17-2022 End: 02-19-2022 Fluconazole (Diflucan) 150 m g tablet Discontinued 150 mg PO .COMPLEX 2 January 17, 2022 12:00am February 19, 2022 2:58pm 150 mg PO now and in 72 hours Start: 05-13-2021 End: 05-23-2021 Fluconazole 150 mg tablet Discontinued 150 mg PO .COMPLEX 10 May 13, 2021 12:00am May 23, 2021 1:45pm 150 mg PO take one po daily X 5 days then once a week X 6 months Start: 04-11-2021 End: 04-19-2021 Fluconazole 150 mg tablet Discontinued 150 mg PO .COMPLEX 2 April 11, 2021 12:00am April 19, 2021 11:27am 150 mg PO take one po now and repeat in 3 days Start: 03-01-2021 End: 03-14-2021 Fluconazole (Diflucan) 150 m g tablet Discontinued 150 mg PO Every 3 Days 2 March 01, 2021 12:00am March 14, 2021 8:47am february repeat second dose 72 hrs after first dose if symptoms persist Start: 10-02-2020 End: 12-18-2020 Fluconazole 150 mg tablet Discontinued 150 mg PO .COMPLEX 2 October 02, 2020 1:00am December 18, 2020 9:09am 150 mg PO take one po now and repeat in 3 days Start: 09-30-2020 End: 10-02-2020 take 1 tablet by mouth once daily Fluconazole (Diflucan) 200 mg tablet Discontinued 200 mg PO DAILY September 30, 2020 1:00am October 02, 2020 2:39pm Start: 01-26-2019 End: 03-01-2019 Fluconazole 150 mg tablet Discontinued 150 mg PO .COMPLEX 2 January 26, 2019 12:00am March 01, 2019 3:48pm 150 mg PO take one po now and repeat in 3 days FLUoxetine 20 mg oral capsule (20 sources) Serotonin Reuptake Inhibitor Start: 05-06-2022 End: 03-21-2025 take 1 capsule by mouth twice daily in the morning Fluoxetine (Prozac) 20 mg capsule Discontinued 20 mg PO TWICE A DAY as needed April 12, 2024 12:57pm March 21, 2025 9:27am administer in the morning and at noon/midday Start: 02-26-2021 End: 12-19-2021 take 1 capsule by mouth once daily Fluoxetine 20 mg capsule Discontinued 20 mg PO DAILY February 26, 2021 12:00am December 19, 2021 9:39am Start: 12-18-2020 End: 01-08-2021 take 1 capsule by mouth once daily Fluoxetine (Prozac) 20 mg capsule Discontinued 20 mg PO DAILY December 18, 2020 1:00am January 08, 2021 10:13am Start: 12-18-2020 End: 01-24-2021 take 1 capsule by mouth once daily Fluoxetine 40 mg capsule Discontinued 40 mg PO DAILY December 18, 2020 1:00am January 24, 2021 9:28am Start: 02-04-2018 End: 02-19-2018 take 1 capsule by mouth once daily Fluoxetine 20 mg capsule Discontinued 20 mg PO daily February 04, 2018 12:00am February 19, 2018 8:32am Start: 02-04-2018 End: 02-19-2018 take 1 capsule by mouth once daily Fluoxetine 40 mg capsule Discontinued 40 mg PO daily 90 February 04, 2018 12:00am February 19, 2018 8:32am fluticasone propionate 0.05 mg/actuat metered dose nasal spray (9 sources) Corticosteroid Start: 11-23-2018 End: 03-01-2019 take 50 ug nasal route once daily Fluticasone Propionate (Flonase Allergy Relief) 50 mcg/actuation spray,suspension Discontinued 2 NMA INTRANASAL DAILY 15.8 November 23, 2018 1:00am March 01, 2019 3:48pm administer into each nostril Start: 11-23-2018 End: 03-01-2019 take 1 spray(s) nasal route once daily Fluticasone Propionate (Flonase Allergy Relief) 50 mcg/actuation spray,suspension Discontinued 2 SPRAY INTRANASAL DAILY 15.8 November 23, 2018 1:00am March 01, 2019 3:48pm administer into each nostril Garlic (9 sources) Non-Standardized Food Allergenic Extract Start: 11-19-2018 End: 03-01-2019 take 500 mg by mouth once daily Garlic Discontinued 500 MG PO DAILY November 19, 2018 12:18pm March 01, 2019 3:48pm Start: 11-19-2018 End: 03-01-2019 take 1 capsule by mouth once daily Garlic 500 mg capsule Discontinued 500 mg PO DAILY November 19, 2018 1:00am March 01, 2019 3:48pm Start: 11-19-2018 End: 03-01-2019 take 500 mg by mouth once daily Garlic Discontinued 50 0 MG PO DAILY November 19, 2018 1:00am March 01, 2019 3:48pm Start: 11-19-2018 End: 03-01-2019 take 500 mg by mouth once daily Garlic Discontinued 50 0 MG PO DAILY November 19, 2018 12:00am March 01, 2019 2:48pm hydrocortisone 0.025 mg/mg topical ointment (9 sources) Corticosteroid Start: 01-17-2022 End: 02-19-2022 Hydrocortisone 2.5 % ointment Discontinued 1 NMA TOPICAL TWICE A DAY 28.35 January 17, 2022 12:00am February 19, 2022 3:03pm hydrocortisone 10 mg/ml / neomycin 3.5 mg/ml / polymyxin b 00479 unt/ml otic suspension (4 sources) Aminoglycoside Antibacterial, Polymyxin-class Antibacterial, Corticosteroid Start: 10-09-2023 End: 10-19-2023 Agmyhiwp-Ewkvkukfy-Rg 3.5-10,000-1 mg/mL-unit/mL-% drops,suspension Discontinued 3 NMA OTIC Q4H 10 October 09, 2023 1:00am October 18, 2023 1:00am October 19, 2023 1:04am apply to (cotton) wick; replace wick every 24 hours Start: 10-09-2023 End: 10-19-2023 Bxvikdws-Uqclyjhmo-Ao Discon tinued 3 DRP OTIC Q4H 10 October 09, 2023 1:00am October 19, 2023 1:04am apply to (cotton) wick; replace wick every 24 hours hydrOXYzine pamoate 25 mg oral capsule (9 sources) Antihistamine Start: 04-26-2018 End: 05-05-2018 take 1 capsule by mouth three to four times daily as needed for anxiety Hydroxyzine Pamoate (Vistaril) 25 mg capsule Discontinued 25 mg PO 3 to 4 times per day as needed for anxiety April 26, 2018 12:00am May 05, 2018 4:49pm lisdexamfetamine dimesylate 20 mg oral capsule (9 sources) Central Nervous System Stimulant Start: 01-08-2021 End: 01-15-2021 take 1 capsule by mouth once daily Lisdexamfetamine (Vyvanse) 20 mg capsule Discontinued 20 mg PO DAILY January 08, 2021 January 15, 2021 9:34am LORazepam 0.5 mg oral tablet (9 sources) Benzodiazepine Start: 01-16-2021 End: 02-26-2021 take 1 tablet by mouth three times daily as needed for anxiety Lorazepam (Ativan) 0.5 mg tablet Discontinued 0.5 mg PO THREE TIMES A DAY as needed for anxiety January 16, 2021 12:00am February 26, 2021 10:07am meclizine hydrochloride 25 mg oral tablet (18 sources) Antiemetic Start: 12-23-2018 End: 03-01-2019 take 1 tablet by mouth four times daily as needed for dizziness Meclizine 25 MG tablet Discontinued 25 mg PO 4 TIMES DAILY NEEDED as needed for Dizziness December 23, 2018 1:00am March 01, 2019 3:48pm Start: 05-15-2015 End: 10-18-2017 take 1 tablet by mouth every eight hours as needed Meclizine 25 MG tablet Discontinued 25 mg PO EVERY 8 HOURS NEEDED as needed for Vertigo May 15, 2015 12:00am October 18, 2017 10:41am meloxicam 15 mg oral tablet (1 source) Nonsteroidal Anti-inflammatory Drug Start: 04-12-2024 End: 06-21-2024 take 1 tablet by mouth once daily Meloxicam 15 mg tablet Discontinued 15 mg PO DAILY April 12, 2024 12:00am June 21, 2024 8:25am metroNIDAZOLE 500 mg oral tablet (18 sources) Nitroimidazole Antimicrobial Start: 02-27-2021 End: 03-14-2021 take 1 tablet by mouth twice daily Metronidazole (Flagyl) 500 mg tablet Discontinued 500 mg PO TWICE A DAY February 27, 2021 12:00am March 14, 2021 8:47am Start: 02-03-2019 End: 03-01-2019 take 1 tablet by mouth twice daily Metronidazole (Flagyl) 500 mg tablet Discontinued 500 mg PO TWICE A DAY February 03, 2019 12:00am March 01, 2019 3:48pm naproxen 500 mg oral tablet (9 sources) Nonsteroidal Anti-inflammatory Drug Start: 10-09-2018 End: 11-19-2018 take 1 tablet by mouth twice daily as needed for pain Naproxen 500 MG tablet Discontinued 500 mg PO TWICE DAILY NEEDED as needed for Pain 60 October 09, 2018 1:00am November 19, 2018 12:17pm norethindrone acetate 5 mg oral tablet (9 sources) Start: 12-18-2020 End: 03-14-2021 take 1 tablet by mouth twice daily, then take 1 tablet by mouth once daily Norethindrone Acetate (Aygestin) 5 mg tablet Discontinued 5 mg PO .COMPLEX December 18, 2020 1:00am March 14, 2021 8:47am 5 mg PO BID x 3 days and then once daily for remainder ondansetron 4 mg disintegrating oral tablet (9 sources) Serotonin-3 Receptor Antagonist Start: 05-23-2017 End: 10-18-2017 take 1 tablet by mouth every eight hours as needed for nausea Ondansetron 4 MG tablet Discontinued 4 mg PO EVERY 8 HOURS NEEDED as needed for Nausea May 23, 2017 12:00am October 18, 2017 10:42am Prenat.Vits,Montrell,Min -Iron-Folic (8 sources) Start: 03-01-2018 End: 03-01-2019 take 1 tablet by mouth once daily Prenat.Vits,Montrell,Mi d-Yuyv-Rcnwk Discontinued 1 TABLET PO daily March 01, 2018 4:08pm March 01, 2019 3:48pm Start: 03-01-2018 End: 03-01-2019 take 1 tablet by mouth once daily Prenat.Vits,Montrell,Cqr-Hilo-Obpbi Discontin ued 1 TABLET PO daily March 01, 2018 12:00am March 01, 2019 3:48pm Start: 03-01-2018 End: 03-01-2019 take 1 tablet by mouth once daily Prenat.Vits,Montrell,Wbs-Xljt-Maoea Discontin ued 1 TABLET PO daily February 28, 2018 11:00pm March 01, 2019 2:48pm Prenat.Vits,Montrell,Txe-Rata-Asx ic tablet (1 source) Start: 03-01-2018 End: 03-01-2019 Prenat.Vits,Montrell,Tqm-Kbjh-Ppd ic tablet Discontinued 1 {tbl} PO daily March 01, 2018 12:00am March 01, 2019 3:48pm terconazole 4 mg/ml vaginal cream (2 sources) Azole Antifungal Start: 02-25-2024 End: 03-03-2024 Terconazole 0.4 % cream Discontinued 1 NMA VAGINAL AT BEDTIME 45 7 February 25, 2024 12:00am March 02, 2024 12:00am March 03, 2024 12:06am Pea sized amount to vaginal/vulvar tissues Start: 02-25-2024 End: 03-03-2024 Terconazole Discontinued 1 A PPFUL VAGINAL AT BEDTIME 45 7 February 25, 2024 12:00am March 03, 2024 12:06am Pea sized amount to vaginal/vulvar tissues thiamine 100 mg oral tablet (9 sources) Start: 02-22-2015 End: 10-18-2017 take 1 tablet by mouth once daily Thiamine Hcl (Vitamin B1) 100 MG tablet Discontinued 100 mg PO DAILY February 22, 2015 12:00am October 18, 2017 10:41am 24 hr venlafaxine 150 mg extended release oral tablet (9 sources) Serotonin and Norepinephrine Reuptake Inhibitor Start: 01-15-2021 End: 01-23-2021 take 1 tablet by mouth every twenty-four hours at bedtime Venlafaxine 150 mg tablet extended release 24hr Discontinued 150 mg PO AT BEDTIME January 15, 2021 12:00am January 23, 2021 3:00pm Problems Active Problems Problem Classification Problem Date Documented Date Episodic/Chronic Abdominal pain (9 sources) Abdominal wall pain; Translations: [Right lower quadrant pain] 12-19-2021 Episodic Anxiety disorders (20 sources) Anxiety; Translations: [Anxiety disorder, unspecified] 05-06-2022 Chronic Calculus of urinary tract (9 sources) Kidney stone; Translations: [Calculus of kidney] 12-19-2021 Episodic Chronic obstructive pulmonary disease and bronchiectasis (9 sources) Bronchitis; Translations: [Bronchitis, not specified as acute or chronic] 12-19-2021 Episodic Conditions associated with dizziness or vertigo (18 sources) Lightheadedness; Translations: [Dizziness and giddiness] 12-19-2021 Episodic Early or threatened labor (9 sources) False labor; Translations: [False labor, unspecified] 10-07-2018 Episodic Genitourinary symptoms and ill-defined conditions (1 source) Incontinence; Translations: [Mixed incontinence] 06-21-2024 Chronic Comment on above: tr hernandez, con fisher weir PFPT Genitourinary symptoms and ill-defined conditions (1 source) Dysuria; Translations: [Dysuria] 02-25-2024 Episodic Headache; including migraine (9 sources) Chronic headache disorder; Translations: [Chronic headache] 12-19-2021 Episodic Hypertension complicating ; childbirth and the puerperium (9 sources) Hypertension complicating ; Translations: [Unspecified maternal hypertension, unspecified trimester] 10-07-2018 Chronic Inflammatory diseases of female pelvic organs (18 sources) Desquamative inflammatory vaginitis; 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 Recommend 1 week course of vaginal hydrocortisone, if no improvement plan vaginal clindamycin treatment. Status post erythrom ycin ordered. Clotrimazole ordered for persistent yeast. Additional culture taken and sent Malaise and fatigue (9 sources) Fatigue; Translations: [Other fatigue] 12-11-2022 Episodic Miscellaneous mental health disorders (9 sources) Binge eating disorder; Translations: [Binge eating disorder] 12-19-2021 Chronic Miscellaneous mental health disorders (9 sources) depression; Translations: [ depression] 12-19-2021 Episodic Comment on above: This patient is rece iving counseling and feels that it is helping. She had severe problems with depression and I think continues to be chronically depressed. The medicine in the past that she tolerated best was fluoxetine Mycoses (16 sources) Candidiasis of vagina; Translations: [Candidiasis of vulva and vagina] Episodic Comment on above: recurrent infections -will obtain Diflucan today x3 doses. Terazol cream. Decrease sugar and carb intake. Ok to wear cotton underwear. Restart probiotic-she is currently seeking naturopathic care who has her off probiotics. Culture obtain; final plan with results. Nutritional deficiencies (9 sources) Vitamin D deficiency; Translations: [Vitamin D deficiency, unspecified] 10-07-2018 Chronic Other complications of (9 sources) High risk ; Translations: [Supervision of high risk , unspecified, first trimester] 10-07-2018 Episodic Comment on above: PRR ELAINE 8 [facility] Oscar Galicia Festus Other complications of (9 sources) Reduced movement; Translations: [Decreased movements, unspecified trimester, not applicable or unspecified] 10-07-2018 Episodic Other complications of (5 sources) Urinary tract infection in ; Translations: [Unspecified infection of urinary tract in , unspecified trimester] 08-24-2023 Episodic Other connective tissue disease (9 sources) Bursitis of shoulder; Translations: [Bursitis of unspecified shoulder] 12-19-2021 Episodic Other ear and sense organ disorders (1 source) Otitis externa; Translations: [Unspecified otitis externa, bilateral] 10-09-2023 Chronic Other ear and sense organ disorders (1 source) Unspecified otitis externa, bilateral; Translations: [Infective otitis externa, unspecified] 10-09-2023 Chronic Other ear and sense organ disorders (9 sources) Ear sensations - finding; Translations: [Other specified disorders of right ear] 10-07-2018 Episodic Other ear and sense organ disorders (1 source) Impacted cerumen; Translations: [Impacted cerumen, bilateral] 10-09-2023 Episodic Other ear and sense organ disorders (1 source) Impacted cerumen, bilateral; Translations: [Impacted cerumen] 10-09-2023 Episodic Other female genital disorders (9 sources) Abnormal uterine bleeding; Translations: [Abnormal uterine and vaginal bleeding, unspecified] 12-19-2021 Chronic Comment on above: nl US with 1cm fibro id, s/p aygestin, if persistent consider daily OCP or IUD Other female genital disorders (9 sources) Vulvodynia; Translations: [Vulvodynia, unspecified] 12-19-2021 Chronic Other female genital disorders (2 sources) Vaginal discharge; Translations: [Other specified noninflammatory disorders of vagina] 02-05-2023 Episodic Other female genital disorders (5 sources) Vaginal irritation; Translations: [Other specified noninflammatory disorders of vagina] 08-24-2023 Episodic Other female genital disorders (2 sources) Other specified noninflammatory disorders of vagina; Translations: [Unspecified noninflammatory disorder of vagina] 01-05-2024 Episodic Other infections; including parasitic (9 sources) History of human papilloma virus infection; Translations: [Personal history of other infectious and parasitic diseases] 12-19-2021 Episodic Other injuries and conditions due to external causes (9 sources) Closed injury of head; Translations: [Unspecified injury of head, initial encounter] 12-19-2021 Episodic Other injuries and conditions due to external causes (9 sources) Injury of shoulder region; Translations: [Unspecified injury of shoulder and upper arm, unspecified arm, initial encounter] 12-19-2021 Episodic Other non-traumatic joint disorders (1 source) Shoulder pain; Translations: [Pain in right shoulder] 12-11-2022 Episodic Other non-traumatic joint disorders (6 sources) Pain in right shoulder; Translations: [Pain in joint, shoulder region] 12-11-2022 Episodic Other non-traumatic joint disorders (5 sources) Joint pain; Translations: [Pain in unspecified joint] 07-29-2023 Episodic Other nutritional; endocrine; and metabolic disorders (9 sources) Obesity; Translations: [Obesity, unspecified] 12-18-2020 Chronic Comment on above: discussed healthy we ight loss and support given Other nutritional; endocrine; and metabolic disorders (3 sources) Obesity, unspecified; Translations: [Obesity, unspecified] Chronic Other skin disorders (9 sources) Seborrheic keratosis; Translations: [Other seborrheic keratosis] 12-19-2021 Episodic Comment on above: Both lesions, that w ere very superficial, were frozen using liquid nitrogen. Other skin disorders (2 sources) Loss of hair; Translations: [Nonscarring hair loss, unspecified] 03-21-2025 Episodic Other skin disorders (1 source) Nonscarring hair loss, unspecified; Translations: [Nonscarring hair loss, unspecified] Onset: 03-21-2025 Episodic Other upper respiratory disease (9 sources) Nasal congestion; Translations: [Nasal congestion] 12-19-2021 Episodic Other upper respiratory infections (11 sources) Upper respiratory infection; Translations: [Acute upper respiratory infection, unspecified] 12-19-2021 Episodic Sprains and strains (9 sources) Strain of neck muscle; Translations: [Strain of muscle, fascia and tendon at neck level, initial encounter] 12-19-2021 Episodic Viral infection (15 sources) Herpes simplex; Translations: [Herpesviral infection, unspecified] 12-19-2021 Episodic Past or Other Problems Problem Classification Problem Date Documented Da te Episodic/Chronic Other non-traumatic joint disorders (2 sources) Pain in right knee; Translations: [Right knee pain] Onset: 04-12-2024 04-12-2024 Episodic Other screening for suspected conditions (not mental disorders or infectious disease) (1 source) Encounter for screening mammogram for malignant neoplasm of breast; Translations: [Encounter for screening mammogram for malignant neoplasm of breast] Onset: 06-21-2024 Episodic Results Test Name Value Interpretation Reference Range Facility Internal Medicine Office Vis ito 03-21-2025 Internal Medicine Office Visit [facility] [address] [place] [address] OFFICE VISIT Date of Service: 03/21/25 MR#: [id number] Acct: [id number] Name: MCKENZIE DIALLO Rep #: [id number] : 1985 Provider: Dr. Deyvi sy, DO Age/Sex: 40/F Location: [facility] Status: Signed Intake Vital Signs 06/21/24 08:30 03/21/25 09:25 Height 5 ft 4 in 5 ft 4 in Weight: 165 lb BMI 28.3 BP 126/68 H Blood Pressure Location Lt brachial Position Sitting Respiration 16 Pulse 61 Pulse Source Monitor Temp 96.8 F L Temp Source Temporal Pulse Oximetry (%) 99 Oxygen Delivery Method room air Intake Visit Reasons: EMPLOYEE LABS Chief Complaint: labs Community Service Officer Required: No Accompanied by: Self Is patient in pain?: No Allergies Sulfa (Sulfonamide Antibiotics) Allergy (Severe, Verified 03/21/25 09:20) Other Medications ???Medication ???Instructions ???Recorded ???Confirmed ???Type boric acid (bulk) ea miscellaneous PRN 04/12/2402/24 History valacyclovir 1 gram tablet 2,000 mg (2 x 1 gram) PO BID PRN 1 12/06/23 03/21/25 Rx (Valtrex) cold sore #30 tabs Have you fallen in the past year?: No [facility] Medical History Generalized anxiety disorder with panic attacks Anxiety and depression Abnormal Pap smear of cervix Seasonal allergies Vitamin D deficiency Hypertension affecting Chronic headaches Surgical History History of tubal ligation History of tonsillectomy and adenoidectomy History of appendectomy History of section Family History Father Alcoholism Skin cancer Mother Mental disorder Grandmother Blood clots Grandfather Skin cancer Hypertension Social History Smoking Status: Never smoker alcohol intake: never substance use type: does not use caffeine: No (rarely) seatbelt use: always do you feel safe at home: Yes additional social history: - [place]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 She has been doing intermittent fasting for some time and has lost a considerable amount of weight. She did have an episode that sounds to me like a kidney stone. That could be because she was in the middle of a prolonged fast and perhaps was slightly dehydrated. That pain has not reoccurred and there is no blood in her urine. She does have a daughter who is diagnosed with Crohn's disease and she has a lot of concerns about that. ROS Const Constitutional: No body ache, excessive sweating, fatigue, fever(s), frequent falls, headache(s), snoring, weakness, weight change, sleep problems or change in appetite Eyes Eyes: No blurry vision, change in vision, eye pain or Light sensitivity ENT ENT: No abnormal hearing, ear or mastoid pain, tinnitus, nasal congestion, headache(s), neck pain or sore throat Resp Respiratory: No cough, shortness of breath, snoring or wheezing Cardio Cardiology: No chest pain at rest, chest pain with exertion, excessive sweating, shortness of breath, dyspnea on exertion, lightheadedness, orthopnea or palpitations Gastro GI: No abdominal pain, change in bowel habits, constipation, cramping, diarrhea, nausea/dyspepsia or vomiting Genitourinary-Female : No burning urination, painful urination, urinary incontinence, urinary frequency, blood in urine, abnormal periods or pelvic pain Musc Musculoskeletal: No abnormal gait, joint pain, back pain, limited range of motion, neck pain, numbness, stiffness, tingling or Arthritis Skin Skin: No dry skin, redness, lesions, itchy eyes, rash or wounds Neuro Neurology: No abnormal gait, abnormal hearing, abnormal speech, dizziness, weakness, frequent falls, headache(s), memory loss, numbness or tingling Psych Psychiatric: No anxiety, No change in appetite, No depression, No memory loss and No Thoughts of harming yourself/Others Endo Endocrine: No cold intolerance, excessive sweating, fatigue, flushing, heat intolerance, increased thirst/drinking, increased hunger or weight change Aller/Imm Allergy/Immunologic: No itchy eyes, seasonal allergy symptoms, hives or wheezing Daniel/Lymp Hematologic/Lymphati c: No easy bleeding, easy bruising or enlarged lymph nodes Exam Const General: cooperative and no acute distress Nutritional Appearance: average body habitus [facility] Head: normal to inspection Ears: hearing grossly normal bilaterally Teeth and gingiva: dentition normal Eyes General: appearance nor (more content not included)... Normal [facility] Absolute lymphocyte countOrd ered By: HEALTH ASSESSMENT on 03-16-2025 Lymphocytes Auto (Unsp spec) [#/Vol] 2.22 10*3/uL 0.83-4.51 [facility] Absolute neutrophil countOrd ered By: HEALTH ASSESSMENT on 03-16-2025 Neutrophils (Bld) [#/Vol] 4.6 10*3/uL 2.0-7.7 [facility] Absolute nucleated red blood cell countOrdered By: HEALTH ASSESSMENT on 03-16-2025 Nucleated RBC (Bld) [#/Vol] 0.00 10*3/uL 0-5 [facility] Anion gap in Serum or Plasma Ordered By: HEALTH ASSESSMENT on 03-16-2025 Anion gap [Moles/Vol] 8 mmol/L 5-[address] [facility] BUN/creatinine ratioOrdered By: HEALTH ASSESSMENT on 03-16-2025 Urea nitrogen/Creatinine [Mass ratio] 16.3 mg/mg 10-20 [facility] Bilirubin Test strip Ql (U)O rdered By: HEALTH ASSESSMENT on 03-16-2025 Bilirubin Ql (U) Negative Negative [facility] Bilirubin directOrdered By: HEALTH ASSESSMENT on 03-16-2025 Bilirubin.direct [Mass/Vol] 0.42 mg/dL High 0.00-0.30 [facility] Bilirubin, totalOrdered By: HEALTH ASSESSMENT on 03-16-2025 Bilirubin [Mass/Vol] 1.04 mg/dL 0.00-1.30 [facility] CBC, Employeeon 03-16-2025 Absolute Lymph 2.22 X10 3/uL Normal 0.83-4.51 [facility] Comment on above: Performed By: #### L 400.0100, L100.0200, L500.2900 #### [facility] [address] [place], [address] Absolute Neut 4.6 X10 3/uL Normal 2.0-7.7 [facility] Comment on above: Performed By: #### L 400.0100, L100.0200, L500.2900 #### [facility] [address] [place], [address] Basophils/100 WBC (Bld) 0.6 % Normal 0-1 [facility] Comment on above: Performed By: #### L 400.0100, L100.0200, L500.2900 #### [facility] [address] [place], [address] Eosinophils/100 WBC (Bld) 3.8 % Normal 0-5 [facility] Comment on above: Performed By: #### L 400.0100, L100.0200, L500.2900 #### [facility] [address] [place], [address] Erythrocyte distribution width (RBC) [Ratio] 13.4 % Normal 11.6-14.6 [facility] Comment on above: Performed By: #### L 400.0100, L100.0200, L500.2900 #### [facility] [address] [place], [address] Hematocrit (Bld) [Volume fraction] 42.7 % Normal 37-47 [facility] Comment on above: Performed By: #### L 400.0100, L100.0200, L500.2900 #### [facility] [address] [place], [address] Hemoglobin (Bld) [Mass/Vol] 14.3 g/dL Normal 12.0-15.0 [facility] Comment on above: Performed By: #### L 400.0100, L100.0200, L500.2900 #### [facility] [address] [place], [address] Lymphocytes/100 WBC (Bld) 27.5 % Normal 19-41 [facility] Comment on above: Performed By: #### L 400.0100, L100.0200, L500.2900 #### [facility] [address] [place], [address] MCH (RBC) [Entitic mass] 28.0 pg Normal 27.0-32.0 [facility] Comment on above: Performed By: #### L 400.0100, L100.0200, L500.2900 #### [facility] [address] [place], [address] MCHC (RBC) [Mass/Vol] 33.5 g/dL Normal 32-[address] [facility] Comment on above: Performed By: #### L 400.0100, L100.0200, L500.2900 #### [facility] [address] [place], [address] MCV (RBC) [Entitic vol] 83.7 fL Normal 81-99 [facility] Comment on above: Performed By: #### L 400.0100, L100.0200, L500.2900 #### [facility] [address] [place], [address] Monocytes/100 WBC (Bld) 10.2 % High 0-10 [facility] Comment on above: Performed By: #### L 400.0100, L100.0200, L500.2900 #### [facility] [address] [place], [address] Neutrophils/100 WBC (Bld) 57.4 % Normal 47-70 [facility] Comment on above: Performed By: #### L 400.0100, L100.0200, L500.2900 #### [facility] [address] [place], [address] NRBC # 0.00 10 3/uL Normal 0-5 [facility] Comment on above: Performed By: #### L 400.0100, L100.0200, L500.2900 #### [facility] [address] [place], [address] Nucleated RBC (Bld) [#/Vol] 0 10*3/uL Normal 0-5 [facility] Comment on above: Performed By: #### L 400.0100, L100.0200, L500.2900 #### [facility] [address] [place], [address] Platelet mean volume (Bld) [Entitic vol] 9.0 fL Normal 6.2-12.0 [facility] Comment on above: Performed By: #### L 400.0100, L100.0200, L500.2900 #### [facility] [address] [place], [address] Platelets (Bld) [#/Vol] 221 10*3/uL Normal 150-450 [facility] Comment on above: Performed By: #### L 400.0100, L100.0200, L500.2900 #### [facility] [address] [place], [address] RBC (Bld) [#/Vol] 5.10 10*6/uL Normal 4.2-5.4 [facility] Comment on above: Performed By: #### L 400.0100, L100.0200, L500.2900 #### [facility] [address] [place], [address] RDW SD 41.1 fl Normal 35.1-43.9 [facility] Comment on above: Performed By: #### L 400.0100, L100.0200, L500.2900 #### [facility] [address] [place], [address] WBC (Bld) [#/Vol] 8.1 10*3/uL Normal 4.4-11.0 [facility] Comment on above: Performed By: #### L 400.0100, L100.0200, L500.2900 #### [facility] [address] [place], [address] Calculated very low density lipoprotein (VLDL) cholesterol measurementOrdered By: HEALTH ASSESSMENT on 03-16-2025 Calculated very low density lipoprotein (VLDL) cholesterol measurement 8 mg/dL 5-40 [facility] Carbon dioxide, total [Moles /volume] in Central venous bloodOrdered By: HEALTH ASSESSMENT on 03-16-2025 CO2 [Moles/Vol] 25.2 mmol/L 21.0-32.0 [facility] Chloride assayOrdered By: HE ALTH ASSESSMENT on 03-16-2025 Chloride [Moles/Vol] 106 mmol/L 98-108 [facility] Employee Profileon Cholesterol in LDL [Mass/Vol] 75 mg/dL Normal 0-130 [facility] Comment on above: Performed By: #### L 400.0100, L100.0200, L500.2900 #### [facility] [place], [address] Erythrocyte distribution wid th ratioOrdered By: HEALTH ASSESSMENT on 03-16-2025 Erythrocyte distribution width (RBC) [Ratio] 13.4 % 11.6-14.6 [facility] Erythrocyte distribution wid th standard deviationOrdered By: HEALTH ASSESSMENT on 03-16-2025 Erythrocyte distribution width (RBC) [Ratio] 41.1 fl 35.1-43.9 [facility] Glomerular filtration rate ( GFR) estimation/1.73 sq m using serum, plasma, or whole bOrdered By: HEALTH ASSESSMENT on 03-16-2025 GFR/1.73 sq M.predicted among non-blacks MDRD (S/P/Bld) [Vol rate/Area] 99 mL/min/{1.73_m2} >60 [facility] Comment on above: mL/min/1.73m2 CKD-EP I Creatinine Equation (2020) Hematocrit Auto (Bld) [Volum e fraction]Ordered By: HEALTH ASSESSMENT on 03-16-2025 Hematocrit (Bld) [Volume fraction] 42.7 % 37-47 [facility] Hemoglobin measurementOrdere d By: HEALTH ASSESSMENT on 03-16-2025 Hemoglobin (Bld) [Mass/Vol] 14.3 g/dL 12.0-15.0 [facility] Ketones Test strip Ql (U)Ord ered By: HEALTH ASSESSMENT on 03-16-2025 Ketones Ql (U) Negative Negative [facility] - Chemistry and C hemistry - challengeOrdered By: HEALTH ASSESSMENT on 03-16-2025 AST [Catalytic activity/Vol] 19 U/L <32 [facility] Lactate dehydrogenase (LDH) measurementOrdered By: HEALTH ASSESSMENT on 03-16-2025 LDH [Catalytic activity/Vol] 171 U/L 84-246 [facility] Low density lipoprotein (LDL ) cholesterol measurementOrdered By: HEALTH ASSESSMENT on 03-16-2025 Cholesterol in LDL [Mass/Vol] 75 mg/dL 0-130 [facility] MCV (mean corpuscular volume ) determinationOrdered By: HEALTH ASSESSMENT on 03-16-2025 MCV (RBC) [Entitic vol] 83.7 fL 81-99 [facility] Mean corpuscular hemoglobin (MCH) determinationOrdered By: HEALTH ASSESSMENT on 03-16-2025 MCH (RBC) [Entitic mass] 28.0 pg 27.0-32.0 [facility] Mean corpuscular hemoglobin concentration (MCHC) determinationOrdered By: HEALTH ASSESSMENT on 03-16-2025 MCHC (RBC) [Mass/Vol] 33.5 g/dL 32-[address] [facility] Mean platelet volume determi nationOrdered By: HEALTH ASSESSMENT on 03-16-2025 Platelet mean volume (Bld) [Entitic vol] 9.0 fL 6.2-12.0 [facility] Neutrophil percentageOrdered By: HEALTH ASSESSMENT on 03-16-2025 Neutrophils/100 WBC (Bld) 57.4 % 47-70 [facility] Nitrite Test strip Ql (U)Ord ered By: HEALTH ASSESSMENT on 03-16-2025 Nitrite Ql (U) Negative Negative [facility] Nucleated red blood cell per centageOrdered By: HEALTH ASSESSMENT on 03-16-2025 Nucleated RBC/100 WBC (Bld) [Ratio] 0 % 0-5 [facility] Platelet countOrdered By: HE ALTH ASSESSMENT on 03-16-2025 Platelets (Bld) [#/Vol] 221 10*3/uL 150-450 [facility] Potassium measurement (mass/ volume)Ordered By: HEALTH ASSESSMENT on 03-16-2025 Potassium (Unsp spec) [Mass/Vol] 4.5 mmol/L 3.3-5.1 [facility] Protein Test strip Ql (U)Ord ered By: HEALTH ASSESSMENT on 03-16-2025 Protein Ql (U) 15 mg/dl High Negative [facility] RBC Auto (Bld) [#/Vol]Ordere d By: HEALTH ASSESSMENT on 03-16-2025 RBC (Bld) [#/Vol] 5.10 10*6/uL 4.2-5.4 [facility] Screening total cholesterol/ high density lipoprotein (HDL) cholesterol ratioOrdered By: HEALTH ASSESSMENT on 03-16-2025 Cholesterol.total/Choles terol in HDL [Mass ratio] 2.28 {ratio} [facility] Serum creatinine measurement (mass/volume)Ordered By: HEALTH ASSESSMENT on 03-16-2025 Creatinine [Mass/Vol] 0.77 mg/dL 0.70-1.[address] [facility] Serum globulin measurementOr dered By: HEALTH ASSESSMENT on 03-16-2025 Globulin (S) [Mass/Vol] 2.9 g/dL 2.2-4.2 [facility] Serum glucose measurement (m ass/volume)Ordered By: HEALTH ASSESSMENT on 03-16-2025 Glucose [Mass/Vol] 82 mg/dL 70-99 [facility] Serum or plasma alanine tapia otransferase (ALT) measurementOrdered By: HEALTH ASSESSMENT on 03-16-2025 ALT [Catalytic activity/Vol] 15 U/L <35 [facility] Serum or plasma albumin omero urement (mass/volume)Ordered By: HEALTH ASSESSMENT on 03-16-2025 Albumin [Mass/Vol] 4.2 g/dL 3.5-5.0 [facility] Serum or plasma albumin/glob ulin mass ratioOrdered By: HEALTH ASSESSMENT on 03-16-2025 Albumin/Globulin [Mass ratio] 1.5 {ratio} 0.9-2.4 [facility] Serum or plasma alkaline livan sphatase measurementOrdered By: HEALTH ASSESSMENT on 03-16-2025 ALP [Catalytic activity/Vol] 52 U/L 35-104 [facility] Serum or plasma calcium omero urement (mass/volume)Ordered By: HEALTH ASSESSMENT on 03-16-2025 Calcium [Mass/Vol] 8.2 mg/dL 7.6-11.0 [facility] Serum or plasma cholesterol in HDL measurement (mass/volume)Ordered By: HEALTH ASSESSMENT on 03-16-2025 Cholesterol in HDL [Mass/Vol] 65 mg/dL >40 [facility] Comment on above: National Cholesterol Education Program (NCEP) guidelines:<40 mg/dL: Low HDL-cholesterol (major risk factor for CHD)>= 60 mg/dL: High HDL-cholesterol (negative risk factor for CHD)HDL-cholesterol is affected by a number of factors, e.g. smoking, exercise, hormones, sex and age. Serum or plasma cholesterol measurement (mass/volume)Ordered By: HEALTH ASSESSMENT on 03-16-2025 Cholesterol [Mass/Vol] 148 mg/dL <201 [facility] Comment on above: Cholesterol level, D esirable <200 mg/dLBorderline high cholesterol 200-239 mg/dLHigh cholesterol >=240 mg/dLRecommendations of the NCEP Adult Treatment Panel for the following risk-cutoff thresholds for the [place] population. Serum or plasma urea nitroge n measurement (mass/volume)Ordered By: HEALTH ASSESSMENT on 03-16-2025 Urea nitrogen [Mass/Vol] 13 mg/dL 4-19 [facility] Serum or plasma uric acid me asurement (mass/volume)Ordered By: HEALTH ASSESSMENT on 03-16-2025 Urate [Mass/Vol] 3.5 mg/dL 2.6-6.0 [facility] Comment on above: The drugs N-Acetylcy steine and Metamizole may falsely depress this assay. Sodium levelOrdered By: [facility] ASSESSMENT on 03-16-2025 Sodium [Moles/Vol] 139 mmol/L 133-145 [facility] Total proteinOrdered By: [facility] ASSESSMENT on 03-16-2025 Protein [Mass/Vol] 7.1 g/dL 5.9-8.4 [facility] Triglycerides measurementOrd ered By: HEALTH ASSESSMENT on 03-16-2025 Triglyceride [Mass/Vol] 42 mg/dL <199 [facility] Comment on above: The drugs N-Acetylcy steine and Metamizole may falsely depress this assay. Normal range: <150 mg/dLBorderline High: 150-199 mg/dLHigh: 200-499 mg/dLVery High: >500 mg/dL Urinalysis, Employeeon 03-16 BILIRUBIN URINE Negative Normal Negative [facility] Comment on above: Order Comment: Urine , Random Performed By: #### L 400.0100, L100.0200, L500.2900 #### [facility] [address] [place], [place], [id number] Clarity (U) Clear Normal Clear [facility] Comment on above: Order Comment: Urine , Random Performed By: #### L 400.0100, L100.0200, L500.2900 #### [facility] [address] [place], [address] Color (U) Yellow Normal Yellow [facility] Comment on above: Order Comment: Urine , Random Performed By: #### L 400.0100, L100.0200, L500.2900 #### [facility] [address] [place], [address] GLUCOSE, UR Normal Normal Normal [facility] Comment on above: Order Comment: Urine , Random Performed By: #### L 400.0100, L100.0200, L500.2900 #### [facility] [address] [place], [address] KETONE UR Negative Normal Negative [facility] Comment on above: Order Comment: Urine , Random Performed By: #### L 400.0100, L100.0200, L500.2900 #### [facility] [address] [place], [address] LEUK ESTERASE Negative Normal Negative [facility] Comment on above: Order Comment: Urine , Random Performed By: #### L 400.0100, L100.0200, L500.2900 #### [facility] [address] [place], [address] Nitrite Ql (U) Negative Normal Negative [facility] Comment on above: Order Comment: Urine , Random Performed By: #### L 400.0100, L100.0200, L500.2900 #### [facility] [address] [place], [address] OCCULT BLOOD-UR Negative Normal Negative [facility] Comment on above: Order Comment: Urine , Random Performed By: #### L 400.0100, L100.0200, L500.2900 #### [facility] [address] [place], [address] pH UR 6.5 Normal 5.0 - 8.0 [facility] Comment on above: Order Comment: Urine , Random Performed By: #### L 400.0100, L100.0200, L500.2900 #### [facility] [address] [place], [address] PROT DIPSTX 15 mg/dl Abnormal Negative [facility] Comment on above: Order Comment: Urine , Random Performed By: #### L 400.0100, L100.0200, L500.2900 #### [facility] [address] [place], [address] SP.GR. DIPSTX 1.015 Normal 1.002-1.030 [facility] Comment on above: Order Comment: Urine , Random Performed By: #### L 400.0100, L100.0200, L500.2900 #### [facility] [address] [place], [address] UROBILI Normal Normal Normal [facility] Comment on above: Order Comment: Urine , Random Performed By: #### L 400.0100, L100.0200, L500.2900 #### [facility] [address] [place], [address] Urine clarityOrdered By: A [facility] ASSESSMENT on 03-16-2025 Clarity (U) Clear Clear [facility] Urine color determinationOrd ered By: HEALTH ASSESSMENT on 03-16-2025 Color (U) Yellow Yellow [facility] Urine glucose detectionOrder ed By: HEALTH ASSESSMENT on 03-16-2025 Glucose Ql (U) Normal mg/dl Normal [facility] Urine leukocyte esterase det ection by dipstickOrdered By: HEALTH ASSESSMENT on 03-16-2025 Leukocyte esterase Test strip Ql (U) Negative Negative [facility] Urine pHOrdered By: HEALTH A SSESSMENT on 03-16-2025 pH (U) 6.5 [pH] 5.0 - 8.0 [facility] Urine specific gravity measu rementOrdered By: HEALTH ASSESSMENT on 03-16-2025 Specific gravity (U) [Rel density] 1.015 1.002-1.030 [facility] Urine urobilinogen measureme ntOrdered By: HEALTH ASSESSMENT on 03-16-2025 Urobilinogen Ql (U) Normal mg/dl Normal [facility] White blood cell (WBC) count Ordered By: HEALTH ASSESSMENT on 03-16-2025 WBC (Bld) [#/Vol] 8.1 10*3/uL 4.4-11.0 [facility] Search Manager Office Visit Reporton 06-21-2024 Search Manager Office Visit Report [facility] [address], [address] [place] [address] OFFICE VISIT Date of Service: 06/21/24 MR#: [id number] Acct: [id number] Name: MCKENZIE DIALLO Rep #: [id number] : 1985 Provider: Dr. 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: No Is patient in pain?: No Allergies Sulfa (Sulfonamide Antibiotics) Allergy (Severe, Verified 06/21/24 08:24) Other Medications ???Medication ???Instructions ???Recorded ???Confirmed ???Type valacyclovir 1 gram tablet 2,000 mg (2 x 1 gram) PO BID PRN 08/06/22 04/12/24 Rx (Valtrex) cold sore #8 tabs boric acid (bulk) ea miscellaneous PRN 04/12/24 04/12/24 History fluoxetine 20 mg capsule (Prozac) 20 mg PO BID PRN 04/12/24 History Is last menstrual period known: Yes Last Menstrual Period: 05/31/24 Post menopausal: No Patient : No : No PFSH Medical History Generalized anxiety disorder with panic attacks Anxiety and depression Abnormal Pap smear of cervix Seasonal allergies Vitamin D deficiency Hypertension affecting Chronic headaches Surgical History History of tubal ligation History of tonsillectomy and adenoidectomy History of appendectomy History of section Family History (Updated 06/21/24 @ 08:27 by Karen Kapoor) Father Alcoholism Skin cancer Mother Mental disorder Grandmother Blood clots Grandfather Skin cancer Hypertension Social History Smoking Status: Never smoker alcohol intake: never substance use type: does not use caffeine: No (rarely) seatbelt use: always do you feel safe at home: Yes additional social history: - [employer]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 History 3 Elective abortions Hx Para 3 Spontaneous abortions Hx # Term Pregnancies Ectopic pregnancies Hx # Pregnancies Multiple births # of living children Past Pregnancies Del. Date Name GA/Weeks Outcome Route [facility] Weight Gen Labor Lgth Anesthesia Del Locatn Provider FOB 09/20/11 Frida 37 live - full term Female [employer] Nieves Culp 07/14/13 Oscar 39 live - full term Female [facility] Dr Rose Mary Cano 10/07/18 gege 39 live - full term Male spinal [facility] SM Delivery Date: 10/07/18 Last Updated by: Virginia Gonzalez [facility], [facility] HPI Encounter for routine gynecological examination Details: MCKENZIE DIALLO is a 39 year old who presents for annual exam. Last PAP: January 2023 History of abnormal PAP: no severe Last mammogram: due Other preventative health care screenings: pcp Female Reproductive History Last Menstrual Period: 05/31/24 Cycle Length: 21-35 Bleeding Duration: 5 Questions: metorrhagia: No, sexually active: Yes, dyspareunia: No and PCB: No Menopausal Symptoms: No hot flashes, No night sweats, No weight change, No mood changes, No difficulty concentrating, No sleep problems and No change in libido ROS Const Constitutional: Reports as per HPI; Denies fatigue, increased appetite, poor appetite, night sweats, weight gain or weight loss Cardio Card: Denies chest pain Resp Resp: Denies cough or dyspnea GI GI: Reports as per HPI; Denies abdominal pain, bloating, constipation, nausea or vomiting : Reports as per HPI, urinary incontinence, urinary urgency and other; Denies difficulty voiding, dysuria, hematuria, hot flashes, nipple discharge, pelvic pain, prolapse symptoms, urinary frequency, vaginal discharge, vaginal dryness, vaginal odor or vaginal pruritus Skin Skin/Breast: Denies changing lesions, breast mass, breast pain, breast skin changes or nipple discharge Psych Psych: Denies anxiety, change in libido, depression or difficulty concentrating Exam Const General: cooperative, healthy appearing, comfortable, no acute distress, well developed and well groomed [facility] Head: normal to inspection and normocephalic Ears: hearing grossly normal bilaterally and external ears normal Nose: external nose normal Face and sinus: normal facial exam Neck Neck: normal visual inspection, full ROM and no lymphadenopathy Thyroid: thyroid normal Chest Chest palpation inspection: normal inspection of the chest Breast inspection: normal inspection of the breasts and normal inspection of the axillae Breast palpation: normal palpatio (more content not included)... Normal [facility] Internal Medicine Office Vis [facility] 04[facility]12-2024 Internal Medicine Office Visit [facility] [address] [place] [address] [place] [address] OFFICE VISIT Date of Service: 04/12/24 MR#: [id number] Acct: [id number] Name: MCKENZIE DIALLO Rep #: [id number] : 1985 Provider: NOHEMI Garcia Age/Sex: 39/F Location: [facility] Status: Signed Intake Vital Signs 02/25/24 08:35 04/12/24 12:57 Height 5 ft 4 in 5 ft 4 in Weight: 185 lb BMI 31.7 BP 124/80 H Blood Pressure Location Lt brachial Position Sitting Respiration 14 Pulse 60 Pulse Source Monitor Temp 98.5 F Temp Source Temporal Pulse Oximetry (%) 98 Oxygen Delivery Method room air Intake Visit Reasons: acute - injured rt knee Chief Complaint: Yeast? Community Service Officer Required: No Is patient in pain?: No Allergies Sulfa (Sulfonamide Antibiotics) Allergy (Severe, Verified 04/12/24 12:51) Other Medications ???Medication ???Instructions ???Recorded ???Confirmed ???Type valacyclovir 1 gram tablet 2,000 mg (2 x 1 gram) PO BID PRN 08/06/22 04/12/24 Rx (Valtrex) cold sore #8 tabs boric acid (bulk) ea miscellaneous PRN 04/12/24 04/12/24 History fluoxetine 20 mg capsule (Prozac) 20 mg PO BID PRN 04/12/24 History meloxicam 15 mg tablet 15 mg PO DAILY #30 tabs 04/12/24 04/12/24 Rx Nurse's Note: Doesn't recall what happened. Noticed it Thursday night. Can't bend it. States hip also hurts too. Has not been treating w/ anything besides elevation as she doesn't take medicine. States sometimes it hurts to bear weight, and twist it. Just sitting there it's fine. [facility] Medical History Generalized anxiety disorder with panic attacks Anxiety and depression Abnormal Pap smear of cervix Seasonal allergies Vitamin D deficiency Hypertension affecting Chronic headaches Surgical History History of tubal ligation History of tonsillectomy and adenoidectomy History of appendectomy History of section Family History Father Alcoholism Mother Mental disorder Grandmother Blood clots Grandfather Skin cancer Hypertension Social History Smoking Status: Never smoker alcohol intake: never substance use type: does not use caffeine: No (rarely) seatbelt use: always do you feel safe at home: Yes additional social history: - [employer]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 Details: MCKENZIE DIALLO, is a 39 F who presents to the office today for right knee pains. She states that she has not had any injury to the right knee. She states that she started to have discomfort this past Thursday evening pretty much out of nowhere. She states that since then the pains have been gradually worsening. Pains are located on the medial aspect of the knee. She notices this more with twisted or with deep squats. She did not have any new activities or anything different Thursday during the day that she can think of. Patient denies having any previous injuries to this knee. She has not noticed any swelling and there is no locking or instability of the knee. She has not noticed any skin changes such as erythema or any type of bruising. No other contributing factors or information that she can think of at this time. ROS Const Constitutional: No body ache, chills, excessive sweating, fatigue, fever(s), frequent falls, headache(s), snoring, weakness, sleep problems or change in appetite Eyes Eyes: No blurry vision, change in vision, eye pain or Light sensitivity ENT ENT: No abnormal hearing, ear or mastoid pain, tinnitus, nasal congestion, headache(s), neck pain or sore throat Resp Respiratory: No cough, shortness of breath, snoring or wheezing Cardio Cardiology: No chest pain at rest, chest pain with exertion, excessive sweating, shortness of breath, dyspnea on exertion, lightheadedness, orthopnea or palpitations Gastro GI: No abdominal pain, change in bowel habits, constipation, cramping, diarrhea, nausea/dyspepsia or vomiting Genitourinary-Female : No burning urination, painful urination, urinary incontinence, urinary frequency, abnormal vaginal bleeding or pelvic pain Musc Musculoskeletal: No abnormal gait, joint pain, back pain, limited range of motion, neck pain or numbness Skin Skin: No dry skin, redness, lesions, itchy eyes, rash or wounds Neuro Neurology: No abnormal gait, abnormal hearing, weakness, frequent falls, headache(s), memory loss or numbness Psych Psychiatric: No anxiety, No change in appetite, No depression, No memory loss and No Thoughts of harming yourself/Others Endo Endocrine: No cold intoleranc (more content not included)... Normal [facility] Culture, urineOrdered By: Deborah Raymundo on 02-25-2024 Bacteria identified Cx Nom (U) Culture exhibits no growth. [facility] Gram stain for investigation of transfusion reactionOrdered By: Edwina Raymundo on 02-25-2024 Microscopic observation Gram stain Nom (Unsp spec) [facility] Laboratory - Chemistry and C hemistry - challengeon 02-25-2024 Bilirubin Ql (U) Negative [facility] Glucose Ql (U) Negative [facility] Ketones Ql (U) Negative [facility] pH (U) 5.0 [pH] [facility] Specific gravity (U) [Rel density] 1.020 [facility] Urobilinogen (U) [Mass/Vol] Negative [facility] - Hematology and Cell countson 02-25-2024 Hemoglobin Ql (U) Negative [facility] - Specimen inform ationon 02-25-2024 Clarity (U) Cloudy [facility] Color (U) YELLOW [facility] - Urinalysison Nitrite Ql (U) Negative [facility] Protein Ql (U) Negative [facility] No Panel InformationOrdered By: Edwina Raymundo on 02-25-2024 Genital Culture Presumptive C albicans [facility] No Panel Informationon 02-24 POC Bacterial Vaginitis (Rapid) Negative [facility] Urine Leukocytes Positive [facility] Urine Non-Hemolyzed Blood Negative [facility] Gram stain for investigation of transfusion reactionOrdered By: Karen Collins on 01-05-2024 Microscopic observation Gram stain Nom (Unsp spec) [facility] No Panel InformationOrdered By: Karen Collins on 01-05-2024 Genital Culture [facility] No Panel Informationon 01-04 POC Bacterial Vaginitis (Rapid) Negative [facility] Absolute lymphocyte countOrd ered By: Deyvi Lopez on 12-09-2023 Lymphocytes Auto (Unsp spec) [#/Vol] 1.93 10*3/uL 0.83-4.51 [facility] Automated lymphocyte count a s percentage of total leukocytesOrdered By: Deyvi Lopez on 12-09-2023 Lymphocytes/100 WBC Auto (Unsp spec) 24.6 % 19-41 [facility] Basophil percentageOrdered B y: Deyvi Lopez on 12-09-2023 Basophils/100 WBC (Bld) 0.4 % 0-1 [facility] Eosinophils/100 WBC (Bld) 3.1 % 0-5 [facility] Hemoglobin (Bld) [Mass/Vol] 14.1 g/dL 12.0-15.0 [facility] Monocytes/100 WBC (Bld) 9.8 % 0-10 [facility] Neutrophils (Bld) [#/Vol] 4.9 10*3/uL 2.0-7.7 [facility] Neutrophils/100 WBC (Bld) 61.8 % 47-70 [facility] WBC (Bld) [#/Vol] 7.9 10*3/uL 4.4-11.0 [facility] Determination of erythrocyte mean corpuscular volume (MCV)Ordered By: Deyvi Lopez on 12-09-2023 MCV (RBC) [Entitic vol] 82.9 fL 81-99 [facility] Erythrocyte distribution wid th ratioOrdered By: Deyvi Lopez on 12-09-2023 Erythrocyte distribution width (RBC) [Ratio] 13.3 % 11.6-14.6 [facility] Erythrocyte distribution wid th standard deviationOrdered By: Deyvi Lopez on 12-09-2023 Erythrocyte distribution width (RBC) [Entitic vol] 39.8 fL 35.1-43.9 [facility] Hematocrit Auto (Bld) [Volum e fraction]Ordered By: Deyvi Lopez on 12-09-2023 Hematocrit (Bld) [Volume fraction] 43.0 % 37-47 [facility] Immature granulocytes/100 WB C Auto (Bld)Ordered By: Deyvi Lopez on 12-09-2023 Immature granulocytes/100 WBC (Bld) 0.300 % 0.0-0.9 [facility] Comment on above: IG% - Immature Granu locytes (promyelocytes, myelocytes and metamyelocytes) > 1% indicates that a LEFT SHIFT is Present. Laboratory - Hematology and Cell countsOrdered By: Deyvi Lopez on 12-09-2023 MCH (RBC) [Entitic mass] 27.2 pg 27.0-32.0 [facility] MCHC (RBC) [Mass/Vol] 32.8 g/dL 32-[address] [facility] Nucleated RBC/100 WBC (Bld) [Ratio] 0 % 0-5 [facility] Platelet mean volume (Bld) [Entitic vol] 9.4 fL 6.2-12.0 [facility] Platelets (Bld) [#/Vol] 235 10*3/uL 150-450 [facility] RBC Auto (Bld) [#/Vol]Ordere d By: Deyvi Lopez on 12-09-2023 RBC (Bld) [#/Vol] 5.19 10*6/uL 4.2-5.4 [facility] Serum or plasma thyroid stim ulating hormone (TSH) measurement (units/volume)Ordered By: Deyvi Lopez on 12-09-2023 TSH Qn 1.54 uIU/mL 0.358-3.74 [facility] Thin prep Papanicolaou smear with manual screeningOrdered By: Deyvi Lopez on 12-09-2023 Thin prep Papanicolaou smear with manual screening Negative Negative [facility] Comment on above: Lyme antibodies not detected. Reflex testing is notindicated.No laboratory evidence of infection with B. burgdorferi(Lyme disease). Negative results may occur in patientsrecently infected (less than or equal to 14 days) with B.burgdorferi. If recent infection is suspected, repeattesting on a new sample collected in 7 to 14 days isrecommended.Performed at: [facility] [id number] Director: Peter Salas PhD, Phone: [phone] Absolute lymphocyte countOrd ered By: HEALTH ASSESSMENT on 11-26-2023 Lymphocytes Auto (Unsp spec) [#/Vol] 1.97 10*3/uL 0.83-4.51 [facility] Basophil percentageOrdered B y: HEALTH ASSESSMENT on 11-26-2023 Basophil percentage 3.4 mg/dL 2.5-4.9 [facility] Bilirubin [Mass/Vol] 1.00 mg/dL 0.20-1.00 [facility] Comment on above: For patients on eltr ombopag therapy, use of Dimension [place] TBIL is not recommended. Chloride [Moles/Vol] 110 mmol/L 98-107 [facility] Cholesterol [Mass/Vol] 176 mg/dL <200 [facility] Comment on above: <200 mg/dL Desirable 200-240 mg/dL Borderline >240 mg/dL High Risk Glucose [Mass/Vol] 89 mg/dL 74-106 [facility] Hemoglobin (Bld) [Mass/Vol] 14.1 g/dL 12.0-15.0 [facility] LDH [Catalytic activity/Vol] 179 U/L 84-246 [facility] Neutrophils (Bld) [#/Vol] 4.8 10*3/uL 2.0-7.7 [facility] Potassium [Moles/Vol] 4.4 mmol/L 3.5-5.[address] [facility] Protein [Mass/Vol] 7.3 g/dL 6.4-8.2 [facility] Sodium [Moles/Vol] 140 mmol/L 136-145 [facility] Triglyceride [Mass/Vol] 48 mg/dL <199 [facility] Comment on above: The drugs N-Acetylcy steine and Metamizole may falsely depress this assay.Serum Triglycerides Reference Interval Normal <150 mg/dL Borderline high 150 - 199 mg/dL High 200 - 499 mg/dL Very High > or = 500 mg/dL WBC (Bld) [#/Vol] 7.8 10*3/uL 4.4-11.0 [facility] Bilirubin Test strip Ql (U)O rdered By: HEALTH ASSESSMENT on 11-26-2023 Bilirubin Ql (U) Negative Negative [facility] Blood band neutrophil count as percentage of total leukocytesOrdered By: HEALTH ASSESSMENT on 11-26-2023 Band form neutrophils/100 WBC (Bld) 62.2 % 47-70 [facility] Determination of erythrocyte mean corpuscular volume (MCV)Ordered By: HEALTH ASSESSMENT on 11-26-2023 MCV (RBC) [Entitic vol] 83.8 fL 81-99 [facility] Direct bilirubinOrdered By: HEALTH ASSESSMENT on 11-26-2023 Bilirubin.direct [Mass/Vol] 0.25 mg/dL 0.00-0.30 [facility] Erythrocyte distribution wid th ratioOrdered By: HEALTH ASSESSMENT on 11-26-2023 Erythrocyte distribution width (RBC) [Ratio] 13.3 % 11.6-14.6 [facility] Erythrocyte distribution wid th standard deviationOrdered By: HEALTH ASSESSMENT on 11-26-2023 Erythrocyte distribution width (RBC) [Entitic vol] 40.7 fL 35.1-43.9 [facility] Hematocrit Auto (Bld) [Volum e fraction]Ordered By: HEALTH ASSESSMENT on 11-26-2023 Hematocrit (Bld) [Volume fraction] 42.5 % 37-47 [facility] Ketones Test strip Ql (U)Ord ered By: HEALTH ASSESSMENT on 11-26-2023 Ketones Ql (U) Negative Negative [facility] Laboratory - Chemistry and C hemistry - challengeOrdered By: HEALTH ASSESSMENT on 11-26-2023 Albumin/Globulin [Mass ratio] 1.0 {ratio} 0.9-2.4 [facility] ALP [Catalytic activity/Vol] 101 U/L 45-117 [facility] ALT [Catalytic activity/Vol] 31 U/L 13-56 [facility] Cholesterol in HDL (Body fld) [Mass/Vol] 69 mg/dL >40 [facility] Comment on above: The drugs N-Acetylcy steine and Metamizole may falsely depress this assay. Reference Range HDL <40 mg/dL Low HDL Cholesterol HDL >or= 60 mg/dL High HDL Cholesterol Cholesterol in LDL (Body fld) [Moles/Vol] 97 mg/dL 0-130 [facility] Cholesterol in VLDL Calc [Moles/Vol] 10 mg/dL 5-40 [facility] Cholesterol.total/Choles terol in HDL [Mass ratio] 2.60 {ratio} [facility] CO2 [Moles/Vol] 29.0 mmol/L 21.0-32.0 [facility] Globulin (S) [Mass/Vol] 3.6 g/dL 2.2-4.2 [facility] Urea nitrogen/Creatinine [Mass ratio] 16.0 mg/mg 10-20 [facility] Laboratory - Hematology and Cell countsOrdered By: HEALTH ASSESSMENT on 11-26-2023 MCH (RBC) [Entitic mass] 27.8 pg 27.0-32.0 [facility] MCHC (RBC) [Mass/Vol] 33.2 g/dL 32-[address] [facility] Nucleated RBC Auto (Syn fld) [#/Vol] 0.00 10^3/uL 0-5 [facility] Nucleated RBC/100 WBC (Bld) [Ratio] 0 % 0-5 [facility] Platelets (Bld) [#/Vol] 233 10*3/uL 150-450 [facility] Nitrite Test strip Ql (U)Ord ered By: HEALTH ASSESSMENT on 11-26-2023 Nitrite Ql (U) Negative Negative [facility] No Panel InformationOrdered By: HEALTH ASSESSMENT on 11-26-2023 Estimated GFR (MDRD) Amer 109 mL/min >60 [facility] Comment on above: GFR Calc Estimated GFR (MDRD) Non-Af Amer 90 mL/min >60 [facility] Comment on above: Non- GFR Calc Platelet mean volume Amador-Ec ker (Bld) [Entitic vol]Ordered By: HEALTH ASSESSMENT on 11-26-2023 Platelet mean volume (Bld) [Entitic vol] 8.9 fL 6.2-12.0 [facility] Protein Test strip Ql (U)Ord ered By: HEALTH ASSESSMENT on 11-26-2023 Protein Ql (U) Negative Negative [facility] RBC Auto (Bld) [#/Vol]Ordere d By: HEALTH ASSESSMENT on 11-26-2023 RBC (Bld) [#/Vol] 5.07 10*6/uL 4.2-5.4 [facility] Serum or plasma calcium omero urement (mass/volume)Ordered By: HEALTH ASSESSMENT on 11-26-2023 Calcium [Mass/Vol] 9.1 mg/dL 8.5-10.1 [facility] Serum or plasma creatinine m easurement (mass/volume)Ordered By: HEALTH ASSESSMENT on 11-26-2023 Creatinine [Mass/Vol] 0.75 mg/dL 0.55-1.[address] [facility] Comment on above: The validity of the calculated GFR & GFRAA in patients over 70 years has not been determined. Clinical correlation is essential. Serum or plasma urea nitroge n measurement (mass/volume)Ordered By: HEALTH ASSESSMENT on 11-26-2023 Urea nitrogen [Mass/Vol] 12 mg/dL 7-18 [facility] Serum or plasma uric acid me asurement (mass/volume)Ordered By: HEALTH ASSESSMENT on 11-26-2023 Urate [Mass/Vol] 2.8 mg/dL 2.6-6.0 [facility] Comment on above: The drugs N-Acetylcy steine and Metamizole may falsely depress this assay. Thin prep Papanicolaou smear with manual screeningOrdered By: HEALTH ASSESSMENT on 11-26-2023 Thin prep Papanicolaou smear with manual screening 3.7 g/dL 3.2-5.0 [facility] Thin prep Papanicolaou smear with manual screening 18 U/L 15-37 [facility] Thin prep Papanicolaou smear with manual screening 1 5-15 [facility] Urine blood detectionOrdered By: HEALTH ASSESSMENT on 11-26-2023 RBC Ql (U) Negative Negative [facility] Urine clarityOrdered By: HEA LT ASSESSMENT on 11-26-2023 Clarity (U) Sl. Cloudy Clear [facility] Urine color determinationOrd ered By: HEALTH ASSESSMENT on 11-26-2023 Color (U) Yellow Yellow [facility] Urine glucose detectionOrder ed By: HEALTH ASSESSMENT on 11-26-2023 Glucose Ql (U) Normal mg/dl Normal [facility] Urine leukocyte esterase det ection by dipstickOrdered By: HEALTH ASSESSMENT on 11-26-2023 Leukocyte esterase Test strip Ql (U) Negative Negative [facility] Urine pHOrdered By: HEALTH A SSESSMENT on 11-26-2023 pH (U) 6.0 [pH] 5.0 - 8.0 [facility] Urine specific gravity measu rementOrdered By: HEALTH ASSESSMENT on 11-26-2023 Specific gravity (U) [Rel density] 1.020 1.002-1.030 [facility] Urine urobilinogen measureme ntOrdered By: HEALTH ASSESSMENT on 11-26-2023 Urobilinogen Ql (U) Normal mg/dl Normal [facility] Laboratory - Microbiology an d Antimicrobial susceptibilityon 10-09-2023 S. pyogenes Ag IA Ql (Unsp spec) Negative [facility] Gram stain for investigation of transfusion reactionOrdered By: Loreta Christina on 08-24-2023 Microscopic observation Gram stain Nom (Unsp spec) [facility] Microscopic observation Gram stain Nom (Unsp spec) [facility] Laboratory - Chemistry and C hemistry - challengeon 08-24-2023 Bilirubin Ql (U) Negative [facility] Glucose Ql (U) Negative [facility] Ketones Ql (U) Negative [facility] pH (U) 6.0 [pH] [facility] Specific gravity (U) [Rel density] 1.015 [facility] Urobilinogen (U) [Mass/Vol] Negative [facility] Laboratory - Hematology and Cell countson 08-24-2023 Hemoglobin Ql (U) Negative [facility] Laboratory - Specimen inform ationon 08-24-2023 Clarity (U) Clear [facility] Color (U) YELLOW [facility] Laboratory - Urinalysison Nitrite Ql (U) Negative [facility] Protein Ql (U) Negative [facility] No Panel Informationon 08-24 Urine Leukocytes Negatve [facility] Urine Non-Hemolyzed Blood Negative [facility] Thin prep Papanicolaou smear with manual screeningOrdered By: Loreta Christina on 08-24-2023 Thin prep Papanicolaou smear with manual screening Neisseria or beta-hemolytic Streptococcus isolated. [facility] Thin prep Papanicolaou smear with manual screening Neisseria or beta-hemolytic Streptococcus isolated. [facility] Thin prep Papanicolaou smear with manual screeningOrdered By: Deyvi Lopez on 08-04-2023 Thin prep Papanicolaou smear with manual screening Negative Negative [facility] Comment on above: Lyme antibodies not detected. Reflex testing is notindicated.No laboratory evidence of infection with B. burgdorferi(Lyme disease). Negative results may occur in patientsrecently infected (less than or equal to 14 days) with B.burgdorferi. If recent infection is suspected, repeattesting on a new sample collected in 7 to 14 days isrecommended.Performed at: [facility] Director: Peter Salas PhD, Phone: [phone] Absolute lymphocyte countOrd ered By: Dr. Lopez on 12-11-2022 Lymphocytes Auto (Unsp spec) [#/Vol] 2.29 10*3/uL 0.83-4.51 [facility] Basophil percentageOrdered B y: Dr. Lopez on 12-11-2022 Basophils/100 WBC (Bld) 0.5 % 0-1 [facility] Bilirubin [Mass/Vol] 0.60 mg/dL 0.20-1.00 [facility] Comment on above: For patients on eltr ombopag therapy, use of Dimension [place] TBIL is not recommended. Chloride [Moles/Vol] 107 mmol/L 98-107 [facility] Eosinophils/100 WBC (Bld) 3.5 % 0-5 [facility] Glucose [Mass/Vol] 96 mg/dL 74-106 [facility] Neutrophils (Bld) [#/Vol] 4.3 10*3/uL 2.0-7.7 [facility] Neutrophils/100 WBC (Bld) 56.0 % 47-70 [facility] Potassium [Moles/Vol] 3.6 mmol/L 3.5-5.[address] [facility] Protein [Mass/Vol] 6.8 g/dL 6.4-8.2 [facility] Sodium [Moles/Vol] 140 mmol/L 136-145 [facility] WBC (Bld) [#/Vol] 7.7 10*3/uL 4.4-11.0 [facility] Blood erythrocytes count (nu mber/volume)Ordered By: Dr. Lopez on 12-11-2022 RBC (Bld) [#/Vol] 4.86 10*6/uL 4.2-5.4 [facility] Blood hemoglobin measurement (mass/volume)Ordered By: Dr. Lopez on 12-11-2022 Hemoglobin (Bld) [Mass/Vol] 13.5 g/dL 12.0-15.0 [facility] Blood lymphocytes/100 leukoc ytesOrdered By: Dr. Lopez on 12-11-2022 Lymphocytes/100 WBC (Bld) 29.6 % 19-41 [facility] Blood monocytes/100 leukocyt esOrdered By: Dr. Lopez on 12-11-2022 Monocytes/100 WBC (Bld) 10.1 % 0-10 [facility] Blood platelet mean volumeOr dered By: Dr. Lopez on 12-11-2022 Platelet mean volume (Bld) [Entitic vol] 9.2 fL 6.2-12.0 [facility] Determination of erythrocyte mean corpuscular volume (MCV)Ordered By: Dr. Lopez on 12-11-2022 MCV (RBC) [Entitic vol] 83.3 fL 81-99 [facility] Hematocrit Auto (Bld) [Volum e fraction]Ordered By: Dr. Lopez on 12-11-2022 Hematocrit (Bld) [Volume fraction] 40.5 % 37-47 [facility] Laboratory - Chemistry and C hemistry - challengeOrdered By: Dr. Lopez on 12-11-2022 ALP [Catalytic activity/Vol] 85 U/L 45-117 [facility] ALT [Catalytic activity/Vol] 32 U/L 13-56 [facility] CO2 [Moles/Vol] 29.0 mmol/L 21.0-32.0 [facility] Globulin (S) [Mass/Vol] 3.3 g/dL 2.2-4.2 [facility] Magnesium [Mass/Vol] 2.2 mg/dL 1.6-2.6 [facility] Urea nitrogen/Creatinine [Mass ratio] 20.4 mg/mg 10-20 [facility] Laboratory - Hematology and Cell countsOrdered By: Dr. Lopez on 12-11-2022 Erythrocyte distribution width (RBC) [Entitic vol] 39.8 fL 35.1-43.9 [facility] Erythrocyte distribution width (RBC) [Ratio] 13.2 % 11.6-14.6 [facility] Immature granulocytes/100 WBC (Bld) 0.300 % 0.0-0.9 [facility] Comment on above: IG% - Immature Granu locytes (promyelocytes, myelocytes and metamyelocytes) > 1% indicates that a LEFT SHIFT is Present. MCH (RBC) [Entitic mass] 27.8 pg 27.0-32.0 [facility] Nucleated RBC/100 WBC (Bld) [Ratio] 0 % 0-5 [facility] MCHC Auto (RBC) [Mass/Vol]Or dered By: Dr. Lopez on 12-11-2022 MCHC (RBC) [Mass/Vol] 33.3 g/dL 32-[address] [facility] No Panel InformationOrdered By: Dr. Lopez on 12-11-2022 Estimated GFR (MDRD) Amer 98 mL/min >60 [facility] Comment on above: GFR Calc Estimated GFR (MDRD) Non-Af Amer 81 mL/min >60 [facility] Comment on above: Non- GFR Calc Vitamin D 25-Hydroxy 52.3 ng/mL [facility] Comment on above: Vitamin D 25(OH) Sta tus Range Deficiency <20 ng/mL (50nmol/L) Insufficiency 20 - 30 ng/mL (50 - 75 nmol/L) Sufficiency 30 - 100 ng/mL (75 - 250 nmol/L) Toxicity >100 ng/mL (>250 nmol/L) Platelets bldOrdered By: Dr. Lopez on 12-11-2022 Platelets (Bld) [#/Vol] 254 10*3/uL 150-450 [facility] Serum or plasma albumin omero urement (mass/volume)Ordered By: Dr. Lopez on 12-11-2022 Albumin [Mass/Vol] 3.5 g/dL 3.2-5.0 [facility] Serum or plasma albumin/glob ulin mass ratioOrdered By: Dr. Lopez on 12-11-2022 Albumin/Globulin [Mass ratio] 1.1 {ratio} 0.9-2.4 [facility] Serum or plasma calcium omero urement (mass/volume)Ordered By: Dr. Lopez on 12-11-2022 Calcium [Mass/Vol] 8.7 mg/dL 8.5-10.1 [facility] Serum or plasma creatinine m easurement (mass/volume)Ordered By: Dr. Lopez on 12-11-2022 Creatinine [Mass/Vol] 0.83 mg/dL 0.55-1.[address] [facility] Comment on above: The validity of the calculated GFR & GFRAA in patients over 70 years has not been determined. Clinical correlation is essential. Serum or plasma urea nitroge n measurement (mass/volume)Ordered By: Dr. Lpoez on 12-11-2022 Urea nitrogen [Mass/Vol] 17 mg/dL 7-18 [facility] Thin prep Papanicolaou smear with manual screeningOrdered By: Dr. Lopez on 12-11-2022 Thin prep Papanicolaou smear with manual screening 17 U/L 15-37 [facility] Thin prep Papanicolaou smear with manual screening 4 5-15 [facility] Gram stain for investigation of transfusion reactionon 02-19-2022 Microscopic observation Gram stain Nom (Unsp spec) [facility] Work Phone: Thin prep Papanicolaou smear with manual screeningon 02-19-2022 Cytopathology procedure, preparation of smear, genital source Normal genital annie isolated [facility] Work Phone: No Panel Informationon 01-17 Miscellaneous Test See comment [facility] Work Phone: Comment on above: Yeast ID Katy alb icans: Amphotericic B ALESIA= 0.5 ug/mL Caspofungin ALESIA= 0.03 ug/mL Susceptible Ketoconazole ALESIA= 0.016 ug/mL Voriconazole ALESIA= 0.008 ug/mL Susceptible Fluconazole ALESIA= 0.25 ug/mL Susceptible Flucytosine ALESIA= 0.12 ug/mL Itraconazole ALESIA= 0.06 ug/mL Anidulafungin ALESIA= 0.12 ug/mL Susceptible Micafungin ALESIA= 0.008 ug/mL Susceptible Posaconazole ALESIA= 0.03 ug/mL Whole blood hemoglobin A1c/t otal hemoglobin ratio (mass fraction)on 01-17-2022 HbA1c (Bld) [Mass fraction] 4.8 % 3.8-5.6 [facility] Work Phone: Comment on above: Normal < 5.7 % Predi abetic 5.7 - 6.4 % Diabetic >or= 6.5 % Please note range changes. Gram stain for investigation of transfusion reactionon 12-19-2021 Microscopic observation Gram stain Nom (Unsp spec) [facility] Work Phone: Vital Signs Date Time Vital Sign Value Performing Clinician Faci lity 03-21-2025 09:25-0400 Body height 162.[address] Deyvi Lopez DO Work Phone: [facility] 03-21-2025 09:25-0400 Body mass index (BMI) [Ratio] 28.3 kg/m2 Dr. Deyvi Lopez DO Work Phone: [facility] 03-21-2025 09:25-0400 Body temperature 96.8 [degF] Dr. Deyvi Lopez DO Work Phone: [facility] 03-21-2025 09:25-0400 Body weight 74.[address] Deyvi Lopez DO Work Phone: [facility] 03-21-2025 09:25-0400 Diastolic blood pressure 68 mm[Hg] Dr. Deyvi Lopez DO Work Phone: [facility] 03-21-2025 09:25-0400 Heart rate 61 /min Dr. Deyvi Lopez DO Work Phone: [facility] 03-21-2025 09:25-0400 Respiratory rate 16 /min Dr. Deyvi Lopez DO Work Phone: [facility] 03-21-2025 09:25-0400 SaO2% (BldA) [Mass fraction] 99 % Dr. Deyvi Lopez DO Work Phone: [facility] 03-21-2025 09:25-0400 Systolic blood pressure 126 mm[Hg] Dr. Deyvi Lopez DO Work Phone: [facility] 02-25-2024 08:35-0400 Body height 162.[address] Deyvi Lopez Work Phone: [facility] 02-25-2024 08:30-0400 Body mass index (BMI) [Ratio] 32.3 kg/m2 Dr. Deyvi Lopez Work Phone: [facility] 02-25-2024 08:30-0400 Body weight 85.[address] Deyvi Lopez Work Phone: [facility] 02-25-2024 08:30-0400 Diastolic blood pressure 80 mm[Hg] Dr. Deyvi Lopez Work Phone: [facility] 02-25-2024 08:30-0400 Systolic blood pressure 126 mm[Hg] Dr. Deyvi Lopez Work Phone: [facility] 01-05-2024 11:08-0400 Body height 162.[address] Deyvi Lopez Work Phone: [facility] 01-05-2024 09:12-0400 Body mass index (BMI) [Ratio] 31.6 kg/m2 Dr. Deyvi Lopez Work Phone: [facility] 01-05-2024 09:12-0400 Body weight 83.[address] Deyvi Lopez Work Phone: [facility] 01-05-2024 09:12-0400 Diastolic blood pressure 82 mm[Hg] Dr. Deyvi Lopez Work Phone: [facility] 01-05-2024 09:12-0400 Systolic blood pressure 130 mm[Hg] Dr. Deyvi Lopez Work Phone: [facility] 12-08-2023 08:31-0500 Body height 162.[address] Deyvi Lopez Work Phone: [facility] 12-08-2023 08:31-0500 Body mass index (BMI) [Ratio] 31.7 kg/m2 Dr. Deyvi Lopez Work Phone: [facility] 12-08-2023 08:31-0500 Body temperature 97.8 [degF] Dr. Deyvi Lopez Work Phone: [facility] 12-08-2023 08:31-0500 Body weight 83.[address] Deyvi Lopez Work Phone: [facility] 12-08-2023 08:31-0500 Diastolic blood pressure 78 mm[Hg] Dr. Deyvi Lopez Work Phone: [facility] 12-08-2023 08:31-0500 Heart rate 68 /min Dr. Deyvi Lopez Work Phone: [facility] 12-08-2023 08:31-0500 Respiratory rate 16 /min Dr. Deyvi Lopez Work Phone: [facility] 12-08-2023 08:31-0500 SaO2% (BldA) [Mass fraction] 99 % Dr. Deyvi Lopez Work Phone: [facility] 12-08-2023 08:31-0500 Systolic blood pressure 128 mm[Hg] Dr. Deyvi Lopez Work Phone: [facility] 10-09-2023 06:08-0500 Body temperature 98.5 [degF] Dr. Deyvi Lopez Work Phone: [facility] 10-09-2023 06:08-0500 Diastolic blood pressure 88 mm[Hg] Dr. Deyvi Lopez Work Phone: [facility] 10-09-2023 06:08-0500 Heart rate 92 /min Dr. Deyvi Lopez Work Phone: [facility] 10-09-2023 06:08-0500 Respiratory rate 16 /min Dr. Deyvi Lopez Work Phone: [facility] 10-09-2023 06:08-0500 SaO2% (BldA) [Mass fraction] 97 % Dr. Deyvi Lopez Work Phone: [facility] 10-09-2023 06:08-0500 Systolic blood pressure 133 mm[Hg] Dr. Deyvi Lopez Work Phone: [facility] 08-24-2023 14:19-0400 Body height 162.[address] Deyvi Lopez Work Phone: [facility] 08-24-2023 14:18-0400 Body mass index (BMI) [Ratio] 32 kg/m2 Dr. Deyvi Lopez Work Phone: [facility] 08-24-2023 14:18-0400 Body weight 84.[address] Deyvi Lopez Work Phone: [facility] 08-24-2023 14:18-0400 Diastolic blood pressure 77 mm[Hg] Dr. Deyvi Lopez Work Phone: [facility] 08-24-2023 14:18-0400 Systolic blood pressure 130 mm[Hg] Dr. Deyvi Lopez Work Phone: [facility] 12-11-2022 13:51-0500 Body height 162.[address] Deyvi Lopez Work Phone: [facility] 12-11-2022 13:51-0500 Body mass index (BMI) [Ratio] 32.1 kg/m2 Dr. Deyvi Lopez Work Phone: [facility] 12-11-2022 13:51-0500 Body temperature 97.6 [degF] Dr. Deyvi Lopez Work Phone: [facility] 12-11-2022 13:51-0500 Body weight 84.[address] Deyvi Lopez Work Phone: [facility] 12-11-2022 13:51-0500 Diastolic blood pressure 62 mm[Hg] Dr. Deyvi Lopez Work Phone: [facility] 12-11-2022 13:51-0500 Heart rate 67 /min Dr. Deyvi Lopez Work Phone: [facility] 12-11-2022 13:51-0500 Respiratory rate 14 /min Dr. Deyvi Lopez Work Phone: [facility] 12-11-2022 13:51-0500 SaO2% (BldA) [Mass fraction] 99 % Dr. Deyvi Lopez Work Phone: [facility] 12-11-2022 13:51-0500 Systolic blood pressure 104 mm[Hg] Dr. Deyvi Lopez Work Phone: [facility] 02-19-2022 14:58-0400 Body height 162.[address] Deyvi Lopez Work Phone: [facility] Work Phone: 02-19-2022 14:58-0400 Body mass index (BMI) [Ratio] 32.7 kg/m2 Dr. Deyvi Lopez Work Phone: [facility] Work Phone: 02-19-2022 14:58-0400 Body weight 86.[address] Deyvi Lopez Work Phone: [facility] Work Phone: 02-19-2022 14:58-0400 Diastolic blood pressure 80 mm[Hg] Dr. Deyvi Lopez Work Phone: [facility] Work Phone: 02-19-2022 14:58-0400 Systolic blood pressure 140 mm[Hg] Dr. Deyvi Lopez Work Phone: [facility] Work Phone: 01-17-2022 11:20-0400 Body height 162.[address] Deyvi Lopez Work Phone: [facility] Work Phone: 01-17-2022 11:20-0400 Body mass index (BMI) [Ratio] 32.8 kg/m2 Dr. Deyvi Lopez Work Phone: [facility] Work Phone: 01-17-2022 11:20-0400 Body weight 86.[address] Deyvi Lopez Work Phone: [facility] Work Phone: 01-17-2022 11:20-0400 Diastolic blood pressure 88 mm[Hg] Dr. Deyvi Lopez Work Phone: [facility] Work Phone: 01-17-2022 11:20-0400 Systolic blood pressure 122 mm[Hg] Dr. Deyvi Lopez Work Phone: [facility] Work Phone: 12-19-2021 07:39-0500 Body mass index (BMI) [Ratio] 32.8 kg/m2 Dr. Deyvi Lopez Work Phone: [facility] Work Phone: 12-19-2021 07:39-0500 Body weight 86.[address] Deyvi Lopez Work Phone: [facility] Work Phone: 12-19-2021 07:39-0500 Diastolic blood pressure 86 mm[Hg] Dr. Deyvi Lopez Work Phone: [facility] Work Phone: 12-19-2021 07:39-0500 Systolic blood pressure 130 mm[Hg] Dr. Deyvi Lopez Work Phone: [facility] Work Phone: Encounters Encounter Date Encounter Type Care Provider Facility Start: 03-21-2025 End: 03-21-[address] Deyvi Baez DO [facility] Work Phone: Start: 03-21-2025 End: 03-21-[address] Deyvi Lopez DO Work Phone: [facility] Work Phone: Start: 03-16-2025 Registered Referred [facility] [employer] -[facility] Start: 03-16-2025 ambulatory Health Risk Assessment Facility:[facility] Start: 06-21-2024 End: 06-21-2024 ambulatory Deyvi Lopez Facility:[facility] Start: 04-12-2024 End: 04-12-2024 ambulatory Deyvi Lopez Facility:[facility] Start: 02-25-2024 End: 02-25-[address] Deyvi Lopez Work Phone: [facility] Work Phone: Start: 02-25-2024 End: 02-25-[address] Deyvi Lopez Work Phone: [facility]-Laboratory, Specimen Work Phone: Start: 02-25-2024 End: 02-25-[address] Deyvi Lopez Work Phone: [facility] Work Phone: Start: 01-05-2024 End: 01-05-[address] Deyvi Lopez Work Phone: [facility] Work Phone: Start: 01-05-2024 End: 01-05-[address] Deyvi Lopez Work Phone: [facility] Work Phone: Start: 12-09-2023 End: 12-09-[address] Deyvi Lopez Work Phone: [facility] Work Phone: Start: 12-09-2023 End: 12-09-[address] Deyvi Lopez Work Phone: [facility]Laboratory Work Phone: Start: 12-08-2023 End: 12-08-[address] Deyvi Lopez Work Phone: [facility] Work Phone: Start: 11-26-[address] Krys Lopez Work Phone: [facility] Start: 10-09-2023 End: 10-09-[address] Deyvi Lopez Work Phone: [facility] Work Phone: Start: 08-24-2023 End: 08-24-[address] Deyvi Lopez Work Phone: [facility] Work Phone: Start: 08-24-2023 End: 08-24-[address] [facility] Lopez [facility] Work Phone: Start: 08-24-2023 End: 08-24-[address] Deyvi Lopez Work Phone: [facility] Work Phone: Start: 08-04-2023 End: 08-04-[address] Deyvi Lopez Work Phone: [facility]Labor[facility] Work Phone: Start: 12-15-2022 End: 12-15-[address] Deyvi Lopez Work Phone: [facility] Work Phone: Start: 12-15-2022 End: 12-15-[address] Deyvi Lopez Work Phone: [facility]-Radiology, [facility] Start: 12-11-2022 End: 12-11-[address] Deyvi Lopez Work Phone: [facility] Start: 02-19-2022 End: 02-19-[address] Deyvi Lopez Work Phone: [facility] [facility] Start: 02-19-2022 End: 02-19-[address] Deyvi Lopez Work Phone: [facility] [place] Start: 01-17-2022 End: 01-17-[address] Deyvi Lopez Work Phone: [facility] Start: 01-17-2022 End: 01-17-[address] Deyvi Lopez Work Phone: [facility] Start: 12-19-2021 End: 12-19-[address] Deyvi Lopez Work Phone: [facility] Procedures Date Procedure Procedure Detail Performing Clinician Start: 03-16-2025 Serum inorganic phos phate measurement Dr. Deyvi Lopez DO Work Phone: Start: 03-16-2025 Urnls dip stick/tabl et reagent auto microscopy Dr. Deyvi Lopez DO Work Phone: Start: 02-25-[address] Aftab Lopez Work Phone: Start: 02-25-2024 Investigation of transfusion reaction Dr. Deyvi Lopez Work Phone: Start: 02-25-[address] Fabiola Lopez Work Phone: Start: 01-05-[address] Aftab Lopez Work Phone: Start: 01-05-2024 Investigation of transfusion reaction Dr. Deyvi Lopez Work Phone: Start: 08-24-2023 Cytopathology proced ure, preparation of smear, genital source Dr. Deyvi Lopez Work Phone: Start: 08-24-2023 Investigation of transfusion reaction Dr. Deyvi Lopez Work Phone: Start: 12-15-2022 Plain X-ray of shoulder Dr. Deyvi Lopez Work Phone: Start: 02-19-2022 Cytopathology proced ure, preparation of smear, genital source Dr. Deyvi Lopez Work Phone: Start: 02-19-2022 Investigation of transfusion reaction Dr. Deyvi Lopez Work Phone: Start: 01-17-2022 Cytopathology proced ure, preparation of smear, genital source Dr. Deyvi Lopez Work Phone: Start: 01-17-2022 Microscopic observat ion [Identifier] in Unspecified specimen by Gram stain Dr. Deyvi Lopez Work Phone: Start: 12-19-2021 End: 12-19-2021 Cytopathology procedure, preparation of smear, genital source Dr. Deyvi Lopez Work Phone: Start: 12-19-2021 Investigation of transfusion reaction Dr. Deyvi Lopez Work Phone: Plan of Treatment Date Care Activity Detail Author T4 free measurement [facility] Thyroid stimulating hormone measurement [facility] Immunizations Immunization Date Immunization Notes Care Provider [facility] 08-30-2020 influenza, injectabl e, quadrivalent, preservative free Dr. Deyvi Lopez Work Phone: [facility] 08-30-2020 influenza, seasonal, injectable Dr. Deyvi Lopez Work Phone: [facility] 07-21-2019 influenza, injectabl e, quadrivalent, preservative free Dr. Deyvi Lopez Work Phone: [facility] 07-21-2019 influenza, seasonal, injectable Dr. Deyvi Lopez Work Phone: [facility] 07-23-2018 influenza, injectabl e, quadrivalent, preservative free Dr. Deyvi Lopez Work Phone: [facility] 07-23-2018 influenza, seasonal, injectable Dr. Deyvi Lopez Work Phone: [facility] 07-22-2017 influenza, injectabl e, quadrivalent, preservative free Dr. Deyvi Lopez Work Phone: [facility] 07-22-2017 influenza, seasonal, injectable Dr. Deyvi Lopez Work Phone: [facility] 07-24-2016 influenza, injectabl e, quadrivalent, preservative free Dr. Deyvi Lopez Work Phone: [facility] 07-24-2016 influenza, seasonal, injectable Dr. Deyvi Lopez Work Phone: [facility] 06-26-2016 influenza, injectabl e, quadrivalent, preservative free Dr. Deyvi Lopez Work Phone: [facility] 09-10-2015 influenza, injectabl e, quadrivalent, preservative free Dr. Deyvi Lopez Work Phone: [facility] 09-10-2015 influenza, seasonal, injectable Dr. Deyvi Lopez Work Phone: [facility] 07-25-2014 Influenza, high dose seasonal Dr. Deyvi Lopez DO Work Phone: [facility] 07-25-2014 influenza, high dose seasonal, preservative-free Dr. Deyvi Lopez Work Phone: [facility] 07-20-2014 influenza, injectabl e, quadrivalent, preservative free Dr. Deyvi Lopez Work Phone: [facility] 07-20-2014 influenza, seasonal, injectable Dr. Deyvi Lopez Work Phone: [facility] 08-25-[address] Deyvi Lopez Work Phone: [facility] Payers Date Payer Category Payer Self-pay [id number] 2024 Unknown [id number] Unknown [id number] Unknown [id number] Social History Date Type Detail Facility Start: 01-17-2022 End: 01-05-2024 Tobacco smoking status NHIS Unknown if ever smoked [facility] Start: 1985 Sex Assigned At Female [facility] Start: 01-05-2024 Tobacco smoking stat us MOIS Never smoked tobacco (finding) [facility] Evaluation note Note Date & Type Note Facility Evaluation note Diagnosis Onset Date Obesity chronic Yeast vaginitis acute [facility] Work Phone: Evaluation note Note Date & Type Note Facility Evaluation note Diagnosis Onset Date Obesity chronic Yeast vaginitis acute Yeast vaginitis acute [facility] Work Phone: Evaluation note Note Date & Type Note Facility Evaluation note Diagnosis Onset Date Shoulder pain, right acute Anxiety and depression chron [facility] Work Phone: Evaluation note Note Date & Type Note Facility Evaluation note Diagnosis Onset Date Yeast vaginitis acute [facility] Work Phone: Evaluation note Note Date & Type Note Facility Evaluation note Diagnosis Onset Date Yeast vaginitis acute Acute pharyngitis acute Bilateral impacted cerumen a cute Bilateral otitis externa acu te Fatigue acute Anxiety and depression chron ic [facility] Work Phone: Evaluation note Note Date & Type Note Facility Evaluation note Diagnosis Onset Date Fatigue acute Anxiety and depression chron ic Vaginal irritation acute [facility] Work Phone: Evaluation note Note Date & Type Note Facility Evaluation note Diagnosis Onset Date Fatigue acute Anxiety and depression chron ic Vaginal irritation acute Yeast vaginitis acute Dysuria noneactive [facility] Work Phone: Evaluation note Note Date & Type Note Facility Evaluation note Diagnosis Onset Date Resolution Hair loss acute March 21, 2025 9:12am [facility] Work Phone: Reason for referral (narrative) Note Date & Type Note Facility Reason for referral (narrative) No reason for referral information available [facility] Work Phone: Chief Complaint and Reason for Visit 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 Reason for Visit Yeast vaginitis Chief Complaint yeast infection? SORE THROAT, EAR PAIN EMPLOYEE HEALTH WELLNESS CHECK E ORDERS Reason for Visit Yeast vaginitis Acute pharyngitis Bilateral impacted cerumen Bilateral otitis externa Fatigue Anxiety and depression Chief Complaint SORE THROAT, EAR JANETT N EMPLOYEE HEALTH WELLNESS CHECK E ORDERS POSSIBLE YEAST INFECTION Reason for Visit Fatigue Anxiety and depression Vaginal irritation Chief Complaint EMPLOYEE HEALTH WELLNESS CHECK E ORDERS POSSIBLE YEAST INFECTION vaginitis Reason for Visit Fatigue Anxiety and depression Vaginal irritation Yeast vaginitis Dysuria Chief Complaint Admit Date EMPLOYEE LABS March 16, 2025 6:32a m EMPLOYEE LABS March 21, 2025 9:12a m Reason for Visit Admit Date Hair loss March 21, 2025 9:12a m Family History No Family History Records Found Relationship Condition Age at Onset Recorded Date/T rachel father Alcoholism Unknown mother Mental disorder Unknown grandmother Unknown grandfather Malignant neoplasm of skin Unknown Hypertension Unknown Relationship Condition Age at Onset Recorded Date/T rachel father Alcoholism Unknown Malignant neoplasm of skin Unknown mother Mental disorder Unknown grandmother Unknown grandfather Malignant neoplasm of skin Unknown Hypertension Unknown Advance Directives No Advanced Directives Records Found Advance Directive Response Recorded Date/ Time Advance Directives No June 18, 2021 7:43am Living Will No June 18 7:43am Power of Alley Tender No June 18 7:43am Advance Directive Response Recorded Date/ Time Advance Directives No June 18, 2021 6:43am Living Will No June 18 6:43am Power of Alley Tender No June 18 6:43am Advance Directive Response Recorded Date/ Time Advance Directives No January 04 9:12am Living Will No January 05, 2024 9:12am Power of Alley Tender No January 04 9:12am Advance Directive Response Recorded Date/ Time Advance Directives No January 04 9:12am Summary Purpose Additional Source Comments Goals (unrecognized section and content) Goals may be documented in a n alternate sectionGoals may be documented in an alternate sectionGoals may be documented in an alternate sectionGoals may be documented in an alternate sectionGoals may be documented in an alternate sectionGoals may be documented in an alternate sectionGoals may be documented in an alternate sectionGoals may be documented in an alternate section Care Teams (unrecognized sec tion and content) Team Status: Active Member Role Status Dates Dr. Deyvi Lopez , DO Family Provider Active Dr. Deyvi Lopez , DO Primary Care Provider Active Team Status: Inactive Member Role Status Dates Dr. Deyvi Lopez , DO Primary Care Pr ovider, Attending Provider, Referring Provider Active Team Status: Inactive Member Role Status Dates Dr. Deyvi Lopez , DO Primary Care Provider, Attend ing Provider Active Team Status: Inactive Member Role Status Dates Dr. Deyvi Lopez , DO Primary Care Provider, Referr ing Provider Active Loreta Christina CNM Attending Provider Active Team Status: Inactive Member Role Status Dates Dr. Deyvi Lopez , DO Primary Care Provider Active Loreta Christina CNM Attending Provider, Referring Pr ovider Active Team Status: Inactive Member Role Status Dates Dr. Deyvi Lopez , DO Primary Care Provider, Referr ing Provider Active Marty SONG, PA Attending Provider Active Team Status: Active Member Role Status Dates Dr. Deyvi Lopez , DO Primary Care Provider Active Health Risk Assessment Attending Provider, Referring P shavonne Active Team Status: Inactive Member Role Status Dates Dr. Deyvi Lopez , DO Primary Care Provider, Referr ing Provider Active Karen Collins TUG HAND, TUG HAND-C Attending Provider Active Team Status: Inactive Member Role Status Dates Dr. Deyvi Lopez , DO Primary Care Provider Active Karen Collins TUG HAND, TUG HAND-C Attending Provider, Referring Provider Active Team Status: Inactive Member Role Status Dates Dr. Deyvi Lopez , DO Primary Care Provider, Referr ing Provider Active BETH Beltran Attending Provider Active Team Status: Inactive Member Role Status Dates Dr. Deyvi Lopez , DO Primary Care Provider Active BETH Beltran Attending Provider Active Team Status: Active Member Role Status Dates Dr. Deyvi Lopez DO Primary Care Provider Active Start: March 16, 2025 Health Risk Assessment Attending Provider Active Start: March 16, 2025 Health Risk Assessment Referring Provider Active Start: March 16, 2025 Team Status: Inactive Member Role Status Dates Dr. Deyvi Lopez DO Primary Care Provider Active Start: March 21, 2025 End: March 21, 2025 Dr. Deyvi Lopez DO Attending Provider Active Start: March 21, 2025 End: March 21, 2025 Dr. Deyvi Lopez DO Referring Provider Active Start: March 21, 2025 End: March 21, 2025 INFORMATION SOURCE (unrecogn ized section and content) DATE CREATED AUTHOR 03/22/2025 [facility] FOR RECORDS PERTAINING TO PATIENTS WHO ARE OR HAVE BEEN ENROLLED IN A CHEMICAL DEPENDENCY/SUBSTANCEABUSE PROGRAM, SOME INFORMATION MAY BE OMITTED. This clinical summary was aggregated from multiple sources. Caution should be exercised in using it in the provision of clinical care. This summary normalizes information from multiple sources, and as a consequence, information in this document may materially change the coding, format and clinical context of patient data. In addition, data may be omitted in some cases. CLINICAL DECISIONS SHOULD BE BASED ON THE PRIMARY CLINICAL RECORDS. [employer] provides no warranty or guarantee of the accuracy or completeness of information in this document.
== END 2025-04-12 23:59 | disposition home or self-care (01) ==
LOC: LAB 12:45
PROVIDERS: PCP Family Medicine; Referring Provider Family Medicine; Visit Provider Family Medicine
DX: L65.9 Nonscarring hair loss, unspecified (principal)
CPT/HCPCS: 36415; 84439; 84443